=== PATIENT | female | born 1985 | race Caucasian/White ===

== ENCOUNTER 2022-01-12 14:02 | Outpatient (CLI) | payer BC, SELFPAY ==
--- OUTSIDE RECORDS SUMMARY | 2022-01-12 14:06 | XMS_ITS | Encounter Summary ---
:1985 Author Organization [facility] Address [address] [place] [address] Care Team Providers Name Role Phone Kyle Keller MD Primary Care Provider Reason for Visit Reason Comments Arm Pain Left elbow pain Encounter Details Date Type Department Care Team Description 11/17/2020 Office Visit Kyle Tai Left elbow pain [address] MD Bigg (Primary Dx) [place], [place] [address] 3450 [facility] [address] [place] [address] Social History Tobacco Use Types Packs/Day Years Used Date Smoking Tobacco: Never Smokeless Tobacco: Never Alcohol Use Standard Drinks/Week Comments Yes 0 (1 standard drink = 0.6 oz pure alcoho l) Sex Assigned at Date Recorded Female 08/18/2018 8:27 AM CDT documented as of this encounter Last Filed Vital Signs Vital Sign Reading Time Taken Comments Blood Pressure 122/80 11/17/2020 3:27 PM CDT Pulse 88 11/17/2020 3:27 PM CDT Temperature 36.8 ??C (98.2 ??F) 11/17/2020 3:27 PM CDT Respiratory Rate 16 11/17/2020 3:27 PM CDT Oxygen Saturation 98% 11/17/2020 3:27 PM CDT Inhaled Oxygen Concentration - - Weight 121 kg (266 lb 14.4 oz) 11/17/2020 3:27 PM CDT Height - - Body Mass Index 42.39 08/22/2020 4:27 PM CDT documented in this encounter Progress Notes Kyle Keller MD - 11/17/2020 3:20 PM CDT Estab Patient Visit Subjective Patient ID: Flores Serrano is a 34 y.o. female. HPI the patient is here today because of left elbow pain. The patient was doing well without pain in her left elbow until she had her first COVID-19 vaccine from [employer]. Within 2 days she started to have mild aching sensation in her left elbow. She otherwise had no symptoms no complications no fevers no chills no significant fatigue no swelling in the arm noredness. She has not had any particular recent injury no falls no repetitive use nothing that would have happened to her. It was quite coincidental that it occurred within 2 days of having had her COVID-19 vaccine. She has had no surgery on this elbow before no particular injuries and again no pain or problems before this happened. It is a little bit of an aching feeling that increases if she fully bends her elbow and leaves it inthat position for short period of time. She sleeps okay does not wake her up it does not really affect activities when she is driving and even at work it does not bother her all that much is just time of there as a little aching is nonspecific. She has not even really tried to take much for it may be an occasional Tylenol. She says is usually about 2 or 3 out of 10 occasionally may go up to 4 but then it is pretty mild tominimal after that. She was also wondering whether she should get her second Covid vaccine. Review of Systems Objective Physical Exam she is alert she appears comfortable her vital signs show blood pressure 122/80 pulse 88 regular rate and rhythm temp is 98.2 her current weight is 267 pounds her BMI is 42.4 O2 sats 98% room air at rest She can turn her head left right up and down Problems she can roll her shoulders through full range of motion without a particular problems or discomfort She has full active and passive range of motion of her elbow wrist and hand and nothing we do causesany increase in pain except for when she fully flexes her forearm up to her upper arm. There is a negative Tinel's sign there is just a slightly positive Phalen sign but she says she has had a very mild carpal tunnel in that wrist before. She has had right carpal tunnel surgery She has no tenderness to palpation around the elbow there is no redness no swelling and again no tenderness to palpation of either medial or lateral epicondylar areas or the olecranon point. We discussed the utility of an x-ray for just reassurance but the potential is fairly minimal that there is any cyst or anything else that would be a problem. She also be noted she has never had a diagnosis of any type of cancer. Assessment/Plan Diagnoses and all orders for this visit: Left elbow pain The overall assessment is left elbow pain that probably is secondary to her COVID-19 vaccination at least coincident within a 2-day period of time of receiving her COVID-19 vaccine. The plan at this time is just symptomatic treatment no changes of activity she can receive her next COVID-19 vaccine but suggest maybe get that in her right arm and she can call us at any time if she would like to have an x-ray for reassurance we could do that. documented in this encounter Plan of Treatment Not on filedocumented as of this encounter Visit Diagnoses Diagnosis Left elbow pain - Primary Pain in joint, upper arm documented in this encounter Care Teams Aircraft Inspection Record Clerk Relationship Specialty Start Date End Date Kyle Keller MD PCP - General 10/20/20 06/21/[address] [place] [address] documented as of this encounter
--- OUTSIDE RECORDS SUMMARY | 2022-01-12 14:06 | XMS_ITS | Encounter Summary ---
:1985 Author Organization [facility] Address [address] [place] [address] Care Team Providers Name Role Phone None, Pcp Primary Care Provider Unavailable Encounter Details Date Type Department Care Team Description 08/22/2020 Travel Social History Tobacco Use Types Packs/Day Years Used Date Smoking Tobacco: Never Smokeless Tobacco: Never Alcohol Use Standard Drinks/Week Comments Yes 0 (1 standard drink = 0.6 oz pure alcoho l) Sex Assigned at Date Recorded Female 08/18/2018 8:27 AM CDT COVID-19 Exposure Response Date Recorded In the last month, have you been in contact with No / Unsure 08/22/2020 4:23 PM CDT someone who was confirmed or suspected to have Coronavirus / COVID-19? documented as of this encounter Plan of Treatment Not on filedocumented as of this encounter Visit Diagnoses Not on filedocumented in this encounter Care Teams Automat Car Attendant Relationship Specialty Start Date End Date None, Pcp PCP - General Tar Leveler 08/06/19 10/19/20 [address] [place] [address] documented as of this encounter
--- OUTSIDE RECORDS SUMMARY | 2022-01-12 14:06 | XMS_ITS | Encounter Summary ---
:1985 Author Organization [facility] Address [address] [place] [address] Care Team Providers Name Role Phone None, Pcp Primary Care Provider Unavailable Encounter Details Date Type Department Care Team Description 08/22/2020 Hospital Encounter [facility] Hospital Ultraso und [address] [place] [address] Social History Tobacco Use Types Packs/Day Years [...] / COVID-19? documented as of this encounter Medications at Time of Discharge Medication Sig Dispensed Refills Start Date End Date atorvastatin (LIPITOR) Take one at night 90 tablet 3 2019 20 MG tabletIndications: for cholesterol Mixed hyperlipidemia CINNAMON PO Take 1,000 mg by 0 mouth 1 (one) time each day citalopram (CeleXA) 20 TAKE ONE AND 135 tablet 1 05/29/2020 MG tabletIndications: ONE-HALF TABLETS BY Depression, unspecified MOUTH EVERY DAY FOR depression type, Anxiety ANXIETY/DEPRESSION CONTOUR NEXT TEST test 0 04/03/2019 strip Lancets miscIndications: Use as directed to 100 each 3 03/2019 Type 2 diabetes mellitus check blood sugars without complication, daily. without long-term current use of insulin (HCC) Progesterone Take 200 mg by mouth 90 capsule 1 08/15/2020 (Prometrium) 200 MG every night capsuleIndications: Low serum progesterone metFORMIN (GLUCOPHAGE) Take ONE pill TWICE 180 tablet 1 04/2311/06/2020 1000 MG a day for diabetes tabletIndications: Type 2 diabetes mellitus without complication, without long-term current use of insulin (HCC) documented as of this encounter Plan of Treatment Not on filedocumented as of this encounter Procedures Procedure Name Priority Date/Time Associated Comments Diagnosis US OB LESS THAN 14 STAT 08/22/2020 4:07 PM First trimester Results for this WEEKS INCLUDING CDT bleeding procedure ar e in TRANSVAGINAL the results section. documented in this encounter Results Ultrasound OB less than 14 weeks including transvaginal (08/22/2020 4:07 PM CDT) Anatomical Region Laterality Modality Body Ultrasound Specimen (Source) Anatomical Collection Method Collection Time Re ceived Time Location / / Volume Laterality 08/22/2020 4:07 PM CDT Impressions 08/22/2020 4:10 PM CDT IMPRESSION: There is no intrauterine fluid collectio n. No adnexal mass or free pelvic fluid. ??However, the left ovary is not identified. With a positive hCG, findings are compat ible with of unknown location. The differential diagnosis inc ludes very early non-visualized intrauterine gestation, non-visualized o ccult ectopic , or recent spontaneous . Consider follow-up ultrasound and hCG. Narrative 08/22/2020 4:10 PM CDT INDICATION: first trimester bleeding positive pregna ncy test. ??Vaginal bleeding. COMPARISON: None FINDINGS: There is no intrauterine fluid collectio n. Endometrial stripe thickness is 18 mm. The right ovary shows no abnormality and measures 3.0 x 2.4 x 3.0 cm. The left ovary shows is not identified. Uterus size: 7.7 cm x 4.4 cm x 5.1 cm Procedure Note Alicia Blake MD - 08/22/2020Formkeely g of this note might be different from the original. INDICATION: first trimester bleeding positive pregna ncy test. Vaginal bleeding. COMPARISON: None FINDINGS: There is no intrauterine fluid collectio n. Endometrial stripe thickness is 18 mm. The right ovary shows no abnormality and measures 3.0 x 2.4 x 3.0 cm. The left ovary shows is not identified. Uterus size: 7.7 cm x 4.4 cm x 5.1 cm IMPRESSION: There is no intrauterine fluid collectio n. No adnexal mass or free pelvic fluid. However, the left ovary is not id entified. With a positive hCG, findings are compat ible with of unknown location. The differential diagnosis inc ludes very early non-visualized intrauterine gestation, non-visualized o ccult ectopic , or recent spontaneous . Consider follow-up ultrasound and hCG. Negra Rowland MD IMG OB US PROCEDURES documented in this encounter Visit Diagnoses Not on filedocumented in this encounter Care Teams Tow Truck Driver Relationship Specialty Start Date End Date None, Pcp PCP - General Dog Or Animal Sitter 08/06/19 10/19/[address] [place] [phone] documented as of this encounter
--- OUTSIDE RECORDS SUMMARY | 2022-01-12 14:06 | XMS_ITS | Encounter Summary ---
:1985 Author Organization [facility] Address [address] [place] [address] Care Team Providers Name Role Phone None, Pcp Primary Care Provider Unavailable Reason for Visit Reason Comments US follow up Encounter Details Date Type Department Care Team Description 08/22/2020 Office Visit [facility] Women's Health Lizeth Hanson Preg nancy of unknown anatomic location (Primary Dx); [facility] Recurrent loss in pat ient in first trimester, antepartum Collection Card Clerk [address] [address] [place], [place] [phone] Social History Tobacco Use Types Packs/Day Years [...] / COVID-19? documented as of this encounter Last Filed Vital Signs Vital Sign Reading Time Taken Comments Blood Pressure 124/76 08/22/2020 4:27 PM CDT Pulse 76 08/22/2020 4:27 PM CDT Temperature 37.2 ??C (98.9 ??F) 08/22/2020 4:27 PM CDT Respiratory Rate 18 08/22/2020 4:27 PM CDT Oxygen Saturation - - Inhaled Oxygen Concentration - - Weight 117 kg (258 lb 6.1 oz) 08/22/2020 4:27 PM CDT Height 169 cm (5' 6.54) 08/22/2020 4:27 PM CDT Body Mass Index 41.04 08/22/2020 4:27 PM CDT documented in this encounter Patient Instructions Patient InstructionsLizeth Hanson MD - 08/22/2020 4:45 PM CDT If you have questions or concerns please contact the OBGYN office at [phone]. Present to ER if you develop severe abdominal pain or heavy bleeding soaking a full pad in less than1 hour. documented in this encounter Progress Notes Lizeth Hanson MD - 08/22/2020 4:45 PM CDT Estab Patient Visit Subjective Flores Serrano is a 34 y.o. who presents for first trimester bleeding. Reports vaginal bleeding, bright red 4 days ago. Bleeding stopped about 45 minutes later. Has had spotting after ultrasound today, no other bleeding. Denies lower abdominal pain, dizziness, N/V, F/C. No other complaints. First positive test 08/11/20. LMP 07/14/20. Planned . Patient and her have been trying to achieve a in the past 9 years. No fertility treatments. No work up for miscarriages yet. Menstrual History: OB History 4 Para Term AB 3 Living SAB 3 TAB Ectopic Multiple Live Births Menarche age: 12yo Cycles regular every 28 days lasting 5 days. Denies pain or heavy flow with her cycles. Denies h/o abnl pap or STI's. Patient's last menstrual period was 07/14/2020 (exact date). Patient Active Problem List Diagnosis Date Noted ??? 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, antepartum 08/22/2020 ??? Type 2 diabetes mellitus without complication, without long-term current use of insulin ([facility]) 09/08/2019 ??? Class 3 severe obesity due to excess calories without serious comorbidity in adult (HCC) 09/08/2019 ??? Mixed hyperlipidemia 09/08/2019 ??? Female infertility 10/02/2014 ??? Mild episode of recurrent major depressive disorder (HCC) 05/08/2014 Mild recurrent major depression ??? Exercise-induced asthma 04/23/2014 The following portions of the patient's chart were reviewed in this encounter and updated as appropriate: Tobacco Allergies Meds Problems Med Hx Surg Hx OB Status Fam Hx Review of Systems Constitutional: negative for chills, fevers Respiratory: negative for cough Cardiovascular: negative for chest pain Gastrointestinal: negative for abdominal pain, change in bowel habits, constipation, diarrhea, melena, nausea and vomiting Genitourinary: negative for dysuria, hematuria, see HPI Hematologic/lymphatic: see HPI Neurological: negative for dizziness Behavioral/Psych: mood appropriate Objective Visit Vitals BP 124/76 (BP Location: Right arm, Patient Position: Sitting, BP Cuff Size: Adult long) Pulse 76 Temp 37.2 ??C (98.9 ??F) (Temporal) Resp 18 Ht 1.69 m (5' 6.54) Wt 117 kg (258 lb 6.1 oz) LMP 07/14/2020 (Exact Date) BMI 41.04 kg/m?? Smoking Status Never Smoker BSA 2.34 m?? General Appearance: Alert, cooperative, no distress. Head: Normocephalic, without obvious abnormality, atraumatic Lungs: Respirations unlabored Heart: Regular rate Abdomen: Soft, non-tender, no masses, no organomegaly Pelvic: External genitalia normal in appearance. Normal vaginal mucosa without lesions. Small amountof blood in vault. No active bleeding. Normal appearing cervix with closed cervical os. Bimanual exam with small anteverted uterus, nontender and mobile. No cervical motion tenderness. No adnexal masses or tenderness appreciated. Exam limited by body habitus. Extremities: Extremities normal, atraumatic, no cyanosis or edema Skin: Skin color, texture, turgor normal, no rashes or lesions Neurologic: Normal. Alert and oriented x3. 08/22/20 IMPRESSION: There is no intrauterine fluid collection. No adnexal mass or free pelvic fluid. However, the left ovary is not identified. Recent Results (from the past 168 hour(s)) HCG, quantitative, Collection Time: 08/21/20 3:13 PM Result Value Ref Range Total Beta hCG 3,244 mIU/mL Progesterone Collection Time: 08/21/20 3:13 PM Result Value Ref Range Progesterone 8.6 ng/mL hCG, quantitative Collection Time: 08/22/20 4:05 PM Result Value Ref Range Total Beta hCG 2,985 mIU/mL Type and Screen (Gel) Collection Time: 08/22/20 4:05 PM Result Value Ref Range ABO/Rh B POS Antibody Screen NEG Assessment/Plan 1. of unknown anatomic location Beta hcg falling. US as above with EMS 18mm. No adnexal masses or pelvic fluid. Discussed likely abnormal given falling beta hcg. Discussed most likely this represents a spontaneous miscarriage, however, ectopic cannot be ruled out. Recommend trending beta hcg's until negative. RH positive. Abdominal and pelvic exams are benign. Patient is leaving for [place] and will return Tuesday. Will check another beta hcg Tuesday. Ectopic precautions and bleeding precautions reviewed. - hCG, quantitative; Future 2. 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, antepartum Discussed MFM referral for further work up as has not had a work up yet to date and this will be thepatient's fourth miscarriage. Patient in agreement of plan. All questions answered. documented in this encounter Plan of Treatment Not on filedocumented as of this encounter Visit Diagnoses Diagnosis of unknown anatomic location - Primary Recurrent loss in pat ient in first trimester, antepartum documented in this encounter Care Teams Inspector Line Relationship Specialty Start Date End Date None, Pcp PCP - General Furniture Shampooer 08/06/19 10/19/[address] [place] [phone] documented as of this encounter
--- OUTSIDE RECORDS SUMMARY | 2022-01-12 14:06 | XMS_ITS | Encounter Summary ---
:1985 Author Organization [facility] Address [address] [place] [address] Care Team Providers Name Role Phone Kyle Keller MD Primary Care Provider Reason for Visit Reason Comments Med Refill Encounter Details Date Type Department Care Team Description 11/06/2020 Refill [place] Kyle Keller, Type 2 diabetes mellitus [address] [facility] [address] [place] without complication, [place], [place] [address] 2899 [facility] [address] [place] without long-term current [phone] [place], [place] use of insu dm ([facility]) [phone] Social History Tobacco Use Types Packs/Day Years Used Date Smoking Tobacco: Never Smokeless Tobacco: Never Alcohol Use Standard Drinks/Week Comments Yes 0 (1 standard drink = 0.6 oz pure alcoho l) Sex Assigned at Date Recorded Female 08/18/2018 8:27 AM CDT documented as of this encounter Miscellaneous Notes Telephone Encounter - Valentine Castro LPN - 11/06/2020 5:52 AM CDT Last visit in provider department: 08/13/2020 Upcoming appointment with provider: Visit date not found Last Rx: metFORMIN (GLUCOPHAGE) 1000 MG tablet #180 with 1 refill 05/20/2020 Requested Prescriptions Pending Prescriptions Disp Refills ??? metFORMIN (GLUCOPHAGE) 1000 MG tablet [Pharmacy Med Name: METFORMIN HCL 1000MG TABS] 180 tablet 1 Sig: TAKE ONE TABLET BY MOUTH TWICE A DAY FOR DIABETES Labs: Component Latest Ref Rng & Units 07/07/2020 Hemoglobin A1C 4.0 - 5.6 % A1C 6.4 (H) Vitals: BP Readings from Last 2 Encounters: 08/22/20 124/76 08/13/20 128/80 Please review and advise. documented in this encounter Plan of Treatment Not on filedocumented as of this encounter Visit Diagnoses Diagnosis Type 2 diabetes mellitus without complic ation, without long-term current use of insulin (HCC) documented in this encounter Care Teams [facility] Owner Relationship Specialty Start Date End Date Kyle Keller MD PCP - General 10/20/20 06/21/[address] [place] [address] documented as of this encounter
--- OUTSIDE RECORDS SUMMARY | 2022-01-12 14:06 | XMS_ITS | Encounter Summary ---
:1985 Author Organization [facility] Address [address] [place] [address] Care Team Providers Name Role Phone Kyle Keller MD Primary Care Provider Reason for Visit Reason Onset Date Comments Appointment set for today 10/31/2020 Encounter Details Date Type Department Care Team Description 10/31/2020 Telephone Kyle Tai Appointment set for [address] [address] MD Bigg today [place], [place] [address] [phone] [place] [address] Social History Tobacco Use Types Packs/Day Years Used Date Smoking Tobacco: Never Smokeless Tobacco: Never Alcohol Use Standard Drinks/Week Comments Yes 0 (1 standard drink = 0.6 oz pure alcoho l) Sex Assigned at Date Recorded Female 08/18/2018 8:27 AM CDT documented as of this encounter Miscellaneous Notes Telephone Encounter - Wendy Heller LPN - 10/31/2020 1:16 PM CDT Patient informed Telephone Encounter - Kyle Keller MD - 10/31/2020 1:08 PM CDT Muscle relaxer was sent to [facility] for the patient. Telephone Encounter - Wendy Heller LPN - 10/31/2020 12:28 PM CDT The nurse noticed Dolores appointment on the schedule today with Dr. Pride. She was hoping to get her Covid vaccine here in clinic today and an xray. The nurse thought that was her expectations from the information on the appointment line. The nurse informed her that we currently had neather in our clinic at this time. She appreciated the call and at this time is going to schedule her covid vaccine at [facility] for today. While she is down there she would like if you could send a muscle relaxer for her back. The reason for the appointment was a back injury Dolores experienced on 10/19 in which she was jumping on a trampoline with her friends kids. She believes it could be a pulled muscle but sadly is getting worse and not better. She has been trying heat, ice and a topical (icy hot). Nothing seems to take the pain away so she can get a good nights rest. Please send to [facility] a muscle relaxer for her to try. documented in this encounter Plan of Treatment Not on filedocumented as of this encounter Visit Diagnoses Diagnosis Back muscle spasm - Primary Other symptoms referable to back documented in this encounter Care Teams Tile Molder Hand Relationship Specialty Start Date End Date Kyle Keller MD PCP - General 10/20/20 06/21/[address] [place] [address] documented as of this encounter
--- OUTSIDE RECORDS SUMMARY | 2022-01-12 14:06 | XMS_ITS | Encounter Summary ---
:1985 Author Organization [facility] Address [address] [place] [address] Care Team Providers Name Role Phone None, Pcp Primary Care Provider Unavailable Encounter Details Date Type Department Care Team Description 08/22/2020 Lab [facility] OP Lab First trimester bleeding [address] [place] [address] [id number] Social History Tobacco Use Types Packs/Day Years [...] encounter Procedures Procedure Name Priority Date/Time Associated Diagnosis Comme nts TYPE AND SCREEN Routine 08/22/2020 4:05 PM First trimester Res ults for this (GEL) CDT bleeding procedure are i n the results section. HCG, QUANTITATIVE, Routine 08/22/2020 4:05 PM First trimester Results for this CDT bleeding procedure are i n the results section. documented in this encounter Results Type and Screen (Gel) (08/22/2020 4:05 PM CDT) athologist Signature ABO/Rh B POS 08/22/2020 [facility] 5:09 PM CDT CENTER LAB[facility]ORY Antibody NEG 08/22/2020 [facility] Screen 5:09 PM CDT CENTER LAB[facility]ORY Specimen Anatomical Collection Method Collection Time Receive d Time (Source) Location / / Volume Laterality Blood (Blood, 08/22/2020 4:05 PM 08/23/19 4:10 Venous) CDT PM CDT Negra Rowland MD LAB BLOOD BANK TEST ORDERABL ES Performing Organization Address [facility]/ZIP Code Phon e Number LABORATORY [address] [place] [address] hCG, quantitative (08/22/2020 4:05 PM CDT) athologist Signature Total Beta hCG 2,985 mIU/mL 08/22/2020 [facility] 4:52 PM CDT CENTER LABOR[facility]ORY Comment: Female Reference Range: ??Negative: ?<5 ??Indeterminate: ?5-24 ?Suggest retest i f clinically indicated ??Positive ? >=25 The results from this or any other diagn ostic test should be used and interpreted only in the context of the overall clinical picture. Biotin levels in serum remain elevated f or up to 24 hours after oral or intravenous biotin adminis tration and may interfere with this assay to produce unr eliable results. Heterophilic antibodies in serum or plas ma samples may cause interference in immunoassays. ??Exposure to animal antigens, either in the environment or as part of treatment or imaging procedures, may have circulating anti-an imal antibodies present. These antibodies may interfere with the assay reagents to produce unreliable results. ??Results which are inconsistent with clinical observations indicate the need for additional testing. Specimen Anatomical Collection Method Collection Time Receive d Time (Source) Location / / Volume Laterality Blood (Blood, 08/22/2020 4:05 PM 08/23/19 21 4:10 Venous) CDT PM CDT Negra Rowland MD LAB BLOOD ORDERABLES Performing Organization Address City/[facility] Code Phon e Number LABORATORY [address] [place] [address] documented in this encounter Visit Diagnoses Diagnosis First trimester bleeding Unspecified hemorrhage in early pregnanc y, antepartum documented in this encounter Care Teams Lamp Assembler Relationship Specialty Start Date End Date None, Pcp PCP - General Anode Worker 08/06/19 10/19/20 [address] [place] [address] documented as of this encounter
--- OUTSIDE RECORDS SUMMARY | 2022-01-12 14:06 | XMS_ITS | Encounter Summary ---
:[address] [facility] Address [address] [place] [address] Care Team Providers Name Role Phone None, Pcp Primary Care Provider Unavailable Reason for Visit Reason Onset Date Comments decrease HCG result -bleeding 08/22/2020 Encounter Details Date Type Department Care Team Description 08/22/2020 Telephone [facility] Negra Rowland decr ease HCG result [facility] MD -bleeding [employer] [address] [place] [address] [place], [place] [phone] Social History Tobacco Use Types Packs/Day Years [...] / COVID-19? documented as of this encounter Miscellaneous Notes Telephone Encounter - Eliza Ramirez RN - 08/29/2020 8:05 AM CDT MyChart message not read. Called patient who states she had an ectopic and was seen in [facility] ED. Patient states she had surgery. Unable to access [place] records at this time. Patient denies any further concerns at this time. She was encouraged to contact us if she needs any further assistance from us. No further concerns. Telephone Encounter - Eliza Ramirez RN - 08/28/2020 7:47 AM CDT LMTRC Telephone Encounter - Wendy De La Fuente RN - 08/27/2020 8:39 AM CDT BHCG not resulted or in process. LMTR, the grafter message sent. Telephone Encounter - Eliza Ramirez RN - 08/26/2020 10:43 AM CDT BHCG 08/22/2020 was 2,985. Patient seen in clinic after US. 1. of unknown anatomic location Beta hcg falling. US as above with EMS 18mm. No adnexal masses or pelvic fluid. Discussed likely abnormal given falling beta hcg. Discussed most likely this represents a spontaneous miscarriage, however, ectopic cannot be ruled out. Recommend trending beta hcg's until negative. RH positive. Abdominal and pelvic exams are benign. Patient is leaving for [place] and will return Tuesday night. Will check another beta hcg Tuesday. Ectopic precautions and bleeding precautions reviewed. ?? - hCG, quantitative; Future No BHCG available or in process at this time. Telephone Encounter - Eliza Ramirez RN - 08/22/2020 3:04 PM CDT Received message via patient's results notes asking to review decline in BHCG. 08/13/2020 - 4,031 08/15/2020 - 4,623 08/21/2020 - 3,244 Called patient, states on Tuesday she had some bleeding enough to see it on the toilet paper blood type not on file, states she is B positive has never needed Rhogam. Patient denies pain or cramping. Patient states this would be the 4th baby I've lost if I do end up miscarrying. LMP 07/14/2020 - patient is 5w4d per LMP with [facility] of 04/20/2021. Reviewed with body shop floorperson provider Dr. Rowland, patient to have US, type and screen, BHCG. Will see provider following US. Reviewed bleeding precautions, reviewedectopic precautions. Patient is on her way for US now. No further concerns. documented in this encounter Plan of Treatment [...] cm Procedure Note Alicia Blake MD - 08/22/2020Formattin g of this note might be different [...] Negra Rowland MD IMG OB US PROCEDURES hCG, quantitative (08/22/2020 4:05 PM CDT) athologist Signature Total Beta hCG 2,985 mIU/mL 08/22/2020 [facility] 4:52 PM CDT CENTER LABORATORY Comment: Female [...] MD LAB BLOOD ORDERABLES Performing Organization Address City/State/ZIP Code Phon e Number [facility] LABORATORY [address] [place] [address] Type and Screen (Gel) (08/22/2020 4:05 PM CDT) athologist Signature ABO/Rh B POS 08/22/2020 [facility] 5:09 PM CDT CENTER LABORATORY Antibody NEG 08/22/2020 [facility] Screen 5:09 PM CDT CENTER LABORATORY Specimen Anatomical Collection Method Collection Time Receive d Time (Source) Location / / Volume Laterality Blood (Blood, 08/22/2020 4:05 PM 08/23/19 4:10 Venous) CDT PM CDT Negra Rowland MD LAB BLOOD BANK TEST ORDERABL ES Performing Organization Address City/[facility]/ZIP Code Phon e Number [facility] [address] [place] [address] documented in this encounter Visit Diagnoses Diagnosis First trimester bleeding - Primary Unspecified hemorrhage in early pregnanc y, antepartum documented in this encounter Care Teams Economic Specialist Relationship Specialty Start Date End Date None, Pcp PCP - General Party Plan Sales Unit Sales Leader 08/06/19 10/19/20 [address] [place] [address] documented as of this encounter
--- OUTSIDE RECORDS SUMMARY | 2022-01-12 14:06 | XMS_ITS | Clinical Summary ---
:1985 Author Organization [facility] Address [address] [place] [address] Care Team Providers Name Role Phone Radha Silva APRN, TIP PRINTER Primary Care Provider [phone] Allergies Active Allergy Reactions Severity Noted Date Comments Amoxicillin 06/13/2018 Amoxicillin-Pot Hives, Rash High 06/13/2018 Clavulanate Benzoin Hives, Rash High 06/13/2018 Oxycodone-Acetaminophen Other (see comments) High 9 Makes her violent Medications Medication Sig Dispensed Refills Start Date End Date Status Lancets Use as directed to 100 each 3 02/22/2019 Active miscIndications: Type check blood sugars 2 diabetes mellitus daily. without complication, without long-term current use of insulin (HCC) Additional Information Patient not taking. Reported on 08/13/2020 CONTOUR NEXT TEST test strip 0 04/03/2019 Active albuterol HFA (ProAir HFA) Inhale 2 puffs every 4 8.5 g 5 06/04/2019 Active 108 (90 Base) MCG/ACT (four) hours if needed for inhalerIndications: wheezing or shortness of Exercise-induced asthma breath Additional Information Patient taking differently: 2 puff Inhalation Every 4 hours PRN, wheezing, shortness of breath, ASTHMA, Indications: Asthma, Reported on 08/06/2019 CINNAMON PO Take 1,000 mg by mouth 1 0 Active (one) time each day atorvastatin (LIPITOR) 20 MG Take one at night for 90 tablet 3 09/08/2019 Active tabletIndications: Mixed cholesterol hyperlipidemia Additional Information Patient not taking. Reported on 08/13/2020 citalopram (CeleXA) 20 MG TAKE ONE AND ONE-HALF 135 tablet 1 0 05/29/2020 Active tabletIndications: TABLETS BY MOUTH EVERY DAY Depression, unspecified FOR ANXIETY/DEPRESSION depression type, Anxiety cyclobenzaprine (FLEXERIL) Take 1 tablet (10 mg 30 tablet 2 Active 10 MG tabletIndications: total) by mouth 3 (three) Back muscle spasm times a day if needed for muscle spasms metFORMIN (GLUCOPHAGE) TAKE ONE TABLET BY MOUTH 180 tablet 1 0 11/06/2020 Active 1000 MG tabletIndications: TWICE A DAY FOR DIABETES Type 2 diabetes mellitus without complication, without long-term current use of insulin (HCC) Additional Information Patient not taking. Reported on 11/17/2020 Active Problems Problem Noted Date 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, 08/22/2020 antepartum Type 2 diabetes mellitus without complication, without long-term current 09/08/2019 use of insulin Class 3 severe obesity due to excess calories without serious comorbidity 09/08/2019 in adult Mixed hyperlipidemia 09/08/2019 Female infertility 10/02/2014 Mild episode of recurrent major depressive disorder Overview: Mild recurrent major depression Exercise-induced asthma 04/23/2014 Immunizations Name Administration Dates Next Due DTaP 07/12/1990, 10/04/1986, 07/02/1985, 04/27/1985, 02/16/1985 HPV, Quadrivalent 11/17/2007, 12/30/2006, 10/26/2006 Hep B, Unspecified 01/29/2002 Hib (PRP-OMP) 11/29/1986 Influenza 6mo-49yrs Quad Preservative 12/04/2019 Free IM Influenza, Unspecified 12/12/2018 MMR 07/05/1986 OPV 07/12/1990, 10/04/1986, 07/02/1985, 04/27/1985, 01/22/1985 Td 08/04/2006 Tdap 09/28/2016 Family History Medical History Relation Comments Asthma Brother 1 Heart attack Brother 2 Heart disease Brother 2 Arthritis Father Heart attack Father Alcohol abuse Maternal Grandfather Arthritis Maternal Grandfather Arthritis Maternal Grandmother Breast cancer Maternal Grandmother Alcohol abuse Mother Arthritis Mother Asthma Mother Clotting disorder Mother DVT Depression Mother Hyperlipidemia Mother Hypertension Mother Arthritis Paternal Grandfather Arthritis Paternal Grandmother Stroke Sister Relation Status Comments Brother 1 Alive Brother 2 Father Maternal Grandfather Maternal Grandmother Mother Alive Paternal Grandfather Paternal Grandmother Sister Social History Tobacco Use Types Packs/Day Years Used Date Smoking Tobacco: Never Smokeless Tobacco: Never Alcohol Use Standard Drinks/Week Comments Yes 0 (1 standard drink = 0.6 oz pure alcoho l) Sex Assigned at Date Recorded Female 08/18/2018 8:27 AM CDT Last Filed Vital Signs Vital Sign Reading Time Taken Comments Blood Pressure 122/80 11/17/2020 3:27 PM CDT Pulse 88 11/17/2020 3:27 PM CDT Temperature 36.8 ??C (98.2 ??F) 11/17/2020 3:27 PM CDT Respiratory Rate 16 11/17/2020 3:27 PM CDT Oxygen Saturation 98% 11/17/2020 3:27 PM CDT Inhaled Oxygen Concentration - - Weight 121 kg (266 lb 14.4 oz) 11/17/2020 3:27 PM CDT Height 169 cm (5' 6.54) 08/22/2020 4:27 PM CDT Body Mass Index 42.39 08/22/2020 4:27 PM CDT Plan of Treatment Health Maintenance Due Date Last Done Comments Asthma Action Plan 1989 Pneumococcal Vaccine: Pediatrics 1990 (0 to 5 Years) and At-Risk Patients (6 to 64 Years) (1 - PCV) Diabetic Foot Exam 02/23/2020 02/22/2019 Urine Protein Screening 02/23/2020 02/22/2019 COVID-19 Vaccine (3 - Booster for 01/16/2021 11/21/2020, Pfizer series) Hemoglobin A1C 02/12/2021 08/13/2020, 07/07/2020, 09/07/2019, Additional history exists Ophthalmology Exam 03/03/2021 03/03/2019 Asthma Control Test 04/02/2021 04/02/2020 Pap Smear 06/13/2021 06/13/2018 Lipid Panel 07/07/2021 07/07/2020, 09/07/2019, 02/19/2019, Additional history exists DTaP,Tdap,and Td Vaccines (7 - Td 09/28/2026 09/28/2016, , or Tdap) 08/04/2006, Additional history exists HPV Vaccines Completed 11/17/2007, 11/17/2007, 12/30/2006, Additional history exists Insurance Payer Benefit Plan / Subscriber ID Effective Dates Phone Addre ss Type Group BCBS OF BCBS OF [id number] 2018[place] [address] [place] [address] (Home) [place] [address] Care Teams Almond Blancher Relationship Specialty Start Date End Date Radha Silva, KNOT BUMPER, TIP PRINTER PCP - General Family Medicine 06/22/[address] [place] [address] [place] [address]
--- OUTSIDE RECORDS SUMMARY | 2022-01-12 14:07 | XMS_ITS | Encounter Summary ---
:1985 Author Organization [facility] Address [address] [place] [address] Care Team Providers Name Role Phone None, Pcp Primary Care Provider Unavailable Encounter Details Date Type Department Care Team Description 08/21/2020 [facility] Less than 8 weeks gestation of [address] [place], [place] [address] Social History Tobacco Use Types Packs/Day Years [...] Procedure Name Priority Date/Time Associated Comments Diagnosis PROGESTERONE Routine 08/21/2020 3:13 PM Less than 8 weeks Resu lts for this CDT gestation of procedure are i n the results section. HCG, QUANTITATIVE, Routine 08/21/2020 3:13 PM Less than 8 week s Results for this CDT gestation of procedure are i n the results section. documented in this encounter Results Progesterone (08/21/2020 3:13 PM CDT) P athologist Signature Progesterone 8.6 ng/mL 08/22/2020 [facility] 2:40 PM CDT CENTER LABORATORY Comment: Females: ? Follicular ?0.1-2.0 ? Luteal ?1.4-16 .6 ? Postmenopausal ?0.2-1.0 Males: ? 0.2 -1.5 The results from this or any other [...] Location / / Volume Laterality Blood (Blood, 08/21/2020 3:13 PM 08/23/19 21 Venous) CDT 12:36 PM CDT D. Bigg Keller MD LAB BLOOD ORDERABLES Performing Organization Address City/State/ZIP Code Phon e Number [facility] [address] [place] [address] HCG, quantitative, (08/21/2020 3:13 PM CDT) athologist Signature Total Beta hCG 3,244 mIU/mL 08/22/2020 [facility] 2:02 PM CDT CENTER LABORATORY Comment: Female Reference [...] Location / / Volume Laterality Blood (Blood, 08/21/2020 3:13 PM 08/23/19 Venous) CDT 12:36 PM CDT Kyle Keller MD LAB BLOOD ORDERABLES Performing Organization Address City/State/ZIP Code Phon e Number [facility] [address] [place] [phone] documented in this encounter Visit Diagnoses Diagnosis Less than 8 weeks gestation of documented in this encounter Care Teams Manager Intranet Relationship Specialty Start Date End Date None, Pcp PCP - General Watcher [place] [employer] 08/06/19 10/19/20 [address] [place] [address] documented as of this encounter
--- OUTSIDE RECORDS SUMMARY | 2022-01-12 14:07 | XMS_ITS | Encounter Summary ---
:1985 Author Organization [facility] Address [address] [place] [address] Care Team Providers Name Role Phone None, Pcp Primary Care Provider Unavailable Encounter Details Date Type Department Care Team Description 09/18/2019 Orders Only [place] Kyle Keller MD [address] [facility] 20 17[address] [facility] 20 [place], [place] [address] [place], [place] [phone] (Wo rk) Social History Tobacco Use Types Packs/Day Years Used Date Smoking Tobacco: Never Smokeless Tobacco: Never Alcohol Use Standard Drinks/Week Comments Yes 0 (1 standard drink = 0.6 oz pure alcoho l) Sex Assigned at Date Recorded Female 08/18/2018 8:27 AM CDT COVID-19 Exposure Response Date Recorded In the last month, have you been in contact with No / Unsure 09/06/2019 7:59 AM CDT someone who was confirmed or suspected to have Coronavirus / COVID-19? documented as of this encounter Plan of Treatment Not on filedocumented as of this encounter Visit Diagnoses Not on filedocumented in this encounter Care Teams Sales Account Associate Relationship Specialty Start Date End Date None, Pcp PCP - General Waiter/Waitress Third Class 08/06/19 10/19/[address] [place] [phone] documented as of this encounter
--- OUTSIDE RECORDS SUMMARY | 2022-01-12 14:07 | XMS_ITS | Encounter Summary ---
:1985 Author Organization [facility] Address [address] [place] [address] Care Team Providers Name Role Phone Radha Silva APRN, MOSAIC TECHNICIAN Primary Care Provider [phone] Reason for Visit Reason Onset Date Comments Med Refill 05/20/2020 Encounter Details Date Type Department Care Team Description 05/20/2020 Refill [place] Kyle Keller, Type 2 diabetes mellitus [address] [place] without complication, [place], [place] [address]8 [facility] 20 [place] without long-term current [phone] [place], [place] use of insu dm ([facility]) [phone] Social History Tobacco Use Types Packs/Day Years Used Date Smoking Tobacco: Never Smokeless Tobacco: Never Alcohol Use Standard Drinks/Week Comments Yes 0 (1 standard drink = 0.6 oz pure alcoho l) Sex Assigned at Date Recorded Female 08/18/2018 8:27 AM CDT documented as of this encounter Miscellaneous Notes Telephone Encounter - Laura Medeiros RN - 05/20/2020 11:01 AM CDT Patient called and message left on secured phone line. Encouraged patient to call to schedule A1c labs soon and advised regular office visit with provider not due until August. Telephone Encounter - Taya Patricia MA - 05/20/2020 9:59 AM CDT Last visit in provider department: 04/02/2020 Last visit requested medication was discussed: 12/31/2019 Upcoming appointment with provider: none Last Rx: 05/11/2019 #180, 3 refills Requested Prescriptions Pending Prescriptions Disp Refills ??? metFORMIN (GLUCOPHAGE) 1000 MG tablet 180 tablet 3 Sig: Take 1 tablet (1,000 mg total) by mouth 2 (two) times a day with meals Labs: Component Latest Ref Rng & Units 09/07/2019 Hemoglobin A1C 4.0 - 5.6 % A1C 6.8 (H) Component Latest Ref Rng & Units 09/07/2019 Glucose 70 - 100 mg/dL 127 (H) Component Latest Ref Rng & Units 09/07/2019 Cholesterol 0 - 199 mg/dL 228 (A) Triglycerides 0 - 149 mg/dL 229 (A) HDL 40 - 60 mg/dL 33 (A) LDL Calculated 0 - 99 mg/dL 149 (A) Fasting? Yes 02/22/2019 [facility] Pending labs in chart Vitals: BP Readings from Last 2 Encounters: 04/02/20 120/82 12/31/19 116/80 documented in this encounter Plan of Treatment Not on filedocumented as of this encounter Visit Diagnoses Diagnosis Type 2 diabetes mellitus without complic ation, without long-term current use of insulin (HCC) documented in this encounter Care Teams Internal Salesperson Relationship Specialty Start Date End Date Radha Silva, GOLF BALL MOLDER, MOSAIC TECHNICIAN PCP - General Family Medicine 06/22/[address] [place] [address] [facility] [place] [address] documented as of this encounter
--- OUTSIDE RECORDS SUMMARY | 2022-01-12 14:07 | XMS_ITS | Encounter Summary ---
:1985 Author Organization [facility] Address [address] [place] [address] Care Team Providers Name Role Phone None, Pcp Primary Care Provider Unavailable Reason for Visit Reason Comments Lab HgbA1c Xrays Encounter Details Date Type Department Care Team Description 07/07/2020 Office Visit Tyler Santamaria Kyle Keller Gout screen (Primary Dx); [address] MD [place] Finger pain, right; Tyler Santamaria [place] [address] Screening for deficiency ane yasmine; [phone] [place] [address] Social History Tobacco Use Types Packs/Day Years Used Date Smoking Tobacco: Never Smokeless Tobacco: Never Alcohol Use Standard Drinks/Week Comments Yes 0 (1 standard drink = 0.6 oz pure alcoho l) Sex Assigned at Date Recorded Female 08/18/2018 8:27 AM CDT documented as of this encounter Last Filed Vital Signs Vital Sign Reading Time Taken Comments Blood Pressure 128/86 07/07/2020 3:44 PM CDT Pulse 96 07/07/2020 3:44 PM CDT Temperature 36.3 ??C (97.4 ??F) 07/07/2020 3:44 PM CDT Respiratory Rate 16 07/07/2020 3:44 PM CDT Oxygen Saturation 96% 07/07/2020 3:44 PM CDT Inhaled Oxygen Concentration - - Weight 119 kg (262 lb) 07/07/2020 3:44 PM CDT Height 170 cm (5' 6.93) 07/07/2020 3:44 PM CDT Body Mass Index 41.12 07/07/2020 3:44 PM CDT documented in this encounter Progress Notes Kyle Keller MD - 07/07/2020 3:40 PM CDT Estab Patient Visit Subjective Patient ID: Flores Serrano is a 34 y.o. female. HPI the patient is here today because of an injury to her right hand that occurred a couple days agoplus we got appropriate laboratory tests for her diabetes. RIGHT HAND INJURY the patient was out at a park this last weekend with some of her friends she was sliding down a slide unfortunately there is part of the slide that her right hand got caught on as shewas sliding past the causing her fourth and fifth digits to kind to be pulled forcefully outward. She did not have to pop him them back in the joint there were no open cuts or lacerations there is no contusion but it can continues to hurt and she wanted to checked out. In regard to her diabetes she was last in the office about a year ago for A1c that was 6.8. We did start her on Metformin worked up to 1000 mg twice per day but she has not been taking that for a couple of months or so I believe she had a little side effect with her loose stool diarrhea but she decided not to take it. She is however willing to get an A1c and we will then consider reinitiating may be a smaller amount of Metformin that about 500 twice per day and if need be a small amount of Glucotrol. We discussed both medications with the patient today. She was also having some nonspecific foot aches and pains but that is actually gotten better so is not a concern at this time. Review of Systems Objective Physical Exam she is alert she appears comfortable her vital signs show blood pressure 128/86 pulse is 96 temp is 97.4 current weight 262 pounds BMI is 41 the O2 sats 96% room air Her right hand and wrist area are not particularly swollen at this time she does have the ability tomove and turn and twist the wrist well and problem however when she tries to make a fist her fourth and fifth digits are just a little stiff and sore at this time not allowing her to make a complete fist. However to palpation is a little bit sore on the PIP joint area little finger less so on the MCP joint area. X-rays were acquired no fractures were noted no chip fractures noted. Assessment/Plan Diagnoses and all orders for this visit: Gout screen - Uric acid; Future Finger pain, right - X-ray Hand 3+ Views Right; Future Screening for deficiency anemia Screening cholesterol level - Lipid panel; Future The overall assessment is right fifth digit PIP joint pain along with MCP joint pain secondary to aninjury. Normal x-rays. We did discuss with the patient that there is still a potential she could have a ligamentous injury but as it is the fifth digit we recommend at this time just basically symptomatic treatment greg taping together and to call let us know if there is any lingering ongoing issues. We did acquire appropriate laboratory test and will review them with the patient when they are back. documented in this encounter Plan of Treatment Not on filedocumented as of this encounter Procedures Procedure Name Priority Date/Time Associated Diagnosis Comme nts XR HAND 3+ VIEWS Routine 07/07/2020 3:55 PM Finger pain, right Results for this RIGHT CDT procedure are i n the results section. documented in this encounter Results (ABNORMAL) Uric acid (07/07/2020 4:30 PM CDT) athologist Signature Uric Acid 6.4 (H) 2.1 - 6.1 07/08/2020 [facility] mg/dL 1:42 PM CDT [facility] Specimen Anatomical Collection Method Collection Time Receive d Time (Source) Location / / Volume Laterality Blood (Blood, 07/07/2020 4:30 PM 07/09/19 21 1:01 Venous) CDT PM CDT Kyle Keller MD LAB BLOOD ORDERABLES Performing Organization Address City/State/ZIP Code Phon e Number [facility] [address] [place] [address] (ABNORMAL) Lipid panel (07/07/2020 4:30 PM CDT) athologist Signature Cholesterol 236 (H) 0 - 199 07/08/2020 [facility] mg/dL 1:42 PM CDT [facility] Comment: Recommended by National Cholesterol Education Program (ATP III) -------- Cholesterol Ranges -------- <200 ?Desirable 200-239 ? Borderline high >=240 ? High Triglycerides 186 (H) 0 - 149 mg/dL 07/08/2020 1:42 PM CDT [facility] Comment: -------- TRIG Ranges -------- <150 ?Normal 150-199 ? Borderline high 200-499 ? High >=500 ? Very high HDL 45 40 - 250 mg/dL 07/08/2020 1:42 PM CDT [facility] Comment: -------- HDL Ranges -------- <40 ?Low 40-59 ?Normal >=60 ? Optimal LDL Calculated 154 (H) 0 - 99 mg/dL 07/08/2020 1:42 PM CDT [facility] Comment: -------- LDL Ranges -------- <100 ? Optimal 100-129 ?Near optimal/above op timal 130-159 ?Borderline high 160-189 ?High >=190 ?Very high Fasting? No 07/07/2020 4:35 PM CDT [facility] Comment: Patient last at at noon. Specimen Anatomical Collection Method Collection Time Receive d Time (Source) Location / / Volume Laterality Blood 07/07/2020 4:30 PM 1 1:01 CDT PM CDT D. Bigg Keller MD LAB BLOOD ORDERABLES Performing Organization Address City/State/ZIP Code Phon e Number [facility] [address] [place] [address] X-ray Hand 3+ Views Right (07/07/2020 3:55 PM CDT) Anatomical Region Laterality Modality Upper Extremities, Hand Right Radiographic Mary ging Specimen (Source) Anatomical Collection Method Collection Time Re ceived Time Location / / Volume Laterality 07/07/2020 3:55 PM CDT Impressions 07/07/2020 4:13 PM CDT IMPRESSION: No fracture Narrative 07/07/2020 4:13 PM CDT INDICATION: Fracture, hand right hand pain in 3rd an d 4th digits. COMPARISON: None available FINDINGS: Right hand, three views: AP, lateral, ob lique: Normal bone mineralization.No acute frac ture or dislocation.Joint spaces are preserved. ??No erosions.There is a cystic structure in the scaphoid, likely simple bone cyst. Procedure Note Alicia Blake MD - 07/07/2020Formattin g of this note might be different from the original. INDICATION: Fracture, hand right hand pain in 3rd an d 4th digits. COMPARISON: None available FINDINGS: Right hand, three views: AP, lateral, ob lique: Normal bone mineralization.No acute frac ture or dislocation.Joint spaces are preserved. No erosions.There is a cy stic structure in the scaphoid, likely simple bone cyst. IMPRESSION: No fracture D. Bigg Keller MD IMG XR PROCEDURES documented in this encounter Visit Diagnoses Diagnosis Gout screen - Primary Screening for gout Finger pain, right Pain in soft tissues of limb Screening for deficiency anemia Screening for other and unspecified defi ciency anemia Screening cholesterol level Screening for lipoid disorders documented in this encounter Care Teams Information Assurance Relationship Specialty Start Date End Date None, Pcp PCP - General Size Roller Operator 08/06/19 10/19/[address] [place] [phone] documented as of this encounter
--- OUTSIDE RECORDS SUMMARY | 2022-01-12 14:07 | XMS_ITS | Encounter Summary ---
:1985 Author Organization [facility] Address [address] [place] [address] Care Team Providers Name Role Phone None, Pcp Primary Care Provider Unavailable Reason for Visit Reason Onset Date Comments Work note needed 11/02/2019 Encounter Details Date Type Department Care Team Description 11/02/2019 Telephone [place] None, Pcp Work note needed [address] [place], [place] [address] [place], [place] [phone] Social History Tobacco Use Types Packs/Day Years Used Date Smoking Tobacco: Never Smokeless Tobacco: Never Alcohol Use Standard Drinks/Week Comments Yes 0 (1 standard drink = 0.6 oz pure alcoho l) Sex Assigned at Date Recorded Female 08/18/2018 8:27 AM CDT documented as of this encounter Miscellaneous Notes Telephone Encounter - Tiara Solano RN - 11/02/2019 4:48 PM CDT Patient informed she saw the note in [facility] and her work said that was enough. Telephone Encounter - Tiara Solano RN - 11/02/2019 2:03 PM CDT Patient reports Tuesday she got a fever of 101 and had vomiting, diarrhea, muscle aches, and nasal congestion. Tuesday her fever broke. She reports Migraines worse for the last 3 months. Patient had a negative covid and HR said that they need a note from the provider to return to work because the [facility] still recommended to quarantine for 10 days. Telephone Encounter - Kyle Keller MD - 11/02/2019 1:03 PM CDT I left a message for Dolores to call us to let me know what kind of symptoms she had, how high a feverfor how long. . . So that I can better write a note for her. Telephone Encounter - Tiara Solano RN - 11/02/2019 12:09 PM CDT Please advise on letter, Telephone Encounter - Kamila oRbin - 11/02/2019 11:50 AM CDT Pt called stating she was tested for Covid yesterday 11/01/19 and she received the negative result today. Her employer won't let her return to work because she says on her [facility] MyChart it states even with the negative result, to quarantine for 10 days. Pt has not had a fever for over 24 hours, and she is feeling better. Pt is asking for a message in her MyChart stating she tested negative for Covid and can return to work on Tuesday11/05/19. Please call Pt at [phone] with any questions. documented in this encounter Plan of Treatment Not on filedocumented as of this encounter Visit Diagnoses Not on filedocumented in this encounter Care Teams Economic Developer Relationship Specialty Start Date End Date None, Pcp PCP - General Senior Storage Administrator 08/06/19 10/19/[address] [place] [phone] documented as of this encounter
--- OUTSIDE RECORDS SUMMARY | 2022-01-12 14:07 | XMS_ITS | Encounter Summary ---
:1985 Author Organization [facility] Address [address] [place] [address] Care Team Providers Name Role Phone None, Pcp Primary Care Provider Unavailable Encounter Details Date Type Department Care Team Description 09/07/2019 Lab [place] Screening cholesterol level; [address] Type 2 diabetes mellitus wit hout complication, without long-term current use of insulin (HCC) [place], [place] [address] Social History Tobacco Use Types Packs/Day Years [...] Name Priority Date/Time Associated Diagnosis Comme nts HEMOGLOBIN A1C Routine 09/07/2019 8:52 AM Type 2 diabetes Resu lts for this CDT mellitus without procedure a re in complication, without the re sults long-term current use sectio n. of insulin (HCC) GLUCOSE Routine 09/07/2019 8:52 AM Type 2 diabetes Result s for this CDT mellitus without procedure a re in complication, without the re sults long-term current use sectio n. of insulin (HCC) LIPID PANEL Routine 09/07/2019 8:52 AM Screening cholesterol Results for this CDT level procedure are i n the results section. documented in this encounter Results (ABNORMAL) Hemoglobin A1c (09/07/2019 8:52 AM CDT) Analysis Performed At Patho logist Time Signature Hemoglobin A1C 6.8 (H) 4.0 - 5.6 09/07/2019 [place] % A1C 1:44 PM CDT [facility] Comment: Reference Range 4.0-5.6% is for non-preg nant adults >=18 yrs <5.6% ? Non-Diabetic 5.7-6.4% ??Increased risk of Diabetes >=6.5% ?Indicative of Diabetes <7.0% ? ADA goal for glycemic contro l Methodology may not detect all hemoglobi n variants which can affect A1c results. Method certified by National Glycohemoglobin Standardization Program. Specimen Anatomical Collection Method Collection Time Receive d Time (Source) Location / / Volume Laterality Blood 09/07/2019 8:52 AM 0 CDT 12:51 PM CDT Kyle Keller MD LAB BLOOD ORDERABLES Performing Organization Address City/State/ZIP Code Phon e Number [facility] [address] [place] [address] (ABNORMAL) Glucose, fasting (09/07/2019 8:52 AM CDT) athologist Signature Glucose 127 (H) 70 - 100 09/07/2019 [facility] mg/dL 1:52 PM CDT [facility] Specimen Anatomical Collection Method Collection Time Receive d Time (Source) Location / / Volume Laterality Blood (Blood, 09/07/2019 8:52 AM 09/07/19 20 Venous) CDT 12:51 PM CDT Kyle Keller MD LAB BLOOD ORDERABLES Performing Organization Address City/State/ZIP Code Phon e Number [facility] [address] [place] [address] (ABNORMAL) Lipid panel (09/07/2019 8:52 AM CDT) P athologist Signature Cholesterol 228 (A) 0 - 199 09/07/2019 [facility] mg/dL 1:52 PM CDT [facility] Comment: Recommended by National Cholesterol Education Program (ATP III) -------- Cholesterol Ranges -------- <200 ? Desirable 200-239 ? Borderline high >=240 ? High Triglycerides 229 (A) 0 - 149 mg/dL 09/07/2019 1:52 PM CDT [facility] Comment: -------- TRIG Ranges -------- <150 ?Normal 150-199 ? Borderline high 200-499 ? High >=500 ? Very high HDL 33 (A) 40 - 60 mg/dL 09/07/2019 1:52 PM CDT [facility] Comment: -------- HDL Ranges -------- <40 ?Low 40-59 ?Normal >=60 ? Optimal LDL Calculated 149 (A) 0 - 99 mg/dL 09/07/2019 1:52 PM CDT [facility] Comment: -------- LDL Ranges -------- <100 ? Optimal 100-129 ?Near optimal/above op timal 130-159 ?Borderline high 160-189 ?High >=190 ?Very high Fasting? Yes 09/07/2019 8:54 AM CDT [facility] Specimen Anatomical Collection Method Collection Time Receive d Time (Source) Location / / Volume Laterality Blood 09/07/2019 8:52 AM 0 CDT 12:51 PM CDT D. Bigg Keller MD LAB BLOOD ORDERABLES Performing Organization Address City/State/ZIP Code Phon e Number [facility] [address] [place] [address] documented in this encounter Visit Diagnoses Diagnosis Screening cholesterol level Screening for lipoid disorders Type 2 diabetes mellitus without complic ation, without long-term current use of insulin (HCC) documented in this encounter Care Teams Ice Plant Operator Relationship Specialty Start Date End Date None, Pcp PCP - General Graining Operator 08/06/19 10/19/20 [address] [place] [phone] documented as of this encounter
--- OUTSIDE RECORDS SUMMARY | 2022-01-12 14:07 | XMS_ITS | Encounter Summary ---
:1985 Author Organization [facility] Address [address] [place] [address] Care Team Providers Name Role Phone None, Pcp Primary Care Provider Unavailable Reason for Visit Reason Onset Date Comments medication prior auth. 11/30/2019 Citalopram Hydrob romide 20MG tablets Encounter Details Date Type Department Care Team Description 11/30/2019 Telephone [place] Kyle Keller medication prior auth. [address] [place] (Citalopram Hydrobromide [place], [place] [address] [address] 20MG tablets) [phone] [place] [address] Social History Tobacco Use Types Packs/Day Years Used Date Smoking Tobacco: Never Smokeless Tobacco: Never Alcohol Use Standard Drinks/Week Comments Yes 0 (1 standard drink = 0.6 oz pure alcoho l) Sex Assigned at Date Recorded Female 08/18/2018 8:27 AM CDT documented as of this encounter Miscellaneous Notes Telephone Encounter - Codie Grissom MA - 12/03/2019 7:25 AM CDT PA is approved from 11/30/2019 - 11/29/2020. Pharmacy was notified. Telephone Encounter - Delphine Vilchis MA - 11/30/2019 12:24 PM CDT Citalopram Hydrobromide 20MG tablets BIN: [id number] PCN: [facility] GROUP: [id number] PLAN: [employer] [place] PHONE: [phone] ID: [id number] PA completed per CMM, sent to plan. Jimenez: [id number] documented in this encounter Plan of Treatment Not on filedocumented as of this encounter Visit Diagnoses Not on filedocumented in this encounter Care Teams Windshield Technician Relationship Specialty Start Date End Date None, Pcp PCP - General Motion Picture Printer 08/06/19 10/19/[address] [place] [phone] documented as of this encounter
--- OUTSIDE RECORDS SUMMARY | 2022-01-12 14:07 | XMS_ITS | Encounter Summary ---
:1985 Author Organization [facility] Address [address] [place] [address] Care Team Providers Name Role Phone None, Pcp Primary Care Provider Unavailable Encounter Details Date Type Department Care Team Description 07/07/2020 Lab [place] Gout screen; [address] Screening cholesterol level; [place], [place] [address] Screening for deficiency ane yasmine; [phone] Type 2 diabetes mellitus without complication, without long-term current use of insulin (HCC); Mixed hyperlipi demia Social History Tobacco Use Types Packs/Day Years Used Date Smoking Tobacco: Never Smokeless Tobacco: Never Alcohol Use Standard Drinks/Week Comments Yes 0 (1 standard drink = 0.6 oz pure alcoho l) Sex Assigned at Date Recorded Female 08/18/2018 8:27 AM CDT documented as of this encounter Plan of Treatment Not on filedocumented as of this encounter Procedures Procedure Name Priority Date/Time Associated Diagnosis Comme nts CBC BRANCH OFFICE Routine 07/07/2020 4:30 PM Resu lts for this W/DIFF CDT procedure are i n the results section. URIC ACID Routine 07/07/2020 4:30 PM Gout screen Results f or this CDT procedure are i n the results section. HEMOGLOBIN A1C Routine 07/07/2020 4:30 PM Type 2 diabetes Resu lts for this CDT mellitus without procedure a re in complication, the results without long-term section. current use of insulin (HCC) LIPID PANEL Routine 07/07/2020 4:30 PM Screening Results f or this CDT cholesterol level procedure are in the results section. documented in this encounter Results (ABNORMAL) CBC Branch Off w/Diff (07/07/2020 4:30 PM CDT) [facility] Method Time Signature WBC 11.1 (H) 3.5 - 10.5 07/07/2020 [facility] K/uL 4:45 PM CDT [place] RBC 4.98 3.90 - 07/07/2020 [facility] 5.00 M/uL 4:45 PM CDT [place] Hemoglobin 13.9 12.0 - 07/07/2020 [facility] 15.5 g/dL 4:45 PM CDT [place] Hematocrit 42.7 35.0 - 07/07/2020 [facility] 44.0 % 4:45 PM CDT [place] Platelets 193 150 - 450 07/07/2020 [facility] K/uL 4:45 PM CDT [place] MCV 85.7 81.6 - 07/07/2020 [facility] 98.3 fL 4:45 PM CDT [place] MCH 27.9 26.0 - 07/07/2020 [facility] 32.0 pg 4:45 PM CDT [place] MCHC 32.6 32.0 - 07/07/2020 [facility] 36.0 g/dL 4:45 PM CDT [place] RDW 13.4 11.9 - 07/07/2020 [facility] 15.5 % 4:45 PM CDT [place] Lymphocytes % 34.8 % 07/07/2020 [facility] 4:45 PM CDT [place] Mid-size Cells 7.9 % 07/07/2020 [facility] 4:45 PM CDT [place] Granulocytes/Jose L 57.3 % 07/07/2020 [facility] trophils 4:45 PM CDT [place] Lymphocytes 3.9 (H) 0.9 - 2.9 07/07/2020 [facility] Absolute K/uL 4:45 PM CDT [place] MIDS Absolute 0.9 0.4 - 1.5 07/07/2020 [facility] K/uL 4:45 PM CDT [place] Granulocytes/Jose L 6.3 1.7 - 7.0 07/07/2020 [facility] trophils K/uL 4:45 PM CDT [place] Absolute Specimen Anatomical Collection Method Collection Time Receive d Time (Source) Location / / Volume Laterality 07/07/2020 4:30 PM 05/17/202 1 4:35 CDT PM CDT Kyle Keller MD LAB BLOOD ORDERABLES Performing Organization Address City/State/ZIP Code Phon e Number [facility] [address] [place] [address] (ABNORMAL) Hemoglobin A1c (07/07/2020 4:30 PM CDT) Analysis Performed At Patho logist Time Signature Hemoglobin A1C 6.4 (H) 4.0 - 5.6 07/08/2020 [employer] % A1C 2:08 PM CDT [facility] Comment: Reference Range 4.0-5.6% is for [...] / Volume Laterality Blood 07/07/2020 4:30 PM 1:07 CDT PM CDT Kyle Keller MD LAB BLOOD ORDERABLES Performing Organization Address City/[facility]/ZIP Code Phon e Number [facility] [address] [place] [address] (ABNORMAL) Lipid panel (07/07/2020 4:30 PM CDT) P athologist Signature Cholesterol 236 (H) 0 - 199 07/08/2020 [facility] mg/dL 1:42 PM CDT [facility] Comment: Recommended by National Cholesterol Education Program (ATP III) -------- Cholesterol Ranges -------- <200 ?Desirable 200-239 ? Borderline high >=240 ? High Triglycerides 186 (H) 0 - 149 mg/dL 07/08/2020 1:42 PM CDT [facility] Comment: -------- TRIG Ranges -------- <150 ?Normal 150-199 ? Borderline high 200-499 ? High >=500 ? Very high HDL 45 40 - 250 mg/dL 07/08/2020 1:42 PM CDT [facility] Comment: -------- HDL Ranges -------- <40 ?Low 40-59 ?Normal >=60 ? Optimal LDL Calculated 154 (H) 0 - 99 mg/dL 07/08/2020 1:42 PM CDT [facility] Comment: -------- LDL Ranges -------- <100 ? Optimal 100-129 ?Near optimal/above op timal 130-159 ?Borderline high 160-189 ?High >=190 ?Very high Fasting? No 07/07/2020 4:35 PM CDT [facility] Comment: Patient last at at noon. Specimen Anatomical Collection Method Collection Time Receive d Time (Source) Location / / Volume Laterality Blood 07/07/2020 4:30 PM 1:01 CDT PM CDT Kyle Keller MD LAB BLOOD ORDERABLES Performing Organization Address City/State/ZIP Code Phon e Number [facility] [address] [place] [address] (ABNORMAL) Uric acid (07/07/2020 4:30 PM CDT) P athologist Signature Uric Acid 6.4 (H) 2.1 - 6.1 07/08/2020 [facility] mg/dL 1:42 PM CDT [facility] Specimen Anatomical Collection Method Collection Time Receive d Time (Source) Location / / Volume Laterality Blood (Blood, 07/07/2020 4:30 PM 07/09/19 1:01 Venous) CDT PM CDT Kyle Keller MD LAB BLOOD ORDERABLES Performing Organization Address City/State/ZIP Code Phon e Number [facility] [address] [place] [address] documented in this encounter Visit Diagnoses Diagnosis Gout screen Screening for gout Screening cholesterol level Screening for lipoid disorders Screening for deficiency anemia Screening for other and unspecified defi ciency anemia Type 2 diabetes mellitus without complic ation, without long-term current use of insulin (HCC) Mixed hyperlipidemia documented in this encounter Care Teams Bonding Machine Operator Relationship Specialty Start Date End Date None, Pcp PCP - General Host/Hostess Head 08/06/19 10/19/20 [address] [place] [phone] documented as of this encounter
--- OUTSIDE RECORDS SUMMARY | 2022-01-12 14:07 | XMS_ITS | Encounter Summary ---
:[address] [facility] Address [address] [place] [address] Care Team Providers Name Role Phone None, Pcp Primary Care Provider Unavailable Reason for Visit Reason Onset Date Comments Covid Triage 01/28/2020 Encounter Details Date Type Department Care Team Description 01/28/2020 Telephone [facility] Kamila Eisenberg APRN, Covid Triage [address] [facility] [address] [place] [address] [place] [address] [phone] (Wo rk) Social History Tobacco Use Types Packs/Day Years Used Date Smoking Tobacco: Never Smokeless Tobacco: Never Alcohol Use Standard Drinks/Week Comments Yes 0 (1 standard drink = 0.6 oz pure alcoho l) Sex Assigned at Date Recorded Female 08/18/2018 8:27 AM CDT documented as of this encounter Progress Notes Diana Chapman RN - 01/28/2020 2:09 PM CST 01/28/20 1400 COVID Algorithm Question A - Patient has the following symptoms: Cough;Shortness of breath;Chills;Headache;Nasal congestion;Fatigue;Muscle pain;Loss of taste or smell;Nausea (SOB = hard to catch breath sometimes) Date of onset of symptoms 01/27/20 Acuity evaluation - patient has the following symptoms: None Question B - Patient belongs to a high risk group: None Question C - Patient has the following special indications [place]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 Yes - proceed with COVID screening and education Patient instructed to report to the screening station for testing and then home. Patient instructed to remain home until: ??? Notified of results AND If symptomatic: ??? No fever for at least 24 hours (one full day without fever without the use of fever reducers AND ??? Other symptoms have improved Patient instructed that if they want to be seen by a provider for their symptoms, they can request atelehealth visit when calling to schedule. DING MACHINE OPERATOR documented in this encounter Plan of Treatment Not on filedocumented as of this encounter Results SARS Coronavirus 2 RNA detection, v (01/28/2020 2:12 PM DIVIDING MACHINE OPERATOR) [facility] Method Time Signature SARS Covid Nasopharyngeal 01/29/2020 [facility] specimen 6:56 AM DIVIDING MACHINE OPERATOR LABORATORIES source Patient Race White 01/29/2020 [facility] 6:56 AM DIVIDING MACHINE OPERATOR LABORATORIES Patient DECLINE 01/29/2020 [facility] Ethnicity 6:56 AM DIVIDING MACHINE OPERATOR LABORATORIES SARS CoV2 Undetected Undetected 01/29/2020 [facility] RNA 6:56 AM DIVIDING MACHINE OPERATOR LABORATORIES Comment: SARS-CoV-2 RNA absent. This result does not rule out COVID-19 in the patient, as the sensitiv ity of the test depends on the timing of the specimen co llection and the quality of the specimen. Result should b e correlated with patient's history and clinical presentat ion. Method - 01/29/2020 6:56 AM DIVIDING MACHINE OPERATOR [facility] Comment: JUANITO- This test uses the juanito SARS-CoV -2 assay ([employer] and is perform ed on the juanito 6800 System. It has received Emergency U se Authorization (EUA) by the U.S. Food and Drug Administ ration. Performance characteristics were verified by [facility] inic in a manner consistent with CLIA requirements. Fact sheets for this Emergency Use Autho rization (EUA) can be found at the following links: https://www.fda.gov/media/322508/downloa d for Healthcare Providers https://www.fda.gov/media/753085/downloa d for Patients Test Performed by: [facility] [address] [place], [place] [address] Punch Press Operator: Yoni Campbell M.D. Ph. D.; CLIA# [id number] Specimen Anatomical Collection Method Collection Time Receive d Time (Source) Location / / Volume Laterality Swab 01/28/2020 2:12 PM 0 4:12 (Nasopharyngeal) DIVIDING MACHINE OPERATOR PM DIVIDING MACHINE OPERATOR Kamila Eisenberg MANAGER HAIR, ALCOHOLIC COUNSELOR LAB MOLECULAR DIAGNOSTICS OR DERABLES Performing Organization Address City/State/ZIP Code Phon e Number [facility] see result attachment for specific address documented in this encounter Visit Diagnoses Diagnosis Screening examination for infectious dis ease - Primary Screening examination for unspecified in fectious disease documented in this encounter Care Teams Merchandise Flow Team Leader Relationship Specialty Start Date End Date None, Pcp PCP - General Buckle Strap Puncher 08/06/19 10/19/20 [address] [place] [address] documented as of this encounter
--- OUTSIDE RECORDS SUMMARY | 2022-01-12 14:07 | XMS_ITS | Encounter Summary ---
:1985 Author Organization [facility] Address [address] [place] [address] Care Team Providers Name Role Phone None, Pcp Primary Care Provider Unavailable Reason for Visit Reason Comments Consult Encounter Details Date Type Department Care Team Description 08/13/2020 Office Visit [place] Kyle Keller test positive [address] MD Bigg (Primary Dx) [place], [place] [address] [address] [facility] [phone] [place] [address] Social History Tobacco Use Types Packs/Day Years Used Date Smoking Tobacco: Never Smokeless Tobacco: Never Alcohol Use Standard Drinks/Week Comments Yes 0 (1 standard drink = 0.6 oz pure alcoho l) Sex Assigned at Date Recorded Female 08/18/2018 8:27 AM CDT documented as of this encounter Last Filed Vital Signs Vital Sign Reading Time Taken Comments Blood Pressure 128/80 08/13/2020 3:51 PM CDT Pulse 91 08/13/2020 3:43 PM CDT Temperature 36.3 ??C (97.4 ??F) 08/13/2020 3:43 PM CDT Respiratory Rate 18 08/13/2020 3:43 PM CDT Oxygen Saturation 97% 08/13/2020 3:43 PM CDT Inhaled Oxygen Concentration - - Weight 118 kg (261 lb) 08/13/2020 3:43 PM CDT Height 170 cm (5' 6.93) 08/13/2020 3:43 PM CDT Body Mass Index 40.97 08/13/2020 3:43 PM CDT documented in this encounter Progress Notes Kyle Keller MD - 08/13/2020 3:40 PM CDT Estab Patient Visit Subjective Patient ID: Flores Serrano is a 34 y.o. female. HPI the patient is here today because of a positive test she is taking at home 3 differentoccasions were all within the last week. The patient is our 34-year-old who does not have any children but she has had 3 prior pregnancies with the first 1 having a miscarriage at about 12 weeks and then she has had 2 other pregnancies that she was not even really aware of until she miscarried at some point between 4 and 6 weeks. She and adeline have not necessarily been trying to have children they have never met with an TEXTILE EXAMINER method consultant to discuss having children or possible use of fertility drugs but they have not been trying not to have children either. Every time that she has been she states she oftentimes starts to develop a headache oftentimes more of a tension headache frontal left side right side and so forth. She started to have some headaches within the last week or 2 therefore she checked a test at home and it was positive and 2 subsequent test have also been positive. She comes in today to discuss her medications which ones might be safe to take during oncewhen she should stop taking. She also has an appointment to see an TEXTILE EXAMINER over in [place] and she has an ultrasound scheduled September 09. She is already started to take the vitamins. Current medications she is taking Lipitor she has gone off of already Metformin she has gone off she is checking her sugars and they all have actually been less than 100 so far, her diabetes her A1c was as high as 7.1 with Metformin she was running 6.4 so is actually okay for her to go off Metformin at this time and just monitor and if the continues her OB/GYNwill consider most likely a small amount of insulin at some time although Metformin can be used during . CELEXA she is actually looked this up in according to [facility] website Celexa is 1 of 4 differentantidepressants that can be used during . It is a category C so has not really been tested during and as such we will contact [facility] TEXTILE EXAMINER department to see how they interpret the useof Celexa during . The patient does feel she could go off of it but would prefer to stay onif it something that would be safe. She is also been taking some Benadryl at nighttime to help with allergy symptoms she is not taking that much maybe 1 occasional 2 at night and not every night. Benadryl is listed as a class B and as such it is safe to take during . She will take as little as possible. She will not be taking aspirin Advil or NSAIDs at this time but it is relatively safe to occasionally take a little Tylenol if needed for headaches but she should certainly try to get by with his little as possible use ice packs as needed for headaches. Review of Systems Objective Physical Exam Assessment/Plan Diagnoses and all orders for this visit: test positive - HCG, quantitative, ; Future The overall assessment is a positive test plan at this time is we will be checking her beta hCG by blood as well as a progesterone test and TSH test to see if there is any other reasons for possible early miscarriages. She will also have her second beta hCG test done done at the [facility] in 2 days time. Consult time was 20 minutes and all 20 minutes was in review of her history her symptoms her past history review of medications that can be taken safely during . documented in this encounter Plan of Treatment Not on filedocumented as of this encounter Results HCG, quantitative, (08/15/2020 2:40 PM CDT) athologist Signature Total Beta hCG 4,623 mIU/mL 08/15/2020 [facility] 5:45 PM CDT CENTER LAB[facility] Comment: Female Reference [...] Location / / Volume Laterality Blood (Blood, 08/15/2020 2:40 PM 08/16/19 4:29 Venous) CDT PM CDT D. Bigg Keller MD LAB BLOOD ORDERABLES Performing Organization Address City/State/ZIP Code Phon e Number [facility] [address] [place] [address] documented in this encounter Visit Diagnoses Diagnosis test positive - Primary examination or test, positive result documented in this encounter Care Teams Trolley Operator Relationship Specialty Start Date End Date None, Pcp PCP - General Medical Research Associate 08/06/19 10/19/20 [address] [facility] [address] [place] [address] documented as of this encounter
--- OUTSIDE RECORDS SUMMARY | 2022-01-12 14:07 | XMS_ITS | Encounter Summary ---
:1985 Author Organization [facility] Address [address] [place] [address] Care Team Providers Name Role Phone None, Pcp Primary Care Provider Unavailable Reason for Visit Reason Onset Date Comments Possible 08/15/2020 Encounter Details Date Type Department Care Team Description 08/15/2020 Telephone [place] None, Pcp Possible [address] [place], [place] [address] [place], [place] [phone] Social History Tobacco Use Types Packs/Day Years Used Date Smoking Tobacco: Never Smokeless Tobacco: Never Alcohol Use Standard Drinks/Week Comments Yes 0 (1 standard drink = 0.6 oz pure alcoho l) Sex Assigned at Date Recorded Female 08/18/2018 8:27 AM CDT documented as of this encounter Miscellaneous Notes Telephone Encounter - Kyle Keller MD - 08/15/2020 10:11 AM CDT Shannan ness Telephone Encounter - Wendy Heller LPN - 08/15/2020 8:32 AM CDT The patient was seen in clinic on 08/13/2020. She had a positive at home test and was in for confirmation of . Her OB in [place] stated that they would not see her until 8-10 weeks. The patient was worried because she has a history of being on Progesterone suppositories for previous lost pregnancies. Dr. Keller ordered her Progesterone and the results are as followed. Component Ref Range & Units 08/13/20 1553 Progesterone ng/mL 2.8 Comment: ?? Females: ?Follicular ?0.1-2.0 ?Luteal ?1.4-16.6 ?Postmenopausal ?0.2-1.0 ?? Males: ?0.2-1.5 The patient called today wondering if she should be started again on Progesterone Vaginal suppositories twice/three a day due to her Progesterone being very low? LMP: 07/14/2020 Dates of [place]: , . , Period was Due July 13 Dr. Mcguire Curtain Framer Provider: [phone] Dr. Hans[place] [facility] [place]- advised 200mg vaginal suppositories nightly until she see's her OBGYNfor her initial visit. Please order: Progesterone capsules 200mg oral nightly Pharmacy: [id number] documented in this encounter Plan of Treatment Not on filedocumented as of this encounter Visit Diagnoses Diagnosis Low serum progesterone - Primary documented in this encounter Care Teams Forge Heater Relationship Specialty Start Date End Date None, Pcp PCP - General Soft Mud Molder 08/06/19 10/19/20 [address] [place] [address] documented as of this encounter
--- OUTSIDE RECORDS SUMMARY | 2022-01-12 14:07 | XMS_ITS | Encounter Summary ---
:1985 Author Organization [facility] Address [address] [place] [address] Care Team Providers Name Role Phone None, Pcp Primary Care Provider Unavailable Encounter Details Date Type Department Care Team Description 01/08/2020 Orders Only Kevin Santamaria Kyle Keller Non-recurrent acute [address] MD Bigg suppurative otitis JONEL Bedoya [address] media of right ear [phone] [place] without spontaneous JONEL Bedoya rupture of tympanic [phone] membrane (Primary Dx) Social History Tobacco Use Types Packs/Day Years Used Date Smoking Tobacco: Never Smokeless Tobacco: Never Alcohol Use Standard Drinks/Week Comments Yes 0 (1 standard drink = 0.6 oz pure alcoho l) Sex Assigned at Date Recorded Female 08/18/2018 8:27 AM CDT documented as of this encounter Plan of Treatment Not on filedocumented as of this encounter Visit Diagnoses Diagnosis Non-recurrent acute suppurative otitis m edia of right ear without spontaneous rupture of tympanic membrane - Primary documented in this encounter Care Teams Import Dispatcher Relationship Specialty Start Date End Date None, Pcp PCP - General Carry In Worker 08/06/19 10/19/[address] [place] [phone] documented as of this encounter
--- OUTSIDE RECORDS SUMMARY | 2022-01-12 14:07 | XMS_ITS | Encounter Summary ---
:1985 Author Organization [facility] Address [address] [place] [address] Care Team Providers Name Role Phone None, Pcp Primary Care Provider Unavailable Encounter Details Date Type Department Care Team Description 01/28/[address] [facility] Screening examination for 102 [facility] inf ectious disease [address] [place] [address] Social History Tobacco Use Types Packs/Day Years [...] Name Priority Date/Time Associated Diagnosis Comme nts SARS CORONAVIRUS 2 Routine 01/28/2020 2:12 PM Screening Res ults for this RNA DETECTION, V LOGISTICS VICE PRESIDENT examination for procedur e are in infectious disease the resul ts section. documented in this encounter Results SARS Coronavirus 2 RNA detection, v (01/28/2020 2:12 PM LOGISTICS VICE PRESIDENT) [facility] Method Time Signature SARS Covid Nasopharyngeal 01/29/2020 [facility] specimen 6:56 AM LOGISTICS VICE PRESIDENT LABORATORIES source Patient Race White 01/29/2020 [facility] 6:56 AM LOGISTICS VICE PRESIDENT LABORATORIES Patient DECLINE 01/29/2020 [facility] Ethnicity 6:56 AM LOGISTICS VICE PRESIDENT LABORATORIES SARS CoV2 Undetected Undetected 01/29/2020 [facility] RNA 6:56 AM LOGISTICS VICE PRESIDENT LABORATORIES Comment: SARS-CoV-2 RNA absent. This result does not rule out COVID-19 in the patient, as the sensitiv ity of the test depends on the timing of the specimen co llection and the quality of the specimen. Result should b e correlated with patient's history and clinical presentat ion. Method - 01/29/2020 6:56 AM LOGISTICS VICE PRESIDENT [facility] Comment: JUANITO- This test uses the juanito SARS-CoV -2 assay ([employer] and is perform ed on the juanito 6800 System. It has received Emergency U se Authorization (EUA) by the U.S. Food and Drug Administ amarilys. Performance characteristics were verified by [facility] inic in a manner consistent with CLIA requirements. Fact sheets for this Emergency Use Autho rization (EUA) can be found at the following links: https://www.fda.gov/media/836899/downloa d for Healthcare Providers https://www.fda.gov/media/410699/downloa d for Patients Test Performed by: [facility] [address] [place] [address] Ornamental Brick Installer: Yoni Campbell M.D. Ph. D.; CLIA# [id number] Specimen Anatomical Collection Method Collection Time Receive d Time (Source) Location / / Volume Laterality Swab 01/28/2020 2:12 PM 0 4:12 (Nasopharyngeal) LOGISTICS VICE PRESIDENT PM LOGISTICS VICE PRESIDENT Kamila Eisenberg APRN, [facility] LAB MOLECULAR DIAGNOSTICS OR DERABLES Performing Organization Address City/State/ZIP Code Phon e Number [facility] see result attachment for specific address documented in this encounter Visit Diagnoses Diagnosis Screening examination for infectious dis ease Screening examination for unspecified in fectious disease documented in this encounter Additional Health Concerns Infection Onset Date Last Indicated Resolved Time COVID-19 Rule Out 01/28/2020 01/28/2020 01/29/2020 6:5 6 AM LOGISTICS VICE PRESIDENT documented as of this encounter Care Teams Ad Operations Intern Relationship Specialty Start Date End Date None, Pcp PCP - General Cash Sales Audit Clerk 08/06/19 10/19/20 [address] [place] [address] documented as of this encounter
--- OUTSIDE RECORDS SUMMARY | 2022-01-12 14:07 | XMS_ITS | Encounter Summary ---
:1985 Author Organization [facility] Address [address] [place] [address] Care Team Providers Name Role Phone None, Pcp Primary Care Provider Unavailable Reason for Visit Reason Comments Ear Fullness Right Ear Knee Pain Encounter Details Date Type Department Care Team Description 12/31/2019 Office Visit [place] Kyle Keller Acute diffuse otitis externa of right ear (Primary Dx); [address] [place] Impacted cerumen of right ear; JONEL Trammell [address] Type 2 diab etes mellitus without complication, without long-term current use of insulin (HCC); [address] [facility] hyperlipidemia [phone] [place] [address] Social History Tobacco Use Types Packs/Day Years Used Date Smoking Tobacco: Never Smokeless Tobacco: Never Alcohol Use Standard Drinks/Week Comments Yes 0 (1 standard drink = 0.6 oz pure alcoho l) Sex Assigned at Date Recorded Female 08/18/2018 8:27 AM CDT documented as of this encounter Last Filed Vital Signs Vital Sign Reading Time Taken Comments Blood Pressure 116/80 12/31/2019 3:52 PM RECEIVER DISPATCHER Pulse 90 12/31/2019 3:52 PM RECEIVER DISPATCHER Temperature 35.5 ??C (95.9 ??F) 12/31/2019 3:52 PM RECEIVER DISPATCHER Respiratory Rate 16 12/31/2019 3:52 PM RECEIVER DISPATCHER Oxygen Saturation 96% 12/31/2019 3:52 PM RECEIVER DISPATCHER Inhaled Oxygen Concentration - - Weight 129 kg (284 lb) 12/31/2019 3:52 PM RECEIVER DISPATCHER Height 169 cm (5' 6.54) 12/31/2019 3:52 PM RECEIVER DISPATCHER Body Mass Index 45.1 12/31/2019 3:52 PM RECEIVER DISPATCHER documented in this encounter Progress Notes Yessenia Sunshine MA - 12/31/2019 4:00 PM CSTAssociated Order(s): Ear cerumen removal Post-Procedure Diagnose(s): Impacted cerumen of right ear Nurse Procedure Note Ear cerumen removal Date/Time: 12/31/2019 4:58 PM Performed by: Yessenia Sunshine MA Authorized by: Kyle Keller MD Consent: Consent obtained: Verbal Consent given by: Patient Risks discussed: Pain, incomplete removal and dizziness Procedure details: Location: R ear Procedure type: irrigation Post-procedure details: Hearing quality: Diminished Patient tolerance of procedure: Tolerated well, no immediate complications Comments: Right ear cerumen removal. Moderate amount of cerumen removed, patient tolerated well. Dr. Kee looked at patient's ear prior to patient leaving. Provider stated patient has a right outer ear infection. IVER DISPATCHER Derrell Kee MD - 12/31/2019 4:[address] Mccarthy attending to urgent procedure laceration repair, I was asked to view right ear after irrigation as patient was waiting to be discharged. There is white debris in the outer canal with edema,the TM appears mottled and erythematous. The outer ear has tragal tenderness and erythema around the posterior auricle and mastoid tenderness. Rx: Ciprodex otic drops BID x7 days. Follow up in 1 week for recheck. Derrell Kee MD IVER DISPATCHER Kyle Keller MD - 12/31/2019 4:00 PM CST Estab Patient Visit Subjective Patient ID: Flores Serrano is a 34 y.o. female. HPI the patient is here today for couple different reasons primarily because her ears feel plugged primarily the right ear and a little bit of discomfort. She also has had some questions regarding hip pain and knee pain. Interestingly her knee problems started at a young age of 14 and she actually had a surgical procedure with a Dr. Hamilton who I knew quite well at that time unfortunately he in a airplane accident that he was flying himself. Subsequent to that she has seen Dr. Jones orthopedist in [facility] and has done a couple of different knee procedures on her as well and she has had cortisone shots as well. She had some questions regarding her hip and her knee and since [facility] the nurse practitioner orthopedist Mirna I have referred her back to discuss her problemswith them at this time. Her primary problem was a feeling of her right ear being plugged and hurting somewhat she also felt her left ear was somewhat plugged as well She has had no fevers no chills no recent coughs or colds she does use Q-tips occasionally not that often Review of Systems Objective Physical Exam she is alert she appears comfortable her her vital signs show blood pressure 116/86 pulse of 90 temp 95.9 current weight 284 pounds O2 sats 96% on room air and her BMI is 45 Her left ear actually is normal no pain no discomfort no ear canal swelling tympanic membrane is normal no cerumen. The right ear is occluded with cerumen and was a little tender to otoscope evaluation as well as movement of the ear itself. She had her wax rinsed out by one of my staff and since I was then busy and tied up with a proceduremy colleague Dr. Kee examined her here and it was consistent with an external otitis and appropriately prescribed eardrops for her. Hopefully she does well but she will call us if she does not or if she has problems. Assessment/Plan Diagnoses and all orders for this visit: Acute diffuse otitis externa of right ear - ciprofloxacin-dexamethasone (Ciprodex) otic suspension; Administer 4 drops into affected ear(s) 2 (two) times a day for 7 days Impacted cerumen of right ear - Ear cerumen removal Type 2 diabetes mellitus without complication, without long-term current use of insulin (HCC) - Hemoglobin A1c; Future - Lipid panel; Future Mixed hyperlipidemia - Lipid panel; Future The assessment is External otitis of the right ear acute with secondary cerumen impaction of the right ear The plan was its irrigation and initiation of antibiotic therapy We also wilfrido her A1c today as she was due for the for diabetic test. IVER DISPATCHER documented in this encounter Plan of Treatment Not on filedocumented as of this encounter Procedures Procedure Name Priority Date/Time Associated Diagnosis Comme nts EAR CERUMEN REMOVAL Routine 12/31/2019 4:00 PM Impacted cerume n of Results for this RECEIVER DISPATCHER right ear procedure are i n the results section. documented in this encounter Results (ABNORMAL) Hemoglobin A1c (07/07/2020 4:30 PM CDT) [facility] Signature Hemoglobin A1C 6.4 (H) 4.0 - 5.6 07/08/2020 [place] % A1C 2:08 PM CDT [facility] Comment: Reference Range 4.0-5.6% [...] Organization Address City/State/ZIP Code Phon e Number [facility] [address] [place] [id number] Ear cerumen removal (12/31/2019 4:00 PM RECEIVER DISPATCHER) Kyle Hartmann MD - 12/31/2019 4:00 PM RECEIVER DISPATCHER Yessenia Sunshine MA ? 01/01/2020 ??5:35 PM Ear cerumen removal Date/Time: 12/31/2019 4:58 PM Performed by: Yessenia Sunshine MA Authorized by: Kyle Keller MD Consent: ??Consent obtained: ??Verbal ??Consent given by: ??Patient ??Risks discussed: ??Pain, incomplete r emoval and dizziness Procedure details: ??Location: ??R ear ??Procedure type: irrigation ?? Post-procedure details: ??Hearing quality: ??Diminished ??Patient tolerance of procedure: ??Amada erated well, no immediate complications Comments: ?? Right ear cerumen removal. Moderate amount of cerumen removed, patient tolerated well. Dr. Kee looked at mirtha ent's ear prior to patient leaving. Provider stated patient has a r ight outer ear infection. Kyle Keller MD IN CLINIC/BEDSIDE ORDERABLES documented in this encounter Visit Diagnoses Diagnosis Acute diffuse otitis externa of right ea r - Primary Impacted cerumen of right ear Impacted cerumen Type 2 diabetes mellitus without complic ation, without long-term current use of insulin (HCC) Mixed hyperlipidemia documented in this encounter Care Teams Dairy Technologist Relationship Specialty Start Date End Date None, Pcp PCP - General Pediatric Geneticist 08/06/19 10/19/20 [address] [place] [address] documented as of this encounter
--- OUTSIDE RECORDS SUMMARY | 2022-01-12 14:07 | XMS_ITS | Encounter Summary ---
:1985 Author Organization [facility] Address [address] [place] [address] Care Team Providers Name Role Phone None, Pcp Primary Care Provider Unavailable Encounter Details Date Type Department Care Team Description 08/20/2020 Orders Only [place] Kyle Keller Less than 8 weeks [address] [place] gestation of [place], [place] [address] (Primary Dx) [phone] [place] [address] Social History Tobacco Use Types Packs/Day Years Used Date Smoking Tobacco: Never Smokeless Tobacco: Never Alcohol Use Standard Drinks/Week Comments Yes 0 (1 standard drink = 0.6 oz pure alcoho l) Sex Assigned at Date Recorded Female 08/18/2018 8:27 AM CDT documented as of this encounter Plan of Treatment Not on filedocumented as of this encounter Results HCG, quantitative, (08/21/2020 3:13 PM CDT) P athologist Signature Total Beta hCG 3,244 mIU/mL 08/22/2020 [facility] 2:02 PM CDT [facility] Comment: [...] Organization Address City/State/ZIP Code Phon e Number [facility] [address] [place] [address] Progesterone (08/21/2020 3:13 PM CDT) athologist Signature Progesterone 8.6 ng/mL 08/22/2020 [facility] 2:40 PM CDT [facility] [...] Organization Address City/State/ZIP Code Phon e Number [facility] [address] [place] [address] documented in this encounter Visit Diagnoses Diagnosis Less than 8 weeks gestation of - Primary documented in this encounter Care Teams X Ray Equipment Mechanic Relationship Specialty Start Date End Date None, Pcp PCP - General District Gauger 08/06/19 10/19/20 [address] [facility] [place] [address] documented as of this encounter
--- OUTSIDE RECORDS SUMMARY | 2022-01-12 14:07 | XMS_ITS | Encounter Summary ---
:1985 Author Organization [facility] Address [address] [place] [address] Care Team Providers Name Role Phone None, Pcp Primary Care Provider Unavailable Encounter Details Date Type Department Care Team Description 08/15/2020 [facility] test positive [address] [place] [address] Social History Tobacco Use Types Packs/Day [...] Name Priority Date/Time Associated Diagnosis Comme nts HCG, QUANTITATIVE, Routine 08/15/2020 2:40 PM test R esults for this CDT positive procedure are i n the results section. documented in this encounter Results HCG, quantitative, (08/15/2020 2:40 PM CDT) P athologist Signature Total Beta hCG 4,623 mIU/mL 08/15/2020 [facility] 5:45 PM CDT [facility]ENTER [facility] Comment: Female [...] Organization Address City/State/ZIP Code Phon e Number [facility] [address] [place] [address] documented in this encounter Visit Diagnoses Diagnosis test positive examination or test, positive result documented in this encounter Care Teams Rough Rounder Relationship Specialty Start Date End Date None, Pcp PCP - General Refinery Operator Helper Cracking Unit 08/06/19 10/19/20 [address] [facility] [address] [address] documented as of this encounter
--- OUTSIDE RECORDS SUMMARY | 2022-01-12 14:07 | XMS_ITS | Encounter Summary ---
:1985 Author Organization [facility] Address [address] [place] [address] Care Team Providers Name Role Phone None, Pcp Primary Care Provider Unavailable Encounter Details Date Type Department Care Team Description 11/01/2019 Lab SE Immunization Encounter for special [address] [place] [address] infectious or parasitic [phone] disease Social History Tobacco Use Types Packs/Day Years [...] Diagnosis Comme nts SARS CORONAVIRUS 2 Routine 11/01/2019 8:23 AM Encounter for Re sults for this RNA DETECTION, V CDT special screening proced ure are in examination for the results infectious or section. parasitic disease documented in this encounter Results SARS Coronavirus 2 RNA detection, v (11/01/2019 8:23 AM CDT) [facility] Method Time Signature SARS Covid Nasopharyngeal 11/01/2019 [facility] specimen 10:19 PM LABORATORIES source CDT Patient Race White 11/01/2019 [facility] 10:19 PM LABORATORIES CDT Patient DECLINE 11/01/2019 [facility] Ethnicity 10:19 PM LABORATORIES CDT SARS CoV2 Undetected Undetected 11/01/2019 [facility] RNA 10:19 PM LABORATORIES CDT Comment: SARS-CoV-2 RNA absent. This result does not rule out COVID-19 in the patient, as the sensitiv ity of the test depends on the timing of the specimen co llection and the quality of the specimen. Result should b e correlated with patient's history and clinical presentat ion. Method - 11/01/2019 10:19 PM CDT [facility] Comment: PKELM- This test uses the [employer] Ne w Coronavirus Nucleic Acid Detection Kit ([employer] Inc.), and is performed on the Vatgia.com 360 instrument and Applied Biosystems 7500 Fast Real-Time PCR Amadae brenna. It has received Emergency Use Authorization (EUA) by the U.S. Food and Drug Administration, and is modified from the truck striker's instructions with a bridging study. Perf ormance characteristics were verified by [facility] inic in a manner consistent with CLIA requirements. Fact sheets for this Emergency Use Autho rization (EUA) can be found at the following links: https://www.fda.gov/media/445147/downloa d for Healthcare Providers https://www.fda.gov/media/100274/downloa d for Patients Test Performed by: [facility] [address] [place] [address] 53 Supervisor Model Making: Yoni Campbell M.D. Ph. D.; CLIA# [id number] Specimen Anatomical Collection Method Collection Time Receive d Time (Source) Location / / Volume Laterality Swab 11/01/2019 8:23 AM 0 9:58 (Nasopharyngeal) CDT AM CDT Cecelia Denise CIRCUS TRAINER, SPENT GRAIN DRYER LAB MOLECULAR DIAGNOSTICS OR DERABLES Performing Organization Address City/State/ZIP Code Phon e Number [facility] see result attachment for specific address documented in this encounter Visit Diagnoses Diagnosis Encounter for special screening examinat ion for infectious or parasitic disease documented in this encounter Additional Health Concerns Infection Onset Date Last Indicated Resolved Time COVID-19 Rule Out 11/01/2019 11/01/2019 11/01/2019 10: 19 PM CDT documented as of this encounter Care Teams Towboat Pilot Relationship Specialty Start Date End Date None, Pcp PCP - General Pierogi Maker 08/06/19 10/19/20 [address] [place] [address] documented as of this encounter
--- OUTSIDE RECORDS SUMMARY | 2022-01-12 14:07 | XMS_ITS | Encounter Summary ---
:1985 Author Organization [facility] Address [address] [place] [address] Care Team Providers Name Role Phone None, Pcp Primary Care Provider Unavailable Reason for Visit Reason Onset Date Comments COVID TRIAGE 11/01/2019 Encounter Details Date Type Department Care Team Description 11/01/2019 Telephone SE Immunization Cecelia Denise, COVID TRIAGE [address] [place] [address] Social History Tobacco Use Types Packs/Day Years Used Date Smoking Tobacco: Never Smokeless Tobacco: Never Alcohol Use Standard Drinks/Week Comments Yes 0 (1 standard drink = 0.6 oz pure alcoho l) Sex Assigned at Date Recorded Female 08/18/2018 8:27 AM CDT documented as of this encounter Progress Notes Niru Frederick APRN, CNP - 11/01/2019 8:18 AM CDT 11/01/19 0800 COVID Algorithm Question A - Patient has the following symptoms: Shortness of breath;Headache;Nasal congestion;Fatigue;Muscle pain;Loss of taste or smell;Nausea;Vomiting;Diarrhea Date of onset of symptoms 10/30/19 Acuity evaluation - patient has the following symptoms: None Instructions for low acuity symptoms Transfer to PSR for telehealth visit or contact department if indicated Question D - Patient has close contact with confirmed COVID case: No documented in this encounter Miscellaneous Notes Telephone Encounter - Niru Frederick APRN, CNP - 11/01/2019 8:16 AM CDT Patient instructed to report to the screening station for testing and then home. Patient instructed to remain home until: ??? No fever for at least 24 hours (one full day without fever without the use of fever reducers AND ??? Other symptoms have improved AND ??? At least 10 days have passed since symptoms first appeared documented in this encounter Plan of Treatment Not on filedocumented as of this encounter Results SARS Coronavirus 2 RNA detection, v (11/01/2019 8:23 AM CDT) [facility] Method Time Signature SARS Covid Nasopharyngeal 11/01/2019 [facility] specimen 10:19 PM LABORATORIES source CDT Patient Race White 11/01/2019 [facility] 10:19 PM LABORATORIES CDT Patient DECLINE 11/01/2019 [facility] Ethnicity 10:19 PM LABORATORIES CDT SARS CoV2 Undetected Undetected 11/01/2019 [facility] RNA 10:19 PM LABORATORIES CDT Comment: SARS-CoV-2 RNA absent. This result does not rule out COVID-19 in the patient, as the sensitiv ity of the test depends on the timing of the specimen co llection and the quality of the specimen. Result should b e correlated with patient's history and clinical presentat ion. Method - 11/01/2019 10:19 PM CDT [facility] Comment: PKELM- This test uses the [employer] Ne w Coronavirus Nucleic Acid Detection Kit ([employer], [employer].), and is performed on the Involvio 360 instrument and Applied Biosystems 7500 Fast Real-Time PCR Syste m. It has received Emergency Use Authorization (EUA) by the U.S. Food and Drug Administration, and is modified from the rejected items clerk's instructions with a bridging study. Perf ormance characteristics were verified by [facility] inic in a manner consistent with CLIA requirements. Fact sheets for this Emergency Use Autho rization (EUA) can be found at the following links: https://www.fda.gov/media/589249/downloa d for Healthcare Providers https://www.fda.gov/media/988068/downloa d for Patients Test Performed by: [facility] [address] [place] [address] 232 Direct Marketing Analyst: Yoni Campbell M.D. Ph. D.; [facility]# [id number] Specimen Anatomical Collection Method Collection Time Receive d Time (Source) Location / / Volume Laterality Swab 11/01/2019 8:23 AM 0 9:58 (Nasopharyngeal) CDT AM CDT Cecelia Chavez Camelia POWER TONG OPERATOR, SALES AGENT FOOD VENDING SERVICE LAB MOLECULAR DIAGNOSTICS OR DERABLES Performing Organization Address City/State/ZIP Code Phon e Number [facility] see result attachment for specific address documented in this encounter Visit Diagnoses Diagnosis Encounter for special screening examinat ion for infectious or parasitic disease - Primary documented in this encounter Care Teams Transit Mixer Operator Relationship Specialty Start Date End Date None, Pcp PCP - General Appliance Line Assembler 08/06/19 10/19/20 [address] [place] [address] documented as of this encounter
--- OUTSIDE RECORDS SUMMARY | 2022-01-12 14:07 | XMS_ITS | Encounter Summary ---
:1985 Author Organization [facility] Address [address] [place] [address] Care Team Providers Name Role Phone None, Pcp Primary Care Provider Unavailable Encounter Details Date Type Department Care Team Description 05/14/2020 Orders Only [place] [facility] Jose Leroy MD [address] [facility] [address] [place] [address] [place] [address] [phone] (Wo rk) Social History Tobacco Use Types [...] on filedocumented in this encounter Care Teams Architectural Administrative Assistant Relationship Specialty Start Date End Date None, Pcp PCP - General Um Specialist 08/06/19 10/19/20 [address] [place] [address] documented as of this encounter
--- OUTSIDE RECORDS SUMMARY | 2022-01-12 14:07 | XMS_ITS | Encounter Summary ---
:1985 Author Organization [facility] Address [address] [place] [address] Care Team Providers Name Role Phone None, Pcp Primary Care Provider Unavailable Encounter Details Date Type Department Care Team Description 11/30/2019 Orders Only [place] Kyle Keller Depression, unspecified depr ession type; [address] [place], [place] [address] [facility] [address] [place] [address] Social History Tobacco Use Types Packs/Day Years Used Date Smoking Tobacco: Never Smokeless Tobacco: Never Alcohol Use Standard Drinks/Week Comments Yes 0 (1 standard drink = 0.6 oz pure alcoho l) Sex Assigned at Date Recorded Female 08/18/2018 8:27 AM CDT documented as of this encounter Plan of Treatment Not on filedocumented as of this encounter Visit Diagnoses Diagnosis Depression, unspecified depression type Anxiety Anxiety state, unspecified documented in this encounter Care Teams Funeral Home Associate Relationship Specialty Start Date End Date None, Pcp PCP - General Linen Room Houseperson 08/06/19 10/19/20 [address] [place] [address] documented as of this encounter
--- OUTSIDE RECORDS SUMMARY | 2022-01-12 14:07 | XMS_ITS | Encounter Summary ---
:1985 Author Organization [facility] Address [address] [place] [address] Care Team Providers Name Role Phone None, Pcp Primary Care Provider Unavailable Reason for Visit Reason Comments Foot Pain right foot pain x a few jennifer hs, questions if its related to Metformin Sinusitis sinus pressure, congestion, ear pain x 2 weeks Encounter Details Date Type Department Care Team Description 04/02/2020 Office Visit Kevin Santamaria Kyle Keller Acute recurrent maxillary si nusitis (Primary Dx); [address] [place]g Right foot pain [place], [place] [address] [address] [facility] 20 [place] [address] Social History Tobacco Use Types Packs/Day Years Used Date Smoking Tobacco: Never Smokeless Tobacco: Never Alcohol Use Standard Drinks/Week Comments Yes 0 (1 standard drink = 0.6 oz pure alcoho l) Sex Assigned at Date Recorded Female 08/18/2018 8:27 AM CDT documented as of this encounter Last Filed Vital Signs Vital Sign Reading Time Taken Comments Blood Pressure 120/82 04/02/2020 3:02 PM PSYCH RN Pulse 76 04/02/2020 3:02 PM PSYCH RN Temperature 35.8 ??C (96.5 ??F) 04/02/2020 3:02 PM PSYCH RN Respiratory Rate 16 04/02/2020 3:02 PM PSYCH RN Oxygen Saturation - - Inhaled Oxygen Concentration - - Weight 128 kg (283 lb 3.2 oz) 04/02/2020 3:02 PM PSYCH RN Height 170 cm (5' 6.93) 04/02/2020 3:02 PM PSYCH RN Body Mass Index 44.45 04/02/2020 3:02 PM PSYCH RN documented in this encounter Progress Notes Kyle Keller MD - 04/02/2020 3:00 PM CST Estab Patient Visit Subjective Patient ID: Flores Serrano is a 34 y.o. female. HPI the patient is here today for a couple different reasons. First she is having some increased sinus pain and discomfort consistent with her recurrent sinus infections and second she is having some right foot pain without injury The patient states that she has been having some intermittent pain across the top forefoot of her right foot. It can come and go may disappear for couple days then is better and then comes back. She describes it as kind of a tingling burning sensation does not necessarily wake her up at night if she takes an occasional ibuprofen seems to help. Again no particular injury though she does stand on hard concrete floors for 8 to 10 hours a day at work. Should be noted she is a noninsulin-dependent diabetic for the last couple years last A1c was 6.8 around 6 months ago. She is also been having some sinus pain and discomfort little ear pressure little sinus drainage primarily on her left side. She will tend to get 1 or 2 episodes of sinus infections each year and in 2010 she did have sinus surgery done at [facility] which was of benefit at that time. Review of Systems Objective Physical Exam she is alert she appears comfortable her vital signs show blood pressure 120/82 pulse of 76 regular rate and rhythm temp 96.5 current weight is 283 pounds and her BMI is 44.5. Her ears are clear free of erythema cerumen or pain. Her conjunctiva is clear her tongue is moist throat is clear neck no adenopathy she has definitive maxillary sinus discomfort to palpation the left sinus area. We did check both of her feet there is no deformity is no calluses no open sores or wounds skin appears to be okay color is good warmth is good and we did check for 12 points of contact with a monofilament line and this is all good. She states the tingling is across her forefeet not necessarily into her toes at this time. Assessment/Plan Diagnoses and all orders for this visit: Acute recurrent maxillary sinusitis - cephalexin (Keflex) 500 MG capsule; Take 1 capsule (500 mg total) by mouth 3 (three) times a day for 10 days Right foot pain The overall assessment is acute recurrent maxillary sinusitis left side plan is Keflex as prescribedas she says that usually works well for her Secondary diagnoses of right foot pain more consistent with a neuropathy probably related to her diabetes but little hard to say for sure because is not classic. We discussed possibly getting x-rays wediscussed further evaluation we have and discuss referral to podiatry if this could work to continueat this point time she would like to just wait and see what happens. She is due for a lipid panel as well as her A1c she want to return fasting for this which is appropriate. If her A1c is gone higher than a course we will adjust her medications. H RN documented in this encounter Plan of Treatment Not on filedocumented as of this encounter Visit Diagnoses Diagnosis Acute recurrent maxillary sinusitis - Pr imary Right foot pain Pain in soft tissues of limb documented in this encounter Care Teams Power Crane Operator Relationship Specialty Start Date End Date None, Pcp PCP - General Charcoal Burner Beehive Kiln 08/06/19 10/19/[address] [place] [phone] documented as of this encounter
--- OUTSIDE RECORDS SUMMARY | 2022-01-12 14:07 | XMS_ITS | Encounter Summary ---
:1985 Author Organization [facility] Address [address] [place] [address] Care Team Providers Name Role Phone None, Pcp Primary Care Provider Unavailable Reason for Visit Reason Onset Date Comments Appointment 08/13/2020 Encounter Details Date Type Department Care Team Description 08/13/2020 Telephone [place] None, Pcp Appointment [address] [facility] [address] [place], [place] [address] [place], [place] [phone] Social History Tobacco Use Types Packs/Day Years Used Date Smoking Tobacco: Never Smokeless Tobacco: Never Alcohol Use Standard Drinks/Week Comments Yes 0 (1 standard drink = 0.6 oz pure alcoho l) Sex Assigned at Date Recorded Female 08/18/2018 8:27 AM CDT documented as of this encounter Miscellaneous Notes Telephone Encounter - Wendy Heller LPN - 08/13/2020 10:20 AM CDT Noted Telephone Encounter - Kyle Keller MD - 08/13/2020 8:16 AM CDT Lab orders have been placed. Telephone Encounter - Wendy Heller LPN - 08/13/2020 7:55 AM CDT Spoke to the patient who had an at home test yesterday that came back positive. She has a history of difficult conception and miscarriages. She called [facility] to see if they could get her in for lab testing and they stated they would not see her until 8-10 weeks gestation. 3:40pm appointment We will need to run them EMILY upon arrival. She is coming in this afternoon to see you. She would like a Progesterone, a HCG, and a TSH cascade to check for possible causes for loss to occur. The nurse who did IVF believes that these are very reasonable test's to be run on this patient knowing her patient history. Please review and approve labs on her appointment today that are pending, if needing more please addthem. documented in this encounter Plan of Treatment Not on filedocumented as of this encounter Results (ABNORMAL) TSH (08/13/2020 3:53 PM CDT) Analysis Performed At Patho logist Time Signature TSH, Sensitive 0.44 (L) 0.46 - 08/14/2020 [place] 4.68 mIU/L 2:32 PM CDT [facility] Comment: The results from this or any other [...] (Source) Location / / Volume Laterality Blood 08/13/2020 3:53 PM CDT 12:59 PM CDT Kyle Keller MD LAB BLOOD ORDERABLES Performing Organization Address City/State/ZIP Code Phon e Number [facility] [address] [place] [address] HCG, quantitative, (08/13/2020 3:53 PM CDT) athologist Signature Total Beta hCG 4,031 mIU/mL 08/14/2020 [facility] 2:31 PM CDT [facility] Comment: Female Reference [...] Location / / Volume Laterality Blood (Blood, 08/13/2020 3:53 PM 08/15/19 21 Venous) CDT 12:59 PM CDT D. Bigg Keller MD LAB BLOOD ORDERABLES Performing Organization Address City/State/ZIP Code Phon e Number [facility] [address] [place] [address] Progesterone (08/13/2020 3:53 PM CDT) athologist Signature Progesterone 2.8 ng/mL 08/14/2020 [facility] 2:31 PM CDT [facility] Comment: Females: ? [...] Location / / Volume Laterality Blood (Blood, 08/13/2020 3:53 PM 08/15/19 Ven[place]) CDT 12:59 PM CDT D. Bigg Keller MD LAB BLOOD ORDERABLES Performing Organization Address City/State/ZIP Code Phon e Number [facility] [address] [place] [phone] documented in this encounter Visit Diagnoses Diagnosis Less than 8 weeks gestation of - Primary documented in this encounter Care Teams Apple Sorter Relationship Specialty Start Date End Date None, Pcp PCP - General Cardiology Physician Assistant 08/06/19 10/19/20 [address] [place] [phone] documented as of this encounter
--- OUTSIDE RECORDS SUMMARY | 2022-01-12 14:07 | XMS_ITS | Encounter Summary ---
:1985 Author Organization [facility] Address [address] [place] [address] Care Team Providers Name Role Phone None, Pcp Primary Care Provider Unavailable Encounter Details Date Type Department Care Team Description 09/06/2019 Travel Social History Tobacco Use Types Packs/Day [...] on filedocumented in this encounter Care Teams Cytotechnologist/Cytology Supervisor Relationship Specialty Start Date End Date None, Pcp PCP - General Fire Coordinator 08/06/19 10/19/[address] [place] [phone] documented as of this encounter
--- OUTSIDE RECORDS SUMMARY | 2022-01-12 14:07 | XMS_ITS | Encounter Summary ---
:1985 Author Organization [facility] Address [address] [place] [address] Care Team Providers Name Role Phone None, Pcp Primary Care Provider Unavailable Reason for Visit Reason Comments Follow-up with fasting labs Encounter Details Date Type Department Care Team Description 09/07/2019 Office Visit Kevin Santamaria Kyle Keller Type 2 diabetes mellitus wit hout complication, without long-term current use of insulin (HCC) (Primary Dx); [address] [place] Mixed hyperlipidemia; [place], [place] [address] Depression, unspecified depr ession type; [phone] [place] [facility]; [place], [place] Screening c holesterol level [phone] Social History Tobacco Use Types Packs/Day Years [...] Reading Time Taken Comments Blood Pressure 122/80 09/07/2019 7:58 AM CDT Pulse 72 09/07/2019 7:58 AM CDT Temperature 36.2 ??C (97.1 ??F) 09/07/2019 7:58 AM CDT Respiratory Rate 16 09/07/2019 7:58 AM CDT Oxygen Saturation - - Inhaled Oxygen Concentration - - Weight 126 kg (278 lb 7.1 oz) 09/07/2019 7:58 AM CDT Height - - Body Mass Index 44.22 08/06/2019 2:45 PM CDT documented in this encounter Patient Instructions Patient InstructionsD. Bigg Keller MD - 09/07/2019 8:00 AM CDT Dolores, Your A1-c came back at 6.8 which is good. Continue taking your Metformin 1000 mg twice a day. When you run out of your current Rx in three months let me know and we will change you to Metformin ER 500 mg tab TWO tabs TWICE a day to see if this will decrease your loose stools. When you call and talk erika nurse make sure you tell my nurse that you want to try the ER (extended release) form. Your cholesterol levels are still elevated as as discussed we have sent to your pharmacy for Ggtroid04 mg take one a day. Any problems let me know. We have also started you on Celexa for depression/anxiety. As before any questions let me know. We should repeat your A1-c and cholesterol panel in January 2020. You will be in the computer to have this done. Call the day ahead to make a lab appointment and come in fasting to have this done. I do not need to see you for this. documented in this encounter Progress Notes Kyle Keller MD - 09/07/2019 8:00 AM CDT Estab Patient Visit Subjective Patient ID: Flores Serrano is a 33 y.o. female. HPI the patient is here today for diabetic review and a couple other questions and issues. The patient is a 33-year-old individual with a diagnosis of type 2 diabetes going back approximately1 year. Actually her underlying diagnoses include the following Obesity calorie induced Diabetes type 2 Depression/anxiety History of 3 miscarriages Elevated cholesterol and triglycerides The patient is high as A1c was over 7 but more recently she is run below 7. Her last A1c was about 6.6 and her current one which did come back him back at 6.8. Her current medication list includes the following Metformin 1000 1 twice a day she does have a few side effects such as loose stools we discussed the use of extended release Metformin to potentially decrease that issue and she will think about that once she runs out of her current metformin prescription. She has been trying to get in the last few years but she has had 3 pregnancies and 3 miscarriages one that occurred at 13 weeks of . As such right now she and her are not necessarily trying to have kids but they are not necessarily trying not to either. She be okay with starting a statin medication at this time we will have her continue to stay off aspirin and at the moment since her blood pressure is doing very well we will not start her on an MERE medication at this time either She is also been having some problems with anxiety and depression in regard to just many things in her life she is not suicidal she does not have that frequent crying episodes she just feels like she is down and would like to start something for this. She has been on antidepressants in her past she had problems with anxiety and depression her parents but she just feels he needs a little boost at thistime. We then had a discussion regarding diabetes and our treatment goals with discussion regarding cholesterol and her treatment goals looking at her chart she has successfully lost not quite 20 pounds in the last 6 months we congratulated her on this she says she is currently changing her diet not eating as many carbohydrates and this should be of benefit for long-term Review of Systems Objective Physical Exam she is alert she appears comfortable her blood pressure shows 122/80 pulse 72 regular rate and rhythm temp 97.1 her current weight is 126 kg and her BMI is 44 Pupils are equal conjunctiva clear Neck veins are not distended no thyromegaly Lungs are clear without wheeze rales or rhonchi Cardiac is regular rate and rhythm without heart murmur Extremities have no edema And her feet have no particular open sores or calluses and sensations intact at this time. Appropriate laboratory testing will be required current medication adjustments will be made. Assessment/Plan Diagnoses and all orders for this visit: Type 2 diabetes mellitus without complication, without long-term current use of insulin (HCC) - Hemoglobin A1c; Future - Glucose, fasting; Future Mixed hyperlipidemia - atorvastatin (LIPITOR) 20 MG tablet; Take one at night for cholesterol Depression, unspecified depression type - citalopram (CeleXA) 20 MG tablet; Take 1/2 pill a day for the first ten days then increase to one full pill daily for anxiety/depression Anxiety - citalopram (CeleXA) 20 MG tablet; Take 1/2 pill a day for the first ten days then increase to one full pill daily for anxiety/depression Screening cholesterol level - Lipid panel; Future The assessment is as stated above and the plan is after laboratory test came back is to continue on her metformin 1000 twice a day and Lipitor 20 once a day recommended fish oil capsules 1000 twice a day and recheck labs in 6 months time. Will also start on Celexa as stated and she will let us know how she is doing at some point in the future. documented in this encounter Plan of Treatment Not on filedocumented as of this encounter Results (ABNORMAL) Lipid panel (09/07/2019 8:52 AM CDT) athologist Signature Cholesterol 228 (A) 0 - 199 09/07/2019 [facility] mg/dL 1:52 PM T [facility] Comment: Recommended by National Cholesterol Education Program (ATP III) -------- Cholesterol Ranges -------- <200 ? Desirable 200-239 ? Borderline high >=240 ? High Triglycerides 229 (A) 0 - 149 mg/dL 09/07/2019 1:52 PM T [facility] Comment: -------- TRIG Ranges -------- <150 ?Normal 150-199 ? Borderline high 200-499 ? High >=500 ? Very high HDL 33 (A) 40 - 60 mg/dL 09/07/2019 1:52 PM CDT [facility] Comment: -------- HDL Ranges -------- <40 ?Low 40-59 ?Normal >=60 ? Optimal LDL Calculated 149 (A) 0 - 99 mg/dL 09/07/2019 1:52 PM CDT [facility] Comment: -------- LDL Ranges -------- <100 ? Optimal 100-129 ?Near optimal/above op timal 130-159 ?Borderline high 160-189 ?High >=190 ?Very high Fasting? Yes 09/07/2019 8:54 AM CDT [facility] Specimen Anatomical Collection Method Collection Time Receive d Time (Source) Location / / Volume Laterality Blood 09/07/2019 8:52 AM 0 CDT 12:51 PM CDT Kyle Keller MD LAB BLOOD ORDERABLES Performing Organization Address [facility]/ZIP Code Phon e Number [facility] [address] [place] [phone] (ABNORMAL) Glucose, fasting (09/07/2019 8:52 AM CDT) P athologist Signature Glucose 127 (H) 70 - 100 09/07/2019 [facility] mg/dL 1:52 PM CDT [facility] Specimen Anatomical Collection Method Collection Time Receive d Time (Source) Location / / Volume Laterality Blood (Blood, 09/07/2019 8:52 AM 09/07/19 20 Venous) CDT 12:51 PM CDT Kyle Keller MD LAB BLOOD ORDERABLES Performing Organization Address City/[facility]/ZIP Code Phon e Number [facility] [address] [place] [address] (ABNORMAL) Hemoglobin A1c (09/07/2019 8:52 AM CDT) Analysis Performed At Patho logist Time Signature Hemoglobin A1C 6.8 (H) 4.0 - 5.6 09/07/2019 [place] % A1C 1:44 PM CDT [facility] Comment: Reference Range 4.0-5.6% [...] Organization Address City/State/ZIP Code Phon e Number [facility] [address] [facility] [address] [place] [address] documented in this encounter Visit Diagnoses Diagnosis Type 2 diabetes mellitus without complic ation, without long-term current use of insulin (HCC) - Primary Mixed hyperlipidemia Depression, unspecified depression type Anxiety Anxiety state, unspecified Screening cholesterol level Screening for lipoid disorders documented in this encounter Care Teams Legal Editor Relationship Specialty Start Date End Date None, Pcp PCP - General Household Appliances Salesperson 08/06/19 10/19/[address] [address] documented as of this encounter
--- OUTSIDE RECORDS SUMMARY | 2022-01-12 14:07 | XMS_ITS | Encounter Summary ---
:1985 Author Organization [facility] Address [address] [place] [address] Care Team Providers Name Role Phone None, Pcp Primary Care Provider Unavailable Encounter Details Date Type Department Care Team Description 07/07/2020 Ancillary Procedure Kevin Santamaria Radiolo gy [address] [place], [place] [address] Social History Tobacco Use [...] results section. documented in this encounter Results X-ray Hand 3+ Views Right (07/07/2020 3:55 [...] on filedocumented in this encounter Care Teams Oversize Load Pilot Escort Relationship Specialty Start Date End Date None, Pcp PCP - General Recovery Specialist 08/06/19 10/19/[address] [place] [phone] documented as of this encounter
--- OUTSIDE RECORDS SUMMARY | 2022-01-12 14:07 | XMS_ITS | Encounter Summary ---
:1985 Author Organization [facility] Address [address] [place] [address] Care Team Providers Name Role Phone None, Pcp Primary Care Provider Unavailable Encounter Details Date Type Department Care Team Description 11/30/2019 Orders Only [place] Kyle Keller MD [address] [facility] 20 17[address] [facility] 20 [place], [place] [address] [place], [place] [phone] (Wo rk) Social History Tobacco Use Types [...] on filedocumented in this encounter Care Teams Director Design Relationship Specialty Start Date End Date None, Pcp PCP - General Line Lead 08/06/19 10/19/20 [address] [place] [phone] documented as of this encounter
--- OUTSIDE RECORDS SUMMARY | 2022-01-12 14:07 | XMS_ITS | Encounter Summary ---
:1985 Author Organization [facility] Address [address] [place] [address] Care Team Providers Name Role Phone None, Pcp Primary Care Provider Unavailable Reason for Visit Reason Comments Med Refill Encounter Details Date Type Department Care Team Description 05/29/2020 Refill [place] Kyle Keller, Depression, unspecified depr ession type; [address] [facility] 20 MD [address] [place], [place] [address] [phone] [place] [address] Social History Tobacco Use Types Packs/Day Years Used Date Smoking Tobacco: Never Smokeless Tobacco: Never Alcohol Use Standard Drinks/Week Comments Yes 0 (1 standard drink = 0.6 oz pure alcoho l) Sex Assigned at Date Recorded Female 08/18/2018 8:27 AM CDT documented as of this encounter Miscellaneous Notes Telephone Encounter - Wendy Heller LPN - 06/04/2020 8:56 AM CDT Letter sent via portal. Telephone Encounter - Tiara Solano RN - 06/03/2020 1:39 PM CDT [facility] Telephone Encounter - Wendy Heller LPN - 06/02/2020 9:25 AM CDT [facility] Telephone Encounter - Wendy Heller LPN - 05/30/2020 1:04 PM CDT [facility] Telephone Encounter - Tiara Solano RN - 05/29/2020 3:31 PM CDT [facility] Telephone Encounter - Codie Meadows MA - 05/29/2020 2:36 PM CDT Last visit in provider department: 04/02/2020 Last visit requested medication was discussed: 09/07/2019 Upcoming appointment with provider: None Last Rx: 11/30/2019- 135 with 1 refills Requested Prescriptions Pending Prescriptions Disp Refills ??? citalopram (CeleXA) 20 MG tablet [Pharmacy Med Name: CITALOPRAM HYDROBROMIDE 20MG TABS] 135 tablet 1 Sig: TAKE ONE AND ONE-HALF TABLETS BY MOUTH EVERY DAY FOR ANXIETY/DEPRESSION 04/02/2020- PHQ-9- 12/1 AMCRINA-7- 14/1 documented in this encounter Plan of Treatment Not on filedocumented as of this encounter Visit Diagnoses Diagnosis Depression, unspecified depression type Anxiety Anxiety state, unspecified documented in this encounter Care Teams Paint Factory Worker Relationship Specialty Start Date End Date None, Pcp PCP - General Refinish Technician 08/06/19 10/19/20 [address] [place] [phone] documented as of this encounter
--- OUTSIDE RECORDS SUMMARY | 2022-01-12 14:07 | XMS_ITS | Encounter Summary ---
:1985 Author Organization [facility] Address [address] [place] [address] Care Team Providers Name Role Phone None, Pcp Primary Care Provider Unavailable Encounter Details Date Type Department Care Team Description 08/13/2020 Lab Kevin Santamaria Less than 8 weeks gestation of ; [address] Prediabetes [place], [place] [address] Social History Tobacco Use [...] Name Priority Date/Time Associated Diagnosis Comme nts PROGESTERONE Routine 08/13/2020 3:53 PM Less than 8 weeks Resu lts for this CDT gestation of procedure are i n the results section. HCG, QUANTITATIVE, Routine 08/13/2020 3:53 PM Less than 8 week s Results for this CDT gestation of procedure are i n the results section. TSH Routine 08/13/2020 3:53 PM Less than 8 weeks Resu lts for this CDT gestation of procedure are i n the results section. HEMOGLOBIN A1C Routine 08/13/2020 3:53 PM Prediabetes Results for this CDT procedure are i n the results section. documented in this encounter Results (ABNORMAL) Hemoglobin A1c (08/13/2020 3:53 PM CDT) Analysis Performed At Patho logist Time Signature Hemoglobin A1C 6.1 (H) 4.0 - 5.6 08/14/2020 [place] % A1C 2:08 PM CDT [facility] Comment: Reference [...] 08/13/2020 3:53 PM CDT 12:59 PM CDT D. Bigg Keller MD LAB BLOOD ORDERABLES Performing Organization Address City/State/ZIP Code Phon e Number [facility] [address] [place] [address] Progesterone (08/13/2020 3:53 PM CDT) athologist Signature Progesterone 2.8 ng/mL 08/14/2020 [facility] 2:31 PM CDT [facility] Comment: Females: [...] PM 08/15/19 [place]) CDT 12:59 PM CDT Kyle Keller MD LAB BLOOD ORDERABLES Performing Organization Address City/[facility] Code Phon e Number [facility] [address] [place] [address] HCG, quantitative, (08/13/2020 3:53 PM CDT) P athologist Signature Total Beta hCG 4,031 mIU/mL 08/14/2020 [facility] 2:31 PM CDT [facility] Comment: Female [...] 08/15/19 21 Venous) CDT 12:59 PM CDT Kyle Keller MD LAB BLOOD ORDERABLES Performing Organization Address City/[facility]/ZIP Code Phon e Number [facility] [address] [place] [address] (ABNORMAL) TSH (08/13/2020 3:53 PM CDT) Analysis Performed At Patho logist Time Signature TSH, Sensitive 0.44 (L) 0.46 - 08/14/2020 [place] 4.68 mIU/L 2:32 PM CDT [facility] Comment: The results from this or [...] 08/13/2020 3:53 PM CDT 12:59 PM CDT D. Bigg Keller MD LAB BLOOD ORDERABLES Performing Organization Address City/State/ZIP Code Phon e Number [facility] [address] [place] [address] documented in this encounter Visit Diagnoses Diagnosis Less than 8 weeks gestation of Prediabetes Other abnormal glucose documented in this encounter Care Teams Control Valve Mechanic Relationship Specialty Start Date End Date None, Pcp PCP - General Reservoir Engineering Consultant 08/06/19 10/19/20 [address] [place] [address] documented as of this encounter
--- OUTSIDE RECORDS SUMMARY | 2022-01-12 14:08 | XMS_ITS | Encounter Summary ---
:1985 Author Organization [facility] Address [address] [place] [address] Care Team Providers Name Role Phone SilvaRadha APRN, SOLE INKER Primary Care Provider [phone] Reason for Visit Reason Comments Rash Encounter Details Date Type Department Care Team Description 08/30/2018 Office Visit [place] Kyle Keller Rash (Primary Dx) [address] [place], [place] [address] [phone] [place] [address] Social History Tobacco Use Types Packs/Day Years Used Date Smoking Tobacco: Never Smokeless Tobacco: Never Alcohol Use Standard Drinks/Week Comments Yes 0 (1 standard drink = 0.6 oz pure alcoho l) Sex Assigned at Date Recorded Female 08/18/2018 8:27 AM CDT documented as of this encounter Last Filed Vital Signs Vital Sign Reading Time Taken Comments Blood Pressure 118/78 08/30/2018 2:23 PM CDT Pulse 96 08/30/2018 2:23 PM CDT Temperature 35 ??C (95 ??F) 08/30/2018 2:23 PM CDT Respiratory Rate 16 08/30/2018 2:23 PM CDT Oxygen Saturation 96% 08/30/2018 2:23 PM CDT Inhaled Oxygen Concentration - - Weight 127 kg (281 lb 1.4 oz) 08/30/2018 2:23 PM CDT Height 170 cm (5' 6.93) 08/30/2018 2:23 PM CDT Body Mass Index 44.12 08/30/2018 2:23 PM CDT documented in this encounter Progress Notes Kyle Keller MD - 08/30/2018 2:20 PM CDT Subjective Patient ID: Floers Serrano is a 32 y.o. female. HPI patient is here today because of development of fairly significant amount of rash all over her body this really quite itchy. She was actually in the clinic on just the previous day at that point time he was more for a feelingof some fever feeling nauseous and not feeling real well and it was noticed that she been swimming in [place] in [facility] that apparently was not really clean and there was reports of pulling off a fair amount of small snails from her swimming suit. She is recovered from some of the events from yesterday she is not as nauseous she feels a little better she does not have the fever that she had previously but now she is got all all of these bite green scattered throughout her body from her chest abdomen back legs and so forth. It should be noted her also was swimming in the same [place] water and he also has a number of rash scattered throughout but just not as bad as what she has and he did not get real ill from this. Review of Systems Objective Physical Exam She is alert she appears comfortable not necessarily under the weather at this time. Her vital signs show blood pressure 118/78 pulse of 96 temp is 95 O2 sats 96% The patient does have a multitude of small bumps rash slightly reddened slightly raised but there isno pinpoint areas there is no umbilicated areas there is nothing to suggest an infection at this time other than the bumps themselves. There is probably more than 100 of these green scattered throughout the abdominal area and her back her upper arms lower legs and so forth. These are all discrete little papules there is no coalescence of them there is no well teen just these discrete green scattered throughout her body. Considering that she been swimming considering that her also had similar green these certainly have the general overall appearance of a swimmer's itch. We discussed the fact that these little parasites burrowing under the skin but they do not cause anysignificant harm because they and that causes an inflammatory response which could then proceeded to cause a fever and nausea and so forth. No lab testing was felt to be needed Assessment/Plan Diagnoses and all orders for this visit: Rash - methylPREDNISolone (MEDROL DOSPAK) 4 MG tablet; Take as directed on package. The overall assessment is a rash that is consistent with a swimmers itch type of rash and the plan at this time he has a Medrol dose pack as well as a prescription that was called in for an Aristocort lotion use for edge and we anticipate she should be improved in the next 3 to 5 days or so. documented in this encounter Plan of Treatment Not on filedocumented as of this encounter Visit Diagnoses Diagnosis Rash - Primary Rash and other nonspecific skin eruption documented in this encounter Care Teams Laborer Demolition Relationship Specialty Start Date End Date Radha Silva APRN, SOLE INKER PCP - General 09/27/17 08/05/[address] [place] [id number] documented as of this encounter
--- OUTSIDE RECORDS SUMMARY | 2022-01-12 14:08 | XMS_ITS | Encounter Summary ---
:1985 Author Organization [facility] Address [address] [place] [address] Care Team Providers Name Role Phone Radha Silva APRN, CNP Primary Care Provider [phone] Reason for Visit Reason Comments Sinus Problem Encounter Details Date Type Department Care Team Description 05/15/2019 Office Visit [place] Radha Silva Acute sinusitis, [address], AM[place] recurrence not [place], [place] [address] specified, [address] [place] [address] unspecified location [phone] (Primary Dx) Social History Tobacco Use Types Packs/Day Years Used Date Smoking Tobacco: Never Smokeless Tobacco: Never Alcohol Use Standard Drinks/Week Comments Yes 0 (1 standard drink = 0.6 oz pure alcoho l) Sex Assigned at Date Recorded Female 08/18/2018 8:27 AM CDT COVID-19 Exposure Response Date Recorded In the last month, have you been in contact with No / Unsure 05/15/2019 12:08 PM CDT someone who was confirmed or suspected to have Coronavirus / COVID-19? documented as of this encounter Progress Notes Radha Silva APRN, CNP - 05/15/2019 1:20 PM CDT Telephone Visit Subjective Patient ID: Flores Serrano is a 33 y.o. female patient of Radha Silva APRN, CNP, who is called on the phone from [place] to discuss Chief Complaint Patient presents with ??? Sinus Problem HPI The patient consented to this consult being held via telephone. The patient is concerned she has a sinus infection, her typical sinus infection symptoms, which started with nasal congestion, nasal drainage which is now yocha dehe green in color last week, which is worsening. The patient reports she developed sinus pressure in her cheeks, maxillary sinus area, a plugged feeling in her ears, which are starting to become somewhat painful, and a fever on Tuesday, 2 days ago, which has persisted. The patient reports here temperatures have ranged from 99-102, this morning 97. The patient reports she does have aproductive cough of yocha dehe- greenish postnasal drainage, and without wheezing or dyspnea. No nausea, vom iting, or diarrhea. The patient reports she has been taking [place] severe sinus, which has reduced her headache discomfort, fever, and provides comfort; however, with her history of sinusitis, she knows she needs to acquire early treatment, otherwise her infections are difficult to overcome. No recent travels. Immunizations are up-to-date. Non-smoker. ?? ROS: GENERAL: See HPI. The patient reports she has had a fever as high as 102 since Tuesday, 2 days ago, and at times it normalizes. EARS: See HPI. The patient has been experiencing pressure in her ears bilaterally, which started to become painful, for the past 2 days. NOSE: See HPI. The patient symptoms initially started with nasal congestion, nasal drainage now limegreen in color, last week. MOUTH/THROAT: See HPI. The patient does have postnasal drainage but did not complain of throat discomfort. RESPIRATORY: See HPI. The patient has a productive cough of yocha dehe green postnasal drainage. GASTROINTESTINAL: See HPI. No nausea, vomiting, and/or diarrhea. NEUROLOGICAL: See HPI. The patient does have headache discomfort around her maxillary sinus areas since Tuesday, 2 days ago. The following portions of the patient's chart were reviewed in this encounter and updated as appropriate: Tobacco Allergies Meds Problems Med Hx Surg Hx Fam Hx Objective RESULTS REVIEWED TODAY: None. EXAM: Psych: Patient is conversant and pleasant over the phone. She endorses no acute distress. Rest of exam unable to be completed due to phone interview. Assessment/Plan Problem List Items Addressed This Visit None Visit Diagnoses Acute sinusitis, recurrence not specified, unspecified location - Primary Relevant Medications amoxicillin (AMOXIL) 400 MG/5ML suspension Discussed the plan of care with the patient. The patient reports historically Amoxicillin has worked; therefore prescribed Amoxicillin 400 mg/5ml, 10 mL b.i.d. x 10 days, and she should feel free to communicate with me how she is feeling. She can continue over the counter pain relievers. The patient agrees to stay in contact, and understands and agrees with this plan of care. No follow-ups on file. The patient has consented to be consulted over the telephone without the capability of a physical exam and understands that this does not replace the importance of a face to face visit if problems persist. This is being done during the phase of the CDC COVID crisis and feel that it is in the patient's best interest to be treated over the phone at this time, as the benefits outweigh the risks. Additionally, the patient was made aware that this visit will be billed by time spent. The patient indicatesunderstanding of these issues and agrees with the plan. Time spent during this phone call was 5 minutes. documented in this encounter Plan of Treatment Not on filedocumented as of this encounter Visit Diagnoses Diagnosis Acute sinusitis, recurrence not specifie d, unspecified location - Primary documented in this encounter Care Teams Operating Room Orderly Relationship Specialty Start Date End Date Radha Silva APRN, CNP PCP - General 09/27/17 08/05/19 [address] [place] [address] documented as of this encounter
--- OUTSIDE RECORDS SUMMARY | 2022-01-12 14:08 | XMS_ITS | Encounter Summary ---
:1985 Author Organization [facility] Address [address] [place] [address] Care Team Providers Name Role Phone Radha Silva APRN, POST ANESTHESIA CARE UNIT NURSE Primary Care Provider [phone] Encounter Details Date Type Department Care Team Description 02/22/2019 Lab Tyler Santamaria Type 2 diabetes mellitus [address] without complication, withou t Tyler Santamaria [place] [address] long-term current use of [phone] insulin (HCC) Social History Tobacco Use Types Packs/Day Years [...] Name Priority Date/Time Associated Diagnosis Comme nts MICROALBUMIN/CREATI Routine 02/22/2019 11:35 AM Type 2 diabete s Results for this NINE RATIO GLASS OR MIRROR INSPECTOR mellitus without procedure a re in complication, the results without long-term section. current use of insulin (HCC) documented in this encounter Results Microalbumin/Creatinine Ratio (02/22/2019 11:35 AM GLASS OR MIRROR INSPECTOR) P athologist Signature Microalbumin,m <7.0 0.0 - 16.6 02/23/2019 [facility] g/day mg/L 1:50 PM [facility] Comment: . Creatinine, Urine 35 mg/dL 02/23/2019 2:58 PM GLASS OR MIRROR INSPECTOR [facility] Comment: No established reference range. Microalb/Creat Ratio see below 0 - 24 mg/g 02/23/2019 2:58 P M [facility] Comment: Microalbumin value outside of detectable range. Unable to report Microalbumin/Creatinine ratio. Co nsider 24-hour collection if clinically indicated. Specimen Anatomical Collection Method Collection Time Receive d Time (Source) Location / / Volume Laterality Urine 02/22/2019 11:35 02/23/2019 AM GLASS OR MIRROR INSPECTOR 12:32 PM GLASS OR MIRROR INSPECTOR Radha Silva APRN, CNP LAB URINE ORDERABLES Performing Organization Address City/State/ZIP Code Phon e Number [facility] [address] [place] [address] documented in this encounter Visit Diagnoses Diagnosis Type 2 diabetes mellitus without complic ation, without long-term current use of insulin (HCC) documented in this encounter Care Teams Process Machine Operator Relationship Specialty Start Date End Date Radha Silva APRN, POST ANESTHESIA CARE UNIT NURSE PCP - General 09/27/17 08/05/19 [address] [place] [address] documented as of this encounter
--- OUTSIDE RECORDS SUMMARY | 2022-01-12 14:08 | XMS_ITS | Encounter Summary ---
:1985 Author Organization [facility] Address [address] [place] [address] Care Team Providers Name Role Phone Radha Silva APRN, AMELIE Primary Care Provider [phone] Reason for Visit Reason Comments Sinus Problem Encounter Details Date Type Department Care Team Description 12/05/2018 Office Visit Kevin Santamaria Radha Silva Right otitis media, unspecif ied otitis media type (Primary Dx); [address] [place], [place] Acute gastroenteritis [place], [place] [address] [address] [place], [place] [phone] [address] Social History Tobacco Use Types Packs/Day Years Used Date Smoking Tobacco: Never Smokeless Tobacco: Never Alcohol Use Standard Drinks/Week Comments Yes 0 (1 standard drink = 0.6 oz pure alcoho l) Sex Assigned at Date Recorded Female 08/18/2018 8:27 AM CDT documented as of this encounter Last Filed Vital Signs Vital Sign Reading Time Taken Comments Blood Pressure 112/76 12/05/2018 3:52 PM CDT Pulse 109 12/05/2018 3:52 PM CDT Temperature 36.1 ??C (96.9 ??F) 12/05/2018 3:52 PM CDT Respiratory Rate 16 12/05/2018 3:52 PM CDT Oxygen Saturation 98% 12/05/2018 3:52 PM CDT Inhaled Oxygen Concentration - - Weight 129 kg (285 lb 0.9 oz) 12/05/2018 3:52 PM CDT Height 170 cm (5' 6.93) 12/05/2018 3:52 PM CDT Body Mass Index 44.74 12/05/2018 3:52 PM CDT documented in this encounter Patient Instructions Patient InstructionsChtammy Silva APRN, CNP - 12/05/2018 4:00 PM CDT Push fluids Amoxicillin as directed documented in this encounter Progress Notes Radha Silva APRN, CNP - 12/05/2018 4:00 PM CDT Estab Patient Visit Subjective Patient ID: Flores Serrano is a 32 y.o. female presenting for the following concerns. Chief Complaint Patient presents with ??? Sinus Problem HPI: The patient is a pleasant 32 y.o. year old female presenting ambulatory to the clinical setting concerned she has a sinus infection and possible gastroenteritis. The patient reports she started developing nasal congestion and nasal drainage 3 weeks ago. The patient developed throat discomfort on Tuesday, 3 days ago, feeling it was swollen, but not like strep throat. The patient reports she has had afrontal and temporal headache, which is her typical sinus infection symptoms. The patient reports her ears started hurting the past few days with ringing in her right ear. The patient has developed a cough, wheezing, and increased work of breathing in the past couple of days. The patient had a fever as high as 102 yesterday, and 101.9 this morning. The patient feels her fever broke around noon, as she became quite diaphoretic. The patient feels fatigued. The patient developed stomach discomfort on Tuesday, 3 days ago, with associated nausea. The patient developed vomiting with diarrhea yesterday, h aving a watery stool every hour. The patient reports the nausea, vomiting and diarrhea, is improvingthis afternoon, and likely gastroenteritis. The patient is starting to eat and drink today and is tolerating. The patient called in ill to work yesterday and today, and needs a work note. The patient reports gastroenteritis is present among her co-workers, and she has similar symptoms. ROS: GENERAL: See HPI. The patient developed a fever as high as 102 yesterday, 101.9 this morning, and 99at noon, which she feels has now broken. The patient does feel fatigued. EARS: See HPI. The patient reports she has had bilateral ear discomfort for the past couple of days with ringing in her right ear. NOSE: See HPI. The patient has had nasal congestion and nasal drainage for the past 3 weeks, and is quite certain she has a sinus infection. MOUTH/THROAT: See HPI. The patient reports she developed throat discomfort on Tuesday, 3 days ago, a feeling of being swollen but not necessarily strep throat. RESPIRATORY: See HPI. The patient reports she has developed a cough, wheezing, and increased work ofbreathing the past few days. GASTROINTESTINAL: See HPI. The patient feels she has gastroenteritis, as she developed stomach discomfort and nausea on Tuesday, 3 days ago, with vomiting and diarrhea, yesterday, which is actually starting to improve. ENDOCRINOLOGY: The patient had a high blood sugar of 218 on 10/10/18, following a steroid injection in her left hip and knee, and will come back in for a fasting blood sugar and HGB A1c. The following portions of the patient's chart were reviewed in this encounter and updated as appropriate: Tobacco Allergies Meds Problems Med Hx Surg Hx Fam Hx Current Outpatient Medications: ??? amoxicillin (AMOXIL) 400 MG/5ML suspension, Take 10 mL (800 mg total) by mouth 2 (two) times a day for 10 days, Disp: 200 mL, Rfl: 0 Objective Visit Vitals BP 112/76 (BP Location: Left arm, Patient Position: Sitting) Pulse 109 Temp (!) 36.1 ??C (96.9 ??F) (Temporal) Resp 16 Ht 1.7 m (5' 6.93) Wt 129 kg (285 lb 0.9 oz) SpO2 98% BMI 44.74 kg/m?? Smoking Status Never Smoker BSA 2.47 m?? GENERAL: The patient is alert, orientated, and in no apparent distress. HEENT: Head normocephalic. The patient sounds nasally congested. Eyes - pupils round and reactive tolight. EOMs intact without nystagmus. Ears, right ear normal canal with an erythematous tympanic membrane, left ear normal canal normal pearly gramajo TM, with fluid behind the TM. Throat -erythematous carmen pharynx. Neck - Supple. No cervical or posterior lymphadenopathy. No thyromegaly. INTEGUMENTARY: The patient was diaphoretic. CARDIOVASCULAR: Normal heart rate and rhythm. No murmur. RESPIRATORY: Lungs are clear, bilaterally. No wheezing. GASTROENTEROLOGY: Abdomen is soft, no organomegaly, and positive bowel sounds. DIAGNOSTICS: None. Assessment/Plan Flores was seen today for sinus problem. Diagnoses and all orders for this visit: Right otitis media, unspecified otitis media type (Primary) - amoxicillin (AMOXIL) 400 MG/5ML suspension; Take 10 mL (800 mg total) by mouth 2 (two) times a dayfor 10 days Acute gastroenteritis Discussed the plan of care with the patient. Prescribed amoxicillin 400 mg per 5 mL's, 10 mL's twicedaily x10 days, as the patient can tolerate amoxicillin in a liquid form. The patient likely has acute gastroenteritis which is starting to resolve, and she should push fluids. The patient did see receive a work note excusing him for work the past 2 days. The patient agrees to contact me if symptoms persist and/or worsen. The patient agrees and understands this plan of care. Radha Silva APRN, AMELIE documented in this encounter Plan of Treatment Not on filedocumented as of this encounter Visit Diagnoses Diagnosis Right otitis media, unspecified otitis m edia type - Primary Acute gastroenteritis Other and unspecified noninfectious palak roenteritis and colitis documented in this encounter Care Teams Tub Mender Relationship Specialty Start Date End Date Radha Silva APRN, CAN CAPPER PCP - General 09/27/17 08/05/19 [address] [place] [address] documented as of this encounter
--- OUTSIDE RECORDS SUMMARY | 2022-01-12 14:08 | XMS_ITS | Encounter Summary ---
:1985 Author Organization [facility] Address [address] [place] [address] Care Team Providers Name Role Phone Radha Silva APRN, AMELIE Primary Care Provider [phone] Encounter Details Date Type Department Care Team Description 06/04/2019 Telephone Radha Conley, [address] APPLICATION DEVELOPMENT DIRECTOR, [place] [address] [place] [address] AVE [phone] [place], [place] [address] Social History Tobacco Use Types Packs/Day Years [...] this encounter Miscellaneous Notes Telephone Encounter - Jolly Carrillo MD - 06/04/2019 3:40 PM CDT I filled this script Jolly Carrillo MD Telephone Encounter - Sugey Canales RN - 06/04/2019 3:02 PM CDT Pt called and state she has had history of asthma. She last received her albut[place]ol inhaler from [place] years ago, she states she has been off work not due to illness for 2 weeks but because she is high risk due to her diabetes and asthma. She states her inhaler was discussed with PCP at last physical but because she had some at home, a renewal was not needed at the time. Pt states she has used her inhaler more this past week, coughing at night, she also suffers from bad allergies mostly in the spring time, I asked if she was taking a medication for her allergies, she states she has tried them all but they seemed to have increased her blood pressure. She states Claritin was ok but no longer effective. Please advise on albuterol inhaler renewal. Pharmacy [facility]. ACT score 19 documented in this encounter Plan of Treatment Not on filedocumented as of this encounter Visit Diagnoses Diagnosis Exercise-induced asthma - Primary Exercise induced bronchospasm documented in this encounter Care Teams Car Wrecker Relationship Specialty Start Date End Date Radha Silva APRN, NOTE TELLER PCP - General 09/27/17 08/05/19 100 [facility] [place] [address] documented as of this encounter
--- OUTSIDE RECORDS SUMMARY | 2022-01-12 14:08 | XMS_ITS | Encounter Summary ---
:1985 Author Organization [facility] Address [address] [place] [address] Care Team Providers Name Role Phone Radha Silva APRN, CNP Primary Care Provider [phone] Encounter Details Date Type Department Care Team Description 05/11/2019 Orders Only Kevin Santamaria Radha Silva, Type 2 [address] [place] mellitus without Kevin Santamaria [place] [address] complication, without [address] [facility] [address] long-term current use [phone] of insul in (HCC) (Primary Dx) Social History Tobacco Use Types [...] current use of insulin (HCC) - Primary documented in this encounter Care Teams Wax Pourer Relationship Specialty Start Date End Date Radha Silva, ANA LAURA, AMELIE PCP - General 09/27/17 08/05/[address] [place] [address] documented as of this encounter
--- OUTSIDE RECORDS SUMMARY | 2022-01-12 14:08 | XMS_ITS | Encounter Summary ---
:1985 Author Organization [facility] Address [address] [place] [address] Care Team Providers Name Role Phone Radha Silva DIRECTOR GROUP SALES, CARDIOLOGY TECHNICIAN Primary Care Provider Encounter Details Date Type Department Care Team Description 03/29/2019 Refill Kevin Santamaria Radha Silva, Type 2 diabetes [address] [place] mellitus without [place], [place] [address] [address] complication, without [phone] [place], [place] [address] long-term current use of insul in (HCC) (Primary Dx) Social History Tobacco Use Types Packs/Day Years Used Date Smoking Tobacco: Never Smokeless Tobacco: Never Alcohol Use Standard Drinks/Week Comments Yes 0 (1 standard drink = 0.6 oz pure alcoho l) Sex Assigned at Date Recorded Female 08/18/2018 8:27 AM CDT documented as of this encounter Miscellaneous Notes Telephone Encounter - Tiara Solano RN - 03/29/2019 3:53 PM CST Pharmacy sent a fax requesting the test strips be increased to testing TID or QID? Please advise Rx pended for review. APHONE OPERATOR documented in this encounter Plan of Treatment Not on filedocumented as of this encounter Visit Diagnoses Diagnosis Type 2 diabetes mellitus without complic ation, without long-term current use of insulin (HCC) - Primary documented in this encounter Additional Health Concerns Infection Onset Date Last Indicated Resolved Time COVID-19 Rule Out 11/01/2019 11/01/2019 11/01/2019 10: 19 PM CDT COVID-19 Rule Out 01/28/2020 01/28/2020 01/29/2020 6:5 6 AM DICTAPHONE OPERATOR documented as of this encounter Care Teams Jewelry Polisher Relationship Specialty Start Date End Date Radha Silva APRN, CARDIOLOGY TECHNICIAN PCP - General Family Medicine 06/22/[address] [place] [address] [place] [address] documented as of this encounter
--- OUTSIDE RECORDS SUMMARY | 2022-01-12 14:08 | XMS_ITS | Encounter Summary ---
:1985 Author Organization [facility] Address [address] [place] [address] Care Team Providers Name Role Phone Radha Silva SECURITY DOOR INSTALLER, RIGGING LOFT REPAIRER Primary Care Provider [phone] Reason for Visit Reason Comments Back Pain Shoulder Pain Neck Pain Encounter Details Date Type Department Care Team Description 01/12/2019 Office Visit Tyler Santamaria Radha Silva Left otitis media, unspecifi ed otitis media type (Primary Dx); [address] M, SECURITY DOOR INSTALLER, RIGGING LOFT REPAIRER Pain of right scapula; [place] Tr[place] [address] Pain of right clavicle; [address] [place] [address] Chronic midline low back pain without sc iatica; [phone] Left hip pain Social History Tobacco Use Types Packs/Day Years Used Date Smoking Tobacco: Never Smokeless Tobacco: Never Alcohol Use Standard Drinks/Week Comments Yes 0 (1 standard drink = 0.6 oz pure alcoho l) Sex Assigned at Date Recorded Female 08/18/2018 8:27 AM CDT documented as of this encounter Last Filed Vital Signs Vital Sign Reading Time Taken Comments Blood Pressure 124/86 01/12/2019 2:44 PM ELECTRIC TAPE SLITTER Pulse 88 01/12/2019 2:44 PM ELECTRIC TAPE SLITTER Temperature 36 ??C (96.8 ??F) 01/12/2019 2:44 PM ELECTRIC TAPE SLITTER Respiratory Rate 17 01/12/2019 2:44 PM ELECTRIC TAPE SLITTER Oxygen Saturation 98% 01/12/2019 2:44 PM ELECTRIC TAPE SLITTER Inhaled Oxygen Concentration - - Weight 130 kg (287 lb 0.6 oz) 01/12/2019 2:44 PM ELECTRIC TAPE SLITTER Height 170 cm (5' 6.93) 01/12/2019 2:44 PM ELECTRIC TAPE SLITTER Body Mass Index 45.05 01/12/2019 2:44 PM ELECTRIC TAPE SLITTER documented in this encounter Patient Instructions Patient InstructionsChtammy Silva APRN, CNP - 01/12/2019 2:40 PM ELECTRIC TAPE SLITTER Keflex 500 mg four times per day x 10 days Medrol Dosepak Heat/ice to left hip TRIC TAPE SLITTER documented in this encounter Progress Notes Radha Silva APRN, CNP - 01/12/2019 2:40 PM CST Estab Patient Visit Subjective Patient ID: Flores Serrano is a 33 y.o. female presenting for the following concerns. Chief Complaint Patient presents with ??? Back Pain ??? Shoulder Pain ??? Neck Pain HPI: The patient is a pleasant 33 y.o. year old rqtno-fkgl-grdvjkod female presenting ambulatory to the clinical setting with concerns for a persistent sinus infection, right clavicle, scapular and neck discomfort and chronic low back discomfort. ?? The patient was evaluated on 12/05/2018 and diagnosed with a right otitis media. The patient had been prescribed amoxicillin 800 mg twice daily which she took consistently, and completed the course of the antibiotic finding some relief in her symptoms when on the antibiotic, but not complete relief, and the symptoms have returned. The patient reports she has had persistent nasal congestion, nasal drainage since the end of October, and a plugged sensation in her ears, and her left ear is becoming painful. No teeth pain ???yet.?? The patient reports she had a fever of 102.4 this morning before awakening, and a low-grade, 100-101, over the past few days. The patient did have a headache which may be related to her neck discomfort. No teeth pain. The patient reports she has been taking DayQuil and NyQuil without relief. The patient reports she has had right mid-clavicular discomfort which radiates into her right shoulder blade and into her right lateral neck for the past couple of weeks, worse during the day while at work, and improves after she is done with work. No injury. The patient feels if she could pop or stretch this area it would help but has not. The patient denies any skin changes or swelling. The patientdenies any different work ergonomics, she is using the same chair. The patient did have tingling in her right index finger x1, because she slept wrong, but otherwise has not had any numbness or tingling in her fingers. The patient has been applying icy hot, taking Tylenol, ibuprofen and hot showers, wi thout alleviation of her symptoms. ?? The patient reports she continues to have chronic lower back pain, left hip pain, which seems worse after an injection she reacted to in September. The patient did have an injection in her left knee that same day. The patient reports she has had lower back pain since the age of 16 or 17, after an epidural for surgery. No skin color changes over her left hip, back. She has been applying a heating pad which does help. No numbness, tingling or weakness in her left lower extremity. ?? ROS: GENERAL: See HPI. The patient reports she had a fever of 102.4 this morning upon awakening, and a low grade fever, 100-101, the past few days. INTEGUMENTARY: No rashes or skin tissue changes. EARS: See HPI. The patient reports she has a plugged sensation in her ears and her left ear is becoming painful. NOSE: See HPI. The patient has had nasal congestion and nasal drainage since the end of October. MOUTH/THROAT: No teeth pain. RESPIRATORY: The patient offers no complaints of a cough. MUSCULOSKELETAL: See HPI. The patient has mid right clavicular discomfort which radiates into her right shoulder blade, and up into her right lateral neck area for the past 2 weeks. The patient has hadchronic back pain since she was 16 or 17, without radiculopathy symptoms. NEUROLOGICAL: See HPI. The patient denies any numbness, tingling, or weakness in her right upper extremity or left lower extremity. The following portions of the patient's chart were reviewed in this encounter and updated as appropriate: Tobacco Allergies Meds Problems Med Hx Surg Hx Fam Hx Current Outpatient Medications: ??? cephalexin (KEFLEX) 500 MG capsule, Take 1 capsule (500 mg total) by mouth 4 (four) times a day for 10 days, Disp: 40 capsule, Rfl: 0 Objective Visit Vitals BP 124/86 (BP Location: Left arm, Patient Position: Sitting) Pulse 88 Temp (!) 36 ??C (96.8 ??F) (Temporal) Resp 17 Ht 1.7 m (5' 6.93) Wt 130 kg (287 lb 0.6 oz) SpO2 98% BMI 45.05 kg/m?? Smoking Status Never Smoker BSA 2.48 m?? GENERAL: The patient is alert, orientated, and in no apparent distress. HEENT: Head normocephalic. Eyes - pupils round and reactive to light. Ears - right ear normal canal normal pearly gramajo TM. Left ear erythematous tympanic membrane. Throat - normal oropharynx. Uvula rises midline. No erythema. Neck - Supple. No cervical or posterior lymphadenopathy. INTEGUMENTARY: Skin is warm and dry. No evidence of lesions. MUSCULOSKELETAL: Examining the patient's lower lumbar back area there is no erythema, deformity, andswelling; however, she has exquisite tenderness with palpation. Examining over the left hip there does not appear to be any skin color changes but again palpating the area she identifies as the injection site induces discomfort. The patient walks upright there is no limping. Examining the right mid clavicular area, no erythema, deformity, swelling, but tenderness with palpation, which extends down into the right mid scapular area and into her right lateral neck area. The patient has normal range of motion of her neck. DIAGNOSTICS: None. Assessment/Plan Flores was seen today for back pain, shoulder pain and neck pain. Diagnoses and all orders for this visit: Left otitis media, unspecified otitis media type (Primary) - cephalexin (KEFLEX) 500 MG capsule; Take 1 capsule (500 mg total) by mouth 4 (four) times a day for 10 days Pain of right scapula - methylPREDNISolone (MEDROL DOSPAK) 4 MG tablet; Take as directed on package. Pain of right clavicle - methylPREDNISolone (MEDROL DOSPAK) 4 MG tablet; Take as directed on package. Chronic midline low back pain without sciatica Left hip pain Discussed the plan of care with the patient. Prescribed Keflex 500 mg 4 times a day for 10 days for her left otitis media. Prescribed a Medrol Dosepak for the patient's right clavicular, right scapular, and low back pain. The patient should follow-up in regards to her left hip pain with orthopedics. The patient could consider physical therapy if the right clavicular, right scapular pain persists and she may find benefit from her lower back pain as well. The patient agrees and understands this plan of care. Radha Silva APRN, AMELIE TRIC TAPE SLITTER documented in this encounter Plan of Treatment Not on filedocumented as of this encounter Visit Diagnoses Diagnosis Left otitis media, unspecified otitis me lianna type - Primary Pain of right scapula Pain of right clavicle Chronic midline low back pain without sc iatica Left hip pain Pain in joint, pelvic region and thigh documented in this encounter Care Teams Photograph Mounter Relationship Specialty Start Date End Date Radha Silva APRN, AMELIE PCP - General 09/27/17 08/05/[address] [place] [address] documented as of this encounter
--- OUTSIDE RECORDS SUMMARY | 2022-01-12 14:08 | XMS_ITS | Encounter Summary ---
:[address] [facility] Address [address] [place] [address] Care Team Providers Name Role Phone Radha Silva APRN, AMELIE Primary Care Provider [phone] Reason for Visit Reason Onset Date Comments GLucose test stripes 04/02/2019 Encounter Details Date Type Department Care Team Description 04/02/2019 Telephone Kevin Santamaria Radha Silva, GLucose test stripes [address] [place], [place] [address] [address] [facility] [address] [phone] [place], [place] [address] Social History Tobacco Use Types Packs/Day Years Used Date Smoking Tobacco: Never Smokeless Tobacco: Never Alcohol Use Standard Drinks/Week Comments Yes 0 (1 standard drink = 0.6 oz pure alcoho l) Sex Assigned at Date Recorded Female 08/18/2018 8:27 AM CDT documented as of this encounter Miscellaneous Notes Telephone Encounter - Joana Huitron - 04/02/2019 10:35 AM CST Faxed. RY FURNACE TENDER Telephone Encounter - Wendy Heller LPN - 04/02/2019 10:11 AM CST Please fax the blood glucose test strips to Family Sloan Santamaria RY FURNACE TENDER documented in this encounter Plan of Treatment Not on filedocumented as of this encounter Visit Diagnoses Not on filedocumented in this encounter Care Teams Php Software Engineer Relationship Specialty Start Date End Date Radha Silva, TRIMMING ASSEMBLER, LEAD PYTHON DEVELOPER PCP - General 09/27/17 08/05/19 100 [facility] [place] [id number] documented as of this encounter
--- OUTSIDE RECORDS SUMMARY | 2022-01-12 14:08 | XMS_ITS | Encounter Summary ---
:[address] [facility] Address [address] [place] [address] Care Team Providers Name Role Phone Radha Silva APRN, CNP Primary Care Provider [phone] Encounter Details Date Type Department Care Team Description 10/10/2018 Orders Only [place] Radha Silva, Elevated blood sugar [address] [place] (Primary Dx) [place], [place] 100 [facility] [address] [place] [address] Social History Tobacco Use Types Packs/Day Years Used Date Smoking Tobacco: Never Smokeless Tobacco: Never Alcohol Use Standard Drinks/Week Comments Yes 0 (1 standard drink = 0.6 oz pure alcoho l) Sex Assigned at Date Recorded Female 08/18/2018 8:27 AM CDT documented as of this encounter Plan of Treatment Not on filedocumented as of this encounter Visit Diagnoses Diagnosis Elevated blood sugar - Primary Other abnormal glucose documented in this encounter Care Teams Computer Equipment Installer Relationship Specialty Start Date End Date Radha Silva APRN, AMELIE PCP - General 09/27/17 08/05/19 [address] [place] [address] documented as of this encounter
--- OUTSIDE RECORDS SUMMARY | 2022-01-12 14:08 | XMS_ITS | Encounter Summary ---
:1985 Author Organization [facility] Address [address] [place] [address] Care Team Providers Name Role Phone Radha Silva APRN, VOCAL MUSIC INSTRUCTOR Primary Care Provider [phone] Encounter Details Date Type Department Care Team Description 02/19/2019 Lab Tyler Santamaria Weight gain; [address] Prediabetes; [place], [place] [address] Screening, lipid; [phone] Elevated blood sugar Social History Tobacco Use Types Packs/Day Years [...] Name Priority Date/Time Associated Diagnosis Comme nts GLOMERULAR Routine 02/19/2019 8:48 AM Prediabetes Results f or this FILTRATION RATE [place] procedure ar e in the results section. THYROID FUNCTION Routine 02/19/2019 8:48 AM Weight gain Resul ts for this CASCADE [place] procedure are i n the results section. HEMOGLOBIN A1C Routine 02/19/2019 8:48 AM Prediabetes Results for this [place] procedure are i n the results section. LIPID PANEL Routine 02/19/2019 8:48 AM Screening, lipid Resul ts for this [place] procedure are i n the results section. BASIC METABOLIC Routine 02/19/2019 8:48 AM Prediabetes Result s for this PANEL [place] procedure are i n the results section. documented in this encounter Results Glomerular filtration rate (GFR) (02/19/2019 8:48 AM [place]) athologist Signature GFR >60 02/19/2019 [facility] 1:45 PM [facility] >60 02/19/2019 [facility] Liberian GFR 1:45 PM [facility] Comment: GFR calculated from serum creatinine v alue Chronic Kidney Disease less than 60 mL/m in/1.73 m2 Kidney Failure less than 15 mL/min/1.73 m2 Note: effective 07/06/06 IDMS-Traceable MDRD Study Equation used. Specimen Anatomical Collection Method Collection Time Receive d Time (Source) Location / / Volume Laterality 02/19/2019 8:48 AM 9 8:48 [place] AM [place] Radha Silva APRN, VOCAL MUSIC INSTRUCTOR LAB BLOOD ORDERABLES Performing Organization Address City/State/ZIP Code Phon e Number [facility] [address] [place] [address] (ABNORMAL) Lipid panel (02/19/2019 8:48 AM [place]) athologist Signature Cholesterol 228 (A) 0 - 199 02/19/2019 [facility] mg/dL 1:45 PM [facility] Comment: Recommended by National Cholesterol Education Program (ATP III) -------- Cholesterol Ranges -------- <200 ? Desirable 200-239 ? Borderline high >=240 ? High Triglycerides 204 (A) 0 - 149 mg/dL 02/19/2019 1:45 PM [facility] Comment: -------- TRIG Ranges -------- <150 ?Normal 150-199 ? Borderline high 200-499 ? High >=500 ? Very high HDL 45 40 - 60 mg/dL 02/19/2019 1:45 PM [facility] Comment: -------- HDL Ranges -------- <40 ?Low 40-59 ?Normal >=60 ? Optimal LDL Calculated 142 (A) 0 - 99 mg/dL 02/19/2019 1:45 PM [place] [facility] Comment: -------- LDL Ranges -------- <100 ? Optimal 100-129 ?Near optimal/above op timal 130-159 ?Borderline high 160-189 ?High >=190 ?Very high Specimen Anatomical Collection Method Collection Time Receive d Time (Source) Location / / Volume Laterality Blood 02/19/2019 8:48 AM 9 8:48 [place] AM [place] Radha Silva APRN VOCAL MUSIC INSTRUCTOR LAB BLOOD ORDERABLES Performing Organization Address [facility] Phon e Number [facility] [address] [place] [phone] (ABNORMAL) Hemoglobin A1c (02/19/2019 8:48 AM [place]) Analysis Performed At [facility] Signature Hemoglobin A1C 7.1 (H) 4.0 - 5.6 02/19/2019 [place] % A1C 4:04 PM [facility] Comment: Reference Range 4.0-5.6% is for [...] (Source) Location / / Volume Laterality Blood 02/19/2019 8:48 AM 9 8:48 [place] AM [place] Radha Silva APRN VOCAL MUSIC INSTRUCTOR LAB BLOOD ORDERABLES Performing Organization Address [facility] Phon e Number [facility] [address] [place] [address] (ABNORMAL) Basic metabolic panel (02/19/2019 8:48 AM [place]) Analysis Performed At [facility] Signature Sodium 138 135 - 145 02/19/2019 [facility] mEq/L 1:45 PM [facility] Potassium 3.9 3.5 - 5.1 02/19/2019 [facility] mEq/L 1:45 PM [facility] Chloride 102 98 - 107 02/19/2019 [facility] mEq/L 1:45 PM [facility] CO2 26 22 - 29 02/19/2019 [facility] mmol/L 1:45 PM [facility] Creatinine 0.5 0.4 - 1.2 02/19/2019 [facility] mg/dL 1:45 PM [facility] BUN 9 5 - 25 02/19/2019 [facility] mg/dL 1:45 PM [facility] Glucose 125 (H) 70 - 100 02/19/2019 [facility] mg/dL 1:45 PM [facility] Calcium, 9.4 8.4 - 10.2 02/19/2019 [facility] Total,S mg/dL 1:45 PM [facility] Fasting? Yes 02/19/2019 [facility] 8:49 AM [facility] Specimen Anatomical Collection Method Collection Time Receive d Time (Source) Location / / Volume Laterality Blood 02/19/2019 8:48 AM 9 8:48 [place] AM [place] Radha Silva APRN, VOCAL MUSIC INSTRUCTOR LAB BLOOD ORDERABLES Performing Organization Address City/State/ZIP Code Phon e Number [facility] [address] [place] [address] [facility] [address] [place] [address] LABORATORY Thyroid Function [place] (02/19/2019 8:48 AM [place]) athologist Signature TSH, Sensitive 1.17 0.46 - 02/19/2019 [facility] MEDICA L 4.68 mIU/L 2:31 PM [facility] Comment: The results from this [...] Location / / Volume Laterality Blood (Blood, 02/19/2019 8:48 AM 02/20/20 8:48 Venous) [place] AM [place] Radha Silva APRN, VOCAL MUSIC INSTRUCTOR LAB BLOOD ORDERABLES Performing Organization Address City/State/[facility] Code Phon e Number [facility] [address] [place] [address] documented in this encounter Visit Diagnoses Diagnosis Weight gain Other symptoms concerning nutrition, met abolism, and development Prediabetes Other abnormal glucose Screening, lipid Elevated blood sugar Other abnormal glucose documented in this encounter Care Teams Structural Steel Worker Helper Relationship Specialty Start Date End Date Radha Silva APRN, VOCAL MUSIC INSTRUCTOR PCP - General 09/27/17 08/05/19 [address] [place] [address] documented as of this encounter
--- OUTSIDE RECORDS SUMMARY | 2022-01-12 14:08 | XMS_ITS | Encounter Summary ---
:1985 Author Organization [facility] Address [address] [place] [address] Care Team Providers Name Role Phone Radha Silva APRN, CNP Primary Care Provider Encounter Details Date Type Department Care Team Description 05/15/2019 Travel Social History Tobacco Use Types Packs/Day [...] on filedocumented in this encounter Care Teams Operater Relationship Specialty Start Date End Date Radha Silva APRN, AMELIE PCP - General 09/27/17 08/05/[address] [place] [address] documented as of this encounter
--- OUTSIDE RECORDS SUMMARY | 2022-01-12 14:08 | XMS_ITS | Encounter Summary ---
:[address] [facility] Address [address] [place] [address] Care Team Providers Name Role Phone Radha Silva APRN, HOUSE FURNISHINGS SUPERVISOR Primary Care Provider [phone] Reason for Visit Reason Onset Date Comments registry 04/05/2019 Encounter Details Date Type Department Care Team Description 04/05/2019 [place] registry [address] TAPING FOREMAN, [place], [place] [address] [address] [facility] [address] [phone] [place], [place] [address] Social History Tobacco Use Types Packs/Day Years Used Date Smoking Tobacco: Never Smokeless Tobacco: Never Alcohol Use Standard Drinks/Week Comments Yes 0 (1 standard drink = 0.6 oz pure alcoho l) Sex Assigned at Date Recorded Female 08/18/2018 8:27 AM CDT documented as of this encounter Miscellaneous Notes Telephone Encounter - Tiara Solano RN - 04/19/2019 9:37 AM CST Patient has not returned call, will try again soon. NTORY CONTROL ANALYST Telephone Encounter - Tiara Solano RN - 04/05/2019 1:45 PM CST LMTC, patient due for an Asthma control test. NTORY CONTROL ANALYST documented in this encounter Plan of Treatment Not on filedocumented as of this encounter Visit Diagnoses Not on filedocumented in this encounter Care Teams Computer Aided Drafter Relationship Specialty Start Date End Date Radha Silva, TAPING FOREMAN, HOUSE FURNISHINGS SUPERVISOR PCP - General 09/27/17 08/05/19 [address] [facility] [place] [id number] documented as of this encounter
--- OUTSIDE RECORDS SUMMARY | 2022-01-12 14:08 | XMS_ITS | Encounter Summary ---
:1985 Author Organization [facility] Address [address] [place] [address] Care Team Providers Name Role Phone Radha Silva APRN, SMELTING ENGINEER Primary Care Provider [phone] Encounter Details Date Type Department Care Team Description 08/30/2018 Lab [place] Diarrhea, unspecified type [address] [place], [place] [address] Social History Tobacco Use [...] Procedure Name Priority Date/Time Associated Comments Diagnosis OVA AND PARASITE, Routine 08/30/2018 10:36 Diarrhea, Result s for this CONCENTRATE & SMEAR, AM CDT unspecified type pro cedure are in MICROSCOPY, FECES the result s section. STOOL CULTURE Routine 08/30/2018 10:36 Diarrhea, Results fo r this AM CDT unspecified type procedure a re in the results section. GIARDIA / Routine 08/29/2018 8:21 Diarrhea, Results for this CRYPTOSPORIDIUM PM CDT unspecified type procedur e are in ANTIGENS, FECES the results section. CLOSTRIDIUM DIFFICILE Routine 08/29/2018 8:21 Diarrhea, Res ults for this TOXIN PM CDT unspecified type procedure a re in the results section. documented in this encounter Results Stool culture (08/30/2018 10:36 AM CDT) [facility] Method Time Signature Stool Culture Normal martha suppressed. 09/02/2018 [place] Negative for Salmonella, Shigella, Campylobacter, E co li O157:H7, 11:03 AM CDT [facility] Yersinia. Negative for other Shiga toxin producing E. coli. LABORATORY . (Expected result is negative in the absence of Shiga toxin p roducing E. coli). Specimen Anatomical Collection Method Collection Time Receive d Time (Source) Location / / Volume Laterality Stool 08/30/2018 10:36 08/31/2018 AM CDT 12:17 PM CDT Narrative [facility] - 08/21 11:03 AM CDT Patient does not have an Amoxicillin or PCN allergy Radha Silva APRN, CNP LAB MICROBIOLOGY - GENERA L ORDERABLES Performing Organization Address City/[facility]/ZIP Code Phon e Number [facility] [address] [place] [phone] Parasitic Evaluation (08/30/2018 10:36 AM CDT) athologist Signature Ova + Parasite =- 09/02/2018 [facility] Exam 9:16 AM CDT LABORATORIES Comment: SOURCE: STOOL PARASITIC EXAMINATION ?FINAL No parasites seen. Cryptosporidium, Cyclospora, and microsp oridia are not readily detected by this method. Single negative specimen does not rule o ut parasitic infection. Test Performed by: [facility] [address] [place] [address] Source STOOL 08/30/2018 10:37 AM CDT [facility] Specimen Anatomical Collection Method Collection Time Receive d Time (Source) Location / / Volume Laterality Stool 08/30/2018 10:36 08/31/2018 1:31 AM CDT PM CDT Radha Silva APRN, CNP LAB BODY FLUIDS AND STOOL S ORDERABLES Performing Organization Address City/State/ZIP Code Phon e Number [facility] see result attachment for specific address Cryptosporidium/Giardia antigen, feces (08/29/2018 8:21 PM CDT) [facility] gist Method Time Signature Cryptosporidium NEGATIVE Negative 08/31/2018 [place] 3:02 PM CDT [facility] Comment: . Giardia lamblia NEGATIVE Negative 08/31/2018 3:02 PM C DT [facility] Comment: . Specimen Anatomical Collection Method Collection Time Receive d Time (Source) Location / / Volume Laterality Stool (Per 08/29/2018 8:21 PM 9 Rectum) CDT 12:16 PM CDT Radha Silva APRN, AMELIE LAB BODY FLUIDS AND STOOL S ORDERABLES Performing Organization Address City/[facility]/ZIP Code Phon e Number [facility] [address] [place] [address] Clostridium difficile toxin (08/29/2018 8:21 PM CDT) Analysis Performed At [facility] Time Signature Toxigenic C. NEGATIVE Negative 08/31/2018 [place] Diff 3:13 PM CDT [facility] Comment: Test performed using [employer] GeneXpert (real-time PCR targeting the Toxin B gen e) Specimen Anatomical Collection Method Collection Time Receive d Time (Source) Location / / Volume Laterality Stool (Per 08/29/2018 8:21 PM 9 3:12 Rectum) CDT PM CDT Radha Silva APRN, AMELIE LAB BODY FLUIDS AND STOOL S ORDERABLES Performing Organization Address City/[facility] Code [facility] e Number [facility] [address] [place] [phone] documented in this encounter Visit Diagnoses Diagnosis Diarrhea, unspecified type documented in this encounter Care Teams Weight And Test Bar Clerk Relationship Specialty Start Date End Date Radha Silva APRN, SMELTING ENGINEER PCP - General 09/27/17 08/05/[address] [place] [address] documented as of this encounter
--- OUTSIDE RECORDS SUMMARY | 2022-01-12 14:08 | XMS_ITS | Encounter Summary ---
:1985 Author Organization [facility] Address [address] [place] [address] Care Team Providers Name Role Phone Radha Silva APRN, CNP Primary Care Provider [phone] Encounter Details Date Type Department Care Team Description 02/22/2019 Refill [place], Type 2 diabetes [address] [place] mellitus without [place], [place] [address] complication, without [phone] [place], [place] [address] long-term current use of insul in ([facility]) (Primary Dx) Social History Tobacco Use Types Packs/Day Years Used Date Smoking Tobacco: Never Smokeless Tobacco: Never Alcohol Use Standard Drinks/Week Comments Yes 0 (1 standard drink = 0.6 oz pure alcoho l) Sex Assigned at Date Recorded Female 08/18/2018 8:27 AM CDT documented as of this encounter Miscellaneous Notes Telephone Encounter - Tiara Solano RN - 02/22/2019 2:51 PM CST Pended for review. TH COACH Telephone Encounter - Radha Silva APRN, CNP - 02/22/2019 12:56 PM HEALTH COACH Would you be so kind is to cue up an Accu-Chek, strips, and lancets for this patient to go to [facility]. Thanks Rashad TH COACH documented in this encounter Plan of Treatment Not on filedocumented as of this encounter Visit Diagnoses Diagnosis Type 2 diabetes mellitus without complic ation, without long-term current use of insulin (HCC) - Primary documented in this encounter Care Teams Residential Sales Relationship Specialty Start Date End Date Radha Silva APRN, HYDRAULIC LIFT OPERATOR PCP - General 09/27/17 08/05/[address] [place] [address] documented as of this encounter
--- OUTSIDE RECORDS SUMMARY | 2022-01-12 14:08 | XMS_ITS | Encounter Summary ---
:1985 Author Organization [facility] Address [address] [place] [address] Care Team Providers Name Role Phone Radha Silva APRN, HORSE WRANGLER Primary Care Provider [phone] Reason for Visit Reason Comments Diabetes Type 2 diabetes, using oral medication. Diabetes education. Consultation (Routine) - Closed Specialty Diagnoses / Procedures Referred By Contact Refer red To Contact Endocrinology Diagnoses Type 2 diabetes mellitus without complication, without long-term current use of insulin (HCC) Radha Silva APRN, HORSE WRANGLER [address] [place] [address] Referral ID Status Reason Start Date Expiration Date Visits V isits Requested Authorized [id number] Closed Specialty 02/22/2019 02/23/2020 1 1 Services Required Encounter Details Date Type Department Care Team Description 03/07/2019 Office Visit SE Diabetic Education Chalo Roman T ype 2 diabetes 2nd Floor RN mellitus without [address] [facility] [address] complication, [place] [address] long-term current use [phone] [place], [place] of insulin (HC C) [phone] Social History Tobacco Use Types Packs/Day Years Used Date Smoking Tobacco: Never Smokeless Tobacco: Never Alcohol Use Standard Drinks/Week Comments Yes 0 (1 standard drink = 0.6 oz pure alcoho l) Sex Assigned at Date Recorded Female 08/18/2018 8:27 AM CDT documented as of this encounter Progress Notes Chalo Roman RN - 03/07/2019 4:00 PM CST [facility] Patient Name: Flores Serrano Patient Identifier: [id number] Service Location: [facility] SE DIABETIC EDUCATION 2ND FLOOR [address] [facility] [address] Service Date: 03/07/2019 PATIENT EDUCATION- DIABETES VISIT LOCATION: [facility] REFERRING CLINICIAN: Radha Silva APRN, CNP REFERRAL DATE: 02/22/2019 REASON FOR REFERRAL: Comprehensive/initial education REASON FOR REFERRAL: Type 2 Diabetes Mellitus PREFERRED LEARNING STYLE: Listening Observing Doing CLINICAL ASSESSMENT: Patient Age: 33 y.o. Height: BP Readings from Last 1 Encounters: 02/22/19 124/90 Weight: Wt Readings from Last 1 Encounters: 02/22/19 134 kg (295 lb 1.6 oz) BMI: Estimated body mass index is 46.32 kg/m?? as calculated from the following: Height as of 02/19/19: 1.7 m (5' 6.93). Weight as of 02/22/19: 134 kg (295 lb 1.6 oz). Basal Calorie Needs: Race/Ethnicity: White/ Preferred Language: Slovak PERTINENT LABS: Hemoglobin A1C Lab Results Component Value Date HGBA1C 7.1 (H) 02/19/2019 LIPIDS Lab Results Component Value Date CHOL 228 (A) 02/19/2019 CHOL 258 (A) 04/23/2014 Lab Results Component Value Date HDL 45 02/19/2019 HDL 27 (A) 04/23/2014 Lab Results Component Value Date LDLCALC 142 (A) 02/19/2019 LDLCALC see below 04/23/2014 Lab Results Component Value Date TRIG 204 (A) 02/19/2019 TRIG 471 (A) 04/23/2014 No results found for: CHOLHDL Microalbumin/Creatinine Ratio Lab Results Component Value Date MICROALBCREA see below 02/22/2019 Fasting Glucose 125 mg/dL 02/22/2019 TSH Lab Results Component Value Date TSH 1.17 02/19/2019 PERTINENT MEDICAL HISTORY: 1. Type 2 diabetes mellitus without complication, without long-term current use of insulin MEDICATIONS: Last updated by: Radha Silva APRN, CNP On: 02/19/2019 PATIENT CONCERNS: DIABETES CARE ASSESSMENT: Blood Glucose Testing: Brand/Meter: MailInBlack Contour Next Test Strips: Joshua Contour Next Lancets: Joshua Microlet Blood Glucose target range: 80-130 mg/dL (pre-meal/ fasting) Blood Glucose Testin-2 times a day, varying the times Insulin Pump: No Glucose Sensor: No Year of diabetes diagnosis: 02/22/2019 Previous diabetes education: With provider NURSING DIAGNOSIS: Knowledge deficit- Related to type 2 diabetes and its management INTERVENTION AND EVALUATION: Patient was seen for 30 minutes of which 75% was spent on education given on the following areas with post instruction knowledge assessed: DIABETES DISEASE PROCESS The food to glucose response- Needs review/assistance. The role of insulin in the body- Needs review/assistance. Mechanisms causing elevated blood glucose- Needs review/assistance. Self management behaviors that can impact diabetes management- Competent. BEING ACTIVE Types of activity and their effect on blood sugar, cholesterol, blood pressure and weight- Needs review/assistance. Personalizing an activity plan- Competent. MONITORING How and when to test blood sugars- Competent Why and how to keep blood glucose records- Competent MEDICATION Medication(s) mechanism of action and side effects- Needs review/assistance. (Metformin) LOWERING RISKS Sick day management- Needs review/assistance. HEALTHY COPING How does stress affect diabetes- Needs review/assistance. Stress management options/techniques- Needs review/assistance. Patient here for diabetes education. Diabetes Medications: Metformin: States that she is currently taking, 250 mg, twice a day with meals. Food/Meals: Breakfast: States that she is just begun to have something to eat in the morning (enough food to take her metformin with), at approximately 8:00 AM. Midday meal: about 12:00 noon Evening meal: About 5:30 PM. Physical Activity: Walkin miles a day, plus walking on breaks at her worksite. Home Blood Glucose Monitoring: Brings her Joshua Contour Next blood glucose meter with her. From the electronic memory of that device: Recent blood sugars: Fastin, 155, 133, 149, 136, 163, 107, 133. Noon: 170, 208. Evening meal: 165, 136, 180. Bedtime: 130, 159, 154. Other: 33-year-old woman. States that she has a high school degree, plus two associate of arts degrees. 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 . I had the patient fill out the My Diabetes Education Plan form and discussed the topics (listed above), about diabetes and its management, which the patient indicated she is interested in, on that form. Patient also given handouts related to these topics. Also given the [facility] Diabetes Guidebook - Living Well booklet with accompanying handouts, for her further reading. Follow-up: Patient has the following scheduled in clinic visits: None currently scheduled. I stated patient if she has further questions, or is having difficulty with the meter, to call me and I will do what I can do to help. Patient to follow-up at some point in the future, with Radha Johnson APRN, AM[place]IE ADDITIONAL EDUCATION IS: not needed TOTAL DSMT MINUTES: 30 TOTAL MNT MINUTES: 45 DIABETES SELF-MANAGEMENT SUPPORT PLAN: For ongoing support, I choose to read the printed materials relating to diabetes and its management,that I was given today. GOAL SETTING AND ACHIEVEMENT: 1. To help provide data as to how well my blood sugars are being controlled,, I will continue to check my blood sugars 1-2 times a day, varying the times: Fasting, before various other meals, or at bedtime.. Patient reported achievement: New goal. DIABETES MEDICATION GOAL: To bring blood sugars into normal range, I will take my medications as directed by my primary care provider. Patient achievement: All of the time Chalo Roman RN RECRUITER documented in this encounter Plan of Treatment Scheduled Referrals Name Type Priority Associated Order Schedule Diagnoses Ambulatory referral Outpatient Referral Routine Type 2 diabete s Ordered: to Diabetic mellitus without 02/22/2019 Education complication, without long-term current use of insulin (HCC) documented as of this encounter Visit Diagnoses Diagnosis Type 2 diabetes mellitus without complic ation, without long-term current use of insulin (HCC) documented in this encounter Care Teams Senior Research Engineer Relationship Specialty Start Date End Date Radha Silva APRN, HORSE WRANGLER PCP - General 09/27/17 08/05/19 [address] [place] [address] documented as of this encounter
--- OUTSIDE RECORDS SUMMARY | 2022-01-12 14:08 | XMS_ITS | Encounter Summary ---
:1985 Author Organization [facility] Address [address] [place] [address] Care Team Providers Name Role Phone Radha Silva APRN, CNP Primary Care Provider [phone] Reason for Referral Consultation (Routine) - Closed Specialty Diagnoses / Procedures Referred By Contact Refer red To Contact Nutrition Education / Diagnoses Type 2 diabetes mellitus without complication, without long-term current use of insulin (HCC) Radha Silva Nutrition ANA LAURA, ELECTRICIAN'S ASSISTANT [address] [place] [address] Referral ID Status Reason Start Date Expiration Date Visits V isits Requested Authorized [id number] Closed Specialty 02/22/2019 02/23/2020 1 1 Services Required Scheduling Instructions Staff from this department will contact the patient to schedule an appointment. APPLICATIONS ARCHITECT Consultation (Routine) - Closed Specialty Diagnoses / Procedures Referred By Contact Refer red To Contact Endocrinology Diagnoses Type 2 diabetes mellitus without complication, without long-term current use of insulin (HCC) Radha Silva APRN, ELECTRICIAN'S ASSISTANT [address] [place] [address] Referral ID Status Reason Start Date Expiration Date Visits V isits Requested Authorized [id number] Closed Specialty 02/22/2019 02/23/2020 1 1 Services Required Scheduling Instructions Staff from this department will contact the patient to schedule an appointment. APPLICATIONS ARCHITECT Reason for Visit Reason Comments Diabetes Encounter Details Date Type Department Care Team Description 02/22/2019 Office Visit BarnumRadha Willoughby Type 2 diabetes [address], [place] mellitus without Kevin Santamaria, JONEL [address] complication, without [address] [place] [address] long-term current use [phone] of insul in ([facility]) (Primary Dx) Social History Tobacco Use Types Packs/Day Years Used Date Smoking Tobacco: Never Smokeless Tobacco: Never Alcohol Use Standard Drinks/Week Comments Yes 0 (1 standard drink = 0.6 oz pure alcoho l) Sex Assigned at Date Recorded Female 08/18/2018 8:27 AM CDT documented as of this encounter Last Filed Vital Signs Vital Sign Reading Time Taken Comments Blood Pressure 124/90 02/22/2019 11:04 AM WEB APPLICATIONS ARCHITECT Pulse 72 02/22/2019 11:04 AM WEB APPLICATIONS ARCHITECT Temperature 36.1 ??C (97 ??F) 02/22/2019 11:04 AM WEB APPLICATIONS ARCHITECT Respiratory Rate 16 02/22/2019 11:04 AM WEB APPLICATIONS ARCHITECT Oxygen Saturation - - Inhaled Oxygen Concentration - - Weight 134 kg (295 lb 1.6 oz) 02/22/2019 11:04 AM WEB APPLICATIONS ARCHITECT Height - - Body Mass Index 46.32 02/19/2019 8:08 AM WEB APPLICATIONS ARCHITECT documented in this encounter Patient Instructions Patient InstructionsChriszuleika Silva APRN, CNP - 02/22/2019 11:00 AM WEB APPLICATIONS ARCHITECT Will call with the lab results Metformin 250 mg daily x one week; then week 2 increase to 250 mg twice daily; then week 3-500 mg inthe morning and 250 mg in the evening x one week; then week 4 500 mg twice daily; then call back with blood sugar values Diabetic eye examination Diabetic and nutritional consultation, [facility] will contact you to schedule, and if you need a work notenotify me APPLICATIONS ARCHITECT documented in this encounter Progress Notes Radha Silva APRN, CNP - 02/22/2019 11:00 AM CST Estab Patient Visit Subjective Patient ID: Flores Serrano is a 33 y.o. female presenting for the following concerns. Chief Complaint Patient presents with ??? Diabetes HPI: The patient is a pleasant 33 y.o. year old female presenting ambulatory to the clinical setting to discuss her hemoglobin A1c results of 7.1 on 02/19/19. The patient has had prediabetes for the past several years. The patient had a steroid injection in her left hip and left knee in September, was evaluated for a reaction on October 10, at which time her blood sugar was 218. The patient denies excessivethirst, urination or hunger. The patient does experience blurred vision, which is not necessarily new, as she has an astigmatism bilaterally, and sees an eye doctor on a routine basis. The patient denies any neuropathy symptoms. The patient formally exercises, is walking 2 miles per day, and walks on her breaks at work. The patient reports she eats a healthy diet. The patient feels her blood pressureis slightly elevated today, as she was helping a coworker this morning at work, who had a first-timeseizure after the age of 49, which was upsetting to her. She otherwise has a normal blood pressure. The patient has had chest pain associated with stress and not activity. The patient will experience peripheral swelling when she is out in the hot sun and active; otherwise no peripheral edema. No lightheadedness, dizziness, syncope, presyncope, and/or cardiac murmurs. 3, Para 0. The patient has a menstrual cycle every 28 days and desires a . The patient has never been diagnosed with PCOS. The patient has a significant family history of type 2 diabetes including her mother, and multiple relatives both her maternal and paternal side. The patient does have knowledge of type 2 diabetesbecause of this family history, and has used her mother's Accu-Chek machine, checking her blood sugars, which have been elevated recently in the morning in the 130s. Alcohol rare. No recreational drug.Non-smoker. ROS: GENERAL: See HPI. The patient reports she has gained weight despite eating healthy. CARDIOVASCULAR: See HPI. The patient feels her blood pressure is elevated today, secondary to a stressful situation at work; otherwise, typically normal. The patient will experience peripheral swellingwhen she is out in the hot sun, exercising or active, otherwise, she has no peripheral edema. The patient reports she will experience chest pain with stress, but not with activity. No palpitations, lightheadedness, dizziness, presyncope, syncope, and/or cardiac murmurs. GASTROINTESTINAL: See HPI. No excessive hunger. GENITOURINARY: See HPI. No excessive urination. MACHINE SET UP OPERATOR: See HPI. 3, para 0. The patient has a menses every 28 days and desires a . ENDOCRINOLOGY: See HPI. The patient does have a history of prediabetes with a hemoglobin A1c of 7.1 on 02/19/2019. NEUROLOGICAL: See HPI. No peripheral neuropathy. The following portions of the patient's chart were reviewed in this encounter and updated as appropriate: Tobacco Allergies Meds Problems Med Hx Surg Hx Fam Hx Soc Hx Current Outpatient Medications: ??? Blood Glucose Monitoring Suppl (BLOOD GLUCOSE MONITOR SYSTEM) w/Device kit, Use daily or as directed to check blood sugars daily., Disp: 1 each, Rfl: 0 ??? glucose blood test strip, Use as instructed to check blood sugars daily., Disp: 100 each, Rfl: 3 ??? Lancets misc, Use as directed to check blood sugars daily., Disp: 100 each, Rfl: 3 ??? metFORMIN (GLUCOPHAGE) 500 MG tablet, Take 1 tablet (500 mg total) by mouth 2 (two) times a day with meals, Disp: 60 tablet, Rfl: 0 Objective Visit Vitals BP 124/90 (BP Location: Left arm, Patient Position: Sitting) Pulse 72 Temp 36.1 ??C (97 ??F) (Temporal) Resp 16 Wt 134 kg (295 lb 1.6 oz) BMI 46.32 kg/m?? Smoking Status Never Smoker BSA 2.52 m?? GENERAL: The patient is alert, orientated, and in no apparent distress. CARDIOVASCULAR: Normal heart rate and rhythm. No murmur. No peripheral edema. MUSCULOSKELETAL: The patient moves freely about the room. NEUROLOGICAL: Normal monofilament along the soles of the feet x 6 points. DIAGNOSTICS: Urine microalbumin. Lab on 02/22/2019 Component Date Value Ref Range Status ? ? Microalbumin,mg/day 02/22/2019 <7.0 0.0 - 16.6 mg/L Final ??? Creatinine, Urine 02/22/2019 35 mg/dL Final ??? Microalb/Creat Ratio 02/22/2019 see below 0 - 24 mg/g Final Assessment/Plan Flores was seen today for diabetes. Diagnoses and all orders for this visit: Type 2 diabetes mellitus without complication, without long-term current use of insulin (HCC) (Primary) - Microalbumin/Creatinine Ratio; Future - Ambulatory referral to Diabetic Education - Ambulatory referral to Nutrition Services - metFORMIN (GLUCOPHAGE) 500 MG tablet; Take 1 tablet (500 mg total) by mouth 2 (two) times a day with meals - Hemoglobin A1c; Future Discussed the plan of care with the patient. The patient will start metformin as follows: 250 mg daily x1 week; second week 250 mg twice daily; third week 500 mg in the morning 250 mg in the evening; and the fourth week 500 mg twice daily, continue to monitor her blood sugars and notify me with those results, with consideration of increasing the dose of metformin to 1000 mg twice daily. The patient will have a HGB A1c in the three months. The patient was referred to diabetic and nutritional consultation, through [facility], and if she needs time away from work to attend her education, anote will be written. The patient should continue to eat a healthy diet, exercise, and lose weight. P rescribed an Accu-Chek machine, lancets, and strips today. The patient should have a diabetic eye exam. The patient will not start an aspirin, MERE nor statin as she desires a . The patient will be notified of her lab results. The patient agrees and understands this plan of care. Radha Silva APRN, CNP APPLICATIONS ARCHITECT documented in this encounter Plan of Treatment Scheduled Referrals Name Type Priority Associated Order Schedule Diagnoses Ambulatory referral Outpatient Referral Routine Type 2 diabete s Ordered: to Diabetic mellitus without 02/22/2019 Education complication, without long-term current use of insulin (HCC) Ambulatory referral Outpatient Referral Routine Type 2 diabete s Ordered: to Nutrition mellitus without 02/22/2019 Services complication, without long-term current use of insulin (HCC) documented as of this encounter Results (ABNORMAL) Hemoglobin A1c (05/11/2019 9:00 AM T) Analysis Performed At [facility] Time Signature Hemoglobin A1C 7.1 (H) 4.0 - 5.6 05/11/2019 [facility] % A1C 1:12 PM [facility] Comment: Reference Range 4.0-5.6% [...] (Source) Location / / Volume Laterality Blood 05/11/2019 9:00 AM 0 CDT 12:33 PM CDT Radha Silva APRN, ELECTRICIAN'S ASSISTANT LAB BLOOD ORDERABLES Performing Organization Address City/[facility] Phon e Number [facility] [address] [place] [address] Microalbumin/Creatinine Ratio (02/22/2019 11:35 AM WEB APPLICATIONS ARCHITECT) athologist Signature Microalbumin,m <7.0 0.0 - 16.6 02/23/2019 [facility] g/day mg/L 1:50 PM [facility] Comment: . Creatinine, Urine 35 mg/dL 02/23/2019 2:58 PM [facility] Comment: No established reference range. Microalb/Creat Ratio see below 0 - 24 mg/g 02/23/2019 2:58 P [facility] Comment: Microalbumin value outside of detectable range. Unable to report Microalbumin/Creatinine ratio. Co nsider 24-hour collection if clinically indicated. Specimen Anatomical Collection Method Collection Time Receive d Time (Source) Location / / Volume Laterality Urine 02/22/2019 11:35 02/23/2019 AM WEB APPLICATIONS ARCHITECT 12:32 PM WEB APPLICATIONS ARCHITECT Radha Silva APRN, ELECTRICIAN'S ASSISTANT LAB URINE ORDERABLES Performing Organization Address City/[facility] Phon e Number [facility] [address] [place] [address] documented in this encounter Visit Diagnoses Diagnosis Type 2 diabetes mellitus without complic ation, without long-term current use of insulin (HCC) - Primary documented in this encounter Care Teams Salesperson Neckties Relationship Specialty Start Date End Date Radha Silva APRN, ELECTRICIAN'S ASSISTANT PCP - General 09/27/17 08/05/[address] [place] [id number] documented as of this encounter
--- OUTSIDE RECORDS SUMMARY | 2022-01-12 14:08 | XMS_ITS | Encounter Summary ---
:1985 Author Organization [facility] Address [address] [place] [address] Care Team Providers Name Role Phone Radha Silva APRN, NURSING HOME PHYSICIAN Primary Care Provider [phone] Encounter Details Date Type Department Care Team Description 10/09/2018 Telephone [place] Radha Silva, [address] PROJECT LANDSCAPE ARCHITECT, [place], [place] [address] [facility] [phone] [place], [place] [address] Social History Tobacco Use Types Packs/Day Years Used Date Smoking Tobacco: Never Smokeless Tobacco: Never Alcohol Use Standard Drinks/Week Comments Yes 0 (1 standard drink = 0.6 oz pure alcoho l) Sex Assigned at Date Recorded Female 08/18/2018 8:27 AM CDT documented as of this encounter Miscellaneous Notes Telephone Encounter - Tiara Solano RN - 10/10/2018 10:05 AM CDT Patient scheduled at 2:45 to see Rashad Telephone Encounter - Tiara Solano RN - 10/10/2018 8:07 AM CDT Called patient to check on status per Rashad and see if she is available to be evaluated in clinic today. Telephone Encounter - Tiara Solano RN - 10/09/2018 4:38 PM CDT Patient called with headaches and dizziness since having a cortinsone injection in her knee and hip last week. She said she got a rash from this and was got and itchy. Reviewed with Rashad who thought it could be due to her blood sugars and would like her to come in for a recheck. Patient scheduled this week for at 11:20 documented in this encounter Plan of Treatment Not on filedocumented as of this encounter Visit Diagnoses Not on filedocumented in this encounter Care Teams Surveyor Instrument Assistant Relationship Specialty Start Date End Date Radha Silva, PROJECT LANDSCAPE ARCHITECT, NURSING HOME PHYSICIAN PCP - General 09/27/17 08/05/[address] [place] [address] [place] SNY[place] [id number] documented as of this encounter
--- OUTSIDE RECORDS SUMMARY | 2022-01-12 14:08 | XMS_ITS | Encounter Summary ---
:1985 Author Organization [facility] Address [address] [place] [address] Care Team Providers Name Role Phone Radha Silva APRN, CNP Primary Care Provider [phone] Encounter Details Date Type Department Care Team Description 10/10/2018 Telephone [place] Radha Silva, [address] [place], [place] [address] [facility] [phone] [place], [place] [address] Social History Tobacco Use Types Packs/Day Years Used Date Smoking Tobacco: Never Smokeless Tobacco: Never Alcohol Use Standard Drinks/Week Comments Yes 0 (1 standard drink = 0.6 oz pure alcoho l) Sex Assigned at Date Recorded Female 08/18/2018 8:27 AM CDT documented as of this encounter Miscellaneous Notes Telephone Encounter - Tiara Solano RN - 10/10/2018 10:05 AM CDT Scheduled Telephone Encounter - Radha Silva APRN, CNP - 10/10/2018 8:21 AM CDT Called the patient and requested she call for a time we can see her today, as we will fit her in. Thanks, Rashad documented in this encounter Plan of Treatment Not on filedocumented as of this encounter Visit Diagnoses Not on filedocumented in this encounter Care Teams Passenger Vessel Chef Relationship Specialty Start Date End Date Radha Silva, WORKDAY SENIOR ASSOCIATE, JEWEL BEARING POLISHER PCP - General 09/27/17 08/05/19 [address] [facility] [place] [id number] documented as of this encounter
--- OUTSIDE RECORDS SUMMARY | 2022-01-12 14:08 | XMS_ITS | Encounter Summary ---
:1985 Author Organization [facility] Address [address] [place] [address] Care Team Providers Name Role Phone Radha Silva APRN, LEATHER SCRUBBER Primary Care Provider [phone] Encounter Details Date Type Department Care Team Description 08/29/2018 Lab Kevin Santamaria Fever, unspecified fever [facility] [address] [place], [place] [address] Social History Tobacco Use [...] Diagnosis Comme nts CBC BRANCH OFFICE Routine 08/29/2018 2:27 PM Fever, unspecifie d Results for this W/DIFF CDT fever cause procedure are i n the results section. documented in this encounter Results (ABNORMAL) CBC Branch Off w/Diff (08/29/2018 2:27 PM CDT) [facility] Method Time Signature WBC 10.9 (H) 3.5 - 10.5 08/29/2018 [facility] K/uL 2:34 PM CDT [place] RBC 4.94 3.90 - 08/29/2018 [facility] 5.00 M/uL 2:34 PM CDT [place] Hemoglobin 14.7 12.0 - 08/29/2018 [facility] 15.5 g/dL 2:34 PM CDT [place] Hematocrit 43.6 35.0 - 08/29/2018 [facility] 44.0 % 2:34 PM CDT [place] Platelets 268 150 - 450 08/29/2018 [facility] K/uL 2:34 PM CDT [place] MCV 88.3 81.6 - 08/29/2018 [facility] 98.3 fL 2:34 PM CDT [place] MCH 29.8 26.0 - 08/29/2018 [facility] 32.0 pg 2:34 PM CDT [place] MCHC 33.7 32.0 - 08/29/2018 [facility] 36.0 g/dL 2:34 PM CDT [place] RDW 13.1 11.9 - 08/29/2018 [facility] 15.5 % 2:34 PM CDT [place] Lymphocytes % 32.5 18.0 - 08/29/2018 [facility] 45.0 % 2:34 PM CDT [place] Mid-size Cells 8.6 3.3 - 10.1 08/29/2018 [facility] % 2:34 PM CDT [place] Granulocytes/Jose L 58.9 45.8 - 08/29/2018 [facility] trophils 73.7 % 2:34 PM CDT [place] Lymphocytes 3.5 (H) 0.9 - 2.9 08/29/2018 [facility] Absolute K/uL 2:34 PM CDT [place] MIDS Absolute 0.9 (H) 0.2 - 0.8 08/29/2018 [facility] K/uL 2:34 PM CDT [place] Granulocytes/Jose L 6.5 2.1 - 8.7 08/29/2018 [facility] trophils K/uL 2:34 PM CDT [place] Absolute Specimen Anatomical Collection Method Collection Time Receive d Time (Source) Location / / Volume Laterality Blood (Blood, 08/29/2018 2:27 PM 08/30/19 19 2:32 Venous) CDT PM CDT Radha Silva APRN, CNP LAB BLOOD ORDERABLES Performing Organization Address City/State/ZIP Code Phon e Number [facility] [place] [address] [place] [address] documented in this encounter Visit Diagnoses Diagnosis Fever, unspecified fever cause documented in this encounter Care Teams E Business Consultant Relationship Specialty Start Date End Date Radha Silva APRN, LEATHER SCRUBBER PCP - General 09/27/17 08/05/19 [address] [place], [place] [address] documented as of this encounter
--- OUTSIDE RECORDS SUMMARY | 2022-01-12 14:08 | XMS_ITS | Encounter Summary ---
:1985 Author Organization [facility] Address [address] [place] [address] Care Team Providers Name Role Phone Radha Silva SHEET METAL APPRENTICE, BALANCING MACHINE SET UP WORKER Primary Care Provider [phone] Reason for Visit Reason Onset Date Comments Diabetic salome and strips 02/22/2019 Encounter Details Date Type Department Care Team Description 02/22/2019 Telephone [place] Radha Silva, Diabetic salome and [address] SHEET METAL APPRENTICE, BALANCING MACHINE SET UP WORKER strips [place], [place] [address] [address] [facility] [address] [phone] [place], [place] [address] Social History Tobacco Use Types Packs/Day Years Used Date Smoking Tobacco: Never Smokeless Tobacco: Never Alcohol Use Standard Drinks/Week Comments Yes 0 (1 standard drink = 0.6 oz pure alcoho l) Sex Assigned at Date Recorded Female 08/18/2018 8:27 AM CDT documented as of this encounter Miscellaneous Notes Telephone Encounter - Kamila Robin - 02/22/2019 4:16 PM CST Three prescriptions faxed to [facility] as requested. ER Telephone Encounter - Tiara Solano RN - 02/22/2019 4:11 PM CST [facility] Telephone Encounter - Tiara Solano RN - 02/22/2019 3:44 PM CST Patient informed Rxs have been filled but need to be signed and faxed to [facility] but that they will get processed today. ER Telephone Encounter - Kamila Lobito - 02/22/2019 3:20 PM CST Pt called stating [facility] did receive the Rx request for metformin, but they have not received a prescription for the salome and test strips. Please call pt at [phone] to advise. ER documented in this encounter Plan of Treatment Not on filedocumented as of this encounter Visit Diagnoses Not on filedocumented in this encounter Care Teams Corporate Travel Consultant Relationship Specialty Start Date End Date Radha Silva APRN, BALANCING MACHINE SET UP WORKER PCP - General 09/27/17 08/05/[address] [place] [address] [place] SNYDER [id number] documented as of this encounter
--- OUTSIDE RECORDS SUMMARY | 2022-01-12 14:08 | XMS_ITS | Encounter Summary ---
:1985 Author Organization [facility] Address [address] [place] [address] Care Team Providers Name Role Phone Radha Silva APRN, SEARCH ENGINE OPTIMIZATION ANALYST Primary Care Provider [phone] Encounter Details Date Type Department Care Team Description 05/11/2019 Lab Tyler Santamaria Type 2 diabetes mellitus [address] without complication, withou t Tyler Santamaria [place] [address] long-term current use of [phone] insulin (HCC) Social History Tobacco Use Types [...] Associated Diagnosis Comme nts HEMOGLOBIN A1C Routine 05/11/2019 9:00 AM Type 2 diabetes Resu lts for this CDT mellitus without procedure a re in the complication, without result s section. long-term current use of insulin (HCC) documented in this encounter Results (ABNORMAL) Hemoglobin A1c (05/11/2019 9:00 AM CDT) Analysis Performed At Patho logist Time Signature Hemoglobin A1C 7.1 (H) 4.0 - 5.6 05/11/2019 [place] % A1C 1:12 PM [facility] Comment: Reference [...] CDT 12:33 PM CDT Radha Silva APRN, CNP LAB BLOOD ORDERABLES Performing Organization Address City/State/ZIP Code Phon e Number [facility] [address] [place] [address] documented in this encounter Visit Diagnoses Diagnosis Type 2 diabetes mellitus without complic ation, without long-term current use of insulin (HCC) documented in this encounter Care Teams Pump House Technician Relationship Specialty Start Date End Date Radha Silva APRN, SEARCH ENGINE OPTIMIZATION ANALYST PCP - General 09/27/17 08/05/[address] [place] [id number] documented as of this encounter
--- OUTSIDE RECORDS SUMMARY | 2022-01-12 14:08 | XMS_ITS | Encounter Summary ---
:1985 Author Organization [facility] Address [address] [place] [address] Care Team Providers Name Role Phone Radha Silva APRN, CNP Primary Care Provider [phone] Encounter Details Date Type Department Care Team Description 10/10/2018 Lab Tyler Santamaria Medication adverse effect, [address] initial encounter [place] [address] Social History Tobacco Use Types [...] Name Priority Date/Time Associated Diagnosis Comme nts HEMOCUE GLUCOSE Routine 10/10/2018 3:33 PM Result s for this CDT procedure are i n the results section. FASTING ? Routine 10/10/2018 3:30 PM Results f or this CDT procedure are i n the results section. documented in this encounter Results (ABNORMAL) HemoCue glucose (10/10/2018 3:33 PM CDT) P athologist Signature Glucose, Bld 218 (H) 70 - 100 10/10/2018 [facility] mg/dL 3:38 PM CDT DANK Comment: . Specimen Anatomical Collection Method Collection Time Receive d Time (Source) Location / / Volume Laterality 10/10/2018 3:33 PM 9 3:37 CDT PM CDT Radha Silva APRN, CNP LAB BLOOD ORDERABLES Performing Organization Address City/[facility]/ZIP Code Phon e Number [facility] TYLER SANTAMARIA [address] [place] [id number] Fasting ? (10/10/2018 3:30 PM CDT) P athologist Signature Fasting? No 10/10/2018 3:37 [facility] PM CDT [place] Comment: ate at 1430 Specimen Anatomical Collection Method Collection Time Receive d Time (Source) Location / / Volume Laterality 10/10/2018 3:30 PM 9 3:30 CDT PM CDT Radha Silva APRN, CNP LAB BLOOD ORDERABLES Performing Organization Address City/[facility]/ZIP Code Phon e Number [facility] TYLER SANTAMARIA [address] [place] [id number] documented in this encounter Visit Diagnoses Diagnosis Medication adverse effect, initial encou nter documented in this encounter Care Teams Psychological Tests Sales Agent Relationship Specialty Start Date End Date Radha Silva APRN, DIGITAL PUBLISHING SPECIALIST PCP - General 09/27/17 08/05/19 100 [facility] [place] [id number] documented as of this encounter
--- OUTSIDE RECORDS SUMMARY | 2022-01-12 14:08 | XMS_ITS | Encounter Summary ---
:1985 Author Organization [facility] Address [address] [place] [address] Care Team Providers Name Role Phone Radha Silva APRN, AMELIE Primary Care Provider [phone] Reason for Visit Consultation (Routine) - Closed Specialty Diagnoses / Procedures Referred By Contact Refer red To Contact Nutrition Education / Diagnoses Type 2 diabetes mellitus without complication, without long-term current use of insulin (HCC) Radha Silva Nutrition ANA LAURA, SENIOR VICE PRESIDENT [address] [place] [id number] Referral ID Status Reason Start Date Expiration Date Visits V isits Requested Authorized [id number] Closed Specialty 02/22/2019 02/23/2020 1 1 Services Required Encounter Details Date Type Department Care Team Description 03/07/2019 Office Visit SE Sagrario Gonsalves Type 2 d joyce Rodríguez, RD mellitus without [address] [place] [address] 210 [facility] complication, without [place], [place] [id number] [place] [address] long-term current use [phone] of insulin (HCC) Social History Tobacco Use Types Packs/Day Years Used Date Smoking Tobacco: Never Smokeless Tobacco: Never Alcohol Use Standard Drinks/Week Comments Yes 0 (1 standard drink = 0.6 oz pure alcoho l) Sex Assigned at Date Recorded Female 08/18/2018 8:27 AM CDT documented as of this encounter Progress Notes Sagrario Duff, MAURO - 03/07/2019 2:00 PM CST [facility] Patient Name: Flores Serrano Patient Identifier: [id number] Service Location: [facility] SE NUTRITION EDUCATION [address] [facility] [id number] Service Date: 03/07/2019 PATIENT EDUCATION- DIABETES VISIT LOCATION: [facility] REFERRING CLINICIAN: Radha Silva APRN, CNP REFERRAL DATE: 02/22/2019 REASON FOR REFERRAL: Comprehensive/initial education REASON FOR REFERRAL: Type 2 Diabetes Mellitus PREFERRED LEARNING STYLE: No preference CLINICAL ASSESSMENT: Patient Age: 33 y.o. Height: [...] Basal Calorie Needs: Race/Ethnicity: White/ Preferred Language: PERTINENT LABS: Hemoglobin A1C Lab Results Component [...] Date MICROALBCREA see below 02/22/2019 Fasting Glucose No results found for: GLUF C-Peptide No results found for: CPEPTIDE Insulin Antibody No components found for: INSULINANTIBODY MACRINA No components found for: MACRINA TSH Lab Results Component Value Date TSH 1.17 02/19/2019 PERTINENT MEDICAL HISTORY: Hyperlipidemia Obesity Type 2 diabetes (new diagnosis) MEDICATIONS: Last updated by: Radha Silva APRN, CNP On: 02/26/2019 PATIENT CONCERNS: What can I eat? DIABETES CARE ASSESSMENT: Blood Glucose Testing: Brand/Meter: Accu-chek Test Strips: Lancets: Blood Glucose target range: 80-130 mg/dL Blood Glucose Testing: Fastin-140 2 hrs after meals: 109-186 - reports the 186 was within 30-60 minutes of eating. Year of diabetes diagnosis: February 2019 INITIAL RISK ASSESSMENT: Inconsistent carb intake NUTRITIONAL MANAGEMENT RISKS: Frequently skips meals Inconsistent carb intake MEDICATION AND MONITORING RISKS: Starting a new medication - started Metformin. Slowly increasing each week until at a goal of 500 mgBID. NUTRITIONAL DIAGNOSIS: Nutritional Diagnosis: Inconsistent carbohydrate intake- Related to carbohydrate containing foods- Evidenced by 24 hour recall. INTERVENTION AND EVALUATION: Patient was seen for 45 minutes of which 90% was spent on education given on the following areas with post instruction knowledge assessed: DIABETES DISEASE PROCESS The food to glucose response- Needs review/assistance. Patient reports eating 2 meals per day. Sincestarting medication, patient has been consistently eating 3 meals daily. Breakfast usually contains a piece of string cheese. Lunch is a cold sandwich with 2 slices of bread, ham deli meat and a slice of cheese. Supper tends to be her larger meal containing either a sandwich with vegetables and fruit or another source of protein with vegetables and fruit. She denies snacking throughout the day. Occasionally she may have a piece of fruit between breakfast and lunch. She is currently lactose intolerant and does not drink milk other than with a small bowl of cereal. Patient denies any other changes toher lifestyle over the past year. She is unsure what is causing her elevated hemoglobin A1c as she does not feel she eats or drinks anything to support elevated levels. Her mother does have diabetes and was diagnosed approximately 20 years ago or more. HEALTHY EATING Food choices to control blood sugar- Needs review/assistance. Today reviewed the diabetes plate method, carbohydrate containing foods, reading food labels, and the importance of consistent meals/snacks. Discussed a budget of 30-45 g of carbohydrate at all meals based on patient's diet recall. Encouraged her to track a typical workday as well as 1 day on the weekend to get a better estimate of how many carbohydrates she is actually eating. On the weekend, her mealtimes vary slightly. It is not uncommon for her to skip lunch and only eat supper. Provided her with a grams of carbohydrate brochure, thediabetes plate method, calorie Edward book and low carb snack magnet as tool/resources to use when stay ing within the specific budget. If patient does snack between meals, encouraged about 15 g or less. BEING ACTIVE Personalizing an activity plan- Competent. 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 When she gets home from work, she will walk up and down the driveway 4-5 times. This ends up being approximately 1-1.25 miles. She has a sit to stand desk andwill stand for 1 hour and then sit for 1 hour throughout the day. MONITORING How and when to test blood sugars- Needs review/assistance Patient appears to be checking her blood sugars daily. Encouraged her to continue to vary the time and but she checks her sugars. If checking after meal, encouraged her to wait at least 2 hours before checking her sugars. There are times when she is checking with and 30 minutes - 1 hour of eating. Follow-up appointments: 03/07/2019: Omero Roman RN, CDE ADDITIONAL EDUCATION IS: needed TOTAL DSMT MINUTES: TOTAL MNT MINUTES: 45 DIABETES SELF-MANAGEMENT SUPPORT PLAN: For ongoing support, I choose to use the resources provided to help me eat consistent carbohydrates GOAL SETTING AND ACHIEVEMENT: 1. To help lower blood sugars and improve my health, I will eat consistent carbohydrates aiming for approximately 45 g of carbs at meals and if snacks are needed, 15 g or less.. Patient reported achievement: New goal. 2. To help improve my overall health, I will continue to be active most days per week for at least 30-60 minutes. Patient reported achievement: New goal. MONITORING GOAL: To bring blood sugars into normal range, I will take my medications as directed by my primary care provider. Patient achievement: All of the time Sagrario Duff, RD, LD, [facility] This document was generated using voice recognition software and may contain unintended errors. IR WEAVER documented in this encounter Plan of Treatment [...] (HCC) documented in this encounter Care Teams Control And Recovery Special Tactics Relationship Specialty Start Date End Date Radha Silva APRN, SENIOR VICE PRESIDENT PCP - General 09/27/17 08/05/19 100 [facility] [place] [id number] documented as of this encounter
--- OUTSIDE RECORDS SUMMARY | 2022-01-12 14:08 | XMS_ITS | Encounter Summary ---
:1985 Author Organization [facility] Address [address] [place] [address] Care Team Providers Name Role Phone Radha Silva APRN, ANALYTICS ANALYST Primary Care Provider [phone] Reason for Visit Reason Onset Date Comments Med Refill 03/30/2019 Encounter Details Date Type Department Care Team Description 03/30/2019 [place]ill [place], Type 2 diabetes [address] AMELIE [address] mellitus without [place], [place] [address] complication, without [phone] [place], [place] [address] long-term current use of insul in ([facility]) Social History Tobacco Use Types Packs/Day Years Used Date Smoking Tobacco: Never Smokeless Tobacco: Never Alcohol Use Standard Drinks/Week Comments Yes 0 (1 standard drink = 0.6 oz pure alcoho l) Sex Assigned at Date Recorded Female 08/18/2018 8:27 AM CDT documented as of this encounter Miscellaneous Notes Telephone Encounter - Loren Escalona LPN - 03/30/2019 8:55 AM SAFETY CONSULTANT Last visit in Provider Department: 02/22/2019 Upcoming appointment with Provider: None Last Rx: 02/22/19 #60 with no refills Requested Prescriptions Pending Prescriptions Disp Refills ??? metFORMIN (GLUCOPHAGE) 500 MG tablet 60 tablet 0 Sig: Take 1 tablet (500 mg total) by mouth 2 (two) times a day with meals Labs: Component Latest Ref Rng & Units 02/19/2019 Hemoglobin A1C 4.0 - 5.6 % A1C 7.1 (H) Component Latest Ref Rng & Units 02/19/2019 Fasting? Yes Sodium 135 - 145 mEq/L 138 Potassium 3.5 - 5.1 mEq/L 3.9 Chloride 98 - 107 mEq/L 102 CO2 22 - 29 mmol/L 26 BUN 5 - 25 mg/dL 9 Creatinine 0.4 - 1.2 mg/dL 0.5 Glucose 70 - 100 mg/dL 125 (H) Calcium, Total,S 8.4 - 10.2 mg/dL 9.4 Component Latest Ref Rng & Units 02/22/2019 Microalbumin,mg/day 0.0 - 16.6 mg/L <7.0 Creatinine, Urine mg/dL 35 Microalb/Creat Ratio 0 - 24 mg/g see below Vitals: BP Readings from Last 2 Encounters: 02/22/19 124/90 02/19/19 124/82 TY CONSULTANT documented in this encounter Plan of Treatment Not on filedocumented as of this encounter Visit Diagnoses Diagnosis Type 2 diabetes mellitus without complic ation, without long-term current use of insulin (HCC) documented in this encounter Care Teams Paralegal Internship Relationship Specialty Start Date End Date Radha Silva APRN, ANALYTICS ANALYST PCP - General 09/27/17 08/05/19 100 [facility] [place] [id number] documented as of this encounter
--- OUTSIDE RECORDS SUMMARY | 2022-01-12 14:08 | XMS_ITS | Encounter Summary ---
:1985 Author Organization [facility] Address [address] [place] [address] Care Team Providers Name Role Phone Radha Silva APRN, CNP Primary Care Provider [phone] Reason for Visit Reason Comments Blood Sugar Problem Encounter Details Date Type Department Care Team Description 02/19/2019 Office Visit Kevin Santamaria Radha Silva Prediabetes (Primary Dx); [address] MANA LAURA CNP Weight gain; [place], [place] [address] Screening, lipid [address] [place] [address] Social History Tobacco Use Types Packs/Day Years Used Date Smoking Tobacco: Never Smokeless Tobacco: Never Alcohol Use Standard Drinks/Week Comments Yes 0 (1 standard drink = 0.6 oz pure alcoho l) Sex Assigned at Date Recorded Female 08/18/2018 8:27 AM CDT documented as of this encounter Last Filed Vital Signs Vital Sign Reading Time Taken Comments Blood Pressure 124/82 02/19/2019 8:08 AM MASTER COSMETOLOGIST Pulse 86 02/19/2019 8:08 AM MASTER COSMETOLOGIST Temperature 37.1 ??C (98.7 ??F) 02/19/2019 8:08 AM MASTER COSMETOLOGIST Respiratory Rate 16 02/19/2019 8:08 AM MASTER COSMETOLOGIST Oxygen Saturation 97% 02/19/2019 8:08 AM MASTER COSMETOLOGIST Inhaled Oxygen Concentration - - Weight 134 kg (296 lb 4.8 oz) 02/19/2019 8:08 AM MASTER COSMETOLOGIST Height 170 cm (5' 6.93) 02/19/2019 8:08 AM MASTER COSMETOLOGIST Body Mass Index 46.51 02/19/2019 8:08 AM MASTER COSMETOLOGIST documented in this encounter Patient Instructions Patient InstructionsChtammy Silva APRN, CNP - 02/19/2019 8:00 AM MASTER COSMETOLOGIST Will call with the lab results ER COSMETOLOGIST documented in this encounter Progress Notes Radha Silva APRN, CNP - 02/19/2019 8:00 AM CST Estab Patient Visit Subjective Patient ID: Flores Serrano is a 33 y.o. female presenting for the following concerns. Chief Complaint Patient presents with ??? Blood Sugar Problem HPI: The patient is a pleasant 33 y.o. year old female presenting ambulatory to the clinical setting requesting to have labs drawn including a TSH, glucose, hemoglobin A1c and lipid panel. The patient had an elevated hemoglobin A1c on 06/13/2018 at 6.4. The patient had a reaction to a steroid injection in left hip and knee in September, came in to the clinical setting for an evaluation on 10/10/2018, and her blood glucose was 218. The patient is here in follow-up. The patient denies any excessive thirst, hunger, or urination. The patient reports she has been using her mother's Accu-Chek machine and has had elevated fasting morning blood sugars over the past few days, in the 130s. The patient reports there is a strong family history of diabetes, both on her maternal and paternal side. The patient has concerns for thyroid dysfunction as she has gained weight despite eating a healthy diet and exercising. The patient does not drink pop, does not eat sweets, and eats an abundance of fruits and vegetables. The patient reports she walks 2 miles every day and during her breaks at work. Nohair loss. No dry brittle nails or hair. No palpitations. No constipation. The patient is requesting to have her lipid panel checked. The patient had a normal Pap smear with HPV co-testing on 06/13/2018, with a recommendation repeatingone 5 years. The patient's Tdap is up-to-date on 09/28/2016. ROS: GENERAL: See HPI. The patient reports she has gained weight despite exercising and eating a healthy diet. INTEGUMENTARY: The patient denies having dry brittle hair or nails. ENDOCRINOLOGY: See HPI. The patient denies excessive thirst or hunger. MUSCULOSKELETAL: The patient continues to have significant left hip pain and is under orthopedic care. The following portions of the patient's chart were reviewed in this encounter and updated as appropriate: Tobacco Allergies Meds Problems Med Hx Surg Hx Fam Hx Objective Visit Vitals BP 124/82 (BP Location: Left arm, Patient Position: Sitting) Pulse 86 Temp 37.1 ??C (98.7 ??F) (Temporal) Resp 16 Ht 1.7 m (5' 6.93) Wt 134 kg (296 lb 4.8 oz) SpO2 97% BMI 46.51 kg/m?? Smoking Status Never Smoker BSA 2.52 m?? GENERAL: The patient is alert, orientated, and in no apparent distress. DIAGNOSTICS: Chem-8, hemoglobin A1c, lipid panel, and thyroid cascade. Assessment/Plan Flores was seen today for blood sugar problem. Diagnoses and all orders for this visit: Prediabetes (Primary) - Hemoglobin A1c; Future - Basic metabolic panel; Future Weight gain - Thyroid Function [place]; Future Screening, lipid - Lipid panel; Future Discussed the plan of care with the patient. The patient will be notified of her lab results. The patient agrees and understands her plan of care. Radha Silva APRN, AMELIE ER COSMETOLOGIST documented in this encounter Plan of Treatment Not on filedocumented as of this encounter Results Thyroid Function [place] (02/19/2019 8:48 AM MASTER COSMETOLOGIST) P athologist Signature TSH, Sensitive 1.17 0.46 - 02/19/2019 [facility] MEDICA L 4.68 mIU/L 2:31 PM MASTER COSMETOLOGIST [facility] Comment: The results from this [...] Laterality Blood (Blood, 02/19/2019 8:48 AM 02/20/20 19 8:48 Venous) MASTER COSMETOLOGIST AM MASTER COSMETOLOGIST Radha Silva APRN, CNP LAB BLOOD ORDERABLES Performing Organization Address City/[facility] Phon e Number [facility] [address] [place] [address] (ABNORMAL) Basic metabolic panel (02/19/2019 8:48 AM MASTER COSMETOLOGIST) Analysis Performed At Patho logist Time Signature Sodium 138 135 - 145 02/19/2019 [facility] mEq/L 1:45 PM [facility] Potassium 3.9 3.5 - 5.1 02/19/2019 [facility] mEq/L 1:45 PM [facility] Chloride 102 98 - 107 02/19/2019 [facility] mEq/L 1:45 PM [facility] CO2 26 22 - 29 02/19/2019 [facility] mmol/L 1:45 PM [facility] Creatinine 0.5 0.4 - 1.2 02/19/2019 [facility] mg/dL 1:45 PM [facility] BUN 9 5 - 25 02/19/2019 [facility] mg/dL 1:45 PM [facility] Glucose 125 (H) 70 - 100 02/19/2019 [facility] mg/dL 1:45 PM [facility] Calcium, 9.4 8.4 - 10.2 02/19/2019 [facility] Total,S mg/dL 1:45 PM [facility] Fasting? Yes 02/19/2019 [facility] 8:49 AM [facility] [place] Specimen Anatomical Collection Method Collection Time Receive d Time (Source) Location / / Volume Laterality Blood 02/19/2019 8:48 AM 9 8:48 MASTER COSMETOLOGIST AM MASTER COSMETOLOGIST Radha Silva APRN, CNP LAB BLOOD ORDERABLES Performing Organization Address [facility] Phon e Number [facility] [address] [place] [address] [facility] [address] [place] [id number] LABORATORY (ABNORMAL) Hemoglobin A1c (02/19/2019 8:48 AM [facility]) Analysis Performed At Patho logist Time Signature Hemoglobin A1C 7.1 (H) 4.0 - 5.6 02/19/2019 [place] % A1C 4:04 PM [facility] Comment: Reference Range 4.0-5.6% is for [...] Laterality Blood 02/19/2019 8:48 AM 9 8:48 MASTER COSMETOLOGIST AM MASTER COSMETOLOGIST Radha Silva APRN, INCUBATOR TENDER LAB BLOOD ORDERABLES Performing Organization Address City/State/ZIP Code Phon e Number [facility] [address] [place] [phone] (ABNORMAL) Lipid panel (02/19/2019 8:48 AM [facility]) P athologist Signature Cholesterol 228 (A) 0 - 199 02/19/2019 [facility] mg/dL 1:45 PM [facility] Comment: Recommended by National Cholesterol Education Program (ATP III) -------- Cholesterol Ranges -------- <200 ? Desirable 200-239 ? Borderline high >=240 ? High Triglycerides 204 (A) 0 - 149 mg/dL 02/19/2019 1:45 PM [facility] Comment: -------- TRIG Ranges -------- <150 ?Normal 150-199 ? Borderline high 200-499 ? High >=500 ? Very high HDL 45 40 - 60 mg/dL 02/19/2019 1:45 PM [facility] Comment: -------- HDL Ranges -------- <40 ?Low 40-59 ?Normal >=60 ? Optimal LDL Calculated 142 (A) 0 - 99 mg/dL 02/19/2019 1:45 PM MASTER COSMETOLOGIST [facility] Comment: -------- LDL Ranges -------- <100 ? Optimal 100-129 ?Near optimal/above op timal 130-159 ?Borderline high 160-189 ?High >=190 ?Very high Specimen Anatomical Collection Method Collection Time Receive d Time (Source) Location / / Volume Laterality Blood 02/19/2019 8:48 AM 9 8:48 MASTER COSMETOLOGIST AM MASTER COSMETOLOGIST Radha Silva APRN INCUBATOR TENDER LAB BLOOD ORDERABLES Performing Organization Address City/State/ZIP Code Phon e Number [facility] [address] [place] [address] documented in this encounter Visit Diagnoses Diagnosis Prediabetes - Primary Other abnormal glucose Weight gain Other symptoms concerning nutrition, met abolism, and development Screening, lipid documented in this encounter Care Teams Clerk General Office Relationship Specialty Start Date End Date Radha Silva APRN, INCUBATOR TENDER PCP - General 09/27/17 08/05/[address] [place] [address] documented as of this encounter
--- OUTSIDE RECORDS SUMMARY | 2022-01-12 14:08 | XMS_ITS | Encounter Summary ---
:1985 Author Organization [facility] Address [address] [place] [address] Care Team Providers Name Role Phone Radha Silva APRN, CNP Primary Care Provider [phone] Encounter Details Date Type Department Care Team Description 05/11/2019 Travel Social History Tobacco Use Types Packs/Day Years Used Date Smoking Tobacco: Never Smokeless Tobacco: Never Alcohol Use Standard Drinks/Week Comments Yes 0 (1 standard drink = 0.6 oz pure alcoho l) Sex Assigned at Date Recorded Female 08/18/2018 8:27 AM CDT COVID-19 Exposure Response Date Recorded In the last month, have you been in contact with No / Unsure 05/11/2019 8:52 AM CDT someone who was confirmed or suspected to have Coronavirus / COVID-19? documented as of this encounter Plan of Treatment Not on filedocumented as of this encounter Visit Diagnoses Not on filedocumented in this encounter Care Teams Chemical Plant Technical Director Relationship Specialty Start Date End Date Radha Silva APRN, AMELIE PCP - General 09/27/17 08/05/[address] [place] [address] documented as of this encounter
--- OUTSIDE RECORDS SUMMARY | 2022-01-12 14:08 | XMS_ITS | Encounter Summary ---
:1985 Author Organization [facility] Address [address] [place] [address] Care Team Providers Name Role Phone Radha Silva APRN, AMELIE Primary Care Provider [phone] Reason for Visit Reason Comments Dizziness x 1 week Headache x 1 week Encounter Details Date Type Department Care Team Description 10/10/2018 Office Visit Kevin Santamaria Radha Silva Medication adverse effect, i nitial encounter (Primary Dx); [address] M, AMELIE DU Elevated blood sugar [place], [place] [address] [address] [place] [address] Social History Tobacco Use Types Packs/Day Years Used Date Smoking Tobacco: Never Smokeless Tobacco: Never Alcohol Use Standard Drinks/Week Comments Yes 0 (1 standard drink = 0.6 oz pure alcoho l) Sex Assigned at Date Recorded Female 08/18/2018 8:27 AM CDT documented as of this encounter Last Filed Vital Signs Vital Sign Reading Time Taken Comments Blood Pressure 130/80 10/10/2018 2:58 PM CDT Pulse 68 10/10/2018 2:58 PM CDT Temperature 36.7 ??C (98 ??F) 10/10/2018 2:58 PM CDT Respiratory Rate 16 10/10/2018 2:58 PM CDT Oxygen Saturation 98% 10/10/2018 2:58 PM CDT Inhaled Oxygen Concentration - - Weight 128 kg (281 lb 12.8 oz) 10/10/2018 2:58 PM CDT Height 170 cm (5' 6.93) 10/10/2018 2:58 PM CDT Body Mass Index 44.23 10/10/2018 2:58 PM CDT documented in this encounter Patient Instructions Patient InstructionsChtammy Silva APRN, CNP - 10/10/2018 3:00 PM CDT Continue to monitor blood sugars Call if symptoms re-develop documented in this encounter Progress Notes Radha Silva APRN, CNP - 10/10/2018 3:00 PM CDT Estab Patient Visit Subjective Patient ID: Flores Serrano is a 32 y.o. female presenting for the following concerns. Chief Complaint Patient presents with ??? Dizziness x 1 week ??? Headache x 1 week HPI: The patient is a pleasant 32-year-old female presenting ambulatory to the clinical setting today concerned she had a reaction to her recent steroid injections in her left hip and left knee one week ago. The patient reports after the injection, she had swelling over left hip the size of a softball, and developed hives and swelling in her entire left lower extremity. The patient reports it felt like her whole body was on fire and she was experiencing lightheadedness. The patient contacted the provider, and they advised her to take Benadryl, which she did. The patient reports she wrapped her left lower extremity and applied ice over the hip and knee, and the swelling and hives have completed resolved. The patient reports 2 days after the steroid injection she developed a headache, which was quit intense yesterday, and possibly from being at work on the computer all day, under the florescent lighting. The patient started having visual changes on Tuesday, 3 days ago. The patient went home from workyesterday, was quite nauseous, and had an emesis, and likely from the headache discomfort. No abdominal pain. The patient reports the headache discomfort and visual changes have resolved. The patient has had elevated blood sugars in the clinical setting and her hemoglobin A1c on June 13 2018, was 6. 4. The patient reports she typically has hypoglycemia, has been checking her blood sugars at home with her mother???s accu check machine, and last evening her blood sugar was 110. The patient reports she had a normal eye exam in February,. ROS: INTEGUMENTARY: See HPI. The patient's had a reaction after having a steroid injection in her left hip and left knee, last Tuesday 1 week ago, with associated hives and swelling of her left lower extremity, which has since resolved. EYES: The patient reports she developed blurry vision 3 days ago, which has since resolved in the last 24 hours. The patient had a normal eye exam in February,. GASTROINTESTINAL: The patient did experience nausea and vomiting last evening, and likely from her headache discomfort. No abdominal pain. ENDOCRINOLOGY: The patient has had elevated blood sugars with previous evaluations. MUSCULOSKELETAL: See HPI. The patient has had chronic left hip and bilateral knee pain, and has had multiple surgeries. NEUROLOGICAL: The patient has had migraine equivalent headaches which started 2 days after the steroid injection which resolved today. The following portions of the patient's chart were reviewed in this encounter and updated as appropriate: Tobacco Allergies Meds Problems Med Hx Surg Hx Fam Hx No current outpatient medications on file. Objective Visit Vitals BP 130/80 (BP Location: Right arm, Patient Position: Sitting) Pulse 68 Temp 36.7 ??C (98 ??F) (Temporal) Resp 16 Ht 1.7 m (5' 6.93) Wt 128 kg (281 lb 12.8 oz) SpO2 98% BMI 44.23 kg/m?? Smoking Status Never Smoker BSA 2.46 m?? GENERAL: The patient is alert, orientated, and in no apparent distress. HEENT: Head normocephalic. Eyes - pupils round and reactive to light. EOMs intact without nystagmus. INTEGUMENTARY: Examining the left lower extremity there is no evidence of hives today nor swelling. NEUROLOGICAL: The patient is alert and oriented to person, place, time, and situation. Cranial nerves II through XII grossly intact. DIAGNOSTICS: Glucose 218. Assessment/Plan Flores was seen today for dizziness and headache. Diagnoses and all orders for this visit: Medication adverse effect, initial encounter (Primary) - Cancel: Glucose; Future Elevated blood sugar Discussed the plan of care with the patient. The patient did leave the clinical setting without discussing her glucose results. The patient was contacted after the clinical visit leaving a message on her cell phone, followed by a [facility] my chart message, recommending repeating a fasting glucose and hemoglobin A1c in 1 week, to determine if her blood sugars normalize, once the steroid is completely out of her system. The patient symptoms were possibly an allergic reaction followed by hyperglycemia; however, the patient was not ready to here she possibly has type 2 diabetes. Radha Silva APRN, CNP documented in this encounter Plan of Treatment Not on filedocumented as of this encounter Visit Diagnoses Diagnosis Medication adverse effect, initial encou nter - Primary Elevated blood sugar Other abnormal glucose documented in this encounter Care Teams Laser Specialist Relationship Specialty Start Date End Date Radha Silva APRN, AMELIE PCP - General 09/27/17 08/05/19 [address] [facility] [place] [address] documented as of this encounter
--- OUTSIDE RECORDS SUMMARY | 2022-01-12 14:08 | XMS_ITS | Encounter Summary ---
:1985 Author Organization [facility] Address [address] [place] [address] Care Team Providers Name Role Phone None, Pcp Primary Care Provider Unavailable Reason for Visit Reason Comments right ankle pain rolled right ankle x 2 thi s past weekend. Pain 8/10 check tick bite right ankle area Encounter Details Date Type Department Care Team Description 08/06/2019 Office Visit Kevin Santamaria Jolly Carrillo Injury of right ankle, [address] MD Brijesh initial encounter JONEL Bedoya (Primary Dx ) [id number] Social History Tobacco Use Types Packs/Day Years Used Date Smoking Tobacco: Never Smokeless Tobacco: Never Alcohol Use Standard Drinks/Week Comments Yes 0 (1 standard drink = 0.6 oz pure alcoho l) Sex Assigned at Date Recorded Female 08/18/2018 8:27 AM CDT documented as of this encounter Last Filed Vital Signs Vital Sign Reading Time Taken Comments Blood Pressure 104/70 08/06/2019 2:45 PM CDT Pulse 68 08/06/2019 2:45 PM CDT Temperature 37.6 ??C (99.6 ??F) 08/06/2019 2:45 PM CDT Respiratory Rate 18 08/06/2019 2:45 PM CDT Oxygen Saturation 97% 08/06/2019 2:45 PM CDT Inhaled Oxygen Concentration - - Weight 128 kg (281 lb 4.9 oz) 08/06/2019 2:45 PM CDT Height 169 cm (5' 6.54) 08/06/2019 2:45 PM CDT Body Mass Index 44.68 08/06/2019 2:45 PM CDT documented in this encounter Patient Instructions Patient InstructionsFrances Brijesh Carrillo MD - 08/06/2019 2:40 PM CDT Okay to take acetaminophen 650 mg every 6 hours or 1000 mg every 8 hours. Ibuprofen 600 mg every 6 hours or 800 mg every 8 hours. Do not take more than that or longer than 14days because can cause GI bleeding, impairment In kidney function. Take with food to reduce stomach upset. Alternate Ice and Heat. Anthony wrap for support. documented in this encounter Progress Notes Sugey Canales RN - 08/06/2019 2:40 PM CDT Pt declined pneumovax at this time Jolly Carrillo MD - 08/06/2019 2:40 PM CDT Estab Patient Visit Subjective Patient ID: Flores Serrano is a 33 y.o. female. Chief Complaint Patient presents with ??? right ankle pain rolled right ankle x 2 this past weekend. Pain 8/10 ??? check tick bite right ankle area HPI Patient is a 33-year-old female with type 2 diabetes who presents for right ankle injury that occurred over the weekend. She says she was walking when she rolled out her right ankle and this occurred on 2 occasions. She did not feel a pop but she did have swelling and pain and she has had difficulty sleeping due to the pain. She has no prior history of ankle injury. She is continued to walk spite theinjury. She also mentions that she had a tick bite a few weeks ago in the area of the ankle injury. She had some mild redness around the ankle and she says she had a brief fever but no joint pain or muscle aches. She says it was a wood tick. She is also checking her blood sugar multiple times per day and says her blood sugars been 98-120. She is on metformin thousand milligrams twice daily and she isfrustrated because her weight has increased while on metformin and her A1c has not improved. Her last A1c was 7.1 Current Outpatient Medications on File Prior to Visit Medication Sig Dispense Refill ??? albuterol HFA (ProAir HFA) 108 (90 Base) MCG/ACT inhaler Inhale 2 puffs every 4 (four) hours if needed for wheezing or shortness of breath (Patient taking differently: Inhale 2 puffs every 4 (four)hours if needed for wheezing or shortness of breath ASTHMA) 8.5 g 5 ??? Blood Glucose Monitoring Suppl (BLOOD GLUCOSE MONITOR SYSTEM) w/Device kit Use daily or as directed to check blood sugars daily. (Patient taking differently: Use daily or as directed to check bloodsugars daily. CONTOUR NEXT) 1 each 0 ??? CINNAMON PO Take 1,000 mg by mouth 1 (one) time each day ??? CONTOUR NEXT TEST test strip ??? glucose blood test strip Use as instructed to check blood sugar up to four times daily. (Patienttaking differently: Use as instructed to check blood sugar up to four times daily. CONTOUR NEXT) 100each 11 ??? Lancets misc Use as directed to check blood sugars daily. 100 each 3 ??? metFORMIN (GLUCOPHAGE) 1000 MG tablet Take 1 tablet (1,000 mg total) by mouth 2 (two) times a day with meals 180 tablet 3 No current facility-administered medications on file prior to visit. Amoxicillin-pot clavulanate; Benzoin; Oxycodone-acetaminophen; and Amoxicillin The following portions of the patient's chart were reviewed in this encounter and updated as appropriate: Tobacco Allergies Meds Review of Systems See HPI. Objective Physical Exam Blood pressure 104/70, pulse 68, temperature 37.6 ??C (99.6 ??F), temperature source Temporal, resp.rate 18, height 1.69 m (5' 6.54), weight 128 kg (281 lb 4.9 oz), SpO2 97 %. Patient is well-appearing not in acute distress. Patient has some swelling on the lateral aspect of her right ankle. He has tenderness over the rightlateral malleolus. Patient has normal range of motion of her ankle. She has no instability. Achill[place]endon is intact. Patient's gait is normal. Assessment/Plan Diagnoses and all orders for this visit: Injury of right ankle, initial encounter Discussed that she has an ankle strain and I do not think an x-ray is indicated at this time given that she is weightbearing. Discussed ongoing use of ice alternating with heat and also ongoing use of ankle brace which she is not wearing at this time. I advised her to wear good supportive footwear which she says will be difficult given that she has to wear dress shoes for work. Discussed [id number] analgesics and she will follow-up as needed. This dictation was created with voice recognition software and therefore may contain errors that went unnoticed. Patient Instructions Okay to take acetaminophen 650 mg every 6 hours or 1000 mg every 8 hours. Ibuprofen 600 mg every 6 hours or 800 mg every 8 hours. Do not take more than that or longer than 14days because can cause GI bleeding, impairment In kidney function. Take with food to reduce stomach upset. Alternate Ice and Heat. Anthony wrap for support. documented in this encounter Plan of Treatment Not on filedocumented as of this encounter Visit Diagnoses Diagnosis Injury of right ankle, initial encounter - Primary documented in this encounter Care Teams Personal Lines Appraiser Relationship Specialty Start Date End Date None, Pcp PCP - General Florist Supplies Salesperson 08/06/19 10/19/20 [address] [place] [id number] documented as of this encounter
--- OUTSIDE RECORDS SUMMARY | 2022-01-12 14:09 | XMS_ITS | Encounter Summary ---
:1985 Author Organization [facility] Address [address] [place] [address] Care Team Providers Name Role Phone Radha Sliva APRN, AMELIE Primary Care Provider Reason for Visit Reason Comments Pain Encounter Details Date Type Department Care Team Description 08/21/2018 [facility] [place] Acute sinusitis, recurrence not specified, unspecified location (Primary Dx); [address] M, [place]EL[place] Bursitis of left hip, unspecified bursa; [place] [address] Lumbar back pain; [address] [place] [address] Chronic pain of left knee; [phone] Chronic left SI joint pain; Reactive airway disease without complication, unspecified asthma severity, unspecified whether persistent Social History Tobacco Use Types Packs/Day Years Used Date Smoking Tobacco: Never Smokeless Tobacco: Never Alcohol Use Standard Drinks/Week Comments Yes 0 (1 standard drink = 0.6 oz pure alcoho l) Sex Assigned at Date Recorded Female 08/18/2018 8:27 AM CDT documented as of this encounter Last Filed Vital Signs Vital Sign Reading Time Taken Comments Blood Pressure 112/70 08/21/2018 8:50 AM CDT Pulse 91 08/21/2018 8:50 AM CDT Temperature 36.2 ??C (97.2 ??F) 08/21/2018 8:50 AM CDT Respiratory Rate 17 08/21/2018 8:50 AM CDT Oxygen Saturation 96% 08/21/2018 8:50 AM CDT Inhaled Oxygen Concentration - - Weight 129 kg (284 lb 6.3 oz) 08/21/2018 8:50 AM CDT Height 170 cm (5' 6.93) 08/21/2018 8:50 AM CDT Body Mass Index 44.64 08/21/2018 8:50 AM CDT documented in this encounter Patient Instructions Patient InstructionsChtammy Silva APRN, CNP - 08/21/2018 8:40 AM CDT Medrol Dosepak bursitis Keflex sinus infection Take Zyrtec 10 mg daily for seasonal allergies documented in this encounter Progress Notes Radha Silva APRN, CNP - 08/21/2018 8:40 AM CDT Estab Patient Visit Subjective Patient ID: Flores Serrano is a 32 y.o. female presenting for the following concerns. Chief Complaint Patient presents with ??? Pain HPI: The patient is a pleasant 32-year-old female presenting ambulatory to the clinical setting today concerned she has a sinus infection. The patient reports she has had nasal congestion, nasal drainage for the past 2 weeks, which improved with exgm-pdo-dpqermq Velvet-[place]. The patient reports she traveled down to [place] last , 4 days ago, returning home last evening, and when she was in [place] her seasonal allergies flared, along with the nasal congestion and nasal drainage, and now she has sinus pressure. The patient reports she developed a productive cough of green phlegm, with associated wheezing and increased work of breathing, when she was in the mountains in [place] on Tuesday, Tuesday, 2-3 days ago. The patient denies any teeth pain yet, she does have sore throat discomfort, no ear pain but rather itching. The patient has a small lump behind her left ear, which has been there for the past week and a half, initially itchy, painful, but this seems to be decreasing in size. The patient is unable to visualize the lump, and questions if it is a gnat bite verses a pimple. No fever, no chills. The patient previously had an elevation in her blood pressure when taking Cee; therefore, she discontinued the Cee, and has not started Zyrtec for her allergy symptoms. The patient has a history of sinus infections with similar symptoms. The patient has a long-standing history of low back pain, left hip, and left knee pain. The patient reports her left hip pain has flared in the past 2 weeks, she has had a difficult time finding a position of comfort. No injury. She has a sitting and standing desk at work, and literally is repositioning every 15 minutes at work. The patient continues to have lower back discomfort which started after a nerve block for surgery in 2005, with associated left SI joint pain for the past 5 years. The patient continues to have left knee pain, which is not necessarily new, as she has had 19 left knee surgeries. No locking or unstable feeling. The patient feels the left knee pain is contributing to her lefthip, left sacroiliac, and lumbar back pain, as she guards her left knee, altering her gait to protect it. The patient has applied heat to her left hip, tries to reposition often, and takes biwo-xjj-ortqapo pain relievers, which have not been effective in decreasing her pain. The patient has a long-standing history of reactive airway disease and likely induced from allergies. The patient notices when her allergies flare, she has to use her albuterol inhaler, otherwise she does not, nor uses her inhaler daily. The patient used her albuterol inhaler last Tuesday, 3 days ago, and did find relief. The patient completed an ACT form today. ROS: GENERAL: No fever, no chills. INTEGUMENTARY: See HPI. The patient possibly has a pimple behind her left ear, which she first noticed a week and a half ago, which does seem to be decreasing in size with improving discomfort. EARS: No ear pain but rather itching. NOSE: The patient has had nasal congestion and nasal drainage for the past 2 weeks, worsening causing sinus pressure. MOUTH/THROAT: See HPI. The patient has had sore throat discomfort. No teeth pain yet. CARDIOVASCULAR: The patient noticed bilateral lower extremity edema, after her recent car ride to [place] 16 hours there on , 4 days ago, and 22 hours yesterday, returning last evening. The patient feels her swelling is improving. The patient denies any other cardiac symptoms, no palpitations. RESPIRATORY: See HPI. The patient has had a productive cough of green phlegm with associated mild wheezing and dyspnea, for the past 3 days, finding relief with her albuterol inhaler. The patient has ahistory of asthma, which flares when her seasonal allergies flare, and is controlled with albuterol inhaler, which she uses infrequently, her last dose was 3 days ago, and she did find relief in the albuterol inhaler. MUSCULOSKELETAL: See HPI. The patient has chronic lower lumbar back pain, left sacroiliac joint pain, left hip pain, and left knee pain. The patient reports her back pain started in 2005, after a nerveblock for surgery, and her left sacroiliac pain for the past 5 years. The patient reports she has had 19 left knee surgeries, and has been under the care of Dr. Jones, orthopedic surgeon from [place]. The following portions of the patient's chart were reviewed in this encounter and updated as appropriate: Tobacco Allergies Meds Problems Med Hx Surg Hx Fam Hx Objective Visit Vitals BP 112/70 (BP Location: Left arm, Patient Position: Sitting) Pulse 91 Temp 36.2 ??C (97.2 ??F) (Temporal) Resp 17 Ht 1.7 m (5' 6.93) Wt 129 kg (284 lb 6.3 oz) SpO2 96% BMI 44.64 kg/m?? Smoking Status Never Smoker BSA 2.47 m?? GENERAL: The patient is alert, orientated, and in no apparent distress. HEENT: Head normocephalic. Eyes - pupils round and reactive to light. Ears - normal canals, normal, pearly gramajo TMs bilaterally with evidence of fluid behind both tympanic membranes. Throat - normal oropharynx. Uvula rises midline. No erythema. Neck - Supple. No cervical or posterior lymphadenopathy. INTEGUMENTARY: Small pustule along the left mastoid process. RESPIRATORY: Lungs are clear, bilaterally. No wheezing. No cough during the clinical visit today. Oxygen level 96% on room air. ACT score 22. MUSCULOSKELETAL: Examining the lower lumbar back area there is no erythema, bruising, deformity, and/or swelling. The patient did not have pain with palpation of the lower back; however, she did have pain over the sacroiliac joint area with palpation, and pain with direct pressure over the left greater trochanter. Normal internal and external rotation of the left hip. Examining the left knee, possible swelling, no bruising, deformity, nor erythema. Deep scar over the knee. The patient's left knee isstable to valgus and varus stress flexed at 90 degrees. Negative anterior and posterior drawer. The patient has fairly normal flexion and extension of the left knee. The patient's gait is steady. CARDIOVASCULAR: Slight swelling over the dorsal aspect of her feet bilaterally. DIAGNOSTICS: None. Assessment/Plan Flores was seen today for pain. Diagnoses and all orders for this visit: Acute sinusitis, recurrence not specified, unspecified location (Primary) - cephalexin (KEFLEX) 500 MG capsule; Take 1 capsule (500 mg total) by mouth 3 (three) times a day for 10 days Bursitis of left hip, unspecified bursa - methylPREDNISolone (MEDROL DOSPAK) 4 MG tablet; Take as directed on package. Lumbar back pain Chronic pain of left knee Chronic left SI joint pain Reactive airway disease without complication, unspecified asthma severity, unspecified whether persistent Discussed the plan of care with the patient. Prescribed Keflex 500 mg capsule, 1 capsule 3 times a day for 10 days, with no refills. The patient will start Zyrtec 10 mg daily to decrease her allergy symptoms and use her albuterol inhaler as needed. The patient was prescribed Medrol Dosepak, which willlikely help with the sinus infection, and left hip bursitis. The patient should ice her left hip andcontinue to monitor. The patient will schedule an appointment her orthopedic surgeon for her chronicleft knee, which is likely contributing to her lumbar back pain and left hip pain. The patient can take cblh-zso-staaawn relievers, ice, and rest as needed. The patient's asthma action plan was updated today. The patient agrees and understands this plan of care. Radha Silva APRN, AMELIE Radha Silva APRN, AMELIE - 08/21/2018 8:40 AM CDT Asthma Action Plan for Flores Serrano Printed: 08/21/2018 Doctor's Name: Radha Silva APRN, AMELIE, Hospital/ Emergency Room . My best peak flow is: the patient does not do a peak flow Please bring this plan and all your medications to each visit to our office or the emergency room. GREEN ZONE: Doing Well No cough, wheeze, chest tightness or shortness of breath during the day or night Can do your usual activities If a peak flow meter is used:peak flow: the patient does not do a peak flow Take these glwl-wjwb-oajwrem medicines each day Medicine How much to take When to take it Albuterol inhaler 1-2 puffs Dyspnea as needed Take these medicines before exercise if your asthma is exercise-induced Medicine How much to take When to take it albuterol (PROVENTIL,VENTOLIN) 2 puffs 30 minutes before exercise YELLOW ZONE: Asthma is Getting Worse Cough, wheeze, chest tightness or shortness of breath or Waking at night due to asthma, or Can do some, but not all, usual activities, or If a peak flow meter is used:peak flow: the patient does not do a peak flow. First: Take quick-relief medicine - and keep taking your GREEN ZONE medicines ?? Take the albuterol (PROVENTIL,VENTOLIN) inhaler 2 puffs every 20 minutes for up to 1 hour. Second: If your symptoms (and peak flows) return to Green Zone after 1 hour of above treatment, continue monitoring to be sure you stay in the green zone. -Or, If your symptoms (and peak flows) do not return to Green Zone after 1 hour of above treatment: ?? Take the albuterol (PROVENTIL,VENTOLIN) inhaler 2 puffs every 20 minutes for up to 1 hour. ?? Start oral steroids: take none make a clinical appointment ?? Call the doctor if she feels she needs a steriod taking the oral steroid. RED ZONE: Medical Alert! Very short of breath, or Quick relief medications have not helped, or Cannot do usual activities, or Symptoms are same or worse after 24 hours in the Yellow Zone, or If a peak flow meter is used: peak flow: the patient does not do a peak flow First, take these medicines: ?? Take the albuterol (PROVENTIL,VENTOLIN) inhaler 2 puffs every 20 minutes for up to 1 hour. ?? Start oral steroids: take none the patient does not take oral steriods for her symptoms, and should be evaluated if needed Then call your medical provider NOW! Go to the hospital or call an ambulance if: You are still in the Red Zone after 15 minutes, AND You have not reached your medical provider DANGER SIGNS Trouble walking and talking due to shortness of breath, or Lips or fingernails are blue Take 2 puffs of your quick relief medicine, AND Go to the hospital or call for an ambulance (call 911) NOW! documented in this encounter Plan of Treatment Not on filedocumented as of this encounter Visit Diagnoses Diagnosis Acute sinusitis, recurrence not specifie d, unspecified location - Primary Bursitis of left hip, unspecified bursa Lumbar back pain Lumbago Chronic pain of left knee Chronic left SI joint pain Disorders of sacrum Reactive airway disease without complica tion, unspecified asthma severity, unspecified whether persistent documented in this encounter Care Teams Senior Outside Sales Representative Relationship Specialty Start Date End Date Radha Silva APRN, SENIOR DATA MODELER PCP - General 09/27/17 08/05/[address] [place] [id number] documented as of this encounter
--- OUTSIDE RECORDS SUMMARY | 2022-01-12 14:09 | XMS_ITS | Encounter Summary ---
:1985 Author Organization [facility] Address [address] [place] [address] Care Team Providers Name Role Phone Radha Silva APRN, WASTEWATER PROJECT ENGINEER Primary Care Provider [phone] Encounter Details Date Type Department Care Team Description 06/13/2018 Lab [place] Palpitations; [address] Other fatigue; JONEL Bedoya [address] Atypical chest pain; [phone] Elevated blood pressure reading; Elevated blood sugar Social History Tobacco Use [...] Date/Time Associated Diagnosis Comme nts GLOMERULAR Routine 06/13/2018 9:20 AM Atypical ches t pain Results for this FILTRATION RATE CDT Elevated blood procedure are in pressure reading the results section. THYROID FUNCTION Routine 06/13/2018 9:20 AM Palpitations Results for this CASCADE CDT Other fatigue procedure are in the results section. CBC BRANCH OFFICE Routine 06/13/2018 9:20 AM Other fatigue Res ults for this W/DIFF CDT procedure are i n the results section. MAGNESIUM Routine 06/13/2018 9:20 AM Palpitations Results f or this CDT procedure are i n the results section. HEMOGLOBIN A1C Routine 06/13/2018 9:20 AM Elevated blood sugar Results for this CDT procedure are i n the results section. BASIC METABOLIC Routine 06/13/2018 9:20 AM Atypical ches t pain Results for this PANEL CDT Elevated blood procedure are in pressure reading the results section. documented in this encounter Results (ABNORMAL) Hemoglobin A1c (06/13/2018 9:20 AM CDT) Analysis Performed At Patho logist Time Signature Hemoglobin A1C 6.4 (H) 4.0 - 5.6 06/13/2018 [place] % A1C 6:52 PM CDT [facility] Comment: Reference [...] Location / / Volume Laterality Blood (Blood, 06/13/2018 9:20 AM 06/14/19 19 6:23 Venous) CDT PM CDT Radha Silva APRN, CNP LAB BLOOD ORDERABLES Performing Organization Address City/[facility]/ZIP Code Phon e Number [facility] [address] [place] [address] Glomerular filtration rate (GFR) (06/13/2018 9:20 AM CDT) P athologist Signature GFR >60 06/13/2018 [facility] 10:30 AM CDT [facility] >60 06/13/2018 [facility] Bulgarian GFR 10:30 AM CDT [facility] Comment: GFR calculated from serum creatinine v alue Chronic Kidney Disease less than 60 mL/m in/1.73 m2 Kidney Failure less than 15 mL/min/1.73 m2 Note: effective 07/06/06 IDMS-Traceable MDRD Study Equation used. Specimen Anatomical Collection Method Collection Time Receive d Time (Source) Location / / Volume Laterality 06/13/2018 9:20 AM 9 9:20 CDT AM CDT Radha Silva APRN, CNP LAB BLOOD ORDERABLES Performing Organization Address City/State/ZIP Code Phon e Number [facility] [address] [place] [address] CBC Branch Off w/Diff (06/13/2018 9:20 AM CDT) P athologist Signature WBC 9.2 3.5 - 10.5 06/13/2018 [facility] K/uL 10:30 AM CDT [place] RBC 4.75 3.90 - 06/13/2018 [facility] 5.00 M/uL 10:30 AM CDT [place] Hemoglobin 13.9 12.0 - 06/13/2018 [facility] 15.5 g/dL 10:30 AM CDT [place] Hematocrit 41.7 35.0 - 06/13/2018 [facility] 44.0 % 10:30 AM CDT [place] Platelets 245 150 - 450 06/13/2018 [facility] K/uL 10:30 AM CDT [place] MCV 87.8 81.6 - 06/13/2018 [facility] 98.3 fL 10:30 AM CDT [place] MCH 29.3 26.0 - 06/13/2018 [facility] 32.0 pg 10:30 AM CDT [place] MCHC 33.3 32.0 - 06/13/2018 [facility] 36.0 g/dL 10:30 AM CDT [place] RDW 13.1 11.9 - 06/13/2018 [facility] 15.5 % 10:30 AM CDT [place] Lymphocytes % 30.9 18.0 - 06/13/2018 [facility] 45.0 % 10:30 AM CDT [place] Mid-size Cells 6.6 3.3 - 10.1 06/13/2018 [facility] % 10:30 AM CDT [place] Granulocytes/Jose L 62.5 45.8 - 06/13/2018 [facility] trophils 73.7 % 10:30 AM CDT [place] Lymphocytes 2.8 0.9 - 2.9 06/13/2018 [facility] Absolute K/uL 10:30 AM CDT [place] MIDS Absolute 0.6 0.2 - 0.8 06/13/2018 [facility] K/uL 10:30 AM CDT [place] Granulocytes/Jose L 5.8 2.1 - 8.7 06/13/2018 [facility] trophils K/uL 10:30 AM CDT [place] Absolute Specimen Anatomical Collection Method Collection Time Receive d Time (Source) Location / / Volume Laterality Blood (Blood, 06/13/2018 9:20 AM 06/14/19 Venous) CDT 10:29 AM CDT Radha Silva APRN, CNP LAB BLOOD ORDERABLES Performing Organization Address City/State/ZIP Code Phon e Number [facility] [place] [place] [address] [place] [address] (ABNORMAL) Basic metabolic panel (06/13/2018 9:20 AM CDT) P athologist Signature Sodium 141 135 - 145 06/13/2018 [facility] mmol/L 10:30 AM CDT [place] Potassium 3.8 3.5 - 5.1 06/13/2018 [facility] mmol/L 10:30 AM CDT [place] Comment: . Chloride 107 98 - 107 mmol/L 06/13/2018 10:30 AM CDT [facility] Comment: . CO2 27 22 - 29 mmol/L 06/13/2018 10:30 AM CDT [facility] [place] [place] Comment: . Creatinine 0.5 0.4 - 1.2 mg/dL 06/13/2018 10:30 AM CDT [facility] Comment: . BUN 5 5 - 25 mg/dL 06/13/2018 10:30 AM CDT [facility] [place] Comment: . Glucose 119 (H) 70 - 100 mg/dL 06/13/2018 10:30 AM [facility] [place] CDT Calcium, Total,S 9.1 8.4 - 10.2 mg/dL 06/13/2018 10:30 AM [facility] CDT Comment: . Fasting? Yes 06/13/2018 10:29 AM CDT [facility] [place] Specimen Anatomical Collection Method Collection Time Receive d Time (Source) Location / / Volume Laterality Blood (Blood, 06/13/2018 9:20 AM 06/14/19 19 Venous) CDT 10:29 AM CDT Radha Silva APRN, CNP LAB BLOOD ORDERABLES Performing Organization Address City/State/ZIP Code Phon e Number [facility] [address] [place] [address] Thyroid Function Chestnut (06/13/2018 9:20 AM CDT) P athologist Signature TSH, Sensitive 0.73 0.46 - 06/13/2018 [facility] 4.68 mIU/L 7:33 PM CDT [facility] Comment: The results from this [...] Location / / Volume Laterality Blood (Blood, 06/13/2018 9:20 AM 06/14/19 19 6:23 Venous) CDT PM CDT Radha Silva APRN, WASTEWATER PROJECT ENGINEER LAB BLOOD ORDERABLES Performing Organization Address City/[facility]/ZIP Code Phon e Number [facility] [address] [place] [address] Magnesium (06/13/2018 9:20 AM CDT) athologist Signature Magnesium 1.9 1.6 - 2.3 06/13/2018 [facility] mg/dL 6:52 PM CDT [facility] Specimen Anatomical Collection Method Collection Time Receive d Time (Source) Location / / Volume Laterality Blood (Blood, 06/13/2018 9:20 AM 06/14/19 19 6:23 Venous) CDT PM CDT Radha Silva APRN, WASTEWATER PROJECT ENGINEER LAB BLOOD ORDERABLES Performing Organization Address City/[facility]/ZIP Code Phon e Number [facility] [address] [place] [address] documented in this encounter Visit Diagnoses Diagnosis Palpitations Other fatigue Atypical chest pain Other chest pain Elevated blood pressure reading Elevated blood pressure reading without diagnosis of hypertension Elevated blood sugar Other abnormal glucose documented in this encounter Care Teams Distribution Lead Relationship Specialty Start Date End Date Radha Silva APRN, WASTEWATER PROJECT ENGINEER PCP - General 09/27/17 08/05/19 [address] [place] [address] documented as of this encounter
--- OUTSIDE RECORDS SUMMARY | 2022-01-12 14:09 | XMS_ITS | Encounter Summary ---
:1985 Author Organization [facility] Address [address] [place] [address] Care Team Providers Name Role Phone Ricardo Radha Anne DU, SCORER SINGLE Primary Care Provider [phone] Encounter Details Date Type Department Care Team Description 11/08/2017 Hospital Encounter [facility] Caprice Gonzalez MD Calculus of gallbladder with chronic cho lecystitis without obstruction; Outpatient Services [address] Peritoneal adhesion; [address] [facility] [address] Uncomplicated asthma; [place] [address] [place], [place] Hyperlipidemia; [phone] Generalized anxiety disorder; [phone] Major depressiv e disorder, single episode; (Work) Migraine without status migrainosus, not intractable; [phone] Personal histor y of nicotine dependence (Fax) Social History Tobacco Use Types Packs/Day Years Used Date Smoking Tobacco: Never Assessed Sex Assigned at Date Recorded Female 08/18/2018 8:27 AM CDT documented as of this encounter Plan of Treatment Not on filedocumented as of this encounter Procedures Procedure Name Priority Date/Time Associated Diagnosis Comme nts PATHOLOGY Routine 11/08/2017 Results for thi s procedure are in the resu lts section. documented in this encounter Results Pathology (11/08/2017) athologist Signature Pathology SEE BELOW [facility] Comment: ? [facility] ? [address] ?[place] [address] ? Patient: ?TAMMIE FLORES Anne ?Procedure: ? 11/08/2017 /Age/Sex: ??1985, 31 Y, F ?Received: ?11/08/2017 14:38 ?Accession #: ?? [id number] Billing: ?[id number] ? Patient Location: OUT-PATIENT ? SERVICES Ordered by: ?? CAPRICE GONZALEZ MD ? Attending: ? CAPRICE GONZALEZ MD ?S URGICAL PATHOLOGY FINAL REPORT SPECIMEN: (A) GALLBLADDER CLINICAL INFORMATION: Cholecystitis. GROSS DESCRIPTION: The specimen is labeled gallbladder. The labels match on the requisition form and bottle. Received in formalin is a 10.7 x 3.6 x 2.8 cm intact gallbladder. The serosal surface is pink, manzo and glisten ing. The hepatic surface is pink, brown and rough. The cystic duct is inked black. T he gallbladder wall measures up to 0.5 cm in greatest thickness. The mucosal surfa ce is yellow, red. There are multiple smooth yellow, black gallstones measurin g 8.5 x 7.0 x 0.9 cm in aggregate. Collision Mechanic sections are submitted in block A1. Kathryn VIRAMONTES, ([facility]) DIAGNOSIS: Gallbladder, cholecystectomy: -Chronic cholecystitis with cholelithias is. <Sign Out Dr. Vargas> CINDY HARLEY MD (Electronically Signed) Reported: ??11/09/2017 ??12:47 ? Page 1 of 1 Specimen (Source) Anatomical Collection Method Collection Time Re ceived Time Location / / Volume Laterality Gallbladder 11/08/2017 11/08/2017 2:38 PM CDT Caprice Gonzalez MD LAB PATHOLOGY ORDERABLES Performing Organization Address City/State/ZIP Code Phon e Number [facility] [address] [place] [address] documented in this encounter Visit Diagnoses Diagnosis Calculus of gallbladder with chronic cho lecystitis without obstruction Peritoneal adhesion Peritoneal adhesions (postoperative) (po stinfection) Uncomplicated asthma Hyperlipidemia Other and unspecified hyperlipidemia Generalized anxiety disorder Major depressive disorder, single episod e Major depressive disorder, single episod e, unspecified Migraine without status migrainosus, not intractable Personal history of nicotine dependence documented in this encounter Care Teams Abatement Worker Relationship Specialty Start Date End Date Radha Silva, BIOLOGICAL CHEMIST, SCORER SINGLE PCP - General 09/27/17 08/05/[address] [place] [address] documented as of this encounter
--- OUTSIDE RECORDS SUMMARY | 2022-01-12 14:09 | XMS_ITS | Encounter Summary ---
:1985 Author Organization [facility] Address [address] [place] [address] Care Team Providers Name Role Phone Radha Silva APRN, CNP Primary Care Provider [phone] Encounter Details Date Type Department Care Team Description 10/26/2017 Hospital Encounter [facility] Radha Silva t upper quadrant pain; Radiology ANA LAURA Rodríguez CNP Calculus of gallbladder without cholecys titis without obstruction; [address] [facility] [address] Fatty (change of) liver, [place] [address] Social History Tobacco Use Types Packs/Day Years Used Date Smoking Tobacco: Never Assessed Sex Assigned at Date Recorded Female 08/18/2018 8:27 AM CDT documented as of this encounter Plan of Treatment Not on filedocumented as of this encounter Procedures Procedure Name Priority Date/Time Associated Diagnosis Comme nts US ABDOMEN RIGHT Routine 10/26/2017 8:56 AM Resul ts for this UPPER QUADRANT CDT procedure are in the results section. documented in this encounter Results Ultrasound abdomen right upper quadrant (10/26/2017 8:56 AM CDT) Anatomical Region Laterality Modality Body Ultrasound Specimen (Source) Anatomical Collection Method Collection Time Re ceived Time Location / / Volume Laterality 10/26/2017 8:56 AM CDT Impressions 10/26/2017 11:13 AM CDT IMPRESSION: Multiple gallstones within the gallbladd er lumen without biliary obstruction consistent with cholelithias is. Moderate hepatic steatosis. Narrative 10/26/2017 11:13 AM CDT INDICATION: right upper quadrant abdominal pain, con cern for gall bladder dysfunction COMPARISON: No comparison FINDINGS: ??Liver echotexture is coarsened withou t intrahepatic biliary duct dilation or focal mass. ??Multiple echog enic and shadowing gallstones are present within the gallbladder lumen . ??Common bile duct measures 6 mm. ??Gallbladder wall upper limits of normal measuring 3 mm. ??The pancreas is normal. ??Normal right kidne y without hydronephrosis or mass. ??The right kidney measures 12.9 c m. Procedure Note Yuan Jurado MD - 11/15/2017Formatt ing of this note might be different from the original. INDICATION: right upper quadrant abdominal pain, con cern for gall bladder dysfunction COMPARISON: No comparison FINDINGS: Liver echotexture is coarsened without intrahepatic biliary duct dilation or focal mass. Multiple echogen ic and shadowing gallstones are present within the gallbladder lumen . Common bile duct measures 6 mm. Gallbladder wall upper limits of n ormal measuring 3 mm. The pancreas is normal. Normal right kidney without hydronephrosis or mass. The right kidney measures 12.9 cm. IMPRESSION: Multiple gallstones within the gallbladd er lumen without biliary obstruction consistent with cholelithias is. Moderate hepatic steatosis. Radha Silva APRN, LAUNCH STEWARD IMG US PROCEDURES documented in this encounter Visit Diagnoses Diagnosis Right upper quadrant pain Abdominal pain, right upper quadrant Calculus of gallbladder without cholecys titis without obstruction Fatty (change of) liver, not elsewhere c lassified documented in this encounter Care Teams Bulb Grower Relationship Specialty Start Date End Date Radha Silva APRN, LAUNCH STEWARD PCP - General 09/27/17 08/05/19 [address] [place] [address] documented as of this encounter
--- OUTSIDE RECORDS SUMMARY | 2022-01-12 14:09 | XMS_ITS | Encounter Summary ---
:1985 Author Organization [facility] Address [address] [place] [address] Care Team Providers Name Role Phone Randi Silva APRN, AMELIE Primary Care Provider [phone] Reason for Visit Reason Onset Date Comments SINUS INF 12/05/2017 Encounter Details Date Type Department Care Team Description 12/05/2017 Telephone [place], SINUS INF [address] [place], [place] [address] [address] [facility] [address] [phone] [place], [place] [address] Social History Tobacco Use Types Packs/Day Years Used Date Smoking Tobacco: Never Assessed Sex Assigned at Date Recorded Female 08/18/2018 8:27 AM CDT documented as of this encounter Miscellaneous Notes Telephone Encounter - Tiara Solano RN - 12/06/2017 9:01 AM CDT Patient informed. Addendum Note - Randi Silva NP - 12/06/2017 8:51 AM CDT Addended by: RANDI SILVA on: 12/06/2017 08:51 AM Modules accepted: Orders Telephone Encounter - Randi Silva NP - 12/06/2017 8:50 AM CDT Prescription renewed as requested.. Telephone Encounter - Francy Rock MA - 12/06/2017 8:23 AM CDT Patient is still experiencing sinus pressure, teeth pain, and ear ache. Patient finished the amoxicillin about a week ago. Patient would like Keflex called into [facility]. Please advise. Telephone Encounter - Cecelia Fisher - 12/05/2017 4:05 PM CDT The patient is calling requesting a round of Keflex be called to [facility] in [facility] as she believesshe still has her sinus infection and had Amoxicillin last round. documented in this encounter Plan of Treatment Not on filedocumented as of this encounter Visit Diagnoses Diagnosis Chronic sinusitis, unspecified location - Primary documented in this encounter Care Teams Drafter Civil (Cad) Relationship Specialty Start Date End Date Randi Silva, SHINGLER, RAIMANN MACHINE OPERATOR PCP - General 09/27/17 08/05/19 [address] [facility] [place] [address] documented as of this encounter
--- OUTSIDE RECORDS SUMMARY | 2022-01-12 14:09 | XMS_ITS | Encounter Summary ---
:1985 Author Organization [facility] Address [address] [place] [address] Care Team Providers Name Role Phone Radha Silva APRN, CNP Primary Care Provider [phone] Reason for Visit Reason Comments Nausea Diarrhea Encounter Details Date Type Department Care Team Description 08/29/2018 Office Visit [facility] Santamaria Radha Silva Diarrhea, unspecified type ( Primary Dx); [address] MANA LAURA CNP Fever, unspecified fever cause; [place], [place] [address] Nausea; [address] [place] [address] Rash [phone] Social History Tobacco Use Types Packs/Day Years Used Date Smoking Tobacco: Never Smokeless Tobacco: Never Alcohol Use Standard Drinks/Week Comments Yes 0 (1 standard drink = 0.6 oz pure alcoho l) Sex Assigned at Date Recorded Female 08/18/2018 8:27 AM CDT documented as of this encounter Last Filed Vital Signs Vital Sign Reading Time Taken Comments Blood Pressure 120/78 08/29/2018 1:40 PM CDT Pulse 82 08/29/2018 1:40 PM CDT Temperature 36.3 ??C (97.4 ??F) 08/29/2018 1:40 PM CDT Respiratory Rate 18 08/29/2018 1:40 PM CDT Oxygen Saturation 99% 08/29/2018 1:40 PM CDT Inhaled Oxygen Concentration - - Weight 127 kg (280 lb 10.3 oz) 08/29/2018 1:40 PM CDT Height 169.5 cm (5' 6.73) 08/29/2018 1:40 PM CDT Body Mass Index 44.31 08/29/2018 1:40 PM CDT documented in this encounter Patient Instructions Patient InstructionsChtammy Silva APRN, CNP - 08/29/2018 1:40 PM CDT Return stool stools specimens Gatorade documented in this encounter Progress Notes Radha Silva APRN, CNP - 08/29/2018 1:40 PM CDT Estab Patient Visit Subjective Patient ID: Flores Serrano is a 32 y.o. female presenting for the following concerns. Chief Complaint Patient presents with ??? Nausea ??? Diarrhea HPI: The patient is a pleasant 32-year-old female presenting ambulatory to the clinical setting today reporting she has not felt well since Tuesday, 3 days ago, after swimming in [place], 1 [address] [facility], on Tuesday, 4 days ago. She reports the carter was not clean, and removed snails from her swimming suit, but did shower after swimming. The patient reports on Tuesday she felt ill had an emesis without nausea, diarrhea and/or abdominal pain. Her appetite was suppressed. The patient reports onSunday, 2 days ago, she developed a fever of 102, nausea and diarrhea, 4 to 5 loose stools yesterday, without evidence of blood and/or mucus in her stools, and 2 diarrheal stools this morning; no vomiti ng yesterday. The patient vomited x2 this morning, fluid without evidence of blood, mucus, or undigested food, because she has not been eating. The patient denies abdominal pain despite her other gastrointestinal symptoms. The patient reports her fever broke 2 hours ago, when she was quite diaphoretic. She has felt chilled. The patient does not feel dehydrated and denies lightheadedness, dizziness and/or presyncope. No palpitations. The patient feels she is urinating normal and is trying to increaseher oral fluids. She has had mild headache discomfort today. The patient has now developed itchy spots on her arms, chest, and abdomen, which her , and 2 other people they were swimming with, hav e. The patient is on antibiotic for her sinus infection, Keflex, but is not concerned the antibioticis causing her symptoms. No concerns for a UTI; no urinary frequency, urgency, hematuria, and/or dysuria. No concerns for a yeast infection and she has been eating yogurt to prevent a yeast infection. The patient did have a nosebleed from her left nostril, the same side she typically has sinus infection symptoms from this morning, and the bleeding was controlled rather quickly. The patient's last menstrual period is now. ROS: GENERAL: See HPI. The patient developed a fever as high as 102 yesterday, which broke 2 hours ago, along with diaphoresis. The patient has felt chilled. INTEGUMENTARY: See HPI. The patient has now developed itchy spots on her arms, chest, and abdomen. NOSE: The patient is being treated for a sinus infection with improvement in her symptoms. She does not feel her gastrointestinal symptoms are stemming from the antibiotic. CARDIOVASCULAR: No lightheadedness, dizziness, and/or palpitations. GASTROINTESTINAL: See HPI. The patient has been experiencing nausea, vomiting, and diarrhea without abdominal pain, for the past 3 days. GENITOURINARY: No dysuria, urinary frequency, urgency, nocturia and/or hematuria. CIVIL DESIGNER: The patient's last menstrual period is now. NEUROLOGICAL: See HPI. The patient is experiencing mild headache discomfort today. The following portions of the patient's chart were reviewed in this encounter and updated as appropriate: Tobacco Allergies Meds Med Hx Surg Hx Fam Hx Soc Hx Objective Visit Vitals BP 120/78 (BP Location: Left arm, Patient Position: Sitting) Pulse 82 Temp 36.3 ??C (97.4 ??F) (Temporal) Resp 18 Ht 1.695 m (5' 6.73) Wt 127 kg (280 lb 10.3 oz) SpO2 99% BMI 44.31 kg/m?? Smoking Status Never Smoker BSA 2.45 m?? GENERAL: The patient is alert, orientated, and in no apparent distress. GASTROENTEROLOGY: Abdomen is soft, no organomegaly, positive bowel sounds. GENITOURINARY: No CVA tenderness, no suprapubic tenderness. INTEGUMENTARY: Discrete small pink papules scattered on her arms, chest, and abdomen. DIAGNOSTICS: CBC with diff, stool culture, cryptosporidium, C.diff, and O&P. Lab Results Component Value Date WBC 10.9 (H) 08/29/2018 HGB 14.7 08/29/2018 HCT 43.6 08/29/2018 MCV 88.3 08/29/2018 PLT 268 08/29/2018 Assessment/Plan Flores was seen today for nausea and diarrhea. Diagnoses and all orders for this visit: Diarrhea, unspecified type (Primary) - Stool culture; Future - Cancel: C. Difficile Culture; Future - Cryptosporidium/Giardia antigen, feces; Future - Clostridium difficile toxin; Future - Parasitic Evaluation; Future Rash Nausea Fever, unspecified fever cause - CBC Branch Off w/Diff; Future Discussed the plan of care with the patient. Will obtain stool specimens, as her symptoms are concerning for a parasitic infection, given the history. The patient should hydrate well including Gatorade. Offered to prescribe Zofran, which she reports increases her nausea; therefore, this was not ordered. The patient received a note excusing her from work today and tomorrow. The patient be notified of her lab results. She should continue to monitor her symptoms and be re-evaluated as needed. The patient agrees and understands this plan of care. Radha Silva APRN, AMELIE documented in this encounter Plan of Treatment Not on filedocumented as of this encounter Results Parasitic Evaluation (08/30/2018 10:36 AM CDT) athologist Signature Ova + Parasite =- 09/02/2018 [facility] Exam 9:16 AM CDT LABORATORIES Comment: SOURCE: STOOL PARASITIC EXAMINATION ?FINAL No parasites seen. Cryptosporidium, Cyclospora, and microsp oridia are not readily detected by this method. Single negative specimen does not rule o ut parasitic infection. Test Performed by: [address] [address] Source STOOL 08/30/2018 10:37 AM CDT [facility] Specimen Anatomical Collection Method Collection Time Receive d Time (Source) Location / / Volume Laterality Stool 08/30/2018 10:36 08/31/2018 1:31 AM CDT PM CDT Radha Silva APRN, CNP LAB BODY FLUIDS AND STOOL S ORDERABLES Performing Organization Address City/State/ZIP Code Phon e Number [facility] see result attachment for specific address Stool culture (08/30/2018 10:36 AM CDT) [facility] Method Time Signature Stool Culture Normal martha suppressed. 09/02/2018 [place] Negative for Salmonella, Shigella, Campylobacter, E co li O157:H7, 11:03 AM CDT [facility] Yersinia. Negative for other Shiga toxin producing E. coli. LABORATORY . (Expected result is negative in the absence of Shiga toxin p roducing E. coli). Specimen Anatomical Collection Method Collection Time Receive d Time (Source) Location / / Volume Laterality Stool 08/30/2018 10:36 08/31/2018 AM CDT 12:17 PM CDT Narrative [facility] - 08/21 11:03 AM CDT Patient does not have an Amoxicillin or PCN allergy Radha Silva APRN, CNP LAB MICROBIOLOGY - GENERA L ORDERABLES Performing Organization Address City/[facility]/ZIP Code Phon e Number [facility] [address] [place] [address] Clostridium difficile toxin (08/29/2018 8:21 PM CDT) [facility] Signature Toxigenic C. NEGATIVE Negative 08/31/2018 [place] Diff 3:13 PM CDT [facility] Comment: Test performed using [employer] GeneXpert (real-time PCR targeting the Toxin B gen e) Specimen Anatomical Collection Method Collection Time Receive d Time (Source) Location / / Volume Laterality Stool (Per 08/29/2018 8:21 PM 9 3:12 Rectum) CDT PM CDT Radha Silva APRN, CNP LAB BODY FLUIDS AND STOOL S ORDERABLES Performing Organization Address City/[facility]/ZIP Code Phon e Number [facility] [address] [place] [address] Cryptosporidium/Giardia antigen, feces (08/29/2018 8:21 PM CDT) [facility] Method Time Signature Cryptosporidium NEGATIVE Negative 08/31/2018 [place] 3:02 PM [facility] Comment: . Giardia lamblia NEGATIVE Negative 08/31/2018 3:02 PM C DT [facility] Comment: . Specimen Anatomical Collection Method Collection Time Receive d Time (Source) Location / / Volume Laterality Stool (Per 08/29/2018 8:21 PM 9 Rectum) CDT 12:16 PM CDT Radha Silva APRN, BRICK MACHINE OPERATOR LAB BODY FLUIDS AND STOOL S ORDERABLES Performing Organization Address City/State/ZIP Code Phon e Number [facility] [address] [place] [phone] (ABNORMAL) CBC Branch Off w/Diff (08/29/2018 2:27 PM CDT) [facility] gist Method Time Signature WBC 10.9 (H) 3.5 - 10.5 08/29/2018 [facility] K/uL 2:34 PM CDT [place] RBC 4.94 3.90 - 08/29/2018 [facility] 5.00 M/uL 2:34 PM CDT [place] Hemoglobin 14.7 12.0 - 08/29/2018 [facility] 15.5 g/dL 2:34 PM CDT [place] Hematocrit 43.6 35.0 - 08/29/2018 [facility] 44.0 % 2:34 PM CDT [place] Platelets 268 150 - 450 08/29/2018 [facility] K/uL 2:34 PM CDT [place] MCV 88.3 81.6 - 08/29/2018 [facility] 98.3 fL 2:34 PM CDT [place] MCH 29.8 26.0 - 08/29/2018 [facility] 32.0 pg 2:34 PM CDT [place] MCHC 33.7 32.0 - 08/29/2018 [facility] 36.0 g/dL 2:34 PM CDT [place] RDW 13.1 11.9 - 08/29/2018 [facility] 15.5 % 2:34 PM CDT [place] Lymphocytes % 32.5 18.0 - 08/29/2018 [facility] 45.0 % 2:34 PM CDT [place] Mid-size Cells 8.6 3.3 - 10.1 08/29/2018 [facility] % 2:34 PM CDT [place] Granulocytes/Jose L 58.9 45.8 - 08/29/2018 [facility] trophils 73.7 % 2:34 PM CDT [place] Lymphocytes 3.5 (H) 0.9 - 2.9 08/29/2018 [facility] Absolute K/uL 2:34 PM CDT [place] MIDS Absolute 0.9 (H) 0.2 - 0.8 08/29/2018 [facility] K/uL 2:34 PM CDT [place] Granulocytes/Jose L 6.5 2.1 - 8.7 08/29/2018 [facility] trophils K/uL 2:34 PM CDT [place] Absolute Specimen Anatomical Collection Method Collection Time Receive d Time (Source) Location / / Volume Laterality Blood (Blood, 08/29/2018 2:27 PM 08/30/19 19 2:32 Venous) CDT PM CDT Radha Silva APRN, AMELIE LAB BLOOD ORDERABLES Performing Organization Address City/State/ZIP Code Phon e Number [facility] [place] [address] [place] [address] documented in this encounter Visit Diagnoses Diagnosis Diarrhea, unspecified type - Primary Fever, unspecified fever cause Nausea Nausea alone Rash Rash and other nonspecific skin eruption Diarrhea, unspecified type documented in this encounter Care Teams Supervisor Feed Mill Relationship Specialty Start Date End Date Radha Silva APRN, BRICK MACHINE OPERATOR PCP - General 09/27/17 08/05/19 100 [facility] [place] [address] documented as of this encounter
--- OUTSIDE RECORDS SUMMARY | 2022-01-12 14:09 | XMS_ITS | Encounter Summary ---
:[address] [facility] Address [address] [place] [address] Care Team Providers Name Role Phone Radha Silva APRN, WINDOW DRESSER Primary Care Provider [phone] Reason for Visit Reason Comments Annual Exam Encounter Details Date Type Department Care Team Description 06/13/2018 Office Visit [place] Annual physical exam (Primar y Dx); [address] [place], [place] Palpitations; [place], [place] [address] Dyspnea, unspecified type; [address] [place] [address] Atypical chest pain; [phone] Elevated blood pressure reading; Screening for c ervical cancer; Other fatigue; Elevated blood sugar Social History Tobacco Use Types Packs/Day Years Used Date Smoking Tobacco: Never Smokeless Tobacco: Never Alcohol Use Standard Drinks/Week Comments Yes 0 (1 standard drink = 0.6 oz pure alcoho l) Sex Assigned at Date Recorded Female 08/18/2018 8:27 AM CDT documented as of this encounter Last Filed Vital Signs Vital Sign Reading Time Taken Comments Blood Pressure 112/90 06/13/2018 8:08 AM CDT Pulse 74 06/13/2018 8:08 AM CDT Temperature 36.8 ??C (98.3 ??F) 06/13/2018 8:08 AM CDT Respiratory Rate 18 06/13/2018 8:08 AM CDT Oxygen Saturation 99% 06/13/2018 8:08 AM CDT Inhaled Oxygen Concentration - - Weight 126 kg (278 lb) 06/13/2018 8:08 AM CDT Height 170 cm (5' 6.93) 06/13/2018 8:08 AM CDT Body Mass Index 43.63 06/13/2018 8:08 AM CDT documented in this encounter Patient Instructions Patient InstructionsChtammy Silva APRN, CNP - 06/13/2018 8:00 AM CDT Zyrtec for seasonal allergies, stop the Cee Continue to monitor your blood pressure, consider having this in the clinical setting Will call with the lab results, chest xray, and EKG, and discuss plan of care further Formal exercise 30 minutes daily Calcium requirements 1000 mg daily Tdap is uptodate documented in this encounter Progress Notes Radha Silva APRN, CNP - 06/13/2018 8:00 AM CDT Well Adult - Estab Subjective Patient ID: Flores Cho is a 32 y.o. female presenting for the following concerns. Chief Complaint Patient presents with ??? Annual Exam HPI: The patient is a 32-year-old female presenting ambulatory to the clinical setting today for an annual physical. 3. para 0. The patient's last menstrual period was on May 22, 2018. She has a normal menstrual cycle every 28 days with a normal flow. The patient is uncertain when she had her lastPap smear, and has never had an abnormal Pap smear. The patient is sexually active with her ,not using contraception as she desires a . The patient has no pain with sexual activity. The patient is not physically active. The patient is lactose intolerant, is uncertain if she attains anadequate amount of dietary calcium, but feels as if she does. The patient's last Tdap was on 09/28/2016 and she has completed the HPV series. The patient reports she has had elevated blood pressures in the past 2 weeks, which she has been checking at [facility]. The patient reports her blood pressures have been 140/100, 175/100, 170/100, and typically she has had normal blood pressures. The patient reports she is not feeling well, feels out of breath, her heart seems to be working harder, pulsating, and she fatigues more quickly in the past 3 weeks. The patient feels her fatigue started about a year ago. The patient intermittently feels short of breath the past couple of weeks, possibly seasonal allergy or stress related. The patient does have environmental allergies and is typically symptomatic this time of the year, and is currently f laring with nasal congestion, itchy eyes, her ears feel plugged, at times causing headache discomfort. She is taking Cee for her symptoms and is uncertain how effective this is. She is not happy inher current job with may be causing stress. The patient reports she has had intermittent non-radiating anterior chest pressure since 2009 or 2011, and typically when her potassium levels are high. She does not experience her discomfort with activity nor eating. The patient recalls having nausea, vomiting and had to be hospitalized because her potassium levels were elevated 4 times the normal amount. The patient has tried heartburn relievers which does not alleviate her chest discomfort. The patient reports her anterior chest discomfort, lasts under 10 minutes, every 3 months, but it does seem to be worsening, particularly before having her gallbladder removed. The patient denies any nausea, vomiting, syncope, presyncope lightheadedness, dizziness, and/or peripheral edema associated with her chest pain. The patient recalls having one syncopal episode, when she was lying in bed, feeling nauseated, got up and passed out hitting her head on the headboard, before her gallbladder was removed. The patient had a syncopal episodes when she had a panic attack in 2012. The following portions of the patient's chart were reviewed in this encounter and updated as appropriate: Tobacco Allergies Meds Med Hx Surg Hx Fam Hx Soc Hx Current Outpatient Medications: ??? fexofenadine (CEE ALLERGY) 180 MG tablet, Take 180 mg by mouth 1 (one) time each day, Disp: , Rfl: Allergies Allergen Reactions ??? Amoxicillin ??? Amoxicillin-Pot Clavulanate ??? Benzoin ??? Oxycodone-Acetaminophen Immunization History Administered Date(s) Administered ??? DTaP 02/16/1985, 04/27/1985, 07/02/1985, 10/04/1986, 07/12/1990 ??? HPV, Quadrivalent 10/26/2006, 12/30/2006, 11/17/2007 ??? Hep B, Unspecified 01/29/2002 ??? Hib (PRP-OMP) 11/29/1986 ??? MMR 07/05/1986 ??? OPV 01/22/1985, 04/27/1985, 07/02/1985, 10/04/1986, 07/12/1990 ??? Td 08/04/2006 ??? Tdap 09/28/2016 Past Medical History: Diagnosis Date ??? Allergic rhinitis ??? Arthritis ??? Asthma ??? Concussion ??? Hyperlipidemia ??? Osteoarthritis ??? with history of miscarriage Past Surgical History: Procedure Laterality Date ??? ADENOIDECTOMY ??? CARPAL TUNNEL RELEASE Right ??? CHOLECYSTECTOMY ??? KNEE SURGERY Bilateral ??? SINUS SURGERY ??? TONSILLECTOMY Family History Problem Relation Age of Onset ??? Arthritis Mother ??? Asthma Mother ??? Clotting disorder Mother ??? Hyperlipidemia Mother ??? Hypertension Mother ??? Depression Mother ??? Alcohol abuse Mother ??? Arthritis Father ??? Asthma Brother ??? Arthritis Maternal Grandmother ??? Breast cancer Maternal Grandmother ??? Arthritis Maternal Grandfather ??? Alcohol abuse Maternal Grandfather ??? Arthritis Paternal Grandmother ??? Arthritis Paternal Grandfather Social History Socioeconomic History ??? Marital status: Single Spouse name: Not on file ??? Number of children: Not on file ??? Years of education: Not on file ??? Highest education level: Not on file Occupational History ??? Not on file Social Needs ??? Financial resource strain: Not on file ??? Food insecurity: Worry: Not on file Inability: Not on file ??? Transportation needs: Medical: Not on file Non-medical: Not on file Tobacco Use ??? Smoking status: Never Smoker ??? Smokeless tobacco: Never Used Substance and Sexual Activity ??? Alcohol use: Yes ??? Drug use: Never ??? Sexual activity: Not on file Lifestyle ??? Physical activity: Days per week: Not on file Minutes per session: Not on file ??? Stress: Not on file Relationships ??? Social connections: Talks on phone: Not on file Gets together: Not on file Attends pentecostalism service: Not on file Active member of club or organization: Not on file Attends meetings of clubs or organizations: Not on file Relationship status: Not on file ??? Intimate partner violence: Fear of current or ex partner: Not on file Emotionally abused: Not on file Physically abused: Not on file Forced sexual activity: Not on file Other Topics Concern ??? Not on file Social History Narrative ??? Not on file REVIEW OF SYSTEMS: GENERAL: No fever, chills, sweats, change in weight, and/or change in appetite. The patient has beenexperiencing fatigue for the past year, worse the past 3 weeks. INTEGUMENTARY: No rashes and/or lesions. The patient reports she has had itchy skin over one spot inher back since she was a child which has not changed in nature. HEAD/NECK: The patient occasionally has headaches but typically not dizziness. EYES: No visual changes. The patient does wear eyeglasses has astigmatism in both eyes. The patient sees an eye doctor on a regular basis. The patient has been experiencing itchy eyes with her seasonalallergies. EARS: No hearing loss, pain and/or tinnitus. NOSE: The patient does have environmental allergies is typically symptomatic this time of the year, and is currently flaring with nasal congestion, itchy eyes, her ears feel plugged, at times causing headache discomfort. She is taking Cee for her symptoms uncertain how effective this is. MOUTH/THROAT: No problems with teeth, gums, and/or trouble swallowing. The patient sees a dentist fernando regular basis. CARDIOVASCULAR: See HPI. The patient has had anterior intermittent chest pressure, pain, typically lasting about 10 minutes every 3 months, for the past 10 years, which seems to be associated with highpotassium levels. The patient feels as if her heart is beating harder the past couple of weeks. No peripheral edema, lightheadedness, dizziness, presyncope, syncope, and/or cardiac murmurs. RESPIRATORY: See HPI. The patient has felt short of breath for the past 2-3 weeks which is possibly related to her seasonal allergies. She has a nonproblematic non-productive cough without associated wheezing. The patient snores when she is sick. The patient is a non-smoker. BREASTS: No pain, masses, discharge and or change in appearance. GASTROINTESTINAL: No nausea, vomiting, diarrhea, heartburn, loss of appetite, abdominal pain, hematemesis, constipation, melena, and/or hematochezia. GENITOURINARY: See HPI. The patient has urinary frequency, but does drink a lot of water, and juice which may be contributing to the frequency. No dysuria, urgency, nocturia and/or hematuria. TIMBER KILLER: 3, para 0. The patient's last menstrual period was May 22, having a regular menstrual cycle every 28 days with normal flow. The patient is uncertain when her Pap smear was. The patient isnot had an abnormal Pap smear. She has been sexually active with the same partner for the past 16 years, to her for 5 years, and is not on contraception as she desires a . ENDOCRINOLOGY: No thyroid dysfunction, diabetes, nor osteoporosis. MUSCULOSKELETAL: The patient has had multiple skeletal issues including osteoarthritis having 18 surgeries on her left knee, 3 surgeries on her right knee, and left hip discomfort. The patient feels her left hip pain has been worse the past 3 months. The patient has had lower back pain and has been told she has a back spur after having an x-ray. She also has had left sciatic nerve pain. The patientfeels her lower back pain started when she had a spinal for knee surgery in 2005, which has persisted. The patient has had lower back pain on a daily basis, rating her pain a 5-7 out of 10, and does not take any pain relievers. NEUROLOGICAL: Numbness, tingling, and weakness at times in her left lower extremity. No migraine headache and/or seizures. PSYCHIATRIC: See HPI. The patient has a history of anxiety was on Celexa and Wellbutrin in 2012 whenshe was experiencing high levels of stress and anxiety likely related to her job. The patient feels her depression and anxiety are under control at this time. The patient did have a syncopal episode when she had a panic attack in 2012. Objective Visit Vitals BP 112/90 (BP Location: Left arm, Patient Position: Sitting) Pulse 74 Temp 36.8 ??C (98.3 ??F) (Temporal) Resp 18 Ht 1.7 m (5' 6.93) Wt 126 kg (278 lb) SpO2 99% BMI 43.63 kg/m?? Smoking Status Never Smoker BSA 2.44 m?? GENERAL: The patient is alert, orientated and in no apparent distress. HEET: Head normocephalic. Eyes - pupils round and reactive to light. EOMs intact without nystagmus. Ears - normal canals, normal, pearly gramajo TMs bilaterally. Throat - normal oropharynx. Uvula rises midline. No erythema. NECK: Supple. No cervical or posterior lymphadenopathy. No thyromegaly. BREASTS: Symmetric, no retractions, discharge or lesions. Contour and consistency firm and homogenous. No masses or tenderness, no lymphadenopathy. INTEGUMENTARY: Skin is warm and dry. No evidence of lesions. CARDIOVASCULAR: Normal heart rate and rhythm. No murmur. No peripheral edema. Positive peripheral pulses, x4. RESPIRATORY: Lungs are clear, bilaterally. No wheezing. MUSCULOSKELETAL: The patient moves freely about the room. GYNECOLOGIC: External genitalia has no lesions, discharge. Internal genitalia, vaginal oliveira are pink, no lesions. The cervix is pink, normal appearing. No lesions. Small amount of nonodorous clear discharge. Specimen for Pap test obtained. Bimanual - no pain on moving cervix, and this exam is limitedsecondary to body habitus. GASTROENTEROLOGY: Abdomen is soft, no organomegaly, positive bowel sounds. NEUROLOGICAL: The patient is alert and oriented to person, place, time, and situation. PSYCHIATRIC: The patient's affect is appropriate. DIAGNOSTICS: Thyroid function cascade, BMP, Magnesium, CBC with diff, Pap smear with HPV Co-testing,chest xray, and EKG. Chest x-ray appear normal, official radiology report is pending. EKG normal sinus rhythm, ventricular rate 63. Assessment/Plan Flores was seen today for annual exam. Diagnoses and all orders for this visit: Annual physical exam (Primary) Palpitations - Thyroid Function [place]; Future - ECG 12 lead - Magnesium; Future Dyspnea, unspecified type - X-ray Chest 2 Views; Future - X-ray Chest 2 Views Atypical chest pain - Basic metabolic panel; Future - ECG 12 lead Elevated blood pressure reading - Basic metabolic panel; Future Screening for cervical cancer - Pap Smear - HPV High Risk DNA Detection with Genotyping Other fatigue - CBC Branch Off w/Diff; Future - Thyroid Function [place]; Future Discussed the plan of care with the patient. Recommended formal exercising for 30 minutes daily. Recommended calcium 1000 mg daily either through dietary or supplemental. The patient will be notified of the official radiology report of her chest x-ray and EKG. The patient should return for blood pressure rechecks. Will wait for the remainder of the lab results including the magnesium, thyroid cascade, basic metabolic panel, official cardiology read of the EKG and official radiology impression of thechest x-ray, and determine plan of care. The patient's Tdap is up-to-date. The patient could try Zyrtec for seasonal allergies and discontinue the Cee. The patient agrees and understands this plan of care. Radha Silva APRN, WINDOW DRESSER documented in this encounter Plan of Treatment Not on filedocumented as of this encounter Procedures Procedure Name Priority Date/Time Associated Diagnosis Comme nts XR CHEST 2 VIEWS Routine 06/13/2018 9:32 AM Dyspnea, unspecifi ed Results for this CDT type procedure are i n the results section. HPV HIGH RISK DNA Routine 06/13/2018 8:51 AM Screening for Res ults for this DETECTION WITH CDT cervical cancer procedure are in GENOTYPING the results section. PAP TEST Routine 06/13/2018 8:51 AM Screening for Results for this CDT cervical cancer procedure ar e in the results section. ECG 12-LEAD Routine 06/13/2018 12:00 Palpitations AM CDT Atypical chest pain documented in this encounter Results X-ray Chest 2 Views (06/13/2018 9:32 AM CDT) Anatomical Region Laterality Modality Body Radiographic Imaging Specimen (Source) Anatomical Collection Method Collection Time Re ceived Time Location / / Volume Laterality 06/13/2018 9:32 AM CDT Impressions 06/13/2018 9:34 AM CDT IMPRESSION: Unremarkable Narrative 06/13/2018 9:34 AM CDT INDICATION: dyspnea with exertion COMPARISON: None FINDINGS: CXR: Min Two views: Frontal and lateral: Heart size and vascularity are within no rmal limits. ??No infiltrates or effusions. Minor degenerative change of the spine Procedure Note Alicia Blake MD - 06/13/2018Formattin g of this note might be different from the original. INDICATION: dyspnea with exertion COMPARISON: None FINDINGS: CXR: Min Two views: Frontal and lateral: Heart size and vascularity are within no rmal limits. No infiltrates or effusions. Minor degenerative change of the spine IMPRESSION: Unremarkable Radha Silva APRN, WINDOW DRESSER IMG XR PROCEDURES (ABNORMAL) Hemoglobin A1c (06/13/2018 9:20 AM CDT) Analysis Performed At Patho logist Time Signature Hemoglobin A1C 6.4 (H) 4.0 - 5.6 06/13/2018 [facility] % A1C 6:52 PM T [facility] Comment: Reference Range 4.0-5.6% is [...] CNP LAB BLOOD ORDERABLES Performing Organization Address [facility] Code Phon e Number [facility] [address] [place] [phone] Magnesium (06/13/2018 9:20 AM CDT) athologist Signature Magnesium 1.9 1.6 - 2.3 06/13/2018 [facility] mg/dL 6:52 PM T [facility] Specimen Anatomical Collection Method Collection Time Receive d Time (Source) Location / / Volume Laterality Blood (Blood, 06/13/2018 9:20 AM 06/14/19 19 6:23 Venous) CDT PM CDT Radha Silva APRN, CNP LAB BLOOD ORDERABLES Performing Organization Address [facility] Phon e Number [facility] [address] [place] [phone] Thyroid Function [place] (06/13/2018 9:20 AM CDT) athologist Signature TSH, Sensitive 0.73 0.46 - 06/13/2018 [facility] L 4.68 mIU/L 7:33 PM T [facility] Comment: The results from this [...] Venous) CDT PM CDT Radha Silva APRN, WINDOW DRESSER LAB BLOOD ORDERABLES Performing Organization Address City/State/ZIP Code Phon e Number [facility] [address] [place] [phone] (ABNORMAL) Basic metabolic panel (06/13/2018 9:20 AM CDT) P athologist Signature Sodium 141 135 - 145 06/13/2018 [facility] mmol/L 10:30 AM CDT [place] Potassium 3.8 3.5 - 5.1 06/13/2018 [facility] mmol/L 10:30 AM T [place] Comment: . Chloride 107 98 - 107 mmol/L 06/13/2018 10:30 AM CDT [facility] [place] Comment: . CO2 27 22 - 29 mmol/L 06/13/2018 10:30 AM CDT [facility] Comment: . Creatinine 0.5 0.4 - 1.2 mg/dL 06/13/2018 10:30 AM CDT [facility] [place] Comment: . BUN 5 5 - 25 mg/dL 06/13/2018 10:30 AM CDT [facility] [place] Comment: . Glucose 119 (H) 70 - 100 mg/dL 06/13/2018 10:30 AM [facility] [place] CDT Calcium, Total,S 9.1 8.4 - 10.2 mg/dL 06/13/2018 10:30 AM [facility] [place] CDT Comment: . Fasting? Yes 06/13/2018 10:29 AM CDT [facility] [place] Specimen Anatomical Collection Method Collection Time Receive d Time (Source) Location / / Volume Laterality Blood (Blood, 06/13/2018 9:20 AM 06/14/19 19 Venous) CDT 10:29 AM CDT Radha Silva APRN, WINDOW DRESSER LAB BLOOD ORDERABLES Performing Organization Address City/State/ZIP Code Phon e Number [facility] [place] [address] [place] [address] CBC Branch Off w/Diff (06/13/2018 9:20 AM CDT) P athologist Signature WBC 9.2 3.5 - 10.5 06/13/2018 [facility] K/uL 10:30 AM [place]T [place] RBC 4.75 3.90 - 06/13/2018 [facility] 5.00 M/uL 10:30 AM CDT [place] Hemoglobin 13.9 12.0 - 06/13/2018 [facility] 15.5 g/dL 10:30 AM CDT [place] Hematocrit 41.7 35.0 - 06/13/2018 [facility] 44.0 % 10:30 AM CDT [place] Platelets 245 150 - 450 06/13/2018 [facility] K/uL 10:30 AM CDT [place] MCV 87.8 81.6 - 06/13/2018 [facility] 98.3 fL 10:30 AM CDT [place] MCH 29.3 26.0 - 06/13/2018 [facility] 32.0 pg 10:30 AM CDT [place] MCHC 33.3 32.0 - 06/13/2018 [facility] 36.0 g/dL 10:30 AM CDT [place] RDW 13.1 11.9 - 06/13/2018 [facility] 15.5 % 10:30 AM CDT [place] Lymphocytes % 30.9 18.0 - 06/13/2018 [facility] 45.0 % 10:30 AM CDT [place] Mid-size Cells 6.6 3.3 - 10.1 06/13/2018 [facility] % 10:30 AM CDT [place] Granulocytes/Jose L 62.5 45.8 - 06/13/2018 [facility] trophils 73.7 % 10:30 AM CDT [place] Lymphocytes 2.8 0.9 - 2.9 06/13/2018 [facility] Absolute K/uL 10:30 AM CDT [place] MIDS Absolute 0.6 0.2 - 0.8 06/13/2018 [facility] K/uL 10:30 AM CDT [place] Granulocytes/Jose L 5.8 2.1 - 8.7 06/13/2018 [facility] [place] trophils K/uL 10:30 AM CDT [place] Absolute Specimen Anatomical Collection Method Collection Time Receive d Time (Source) Location / / Volume Laterality Blood (Blood, 06/13/2018 9:20 AM 06/14/19 19 Venous) CDT 10:29 AM CDT Radha Silva APRN, CNP LAB BLOOD ORDERABLES Performing Organization Address [facility] Phon e Number [facility] [place] [address] [place] [address] HPV High Risk DNA Detection with Genotyping (06/13/2018 8:51 AM CDT) [facility] Method Time Signature Source Cx/Endocervi 06/16/2018 [facility] x 8:36 PM CDT LABORATORIES HPV Type 16 Negative Negative 06/16/2018 [facility] 8:36 PM CDT LABORATORIES HPV Type 18 Negative Negative 06/16/2018 [facility] 8:36 PM CDT LABORATORIES HPV non-Type Negative Negative 06/16/2018 [facility] 16 or 18 8:36 PM CDT LABORATORIES Comment: The following Other High Risk HPV types were not detected: 31, 33, 35, 39, 45, 51, 52, 56, 58, 59, 66, and 68 ADDITIONAL INFORMATIO N This test has been modified from the man shiloacturer's instructions. Its performance characteri stics were determined by [facility] in a manner co nsistent with CLIA requirements. This test has not been juli ared or approved by the U.S. Food and Drug Administration. Test Performed by: [facility] - [address] [address] Specimen (Source) Anatomical Collection Method Collection Time Re ceived Time Location / / Volume Laterality Pap collection 06/13/2018 8:51 06/14/2018 1:23 bottle AM CDT PM CDT Radha Silva APRN, CNP LAB CYTOLOGY ORDERABLES Performing Organization Address City/[facility] Code Phon e Number [facility] see result attachment for specific address Pap Smear (06/13/2018 8:51 AM CDT) Specimen Anatomical Collection Method Collection Time Receive d Time (Source) Location / / Volume Laterality Sure Path PAP, 06/13/2018 8:51 AM 019 1:49 screen CDT PM CDT Narrative [facility] - 05/23 8:54 AM CDT ? [facility] ? [address] ?[place] [address] ? Patient: ?FLORES CHO ? Procedure: ? 06/13/2018 08:51 /Age/Sex: ??1985, 32 Y, F ? Received: ?06/14/2018 13:49 ?Accession #: ?? [id number] Billing: ?[id number] ?Patient Location: [facility] [place] ?OFFICE Ordered by: ?? RADHA SILVA APRN, Pina PLANT FACILITIES TECHNICIAN ? Attending: ? RADHA SILVA, ? RETIREMENT VILLAGE MANAGER, AMELIE ? TIMBER KILLER CYTOLOGY FINAL REPORT SPECIMEN: (A) SURE PATH PAP, SCREEN SPECIMEN DESCRIPTION: Cervical Received cloudy specimen in SurePath via l. CLINICAL INFORMATION: LMP: 03??/2018 ?? Prev.normal: Unsure ??SPECIMEN ADEQUACY: Satisfactory for Evaluation. ??No endoce rvical cells/transformation zone component present. GENERAL CATEGORIZATION: Negative for Intraepithelial Lesion or M alignancy INTERPRETATION/RESULTS: Comment: ??An inadequate endocervical/tr ansformational zone component is not necessarily an indication for immediatel y repeating the pap. ??Correlation with the history and clinical exam are required. PAP Test Disclaimer Cervical cytology is a screening test pr imarily for squamous cancer and its precursors and has associated false-nega tive and false-positive results. Regular sampling and follow-up of unexplained cl inical signs and symptoms are recommended to minimize the impact of false negative and false positive results. Screened By: Signed By: KATELYN CALLAHAN(ASCP) <Sign Out Dr. Vargas> Reported: ??06/19/2018 ? Page 1 of 1 Radha Silva APRN, CNP LAB CYTOLOGY ORDERABLES Performing Organization Address City/State/ZIP Code Phon e Number [facility] [address] [place] [address] ECG 12 lead (06/13/2018 12:00 AM CDT) Narrative This result has an attachment that is no t available. Radha Silva APRN, CNP ECG ORDERABLES documented in this encounter Visit Diagnoses Diagnosis Annual physical exam - Primary Routine general medical examination at a health care facility Palpitations Dyspnea, unspecified type Atypical chest pain Other chest pain Elevated blood pressure reading Elevated blood pressure reading without diagnosis of hypertension Screening for cervical cancer Screening for malignant neoplasm of the cervix Other fatigue Elevated blood sugar Other abnormal glucose documented in this encounter Care Teams Payroll Auditor Relationship Specialty Start Date End Date Radha Silva APRN, WINDOW DRESSER PCP - General 09/27/17 08/05/[address] [place] [id number] documented as of this encounter
--- OUTSIDE RECORDS SUMMARY | 2022-01-12 14:09 | XMS_ITS | Encounter Summary ---
:1985 Author Organization [facility] Address [address] [place] [address] Care Team Providers Name Role Phone Radha Silva APRN, CNP Primary Care Provider [phone] Encounter Details Date Type Department Care Team Description 05/16/2018 Lab [place] Encounters for blood and uri ne [address] testing [place], [place] [address] Social History Tobacco Use Types Packs/Day Years Used Date Smoking Tobacco: Never Assessed Sex Assigned at Date Recorded Female 08/18/2018 8:27 AM CDT documented as of this encounter Progress Notes Yessenia Sunshine MA - 05/16/2018 9:00 AM CDT Ancillary services were performed. documented in this encounter Plan of Treatment Not on filedocumented as of this encounter Visit Diagnoses Diagnosis Encounters for blood and urine testing Laboratory examination, unspecified documented in this encounter Care Teams Chemist Proteins Relationship Specialty Start Date End Date Radha Silva APRN, STILL OPERATOR WHISKEY PCP - General 09/27/17 08/05/[address] [place] [address] [place] [id number] documented as of this encounter
[2022-01-12 14:58] LABS: Hemoglobin A1C* 7.6 % (0-5.6)
[2022-01-12 21:46] LABS: Albumin* 4.4 g/dL (3.3-5.0)
[2022-01-12 21:49] LABS: Alkaline Phosphatase* 139 U/L (40-150); Aspartate Amino Transferase* 63 U/L (12-35); Bilirubin Direct* 0.2 mg/dL (0.0-0.5); Bilirubin Total* 0.7 mg/dL (0.1-1.5); Total Protein* 7.5 g/dL (6.0-8.3)
[2022-01-12 21:50] LABS: Alanine Aminotransferase* 59 U/L (4-35)
== END 2022-01-12 14:03 | disposition home or self-care (01) ==
LOC: KYNREF 14:04
PROVIDERS: PCP Nurse Practitioner Family; Visit Provider Nurse Practitioner Family
DX: E11.9 Type 2 diabetes mellitus without complications (principal); R74.8 Abnormal levels of other serum enzymes
CPT/HCPCS: 80076; 83036

== ENCOUNTER 2022-03-16 17:54 | Outpatient (CLI) | payer BC, SELFPAY ==
[2022-03-16 21:35] LABS: Chloride* 100 mmol/L (96-114); Potassium* 4.2 mmol/L (3.6-5.1); Sodium* 133 mmol/L (135-149)
[2022-03-16 21:36] LABS: Cholesterol* 225 mg/dL (90-199); HDL Cholesterol* 44 mg/dL (>=50); LDL Cholesterol Calculated 104 mg/dL (<100); Triglycerides* 383 mg/dL (40-149)
[2022-03-16 21:38] LABS: Carbon Dioxide* 23 mmol/L (20-32); Creatinine* 0.5 mg/dL (0.5-1.5); Estimated Glomerular Filt Rate 124 ml/min
[2022-03-16 21:39] LABS: Blood Urea Nitrogen* 6 mg/dL (5-24)
[2022-03-16 21:59] LABS: Troponin I* < 0.01 ng/mL (0.01-0.04)
[2022-03-16 22:04] LABS: Glucose* 434 mg/dL (60-115)
== END 2022-03-16 17:55 | disposition home or self-care (01) ==
PROVIDERS: PCP Nurse Practitioner Family; Visit Provider Nurse Practitioner Family
DX: R07.9 Chest pain, unspecified (principal); R07.89 Other chest pain; E11.9 Type 2 diabetes mellitus without complications; Z13.6 Encounter for screening for cardiovascular disorders
CPT/HCPCS: 80048; 80061; 84484

== ENCOUNTER 2022-07-30 10:05 | Outpatient (CLI) | payer BC, SELFPAY ==
--- NOTE | 2022-07-30 10:15 | CRLHL7_ITS ---
For Patients: As a result of the Century Cures Act, medical imaging exams and procedure reports are released immediately into your electronic medical record. You may view this report before your referring provider. If you have questions, please contact your health care provider. INDICATION : Left thyroid nodule. TECHNIQUE : Ultrasound-guided fine needle aspiration of thyroid nodule. Comparison : 07/12/2022 FINDINGS : PROCEDURE: After the informed consent and time-out, multiple fine needle aspirations were obtained from the thyroid nodule. Fine needle performed. 25, 18 and 20 gauge needles were used. Lidocaine was used for local anesthesia. The preliminary cytology was adequate for interpretation. Real-time imaging was used for guidance and needle placement. Post imaging ultrasound demonstrates no immediate complication. IMPRESSION : Successful fine needle aspiration of left thyroid nodule. Dictated by Yuan Jurado MD @ 07/30/2022 11:14:00 AM (Electronically Signed)
== END 2022-07-30 10:06 | disposition home or self-care (01) ==
LOC: US 10:06
PROVIDERS: PCP Nurse Practitioner Family; Visit Provider Nurse Practitioner Family
DX: E04.1 Nontoxic single thyroid nodule (principal)
CPT/HCPCS: 10005; 88173

== ENCOUNTER 2023-07-24 16:26 | Emergency (ER) | payer BC, SELFPAY ==
[2023-07-24 16:55] VITALS: BP 165/90; PULSE 84; RESP 18; TEMP 37.1; O2SAT 96; BMI 45.8
--- NOTE | 2023-07-24 17:14 | CRLHL7_ITS ---
For Patients: As a result of the Century Cures Act, medical imaging exams and procedure reports are released immediately into your electronic medical record. You may view this report before your referring provider. If you have questions, please contact your health care provider. INDICATION: Fell. TECHNIQUE: Three views of the right wrist. FINDINGS: No fracture or dislocation. No bone or soft tissue abnormalities. Impression : Negative radiographic examination of the right wrist. Dictated by Hetal Blanco MD @ 07/24/2023 5:42:06 PM (Electronically Signed)
--- NOTE | 2023-07-24 17:14 | CRLHL7_ITS ---
For Patients: As a result of the Century Cures Act, medical imaging exams and procedure reports are released immediately into your electronic medical record. You may view this report before your referring provider. If you have questions, please contact your health care provider. INDICATION: Fell. TECHNIQUE: Three views. Right elbow. FINDINGS: No fracture dislocation. No bone or soft tissue abnormalities. IMPRESSION: Negative radiographic examination of the right elbow. Dictated by Hetal Blanco MD @ 07/24/2023 5:36:09 PM (Electronically Signed)
[2023-07-24] MEDS: IBUPROFEN 200 MG TABLET 600 MG PO (17:28)
--- NOTE | 2023-07-24 17:49 | ED_ITS ---
HPI - Fall General Chief Complaint: Fall/Minor Trauma Stated Complaint: injured R elbow and wrist Time Seen by Provider: 07/24/23 16:29 Source: patient and family Mode of arrival: ambulatory Limitations: no limitations History of Present Illness HPI Narrative: Patient reports that her knee gave out causing her to fall to ground. She took fall in her right wrist and forearm. Patient is very nice lady who presents here for evaluation of injury to her right elbow and right wrist. This occurred a few hours ago, when her left knee gave out and she fell on her right wrist and elbow. She complains more of wrist and elbow pain. She has full range of motion of her right wrist. Denies any injury to her shoulder neck back, there is no loss of consciousness. She did not take any medications for this. Denies any numbness tingling or weakness. Nausea vomiting or headache. MD complaint: fall Fall from: standing Fall witnessed: no Place fall occurred: home Loss of consciousness: No Prolonged down time: no Symptoms prior to fall: none Context: tripped/slipped Location of injury - extremities: Right: elbow and hand Severity: moderate Associated symptoms (after fall): denies Related Data Home Medications ?Medication ?Instructions ?Recorded ?Confirmed turmeric 100 mg-anastasia 150 1 cap PO 12/07/21 03/22/23 mg-olive 50 mg-oreg 150 mg-capryl capsule Previous Rx's ?Medication ?Instructions ?Recorded sumatriptan succinate 50 mg tablet See Rx Instructions PO .COMPLEX 30 01/12/22 (Imitrex) days #9 tabs pravastatin 40 mg tablet 40 mg PO QHS 90 days #90 tabs 07/08/22 citalopram 40 mg tablet (Celexa) 40 mg PO QDAY 90 days #90 tabs 09/01/22 glipizide 10 mg tablet 10 mg PO BID #180 tabs 01/06/23 flash glucose sensor (FreeStyle #6 ea 01/14/23 Ac 14 Day Sensor kit) buspirone 10 mg tablet 10 mg PO BID #180 tabs 01/24/23 indomethacin 25 mg capsule 25 - 50 mg (1 - 2 x 25 mg) PO TID 01/25/23 PRN pain #30 caps tramadol 50 mg tablet 50 - 100 mg (1 - 2 x 50 mg) PO QID 12/05/23 PRN pain #30 tabs flash glucose scanning reader #1 ea 01/26/23 (FreeStyle Ac 14 Day Ida) amitriptyline 50 mg tablet 50 mg PO QPM 90 days #90 tabs 01/28/23 flash glucose scanning reader #1 ea 02/17/23 (FreeStyle Ac 2 Ida) blood-glucose sensor (Dexcom G7 #12 ea 03/22/23 Sensor device) insulin glargine 100 unit/mL (3 15 unit (0.15 mL) subcut QAM 90 03/22/23 mL) subcutaneous pen (Lantus days #13.5 mL Solostar U-100 Insulin) pen needle, diabetic 32 gauge x #100 ea 03/22/23 5/16 (Comfort EZ Pen [place]) blood-glucose meter,continuous #1 ea 04/21/23 (Dexcom G7 Channel Rougher) Allergies Allergy/AdvReac Type Severity Reaction Status Date / Time acetaminophen Allergy Unknown violent Verified 03/22/23 16:59 behaviros amoxicillin Allergy Unknown Nausea Verified 03/22/23 16:59 benzoin Allergy Unknown Hives Verified 03/22/23 16:59 oxycodone Allergy Unknown violent Verified 03/22/23 16:59 behaviors clavulanic acid Allergy Verified 03/22/23 16:59 prednisone Allergy Verified 03/22/23 16:59 Review of Systems Status of ROS: Reports: 10 or more systems reviewed and unremarkable except as noted in History and below [facility] Medical History Greater trochanteric bursitis of both hips ?M70.61 - Trochanteric bursitis, right hip (ICD-10) ?M70.62 - Trochanteric bursitis, left hip (ICD-10) Frequent sinus infections ?J32.9 - Chronic sinusitis, unspecified (ICD-10) Astigmatism of both eyes ?H52.203 - Unspecified astigmatism, bilateral (ICD-10) Chronic left sacroiliac joint pain ?M53.3 - Sacrococcygeal disorders, not elsewhere classified (ICD-10) ?G89.29 - Other chronic pain (ICD-10) 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, antepartum ?O26.21 - care for patient with recurrent loss, first trimester (ICD-10) History of syncope ?Z87.898 - Personal history of other specified conditions (ICD-10) History of seasonal allergies ?Z88.9 - Allergy status to unspecified drugs, medicaments and biological substances (ICD-10) History of ectopic ?Z87.59 - Personal history of other complications of , childbirth and the puerperium (ICD-10) History of concussion ?Z87.820 - Personal history of traumatic brain injury (ICD-10) Surgical History History of tonsillectomy ?Z90.89 - Acquired absence of other organs (ICD-10) History of sinus surgery ?Z98.890 - Other specified postprocedural states (ICD-10) History of knee surgery ?Z98.890 - Other specified postprocedural states (ICD-10) History of cholecystectomy ?Z90.49 - Acquired absence of other specified parts of digestive tract (ICD- 10) History of carpal tunnel surgery of right wrist ?Z98.890 - Other specified postprocedural states (ICD-10) History of adenoidectomy ?Z90.89 - Acquired absence of other organs (ICD-10) Family History Mother Alcohol dependence Asthma Diabetes High cholesterol Arthritis Clotting disorder Father Asthma Heart disease Arthritis Maternal Grandfather Asthma Arthritis Paternal Grandfather Asthma Arthritis Maternal Grandmother Breast cancer Arthritis Brother Heart disease Family/Other Anxiety High blood pressure Social History Smoking Status: Never smoker How often do you have a drink containing alcohol: monthly or less AUDIT-C Alcohol total score: 1 Non-prescribed substance use: denies use Little interest or pleasure in doing things: several days Feeling down, depressed, or hopeless: several days Exam Narrative: Exam Narrative: On examination stabilization room 2 she is in no apparent distress, she is moving her neck full full range of motion, no tenderness on cervical spine. There is no tenderness on her right gaming shoulder. Her clavicle, she has a with sore over her right elbow which is full range of motion of flexion extension, and supination pronation. There is no evidence of any abrasion or bleeding or other injury. Right wrist has a little bit less range of motion on dorsiflexion she can only come up to approximately 20? her palmar flexion is full almost to 90? side flexion both ulnar and radial deviation is normal. 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 Finger abduction 1st finger thumb opposition are normal. Discussed with her that we will do x-rays, we will give her some ibuprofen. Const: Vital Signs, click to edit/add: Vital Signs - 24 hr 07/24/23 16:55 Temperature 98.7 F Pulse Rate [Pulse Oximeter] 84 Respiratory Rate 18 Blood Pressure [Le ft Forearm] 165/90 H Pulse Oximetry 96 Documenting provider has reviewed patient's vital signs: yes Course Course ED Course: I discussed with the patient her x-rays are negative, but she is sore over her wrist, over the snuffbox area will put her in a thumb spica splint. And get her to follow up in 1 weeks time for a recheck and x-ray if still painful. I explained to them that the navicular bones/scaphoid bone is the 1 that we worry about here. She will take ibuprofen for the discomfort, and I have written her a note for work. Vital Signs Vital signs: Initial Vital Signs Temperature 98.7 F 07/24/23 16:55 Temperature Source Temporal Artery Scan 07/24/23 16:55 Pulse Rate 84 07/24/23 16:55 Respiratory Rate 18 07/24/23 16:55 Blood Pressure 165/90 H 07/24/23 16:55 Blood Pressure Mean 115 H 07/24/23 16:55 Pulse Oximetry 96 07/24/23 16:55 Vital Signs Temperature 98.7 F 07/24/23 16:55 Pulse Rate 84 07/24/23 16:55 Respiratory Rate 18 07/24/23 16:55 Blood Pressure 165/90 H 07/24/23 16:55 Pulse Oximetry 96 07/24/23 16:55 Temperature 98.7 F 07/24/23 16:55 Pulse Rate 84 07/24/23 16:55 Respiratory Rate 18 07/24/23 16:55 Blood Pressure 165/90 H 07/24/23 16:55 Pulse Oximetry 96 07/24/23 16:55 Medications Administered Medications: Discontinued Medications Generic Name Dose Route Start Last Admin Trade Name Freq PRN Reason Stop Dose Admin Ibuprofen 600 mg 07/24/23 17:14 07/24/23 17:28 Ibuprofen 200 Mg Tablet PO 07/24/23 17:15 600 mg ONCE ONE Administration MDM - Fall Differential Diagnosis Differential diagnosis: Likely syncope, dislocation of shoulder region, fracture of wrist, compression fracture, concussion with loss of consciousness and concussion without loss of consciousness Medical Records Attestation: I reviewed the patient's medical records. Imaging Data Elbow x-ray: Attestation: I have reviewed the pertinent imaging results. My impression: Both x-ray of the elbow and the wrist appears negative. Radiologist's impression: Patient: CECY CHO Facility:?[facility] Patient ID:?[id number] Site Patient ID:?[id number]. Site :?1985 Study:?XRay-Extremity Right Wrist-07/24/2023 5:34:16 PM Ordering Physician:?Sary Cantrell Final Report: INDICATION: Fell. TECHNIQUE: Three views of the right wrist. FINDINGS: No fracture or dislocation. No bone or soft tissue abnormalities. Impression : Negative radiographic examination of the right wrist. Dictated by Hetal Blanco MD @ 07/24/2023 5:42:06 PM (Electronic Signature) Patient: CECY CHO Facility:?[facility] Patient ID:?[id number] Site Patient ID:?[id number]. Site :?1985 Study:?XRay-Extremity Right Elbow-07/24/2023 5:33:49 PM Ordering Physician:Abrahan Cantrell Final Report: INDICATION: Fell. TECHNIQUE: Three views. Right elbow. FINDINGS: No fracture dislocation. No bone or soft tissue abnormalities. IMPRESSION: Negative radiographic examination of the right elbow. Dictated by Hetal Blanco MD @ 07/24/2023 5:36:09 PM (Electronic Signature) Discharge Plan Discharge Clinical Impression: Injury of wrist, right, Contusion of elbow, right Patient Disposition: Home, Self-Care Condition: Stable Instructions: Contusion in Adults (ED) Additional Instructions: Home rest use of ibuprofen ice, wear your splint for the next week, if your still sore over your wrist and I want her to follow-up for repeat x-ray, because sometimes we can miss an initial hairline fracture. If your not having any pain at all then I think it be reasonable after 7-10 days to go about her normal business. Both x-rays were negative. Activity Level: Light activity Prescriptions: No Action glipizide 10 mg tablet 10 mg PO BID Qty: 180 3RF indomethacin 25 mg capsule 25 - 50 mg PO TID PRN (Reason: pain) Qty: 30 2RF Rx Instructions: administer with food tramadol 50 mg tablet 50 - 100 mg PO QID PRN (Reason: pain) Qty: 30 0RF insulin glargine [Lantus Solostar U-100 Insulin] 100 unit/mL (3 mL) insulin pen 15 unit subcut QAM 90 Days Qty: 13.5 3RF (DME) Dexcom G7 Sensor Device See Rx Instructions .Route Qty: 12 3RF Rx Instructions: As directed (DME) pen needle, diabetic [Comfort EZ Pen [place]] 32 gauge x 5/16 needle See Rx Instructions .Route Qty: 100 3RF Rx Instructions: daily [id number]-oreg-capry 100 mg-150 mg- 50 mg-150 mg capsule 1 cap PO sumatriptan succinate [Imitrex] 50 mg tablet See Rx Instructions PO .COMPLEX 30 Days Qty: 9 3RF Rx Instructions: take 1 tab at onset of headache; if no relief may repeat 1 tab after at least 2 hrs; max = 4 tabs/24 hr orally; pravastatin 40 mg tablet 40 mg PO QHS 90 Days Qty: 90 3RF citalopram [Celexa] 40 mg tablet 40 mg PO QDAY 90 Days Qty: 90 3RF (DME) FreeStyle Ac 14 Day Sensor Kit See Rx Instructions .Route Qty: 6 4RF Rx Instructions: As directed buspirone 10 mg tablet 10 mg PO BID Qty: 180 3RF (DME) FreeStyle Ac 14 Day Ida Misc See Rx Instructions .Route Qty: 1 0RF Rx Instructions: As directed amitriptyline 50 mg tablet 50 mg PO QPM 90 Days Qty: 90 3RF (DME) FreeStyle Ac 2 Ida Misc See Rx Instructions .Route Qty: 1 0RF Rx Instructions: As directed (DME) Dexcom G7 Channel Rougher Misc See Rx Instructions .Route Qty: 1 2RF Rx Instructions: As directed Follow Up/Referrals: Radha Silva APRN, SENIOR BIOSTATISTICIAN/GROUP LEADER [Primary Care Provider] - Stand Alone Forms: [facility] Info Instructions
--- OUTSIDE RECORDS SUMMARY | 2023-07-24 17:54 | XMS_ITS | Referral Summary ---
Author Organization [facility] Address [address] [place] [address] Care Team Providers Care Wood Heel Back Liner Name Role Phone Elsewhere, Pcp Primary Care Provider Unavailabl e Source Comments Patient records contain information from all sites at [facility]. For routine questions regarding patient records, call [phone] during business hours, M-F 8:00 AM - 5:00 PM Central Time. Record requests for emergency care only can be directed to [phone] at any time.[facility] Allergies Active Allergy Reactions Criticality Noted Date Comments Amoxicillin GI intolerance 09/21/2018 Only sensitivity to pill form, tolerates liquid form Amoxicillin-Pot Clavulanate GI intolerance,Hives (Reselect Reaction),Itching,Luigi sea Only,Rash High 12/29/2011 Benzoin Rash 09/21/2018 Itching and swelling, topical type of Benzoin Cephalexin Nausea And Vomiting 08/27/2010 Oxycodone-Acetaminoph en Other (see comments) 09/21/2018 Gets angry Medications Medication Sig Dispensed Refills Start Date End Date Status cinnamon bark 500 mg capsule Take 1,000 mg by mouth daily. Active citalopram (CeleXA) 20 mg tablet TAKE ONE AND ONE-HALF TABLETS BY MOUTH EVERY DAY FOR ANXIETY/DEPRESSIO N 05/29/2020 Active acetaminophen (TYLENOL) 500 mg tablet Take 2 tablets (1,000 mg total) by mouth every 6 (six) hours as needed for pain for up to 14 days. 08/28/2020 Active ibuprofen (ADVIL,MOTRIN) 200 mg tablet Take 4 tablets (800 mg total) by mouth every 6 (six) hours as needed for pain for up to 14 days. 08/28/2020 Active sennosides-docusate sodium (SENOKOT-S) 8.6-50 mg per tablet Take 1 tablet by mouth 2 (two) times a day as needed for constipation. 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 08/27/2020 Dysthymia 05/08/2014 Overview: Depression with anxiety Depression Major Recurrent Mild 05/08/2014 Overview: Mild recurrent major depression Resolved Problems Problem Noted Date Diagnosed Date Resolved Date Unspecified Ectopic Pregnanc y Without Intrauterine 08/27/2020 12/08/2020 Overview: Added automatically from request for surgery [id number] Immunizations Name Administration Dates Next Due 4vHPV (discontinued) 11/17/2007,12/30/2006,10/26 DTaP (Infanrix, Tripedia) 07/12/1990,,07/02/1985,04/27/1985,1984 HepB, Unspecified 01/29/2002 Hib (PRP-OMP) (PedvaxHIB) 11/29/1986 Influenza, Unspecified 12/12/2018 MMR 07/05/1986 OPV 07/12/1990, 7,07/02/1985,04/27/1985,1984 Td (Adult), adsorbed 08/04/2006 Tdap 03/01/2023 Social History Tobacco Use Types Packs/Day Years Used Date Smoking Tobacco: Former Smokeless Tobacco: Never Tobacco Cessation:Counseling Given: Not Answered Alcohol Use Standard Drinks/Week Comments Not Currently 0 (1 standard drink = 0.6 oz pur e alcohol) rarely Humiliation, Afraid, Rape, and Kick questionnair e Answer Date Recorded Within the last year, have y ou been afraid of your partner or ex-partner? No 09/24/2020 Within the last year, have y ou been humiliated or emotionally abused in other ways by your partner or ex-partner? No Within the last year, have y ou been kicked, hit, slapped, or otherwise physically hurt by your partner or ex-partner? No 09/24/2020 Within the last year, have y ou been raped or forced to have any kind of sexual activity by your partner or ex-partner? No 09/24/2020 Social Connection and Isolat ion Panel [NHANES] Answer Date Recorded In a typical week, how many times do you talk on the phone with family, friends, or neighbors? Three times a week 09/24/2020 How often do you get togethe r with friends or relatives? Once a week 09/24/2020 How often do you attend [facility] or restorationism services? More than 4 times per year 09/24/2020 Do you belong to any clubs o r organizations such as adventism groups, unions, fraternal or athletic groups, or school groups? No 09/24/2020 How often do you attend meet ings of the clubs or organizations you belong to? Patient declined 09/24/2020 Are you , , di vorced, , never , or living with a partner? 09/24/2020 AUDIT-C Answer Date Recorded Q1: How often do you have a drink containing alc ohol? Monthly or less 09/24/2020 Q2: How many drinks containi ng alcohol do you have on a typical day when you are drinking? 3 or 4 09/24/2020 Q3: How often do you have si x or more drinks on one occasion? Less than monthly 09/24/2020 Overall Financial Resource Strain (CARDIA) Answe r Date Recorded How hard is it for you to pa y for the very basics like food, housing, medical care, and heating? Somewhat hard 09/24/2020 [facility] of Occupat ional Health - Occupational Stress Questionnaire Answer Date Recorded Do you feel stress - tense, restless, nervous, or anxious, or unable to sleep at night because your mind is troubled all the time - these days? Very much 09/24/2020 Exercise Vital Sign Answer Date Recorde d On average, how many days pe r week do you engage in moderate to strenuous exercise (like a brisk walk)? 3 days 09/24/2020 On average, how many minutes do you engage in exercise at this level? 30 min 09/24/2020 Hunger Vital Sign Answer Date Recorded Within the past 12 months, y ou worried that your food would run out before you got the money to buy more. Never true 09/25/19 21 Within the past 12 months, t he food you bought just didn't last and you didn't have money to get more. Never true 09/24/2020 PRAPARE - Transportation Answer Date Re corded In the past 12 months, has l ack of transportation kept you from medical appointments or from getting medications? No 05/2020 In the past 12 months, has l ack of transportation kept you from meetings, work, or from getting things needed for daily living? No 09/24/2020 Housing Stability Vital Sign Answer Sravan e Recorded In the last 12 months, was t here a time when you were not able to pay the mortgage or rent on time? No 09/24/2020 In the last 12 months, how many places have you lived? 1 09/24/2020 In the last 12 months, was t here a time when you did not have a steady place to sleep or slept in a long term (including now)? No 09/24/2020 Nutrition Answer Date Recorded Nutrition: EVOO Fat Source No 09/24 On average, how many serving s of fruits and vegetables do you eat per day (serving size is equal to 1 cup or approximately the size of a tennis ball)? 2-3 09/24/2020 Dental Answer Date Recorded Dental: Regular Dentist Yes 02/19/20 Employment Answer Date Recorded Employment status Working with temporary [email or web address] tions 09/24/2020 Education Answer Date Recorded What is the highest level of school you have completed or the highest degree you have received? Associate degree: occupational, technical, or vocational program 09/20/2018 Sex and Gender Information Value Date Recorded Sex Assigned at Female 09/20/2018 9:25 PM CDT Gender Identity Female 09/20/2018 9:25 PM CDT Sexual Orientation Straight 09/20/2018 9: 25 PM CDT Last Filed Vital Signs Vital Sign Reading Time Taken Comments Blood Pressure 149/97 03/01/2023 3:30 PM LANDFILL ATTENDANT Pulse 78 03/01/2023 4:01 PM LANDFILL ATTENDANT Temperature 36.8 ??C (98.2 ??F) 03/01/2023 4:01 PM CS T Respiratory Rate 16 03/01/2023 4:01 PM LANDFILL ATTENDANT Oxygen Saturation 97% 10/12/2022 3:37 PM CDT Inhaled Oxygen Concentration - - Weight 127 kg (279 lb 15.8 oz) 03/01/2023 3:35 P M LANDFILL ATTENDANT Height 165 cm (5' 4.96) 05/29/2015 12:52 PM CDT Body Mass Index 46.65 05/29/2015 12:52 PM CDT Plan of Treatment Not on file Procedures Procedure Name Priority Date/Time Associated Diagnosis Comments EXTI LIPID PANEL, S Routine 07/07/2020 4 :30 PM CDT THINPREP SCREEN HPV REFLEX Routine 07/25/2013 3:33 PM CDT from Last 3 Months or Most Recently Relevant to Health Maintenance Results * Pathology ThinPrep Screen HPV Reflex (07/25/2013 3:33 PM CDT) Interpretation [id number] POWERCHART HXPrep [facility] See Comment POWERCHART Comment: A. ??ThinPrep Pap Test Screen (Cervical/Endocervical HPV Reflex): Satisfactory for evaluation. Inadequate endocervical/transformation zone component Negative for intraepithelial lesion or malignancy. [facility] See Comment POWERCHART Comment: Report electronically signed by KAVIN Lorenzana(ASCP) 08/03/2013 07:56 Interpreted by: KAVIN Lorenzana(ASCP) [facility] See Comment POWERCHART Comment: A. ??ThinPrep Pap Test Screen (Cervical/Endocervical HPV Reflex): Received cloudy specimen in ThinPrep vial. Test Performed by: [address] [address] Blackjack Dealer: Ted Vidal III, M.D. Cervix/Endocervix 07/25/2013 3:33 PM CDT Pina Jiang APRN.N.[place], [facility] PAP PATHDX ORDERABLES POWERCHART from Last 3 Months or Most Recently Relevant to Health Maintenance Advance Directives For more information, please contact: [phone] * Full Code (Latest Code Status on File) Date Activated Date Inactivated Comments 08/27/2020 9:33 PM 08/28/2020 3:40 PM Question Answer Comments Full Code: Discussed Care Teams Wood Heel Back Liner Relationship Specialty Start Date End Date Elsewhere, Pcp PCP - General Internal Medicine 08/28/18
--- OUTSIDE RECORDS SUMMARY | 2023-07-24 17:54 | XMS_ITS ---
Author Organization [facility] Address [address] [place] [address] Care Team Providers Care Business Performance Specialist Name Role Phone Unavailable Unavailable Unavailable Surgery Details Not on file Complications Check Surgery Details section. Procedure Estimated Blood Loss Check Surgery Details section. Procedure Findings Check Surgery Details section. Procedure Specimens Taken Check Surgery Details section.
--- OUTSIDE RECORDS SUMMARY | 2023-07-24 17:54 | XMS_ITS | Clinical Summary ---
Author Organization [facility] Address [address] [place] [address] Care Team Providers Care Internal Control Analyst Name Role Phone Elsewhere, Pcp Primary Care Provider Unavailabl e Source Comments Patient records contain information from all sites at [facility]. For routine questions regarding patient records, call [phone] during business hours, M-F 8:00 AM - 5:00 PM Central Time. Record requests for emergency care only can be directed to [phone] at any time.[facility] Allergies Active Allergy Reactions Criticality Noted [...] Overview: Added automatically from request for surgery [id number] Immunizations Name Administration Dates Next Due 4vHPV (discontinued) 11/17/2007,12/30/2006,10/26 DTaP (Infanrix, Tripedia) 07/12/1990,,07/02/1985,04/27/1985,1984 HepB, Unspecified 01/29/2002 Hib (PRP-OMP) (PedvaxHIB) 11/29/1986 Influenza, Unspecified 12/12/2018 MMR 07/05/1986 OPV 07/12/1990, 7,07/02/1985,04/27/1985,1984 Td (Adult), adsorbed 08/04/2006 Tdap 03/01/2023 Family History Medical History Relation Name Comments Coronary artery disease Brother half Heart attack Brother half Heart murmur Brother half Coronary artery disease Father Heart attack Father Diabetes Mother Hyperlipidemia Mother Hypertension Mother Hypothyroidism Mother Stroke Sister Relation Name Status Comments Brother half Father Mother Sister Social History Tobacco Use Types Packs/Day [...] week 09/24/2020 How often do you attend [facility] or shinto services? More than 4 times per year 09/24/2020 Do you belong to any clubs o r organizations such as congregational groups, unions, fraternal or athletic groups, or [...] medical care, and heating? Somewhat hard 09/24/2020 [facility] of Occupat ional Health - Occupational Stress [...] place to sleep or slept in a skilled nursing (including now)? No 09/24/2020 Nutrition Answer Date Recorded Nutrition: EVOO Fat Source No 09/24 On average, how many serving s of fruits and vegetables do you eat per day (serving size is equal to 1 cup or approximately the size of a tennis ball)? 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 09/24/2020 Education Answer Date Recorded What [...] Comments Blood Pressure 149/97 03/01/2023 3:30 PM DIVING SUPERVISOR Pulse 78 03/01/2023 4:01 PM DIVING SUPERVISOR Temperature 36.8 ??C (98.2 ??F) 03/01/2023 4:01 PM CS T Respiratory Rate 16 03/01/2023 4:01 PM DIVING SUPERVISOR Oxygen Saturation 97% 10/12/2022 3:37 PM CDT Inhaled Oxygen Concentration - - Weight 127 kg (279 lb 15.8 oz) 03/01/2023 3:35 P M DIVING SUPERVISOR Height 165 cm (5' 4.96) 05/29/2015 12:52 PM CDT Body Mass Index 46.65 05/29/2015 12:52 PM CDT Plan of Treatment Health Maintenance Due Date Last Done Comments Depression Monitoring (PHQ-9) 1984 HIV Screening 1984 Hepatitis C Screening 1984 Hepatitis B Vaccines (2 of 3 - 3-dose series) 02/26/2002 01/29/2002 Cervical Cancer Screening 07/25/2016 07/25/2013, COVID-19 Vaccine ( season) 2022 11/21/2020, 10/31/2020 Lipid (Cholesterol) Screening 07/07/2025 07/07/2020, 09/07/2019, 02/19/2019, Additional history exists DTaP,Tdap,and Td Vaccines (8 - Td or Tdap) 03/01/2033 03/01/2023, 09/28/2016, 08/04/2006, Additional history exists HPV Vaccines Completed 11/17/2007, 10/23, 12/30/2006, Additional history exists Influenza Vaccine Completed 11/18/2022, , 12/02/2020, Additional history exists Pneumococcal vaccine (0-64 years) Aged Out No longer eligible based on patient's age to complete this topic Procedures Procedure Name Priority Date/Time Associated Diagnosis Comments EXTI LIPID PANEL, S Routine 07/07/2020 4 :30 PM CDT THINPREP SCREEN HPV REFLEX Routine 07/25/2013 3:33 PM CDT from Last 3 Months or Most Recently Relevant to Health Maintenance Results * Pathology ThinPrep Screen HPV Reflex (07/25/2013 3:33 PM CDT) Interpretation [id number] POWERCHART HXThPrep Scrn [facility] See Comment POWERCHART Comment: A. ??ThinPrep Pap Test Screen (Cervical/Endocervical HPV Reflex): Satisfactory for evaluation. Inadequate endocervical/transformation zone component Negative for intraepithelial lesion or malignancy. HXThPrep Scrn [facility] See Comment POWERCHART Comment: Report electronically signed by KAVIN Lorenzana(ASCP) 08/03/2013 07:56 Interpreted by: KAVIN Lorenzana(ASCP) HX Spec DescDell [facility] See Comment POWERCHART Comment: A. ??ThinPrep Pap Test Screen (Cervical/Endocervical HPV Reflex): Received cloudy specimen in ThinPrep vial. Test Performed by: [place] [address] Fiberglass Grinder: Ted Vidal III, M.D. Cervix/Endocervix 07/25/2013 3:33 PM CDT Mirna Davey APRN, C.N.P., D.N.P. LAB PAP PATHDX ORDERABLES POWERCHART from Last 3 Months or Most Recently Relevant to Health Maintenance Advance Directives For more information, please contact: [phone] * Full Code (Latest Code Status on File) Date Activated Date Inactivated Comments 08/27/2020 9:33 PM 08/28/2020 3:40 PM Question Answer Comments Full Code: Discussed Care Teams Internal Control Analyst Relationship Specialty Start Date End Date Elsewhere, Pcp PCP - General Internal Medicine 08/28/18
--- OUTSIDE RECORDS SUMMARY | 2023-07-24 17:54 | XMS_ITS | Clinical Summary ---
Author Organization [facility] Address [place], [place] [address] Care Team Providers Care Child Day Care Center Worker Name Role Phone Clinic, [facility] Primary Care Pro vider Allergies Active Allergy Reactions Criticality Noted Date Comments Amoxicillin-Pot Clavulanate Hives,Rash High 06/13/2018 Benzoin Hives,Rash High 06/13/2018 Oxycodone-Acetaminophen Other - Describe In Comment Field High 06/13/2018 Makes her violent Medications Medication Sig Dispensed Refills Start Date End Date Status traMADoL (ULTRAM) 50 mg tabletIndications:Tra umatic myalgia Take 1-2 Tablets (50-100 mg) by mouth 3 times daily if needed for Pain. 15 Tablet 06/13/2022 Active ibuprofen (ADVIL; MOTRIN) 600 mg tabletIndications:Tra umatic myalgia Take 1 Tablet (600 mg) by mouth every 6 hours if needed for Pain. Maximum of 3200 mg in 24 hours. 20 Tablet 06/13/2022 Active orphenadrine (NORFLEX) 100 mg tabletIndications:Tra umatic myalgia Take 1 Tablet (100 mg) by mouth two times daily. Use as needed for muscle pain. 15 Tablet 06/13/2022 Active rx tramadol (ULTRAM) 50 mg tablet (ED DC MED)Indications:Traum atic myalgia Take 1-2 Tablets (50-100 mg) by mouth 3 times daily if needed for Pain. 4 Tablet 06/13/2022 Active Social History Tobacco Use Types Packs/Day Years Used Date Smoking Tobacco: Never Smokeless Tobacco: Never Tobacco Cessation:Counseling Given: Not Answered Alcohol Use Standard Drinks/Week Comments Never 0 (1 standard drink = 0.6 oz pur e alcohol) Sex and Gender Information Value Date Recorded Sex Assigned at Not on file Gender Identity Not on file Sexual Orientation Not on file Obstetrics History Last Filed Vital Signs Vital Sign Reading Time Taken Comments Blood Pressure 154/84 06/13/2022 9:10 PM CDT Pulse 70 06/13/2022 9:10 PM CDT Temperature 36.9 ??C (98.4 ??F) 06/13/2022 4:52 PM CD T Respiratory Rate 16 06/13/2022 9:10 PM CDT Oxygen Saturation 98% 06/13/2022 9:10 PM CDT Inhaled Oxygen Concentration - - Weight 126.1 kg (278 lb) 06/13/2022 4:52 PM CDT Height 167.6 cm (5' 6) 06/13/2022 4:52 PM CDT Body Mass Index 44.87 06/13/2022 4:52 PM CDT Plan of Treatment Not on file Care Teams Child Day Care Center Worker Relationship Specialty Start Date End Date Clinic, [address] [address] PCP - General 06/12/22
== END 2023-07-24 18:14 | disposition home or self-care (01) ==
PROVIDERS: Emergency Provider Family Medicine; PCP Nurse Practitioner Family
DX: S50.01XA Contusion of right elbow, initial encounter (principal); S60.211A Contusion of right wrist, initial encounter; W18.39XA Other fall on same level, initial encounter
CPT/HCPCS: 73080; 73110; 99283; 99284; A9270

== ENCOUNTER 2023-08-03 07:07 | Outpatient (CLI) | payer BC, SELFPAY ==
--- OUTSIDE RECORDS SUMMARY | 2023-08-03 07:09 | XMS_ITS | Clinical Summary ---
Author Organization [facility] Address [address] [place] [address] Care Team Providers Care Checker Bakery Products Name Role Phone Elsewhere, Pcp Primary Care Provider Unavailabl e Source Comments Patient records contain information from all sites at [facility]. For routine questions regarding patient records, call [phone] during business hours, M-F 8:00 AM - 5:00 PM Central Time. Record requests for emergency care only can be directed to [phone] at any time.[facility] Allergies Active Allergy Reactions Criticality Noted Date [...] Overview: Added automatically from request for surgery [id number] Immunizations Name Administration Dates Next Due 4vHPV [...] often do you attend [facility] or jainism services? More than 4 times per year 09/24/2020 Do you belong to any clubs o r organizations such as sikhism groups, unions, fraternal or athletic groups, or [...] medical care, and heating? Somewhat hard 09/24/2020 [facility] of Occupat ional Health - Occupational Stress [...] place to sleep or slept in a alf (including now)? No 09/24/2020 Nutrition Answer Date [...] Comments Blood Pressure 149/97 03/01/2023 3:30 PM DESIGNER AND PATTERNMAKER Pulse 78 03/01/2023 4:01 PM DESIGNER AND PATTERNMAKER Temperature 36.8 ??C (98.2 ??F) 03/01/2023 4:01 PM CS T Respiratory Rate 16 03/01/2023 4:01 PM DESIGNER AND PATTERNMAKER Oxygen Saturation 97% 10/12/2022 3:37 PM CDT Inhaled Oxygen Concentration - - Weight 127 kg (279 lb 15.8 oz) 03/01/2023 3:35 P M DESIGNER AND PATTERNMAKER Height 165 cm (5' 4.96) 05/29/2015 12:52 [...] HPV Reflex (07/25/2013 3:33 PM CDT) Interpretation [id number] POWERCHART HXThPrep Scrn [facility] See Comment POWERCHART Comment: A. ??ThinPrep Pap Test Screen (Cervical/Endocervical HPV Reflex): Satisfactory for evaluation. Inadequate endocervical/transformation zone component Negative for intraepithelial lesion or malignancy. HXThPrep Scrn [facility] See Comment POWERCHART Comment: Report electronically signed by KAVIN Lorenzana(ASCP) 08/03/2013 07:56 Interpreted by: KAVIN Lorenzana(ASCP) HX Spec [facility]cTexas [facility] See Comment POWERCHART Comment: A. ??ThinPrep Pap Test Screen (Cervical/Endocervical HPV Reflex): Received cloudy specimen in ThinPrep vial. Test Performed by: [place] [address] Commercial Reporter: Ted Vidal III, M.D. Cervix/Endocervix 07/25/2013 3:33 PM CDT Mirna Davey APRN, C.N.P., D.N.P. LAB PAP PATHDX ORDERABLES POWERCHART from Last 3 Months or Most Recently Relevant to Health Maintenance Advance Directives For more information, please contact: [phone] * Full Code (Latest Code Status on File) Date Activated Date Inactivated Comments 08/27/2020 9:33 PM 08/28/2020 3:40 PM Question Answer Comments Full Code: Discussed Care Teams Checker Bakery Products Relationship Specialty Start Date End Date Elsewhere, Pcp PCP - General Internal Medicine 08/28/18
--- OUTSIDE RECORDS SUMMARY | 2023-08-03 07:09 | XMS_ITS ---
Author Organization [facility] Address [address] [place] [address] Care Team Providers Care Methane Gas Collection System Operator Name Role Phone Unavailable Unavailable Unavailable Surgery Details Not on file Complications Check Surgery Details section. Procedure Estimated Blood Loss Check Surgery Details section. Procedure Findings Check Surgery Details section. Procedure Specimens Taken Check Surgery Details section.
--- OUTSIDE RECORDS SUMMARY | 2023-08-03 07:09 | XMS_ITS | Referral Summary ---
Author Organization [facility] Address [address] [place] [address] Care Team Providers Care Painter And Paperhanger Apprentice Name Role Phone Elsewhere, Pcp Primary Care Provider Unavailabl e Source Comments Patient records contain information from all sites at [facility]. For routine questions regarding patient records, call [phone] during business hours, M-F 8:00 AM - 5:00 PM Central Time. Record requests for emergency care only can be directed to [phone] at any time.[facility] Allergies Active Allergy [...] Overview: Added automatically from request for surgery [id number] Immunizations Name Administration Dates Next Due 4vHPV [...] week 09/24/2020 How often do you attend [facility] or adventism services? More than 4 times per year 09/24/2020 Do you belong to any clubs o r organizations such as sabianist groups, unions, fraternal or athletic groups, or [...] medical care, and heating? Somewhat hard 09/24/2020 [facility] [place] of Occupat ional Health - Occupational Stress [...] place to sleep or slept in a nursing home (including now)? No 09/24/2020 Nutrition Answer Date [...] Date Recorded Employment status Working with temporary [employer] tions 09/24/2020 Education Answer Date Recorded What [...] Comments Blood Pressure 149/97 03/01/2023 3:30 PM HOT BLASTER Pulse 78 03/01/2023 4:01 PM HOT BLASTER Temperature 36.8 ??C (98.2 ??F) 03/01/2023 4:01 PM CS T Respiratory Rate 16 03/01/2023 4:01 PM HOT BLASTER Oxygen Saturation 97% 10/12/2022 3:37 PM CDT Inhaled Oxygen Concentration - - Weight 127 kg (279 lb 15.8 oz) 03/01/2023 3:35 P M HOT BLASTER Height 165 cm (5' 4.96) 05/29/2015 12:52 [...] HPV Reflex (07/25/2013 3:33 PM CDT) Interpretation [id number] POWERCHART [facility] See Comment POWERCHART Comment: A. ??ThinPrep Pap Test Screen (Cervical/Endocervical HPV Reflex): Satisfactory for evaluation. Inadequate endocervical/transformation zone component Negative for intraepithelial lesion or malignancy. [facility] See Comment POWERCHART Comment: Report electronically signed by KAVIN Lorenzana(ASCP) 08/03/2013 07:56 Interpreted by: KAVIN Lorenzana(ASCP) Spec [facility]cNorth[facility] See Comment POWERCHART Comment: A. ??ThinPrep Pap Test Screen (Cervical/Endocervical HPV Reflex): Received cloudy specimen in ThinPrep vial. Test Performed by: [address] [address] Banquet Server On Call: Ted Vidal III, M.D. Cervix/Endocervix 07/25/2013 3:33 PM CDT Pina Jiang APRN.N.Rhoda, [place] LAB PAP PATHDX ORDERABLES POWERCHART from Last 3 Months or Most Recently Relevant to Health Maintenance Advance Directives For more information, please contact: [phone] * Full Code (Latest Code Status on File) Date Activated Date Inactivated Comments 08/27/2020 9:33 PM 08/28/2020 3:40 PM Question Answer Comments Full Code: Discussed Care Teams Painter And Paperhanger Apprentice Relationship Specialty Start Date End Date Elsewhere, Pcp PCP - General Internal Medicine 08/28/18
--- OUTSIDE RECORDS SUMMARY | 2023-08-03 07:10 | XMS_ITS | Clinical Summary ---
Author Organization [facility] Address [place], [place] [address] Care Team Providers Care Leisure Travel Agent Name Role Phone Clinic, [facility] Primary Care Pro vider Allergies Active Allergy [...] of Treatment Not on file Care Teams Leisure Travel Agent Relationship Specialty Start Date End Date Clinic, [address] [address] PCP - General 06/12/22
--- NOTE | 2023-08-03 07:15 | CRLHL7_ITS ---
For Patients: As a result of the Cures Act, medical imaging exams and procedure reports are released immediately into your electronic medical record. You may view this report before your referring provider. If you have questions, please contact your health care provider. INDICATION: nontoxic single thyroid nodule COMPARISON: 07/30/2022, 07/12/2022 TECHNIQUE: Iraheta scale and color Doppler images were acquired of the thyroid gland. FINDINGS: Isthmus measures 5 millimeters. Hypoechoic solid nodule posterior to the inferior pole right thyroid lobe measures 1.6 x 1.1 x 1.4 cm, previously measuring 1.6 x 1.1 x 1.5 cm. Hypoechoic nodule previously biopsied left thyroid lobe measures in total 4.3 x 1.7 x 2.2 cm, previously measured with 3 separate nodules, measuring up to in total 4.8 cm. The right lobe measures 5.7 x 1.9 x 2.5 cm and the left lobe measures 5.7 x 2.1 x 2.1 cm in size. The color Doppler images demonstrate normal vascularity. There is no evidence of cervical lymphadenopathy or parathyroid mass. IMPRESSION: Stable conglomerate area of decreased echotexture within the left thyroid lobe which was previously biopsied measuring up to 4.3 cm. Stable solid nodule posterior to the inferior pole of the right thyroid lobe. Dictated by Yuan Jurado MD @ 08/08/2023 1:23:35 PM (Electronically Signed)
== END 2023-08-03 07:08 | disposition home or self-care (01) ==
LOC: US 07:08
PROVIDERS: PCP Nurse Practitioner Family; Visit Provider Nurse Practitioner Family
DX: E04.1 Nontoxic single thyroid nodule (principal)
CPT/HCPCS: 76536

== ENCOUNTER 2023-08-05 07:47 | Outpatient (CLI) | payer BC, SELFPAY ==
--- OUTSIDE RECORDS SUMMARY | 2023-08-05 07:50 | XMS_ITS | Clinical Summary ---
Author Organization [facility] Address [address] [place] [address] Care Team Providers Care Senior Business Manager Name Role Phone Elsewhere, Pcp Primary Care Provider Unavailabl e Source Comments Patient records contain information from all sites at [facility]. For routine questions regarding patient records, call [phone] during business hours, M-F 8:00 AM - 5:00 PM Central Time. Record requests for emergency care only can be directed to [phone] at any time.[facility] Allergies Active Allergy Reactions Criticality Noted Date [...] Overview: Added automatically from request for surgery [id number] Immunizations Name Administration Dates Next Due 4vHPV [...] week 09/24/2020 How often do you attend [facility] or adventist services? More than 4 times per year 09/24/2020 Do you belong to any clubs o r organizations such as restoration groups, unions, fraternal or athletic groups, or [...] medical care, and heating? Somewhat hard 09/24/2020 [facility] [place] of Occupat ional Health - Occupational Stress [...] place to sleep or slept in a mcc (including now)? No 09/24/2020 Nutrition Answer Date [...] Comments Blood Pressure 149/97 03/01/2023 3:30 PM BIOTECHNICIAN Pulse 78 03/01/2023 4:01 PM BIOTECHNICIAN Temperature 36.8 ??C (98.2 ??F) 03/01/2023 4:01 PM CS T Respiratory Rate 16 03/01/2023 4:01 PM BIOTECHNICIAN Oxygen Saturation 97% 10/12/2022 3:37 PM CDT Inhaled Oxygen Concentration - - Weight 127 kg (279 lb 15.8 oz) 03/01/2023 3:35 P M BIOTECHNICIAN Height 165 cm (5' 4.96) 05/29/2015 12:52 [...] HPV Reflex (07/25/2013 3:33 PM CDT) Interpretation [id number] POWERCHART HXThPrep [facility] See Comment POWERCHART Comment: A. ??ThinPrep Pap Test Screen (Cervical/Endocervical HPV Reflex): Satisfactory for evaluation. Inadequate endocervical/transformation zone component Negative for intraepithelial lesion or malignancy. HXThPrep Scrn [facility] See Comment POWERCHART Comment: Report electronically signed by KAVIN Lorenzana(ASCP) 08/03/2013 07:56 Interpreted by: KAVIN Lorenzana(ASCP) HX Spec [facility]cEast[facility] See Comment POWERCHART Comment: A. ??ThinPrep Pap Test Screen (Cervical/Endocervical HPV Reflex): Received cloudy specimen in ThinPrep vial. Test Performed by: [place] [address] Geothermal Operating Engineer: Ted Vidal III, M.D. Cervix/Endocervix 07/25/2013 3:33 PM CDT Mirna Davey APRN, C.N.P., D.N.P. LAB PAP PATHDX ORDERABLES POWERCHART from Last 3 Months or Most Recently Relevant to Health Maintenance Advance Directives For more information, please contact: [phone] * Full Code (Latest Code Status on File) Date Activated Date Inactivated Comments 08/27/2020 9:33 PM 08/28/2020 3:40 PM Question Answer Comments Full Code: Discussed Care Teams Senior Business Manager Relationship Specialty Start Date End Date Elsewhere, Pcp PCP - General Internal Medicine 08/28/18
--- OUTSIDE RECORDS SUMMARY | 2023-08-05 07:50 | XMS_ITS ---
Author Organization [facility] Address [address] [place] [address] Care Team Providers Care Director Of Rehabilitative Services Name Role Phone Unavailable Unavailable Unavailable Surgery Details Not on file Complications Check Surgery Details section. Procedure Estimated Blood Loss Check Surgery Details section. Procedure Findings Check Surgery Details section. Procedure Specimens Taken Check Surgery Details section.
--- OUTSIDE RECORDS SUMMARY | 2023-08-05 07:50 | XMS_ITS | Clinical Summary ---
Author Organization [email or web address] [facility] Address [place], [place] [address] Care Team Providers Care Spool Winder Name Role Phone Clinic, [facility] Primary Care Pro vider Allergies Active [...] of Treatment Not on file Care Teams Spool Winder Relationship Specialty Start Date End Date Clinic, [address] [address] PCP - General 06/12/22
--- OUTSIDE RECORDS SUMMARY | 2023-08-05 07:50 | XMS_ITS | Referral Summary ---
Author Organization [facility] Address [address] [place] [address] Care Team Providers Care Director Alumni Relations Name Role Phone Elsewhere, Pcp Primary Care Provider Unavailabl e Source Comments Patient records contain information from all sites at [facility]. For routine questions regarding patient records, call [phone] during business hours, M-F 8:00 AM - 5:00 PM Central Time. Record requests for emergency care only can be directed to [phone] at any time.[facility] Allergies Active Allergy Reactions Criticality Noted Date [...] Overview: Added automatically from request for surgery [id number] Immunizations Name Administration Dates Next Due 4vHPV [...] week 09/24/2020 How often do you attend [facility] or samaritan services? More than 4 times per year 09/24/2020 Do you belong to any clubs o r organizations such as samaritan groups, unions, fraternal or athletic groups, or [...] medical care, and heating? Somewhat hard 09/24/2020 [facility] [place] of Occupat ional Health - Occupational Stress [...] place to sleep or slept in a fpc (including now)? No 09/24/2020 Nutrition Answer Date [...] Date Recorded Employment status Working with temporary [employer] t[employer] 09/24/2020 Education Answer Date Recorded What [...] Comments Blood Pressure 149/97 03/01/2023 3:30 PM JOINT CUTTER MACHINE Pulse 78 03/01/2023 4:01 PM JOINT CUTTER MACHINE Temperature 36.8 ??C (98.2 ??F) 03/01/2023 4:01 PM CS T Respiratory Rate 16 03/01/2023 4:01 PM JOINT CUTTER MACHINE Oxygen Saturation 97% 10/12/2022 3:37 PM CDT Inhaled Oxygen Concentration - - Weight 127 kg (279 lb 15.8 oz) 03/01/2023 3:35 P M JOINT CUTTER MACHINE Height 165 cm (5' 4.96) 05/29/2015 12:52 [...] HPV Reflex (07/25/2013 3:33 PM CDT) Interpretation [id number] POWERCHART [facility] See Comment POWERCHART Comment: A. ??ThinPrep Pap Test Screen (Cervical/Endocervical HPV Reflex): Satisfactory for evaluation. Inadequate endocervical/transformation zone component Negative for intraepithelial lesion or malignancy. [facility] See Comment POWERCHART Comment: Report electronically signed by KAVIN Lorenzana(ASCP) 08/03/2013 07:56 Interpreted by: KAVIN Lorenzana(ASCP) Spec [facility]cMission Trail [facility] See Comment POWERCHART Comment: A. ??ThinPrep Pap Test Screen (Cervical/Endocervical HPV Reflex): Received cloudy specimen in ThinPrep vial. Test Performed by: [address] [address] Atmospheric Technician: Ted Vidal III, M.D. Cervix/Endocervix 07/25/2013 3:33 PM CDT Pina Jiang APRN.N.[place], [place] LAB PAP PATHDX ORDERABLES POWERCHART from Last 3 Months or Most Recently Relevant to Health Maintenance Advance Directives For more information, please contact: [phone] * Full Code (Latest Code Status on File) Date Activated Date Inactivated Comments 08/27/2020 9:33 PM 08/28/2020 3:40 PM Question Answer Comments Full Code: Discussed Care Teams Director Alumni Relations Relationship Specialty Start Date End Date Elsewhere, Pcp PCP - General Internal Medicine 08/28/18
== END 2023-08-05 07:48 | disposition home or self-care (01) ==
PROVIDERS: PCP Nurse Practitioner Family; Visit Provider Nurse Practitioner Family
DX: E78.5 Hyperlipidemia, unspecified (principal); E11.65 Type 2 diabetes mellitus with hyperglycemia; E04.1 Nontoxic single thyroid nodule; Z79.4 Long term (current) use of insulin; Z13.21 Encounter for screening for nutritional disorder
CPT/HCPCS: 80053; 80061; 82043; 82570; 82607; 84443

== ENCOUNTER 2023-10-28 10:17 | Outpatient (CLI) | payer BC, SELFPAY | END 2023-10-28 10:18 | disposition home or self-care (01) | PROVIDERS: PCP Nurse Practitioner Family; Visit Provider Nurse Practitioner Family | DX: E11.69 Type 2 diabetes mellitus with other specified complication (principal) | CPT/HCPCS: 82043; 82570 ==

== ENCOUNTER 2023-11-21 04:48 | Outpatient (CLI) | payer BC, SELFPAY ==
--- OUTSIDE RECORDS SUMMARY | 2023-11-21 08:19 | XMS_ITS | Referral Summary ---
Author Organization [facility] Address [address] [place] [address] Care Team Providers Care Industrial Engineering Professor Name Role Phone Elsewhere, Pcp Primary Care Provider Unavailabl e Source Comments Patient records contain information from all sites at [facility]. For routine questions regarding patient records, call [phone] during business hours, M-F 8:00 AM - 5:00 PM Central Time. 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 More than 4 times per year 09/24/2020 Do you belong to any clubs o r organizations such as scientologist groups, unions, fraNanoVibronix or athletic groups, or school groups? No [...] medical care, and heating? Somewhat hard 09/24/2020 [facility] [place] of Occupat ional Health - Occupational Stress [...] place to sleep or slept in a chcf (including now)? No 09/24/2020 Nutrition Answer Date Recorded Nutrition: EVOO Fat Source No 09/24 On average, how many serving s of fruits and vegetables do you eat per day (serving size is equal to 1 cup or approximately the size of a tennis ball)? 2-3 09/24/2020 Dental Answer Date Recorded Dental: Regular Dentist Unknown 10/27/19 24 Employment Answer Date Recorded Employment status Working [...] Comments Blood Pressure 149/97 03/01/2023 3:30 PM WALL COVERING CONTRACTOR Pulse 78 03/01/2023 4:01 PM WALL COVERING CONTRACTOR Temperature 36.8 ??C (98.2 ??F) 03/01/2023 4:01 PM CS T Respiratory Rate 16 03/01/2023 4:01 PM WALL COVERING CONTRACTOR Oxygen Saturation 97% 10/12/2022 3:37 PM CDT Inhaled Oxygen Concentration - - Weight 127 kg (279 lb 15.8 oz) 03/01/2023 3:35 P M WALL COVERING CONTRACTOR Height 165 cm (5' 4.96) 05/29/2015 12:52 PM CDT Body Mass Index 46.65 05/29/2015 12:52 PM CDT Plan of Treatment Not on file Procedures Procedure Name Priority Date/Time Associated Diagnosis Comments THINPREP SCREEN HPV REFLEX Routine 07/25/2013 3:33 PM CDT LIPID PANEL, S Routine 04/19/2011 1:55 PM WALL COVERING CONTRACTOR from Last 3 Months or Most Recently Relevant to Health Maintenance Results * Pathology ThinPrep Screen HPV Reflex (07/25/2013 3:33 PM CDT) Interpretation [id number] POWERCHART [facility] See Comment POWERCHART Comment: A. ??ThinPrep Pap Test Screen (Cervical/Endocervical HPV Reflex): Satisfactory for evaluation. Inadequate endocervical/transformation zone component Negative for intraepithelial lesion or malignancy. [facility] See Comment POWERCHART Comment: Report electronically signed by KAVIN Lorenzana(ASCP) 08/03/2013 07:56 Interpreted by: KAVIN Lorenzana(ASCP) [facility] See Comment POWERCHART Comment: A. ??ThinPrep Pap Test Screen (Cervical/Endocervical HPV Reflex): Received cloudy specimen in ThinPrep vial. Test Performed by: [address] [address] Card Mounter: Ted Vidal III, M.D. Cervix/Endocervix 07/25/2013 3:33 PM CDT Lola Jiang APRNNAbilio, D.N.P. LAB PAP PATHDX ORDERABLES Performing Organization Address City/[facility] Co de Phone Number POWERCHART * (ABNORMAL) Lipid Panel (04/19/2011 1:55 PM WALL COVERING CONTRACTOR) Cholesterol, Total 224(H) 0 - 200 MGDL POWERCHART Comment: <200 mg/dL Desirable 200-239 mg/dL Borderline High >239 mg/dL High HX HDL 32(L) 35 - 60 MGDL POWERCHART Comment: > 60 mg/dL Desirable 40 ? 60 mg/dL Low Risk <40 mg/dL Undesirable Triglycerides 174(H) 9 - 150 MGDL POWERCHART Comment: <150 mg/dL Desirable 150-199 mg/dL Borderline High 200-499 mg/dL High > 499 Very High Calculated LDL 157(H) 100 - 129 MGDL POWERCHART Total Cholesterol/HDL Ratio 7 POWERCHART Blood 04/19/2011 1:55 PM WALL COVERING CONTRACTOR Arminda Watson M.D. LAB BLOOD ADD-ON Performing Organization Address City/State/[facility] Co de Phone Number POWERCHART from Last 3 Months or Most Recently Relevant to Health Maintenance Advance Directives For more information, please contact: [phone] * Full Code (Latest Code Status on File) Date Activated Date Inactivated Comments 08/27/2020 9:33 PM 08/28/2020 3:40 PM Question Answer Comments Full Code: Discussed Care Teams Industrial Engineering Professor Relationship Specialty Start Date End Date Elsewhere, Pcp PCP - General Internal Medicine 08/28/18
--- OUTSIDE RECORDS SUMMARY | 2023-11-21 08:19 | XMS_ITS | Clinical Summary ---
Author Organization [facility] Address [place], [place] [address] Care Team Providers Care Telephone Surveyor Name Role Phone [facility], mad[facility] Primary Care Pro vider Allergies [...] of Treatment Not on file Care Teams Telephone Surveyor Relationship Specialty Start Date End Date Clinic, [address] [address] PCP - General 06/12/22
--- OUTSIDE RECORDS SUMMARY | 2023-11-21 08:19 | XMS_ITS | Clinical Summary ---
Author Organization [facility] Address [address] [place] [address] Care Team Providers Care Bodybuilder Name Role Phone Elsewhere, Pcp Primary Care Provider Unavailabl e Source Comments Patient records contain information from all sites at [facility]. For routine questions regarding patient records, call [phone] during business hours, M-F 8:00 AM - 5:00 PM Central Time. Record requests for emergency care only can be directed to [phone] at any time.[facility] Allergies Active Allergy Reactions Criticality Noted Date [...] (08/27/2020): Added automatically from request for surgery [id number] Immunizations Name Administration Dates Next Due 4vHPV [...] How often do you attend chur or latter-day services? More than 4 times per year 09/24/2020 Do you belong to any clubs o r organizations such as sabianism groups, unions, fraternal or athletic groups, or [...] medical care, and heating? Somewhat hard 09/24/2020 [facility] [place] of Occupat ional Health - Occupational Stress [...] Comments Blood Pressure 149/97 03/01/2023 3:[address] LAB TECHNICIAN Pulse 78 03/01/2023 4:[address] LAB TECHNICIAN Temperature 36.8 ??C (98.2 ??F) 03/01/2023 4:01 PM CS T Respiratory Rate 16 03/01/2023 4:[address] LAB TECHNICIAN Oxygen Saturation 97% 10/12/2022 3:37 PM CDT Inhaled Oxygen Concentration - - Weight 127 kg (279 lb 15.8 oz) 03/01/2023 3:[address] LAB TECHNICIAN Height 165 cm (5' 4.96) 05/29/2015 12:52 PM CDT Body Mass Index 46.65 05/29/2015 12:52 PM CDT Plan of Treatment Health Maintenance Due Date Last Done Comments Depression Monitoring (PHQ-9) 1984 HIV Screening 1984 Hepatitis C Screening 1984 Hepatitis B Vaccines (2 of 3 - 3-dose series) 02/26/2002 01/29/2002 Cervical Cancer Screening 07/25/2016 07/25/2013, COVID-19 Vaccine ( season) 2023 11/21/2020, 10/31/2020 Influenza Vaccine (#1) 2023 , 11/17/2021, 12/02/2020, Additional history exists Lipid (Cholesterol) Screening 07/07/2025 07/07/2020, 09/07/2019, 02/19/2019, Additional history exists DTaP,Tdap,and Td Vaccines (8 - Td or Tdap) 03/01/2033 03/01/2023, 09/28/2016, 08/04/2006, Additional history exists HPV Vaccines Completed 11/17/2007, 10/23, 12/30/2006, Additional history exists Pneumococcal vaccine (0-64 years) Aged Out No longer eligible based on patient's age to complete this topic Procedures Procedure Name Priority Date/Time Associated Diagnosis Comments THINPREP SCREEN HPV REFLEX Routine 07/25/2013 3:33 PM CDT LIPID PANEL, S Routine 04/19/2011 1:[address] LAB TECHNICIAN from Last 3 Months or Most Recently Relevant to Health Maintenance Results * Pathology ThinPrep Screen HPV Reflex (07/25/2013 3:33 PM CDT) Interpretation [id number] POWERCHART HXThPrep Scrn [facility] See Comment POWERCHART Comment: A. ??ThinPrep Pap Test Screen (Cervical/Endocervical HPV Reflex): Satisfactory for evaluation. Inadequate endocervical/transformation zone component Negative for intraepithelial lesion or malignancy. HXThPrep Scrn [facility] See Comment POWERCHART Comment: Report electronically signed by KAVIN Lorenzana(ASCP) 08/03/2013 07:56 Interpreted by: KAVIN Lorenzana(ASCP) HX Spec [facility]cW[facility] See Comment POWERCHART Comment: A. ??ThinPrep Pap Test Screen (Cervical/Endocervical HPV Reflex): Received cloudy specimen in ThinPrep vial. Test Performed by: [place] [address] Mail Delivery Supervisor: Ted Vidal III, M.D. Cervix/Endocervix 07/25/2013 3:33 PM CDT Mirna Davey APRN, C.N.P., D.N.P. LAB PAP PATHDX ORDERABLES POWERCHART * (ABNORMAL) Lipid Panel (04/19/2011 1:[address] LAB TECHNICIAN) Cholesterol, Total 224(H) 0 - 200 MGDL [...] Ratio 7 POWERCHART Blood 04/19/2011 1:[address] LAB TECHNICIAN Arminda Watson M.D. LAB BLOOD ADD-ON POWERCHART from Last 3 Months or Most Recently Relevant to Health Maintenance Advance Directives For more information, please contact: [phone] * Full Code (Latest Code Status on File) Date Activated Date Inactivated Comments 08/27/2020 9:33 PM 08/28/2020 3:40 PM Question Answer Comments Full Code: Discussed Care Teams Bodybuilder Relationship Specialty Start Date End Date Elsewhere, Pcp PCP - General Internal Medicine 08/28/18
--- OUTSIDE RECORDS SUMMARY | 2023-11-21 08:19 | XMS_ITS ---
Author Organization [facility] Address [address] [place] [address] Care Team Providers Care Lodge Officer Name Role Phone Unavailable Unavailable Unavailable Surgery Details Not on file Complications Check Surgery Details section. Procedure Estimated Blood Loss Check Surgery Details section. Procedure Findings Check Surgery Details section. Procedure Specimens Taken Check Surgery Details section.
== END 2023-11-21 04:49 | disposition home or self-care (01) ==
PROVIDERS: PCP Nurse Practitioner Family; Visit Provider Nurse Practitioner Family
DX: E78.5 Hyperlipidemia, unspecified (principal); R74.8 Abnormal levels of other serum enzymes
CPT/HCPCS: 80061; 80076

== ENCOUNTER 2024-01-21 17:52 | Emergency (ER) | payer OTHER, BC, SELFPAY ==
[2024-01-21 18:32] VITALS: BP 161/94; PULSE 78; RESP 18; TEMP 36.6; O2SAT 98; BMI 44.4
--- NOTE | 2024-01-21 20:11 | ED_ITS ---
HPI - General Adult General Chief complaint: Extremity Pain/Injury, Upper Stated complaint: Left shoulder tendinitis Time Seen by Provider: 01/21/24 18:00 History of Present Illness HPI narrative: This 38-year-old female comes in with persistent left shoulder pain. She states that she injured her shoulder about 10 years ago but pain has worsened recently. She did go to a provider about a week ago and had x-ray images done which showed calcific tendinitis. There were no other acute findings. She does not report any recent injury event or strenuous activity. She states that she has been taking [id number] medicines and prescription medicines without much relief. She has difficulty sleeping at night due to this pain. She is wearing a sling. She states that she is unable to move her arm much at all because of pain. Related Data Home Medications ?Medication ?Instructions ?Recorded ?Confirmed turmeric 100 mg-anastasia 150 1 cap PO 12/07/21 01/12/24 mg-olive 50 mg-oreg 150 mg-capryl capsule Previous Rx's ?Medication ?Instructions ?Recorded tramadol 50 mg tablet 50 - 100 mg (1 - 2 x 50 mg) PO QID 01/25/23 PRN pain #30 tabs blood-glucose sensor (Dexcom G7 #12 ea 03/22/23 Sensor device) pen needle, diabetic 32 gauge x #100 ea 03/22/2307/06 (Comfort EZ Pen [place]) blood-glucose meter,continuous #1 ea 04/21/23 (Dexcom G7 In Flight Refueling System Repairer) amitriptyline 25 mg tablet 25 mg PO QHS #90 tabs 08/05/23 buspirone 10 mg tablet 10 mg PO BID #180 tabs 08/05/23 citalopram 40 mg tablet (Celexa) 40 mg PO QDAY 90 days #90 tabs 08/05/23 insulin glargine 100 unit/mL (3 25 unit (0.25 mL) subcut QAM 90 08/05/23 mL) subcutaneous pen (Lantus days #22.5 mL Solostar U-100 Insulin) pravastatin 40 mg tablet 40 mg PO QHS 90 days #90 tabs 08/05/23 sumatriptan succinate 50 mg tablet See Rx Instructions PO .COMPLEX 30 08/05/23 (Imitrex) days #9 tabs semaglutide 1 mg/dose (4 mg/3 mL) 1 mg (0.75 mL) subcut QWEEK #9.75 10/21/23 subcutaneous pen injector (Ozempic) mL Allergies Allergy/AdvReac Type Severity Reaction Status Date / Time amoxicillin Allergy Unknown Nausea Verified 01/12/24 12:45 benzoin Allergy Unknown Hives Verified 01/12/24 12:45 oxycodone Allergy Unknown violent Verified 01/12/24 12:45 behaviors clavulanic acid Allergy Verified 01/12/24 12:45 prednisone Allergy Verified 01/12/24 12:45 Review of Systems Status of ROS: Reports: 10 or more systems reviewed and unremarkable except as noted in History and below Narrative: Constitutional: No fevers, no weight gain or loss. Eyes: No discharge. No vision changes. HENT: No congestion, no sore throat, no ear pain. Cardiovascular: No chest pain, no palpitations. Respiratory: No shortness of breath, no wheezes, no cough. Gastrointestinal: No abdominal pain, no vomiting, no diarrhea. Genitourinary: No dysuria, no hematuria. Musculoskeletal: Left shoulder pain with decreased range of motion is stated above. Skin: No rashes, no pruritis. Neurological: No dizziness, weakness, sensory change, speech change. Endo/Heme/Allergies: No bruising or bleeding. No polydipsia. Pysch: no suicidality, no anxiety, no insomnia. All other systems reviewed and are negative. 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, antepartum ?O26.21 - care for patient with recurrent loss, first trimester (ICD-10) History of syncope ?Z87.898 - Personal history of other specified conditions (ICD-10) History of seasonal allergies ?Z88.9 - Allergy status to unspecified drugs, medicaments and biological substances (ICD-10) History of ectopic ?Z87.59 - Personal history of other complications of , childbirth and the puerperium (ICD-10) History of concussion ?Z87.820 - Personal history of traumatic brain injury (ICD-10) Surgical History History of tonsillectomy ?Z90.89 - Acquired absence of other organs (ICD-10) History of sinus surgery ?Z98.890 - Other specified postprocedural states (ICD-10) History of knee surgery ?Z98.890 - Other specified postprocedural states (ICD-10) History of cholecystectomy ?Z90.49 - Acquired absence of other specified parts of digestive tract (ICD- 10) History of carpal tunnel surgery of right wrist ?Z98.890 - Other specified postprocedural states (ICD-10) History of adenoidectomy ?Z90.89 - Acquired absence of other organs (ICD-10) Family History Mother Alcohol dependence Asthma Diabetes High cholesterol Arthritis Clotting disorder Father Asthma Heart disease Arthritis Maternal Grandfather Asthma Arthritis Paternal Grandfather Asthma Arthritis Maternal Grandmother Breast cancer Arthritis Brother Heart disease Family/Other Anxiety High blood pressure Social History Smoking Status: Former smoker Do you use any of these nicotine containing products: None Second hand tobacco smoke exposure: No How often do you have a drink containing alcohol: never AUDIT-C Alcohol total score: 0 Non-prescribed substance use: denies use Exam Narrative: Exam Narrative: Constitutional: Well-developed, well-nourished, no acute distress. HEENT: Normocephalic, atraumatic. Neck: Normal range of motion. Nontender. Supple. Heart: Regular. No murmurs. Normal rate. Intact distal pulses. Lungs: Clear to auscultation. No chest discomfort. No wheezes, rhonchi, or rales. Abdomen: Normal bowel sounds. Nontender. No rebound tenderness. Genitalia: Deferred. Back: No midline tenderness. Normal range of motion. Extremities: Left shoulder pain. No sign of swelling or deformity. Range of motion is not tested due to pain. Skin: Intact. No rash. Warm. No erythema or pallor. Neurologic: No altered sensation. No weakness. Alert and oriented. Psychiatric: No suicidality. No anxiety or depression. No insomnia. Nursing notes and vitals signs are reviewed. Const: Vital Signs, click to edit/add: Vital Signs - 24 hr 01/21/24 18:32 Temperature 98 F Pulse Rate [Pulse Oximeter] 78 Respiratory Rate 18 [facility] 161/94 H Pulse Oximetry 98 Course Vital Signs Vital signs: Initial Vital Signs Temperature 98 F 01/21/24 18:32 Temperature Source Temporal Artery Scan 01/21/24 18:32 Pulse Rate 78 01/21/24 18:32 Respiratory Rate 18 01/21/24 18:32 Blood Pressure 161/94 H 01/21/24 18:32 Blood Pressure Mean 116 H 01/21/24 18:32 Pulse Oximetry 98 01/21/24 18:32 Vital Signs Temperature 98 F 01/21/24 18:32 Pulse Rate 78 01/21/24 18:32 Respiratory Rate 18 01/21/24 18:32 Blood Pressure 161/94 H 01/21/24 18:32 Pulse Oximetry 98 01/21/24 18:32 Temperature 98 F 01/21/24 18:32 Pulse Rate 78 01/21/24 18:32 Respiratory Rate 18 01/21/24 18:32 Blood Pressure 161/94 H 01/21/24 18:32 Pulse Oximetry 98 01/21/24 18:32 Medications Administered Medications: Generic Name Dose Route Start Last Admin Trade Name Freq PRN Reason Stop Dose Admin Lidocaine HCl 30 ml 01/21/24 20:10 01/21/24 21:21 Lidocaine 1 % Pf 30 Ml INJECTION 30 ml ONCE PRN Administration Triamcinolone Acetonide 40 mg 01/21/24 20:10 01/21/24 21:21 Triamcinolone 40 Mg/Ml Inj INTRA-DICKSON 01/21/24 20:11 40 mg ONCE ONE Administration Medical Decision Making MDM Narrative Medical decision making narrative: This patient has chronic pain in her left shoulder but it has significantly worsened in the more recent several days. There was no recent injury event to trigger this. She understands the need to follow-up with orthopedic clinic and may need MRI imaging for further evaluation. She may have some intra-articular component to her tendinitis so I discussed the option of having the injection of lidocaine and a steroid. She expressed concern about steroid injection as it caused her glucose to go up in the past. Nevertheless she prefers this treatment as she is open to anything that may help her. I stated that it may help if her condition is intra-articular but stressed the importance of following up with orthopedic clinic. She did receive an intra-articular injection of 40 mg of triamcinolone mixed with 10 mL of 1% lidocaine. Discharge Plan Discharge Clinical Impression: Left shoulder pain Patient Disposition: Home w/ Parent or Adult Condition: Stable Additional Instructions: Take medication as needed and indicated. Increase activity as tolerated. Follow-up with orthopedic clinic for ongoing management. Call [phone] for appointment. Prescriptions: No Action tramadol 50 mg tablet 50 - 100 mg PO QID PRN (Reason: pain) Qty: 30 0RF (DME) Dexcom G7 Sensor Device See Rx Instructions .Route Qty: 12 3RF Rx Instructions: As directed (DME) pen needle, diabetic [Comfort EZ Pen [place]] 32 gauge x 5/16 needle See Rx Instructions .Route Qty: 100 3RF Rx Instructions: daily sjagkfno-fynx-onzap-oreg-capry 100 mg-150 mg- 50 mg-150 mg capsule 1 cap PO amitriptyline 25 mg tablet 25 mg PO QHS Qty: 90 3RF buspirone 10 mg tablet 10 mg PO BID Qty: 180 3RF citalopram [Celexa] 40 mg tablet 40 mg PO QDAY 90 Days Qty: 90 3RF insulin glargine [Lantus Solostar U-100 Insulin] 100 unit/mL (3 mL) insulin pen 25 unit subcut QAM 90 Days Qty: 22.5 3RF pravastatin 40 mg tablet 40 mg PO QHS 90 Days Qty: 90 3RF sumatriptan succinate [Imitrex] 50 mg tablet See Rx Instructions PO .COMPLEX 30 Days Qty: 9 3RF Rx Instructions: take 1 tab at onset of headache; if no relief may repeat 1 tab after at least 2 hrs; max = 4 tabs/24 hr orally; (DME) Dexcom G7 In Flight Refueling System Repairer Misc See Rx Instructions .Route Qty: 1 2RF Rx Instructions: As directed Ozempic 1 mg/dose (4 mg/3 mL) pen injector 1 mg subcut QWEEK Qty: 9.75 3RF Follow Up/Referrals: Radha Silva APRN, STEAM TRAIN DRIVER [Primary Care Provider] - Stand Alone Forms: [employer] Info Instructions
--- OUTSIDE RECORDS SUMMARY | 2024-01-21 20:21 | XMS_ITS | Clinical Summary ---
Author Organization [employer] [facility] Address [place], [place] [address] Care Team Providers Care Data Entry Coordinator Name Role Phone [facility], [facility]-NOTE [facility] Primary Care Pro vider Allergies [...] 70 06/13/2022 9:10 PM CDT Temperature 36.9 C (98.4 F) 06/13/2022 4:52 PM CDT Respiratory Rate 16 06/13/2022 9:10 PM CDT Oxygen Saturation 98% 06/13/2022 9:10 PM CDT Inhaled Oxygen Concentration - - Weight 126.1 kg (278 lb) 06/13/2022 4:52 PM CDT Height 167.6 cm (5' 6) 06/13/2022 4:52 PM CDT Body Mass Index 44.87 06/13/2022 4:52 PM CDT Plan of Treatment Not on file Care Teams Data Entry Coordinator Relationship Specialty Start Date End Date Clinic, [address] [address] PCP - General 06/12/22
--- OUTSIDE RECORDS SUMMARY | 2024-01-21 20:21 | XMS_ITS | Encounter Summary ---
Author Organization [facility] Address [address] [place] [address] Care Team Providers Care Supervisor Engine Assembly Name Role Phone Elsewhere, Pcp Primary Care Provider Unavailabl e Reason for Referral * Outpatient (Routine) - Authorized Specialty Diagnoses / Procedures Referred By Contac t Referred To Contact Orthopedic Surgery Mirna Davey APRN, C.N.P., D.N.P. [address] [place] [address] Phone: tel: fax: [facility] Region Referral ID Status Reason Start Date Expiration Date V isits Requested Visits Authorized [id number] Authorized 01/18/2024 07/19/2025 1 1 NDARY EDUCATION PROFESSOR * Outpatient (Routine) - Authorized Specialty Diagnoses / Procedures Referred By Contac t Referred To Contact Orthopedic Surgery Mirna Davey APRN, C.N.P., D.N.P. [address] [place] [address] Phone: tel: fax: [facility] Region Referral ID Status Reason Start Date Expiration Date V isits Requested Visits Authorized [id number] Authorized 01/18/2024 07/19/2025 1 1 NDARY EDUCATION PROFESSOR * Outpatient (Routine) - Pending Review Specialty Diagnoses / Procedures Referred By Contac t Referred To Contact Diagnoses Pain Knee Left Procedures ORS Non-Guided aspiration/injection Mirna Davey APRN, C.N.P., D.N.P. [address] [place] [phone] Phone: tel: fax: [facility] Region Referral ID Status Reason Start Date Expiration Date V isits Requested Visits Authorized [id number] Pending Review 01/18/2024 01/17/2025 1 1 NDARY EDUCATION PROFESSOR * Physical Therapy (Routine) - Authorized Specialty Diagnoses / Procedures Referred By Contac t Referred To Contact Diagnoses Pain Knee Left Procedures PT Evaluate and treat Mirna Davey APRN, C.N.PRadhika, D.N.P. [address] [place] [phone] Phone: tel: fax: [facility] Region Referral ID Status Reason Start Date Expiration Date V isits Requested Visits Authorized [id number] Authorized 01/18/2024 01/17/2025 1 1 NDARY EDUCATION PROFESSOR Reason for Visit * Reason Comments Follow-up * Appointment Request (Routine) - Closed Specialty Diagnoses / Procedures Referred By Contac t Referred To Contact Orthopedic Surgery Diagnoses Pain Knee Left Referral ID Status Reason Start Date Expiration Date Visits Re quested Visits Authorized [id number] Closed 12/19/2023 12/18/2024 1 1 Encounter Details Date Type Department Care Team (Latest Contact Info) Description 01/18/2024 8:30 AM SECONDARY EDUCATION PROFESSOR Comprehensive Visit Department of Orthopedic Surgery in [address] [phone] Mirna Davey APRN, C.N.P., D.N.P. [address] [place] [address] Pain Knee Left (Primary Dx) Discharge Disposition: Home or Self Care Social History Tobacco Use Types Packs/Day Years Used Date Smoking Tobacco: Former Smokeless Tobacco: Never Alcohol Use Standard Drinks/Week Comments Not Currently [...] week 09/24/2020 How often do you attend [facility] or jainism services? More than 4 times per year 09/24/2020 Do you belong to any clubs o r organizations such as jain groups, unions, fraternal or athletic groups, or [...] medical care, and heating? Somewhat hard 09/24/2020 [facility] Occupational Stress Questionnaire Answer Date Recorded [...] place to sleep or slept in a halfway (including now)? No 09/24/2020 Nutrition Answer Date Recorded Nutrition: EVOO Fat Source No 09/24 On average, how many serving s of fruits and vegetables do you eat per day (serving size is equal to 1 cup or approximately the size of a tennis ball)? 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 Associate degree: occupational, technical, or vocational program 09/20/2018 Comments No Sex and Gender Information Value Date Recorded Sex Assigned at Female 09/20/2018 9:25 PM CDT Legal Sex Female 8:50 AM SECONDARY EDUCATION PROFESSOR Gender Identity Female 09/20/2018 9:25 PM CDT Sexual Orientation Straight 09/20/2018 9: 25 PM CDT documented as of this encounter Progress Notes * Mirna Davey APRN, C.N.P., D.N.P. - 01/18/2024 8:30 AM CST Dolores is an extremely pleasant 38-year-old who has left knee pain. She is status post proximal tibial osteotomy and hardware removal. She has known Tricompartmental degenerative change manifested by marginal osteophyte formation, chondrocalcinosis, as well as mild joint space narrowing. She continues to have pain in the medial aspect of her knee. She was seen by [facility] and they did a corticosteroid injection which she states caused her extreme swelling and pain post injection. She has had corticosteroid injections in the past that or less reactive. She wishes not to proceed with that again. 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 She admits that her dog ran into her knee most recently increasing the medial pain that she has in her knee but no new instability. Physical exam-left knee has well healed surgical scars. She has very trace effusion noted. Her kneeis stable to valgus and varus. She has full extension and flexes to 130??. Negative drawer sign. She does have some mild medial joint line tenderness. No particular pain over the tibial plateau however. And no particular pain to palpation of her patella. Diagnostic studies no new images performed today. Impression and plan-Dolores is a very pleasant 38-year-old who is having continued pain of her left knee. She did not have a good response to her corticosteroid injection which was performed in the spring. We discussed hyaluronic injections. She is an agreeance to this. We will set her up forphysical therapy she would [place] do this [place] the give her a home regiment for regularexercises. We will plan to see her back at least a month after that and consider Euflexxa injections we will get pre-approval for that now she agrees and understands this plan and her questions were answered NDARY EDUCATION PROFESSOR documented in this encounter Plan of Treatment Scheduled Orders Name Type Priority Associated Diagnoses Orde r Schedule ORS Non-Guided aspiration/injection Procedures Routine Pain Knee Left Expected: 02/08/2024, Expires: 04/19/2025 Scheduled Referrals Name Type Priority Associated Diagnoses Order Schedule Orthopedic Surgery office visit (clinic) Outpatient Referral Routine Expected: 01/18/2024, Expires: 04/19/2025 Orthopedic Surgery office visit (clinic) Outpatient Referral Routine Expected: 01/18/2024, Expires: 04/19/2025 documented as of this encounter Visit Diagnoses Diagnosis Pain Knee Left- Primary documented in this encounter Additional Health Concerns Assessment Noted Time PHQ-9 Depression Total Score: 4 05/29/19 16 1:02 PM CDT documented as of this encounter Care Teams Supervisor Engine Assembly Relationship Specialty Start Date End Date Elsewhere, Pcp PCP - General Internal Medicine 08/28/18 documented as of this encounter
--- OUTSIDE RECORDS SUMMARY | 2024-01-21 20:21 | XMS_ITS | Clinical Summary ---
Author Organization [facility] Address [address] [place] [address] Care Team Providers Care Break Off Worker Name Role Phone Elsewhere, Pcp Primary Care Provider Unavailabl e Source Comments Patient records contain information from all sites at [facility]. For routine questions regarding patient records, call [phone] during business hours, M-F 8:00 AM - 5:00 PM Central Time. Record requests for emergency care only can be directed to [phone] at any time.[facility] Allergies Active Allergy Reactions Criticality Noted Date Comments Amoxicillin GI intolerance 09/21/2018 Only sensitivity to pill form, tolerates liquid form Amoxicillin-Pot Clavulanate GI intolerance,Hives (Reselect Reaction),Itching,Luigi sea Only,Rash High 12/29/2011 Benzoin Rash 09/21/2018 Itching and swelling, topical type of Benzoin Cephalexin Nausea And Vomiting 08/27/2010 Oxycodone-Acetaminoph en Other (see comments) 09/21/2018 Gets angry Medications cinnamon bark 500 mg capsule Take 1,000 mg by mouth daily. Active citalopram (CeleXA) 20 mg tablet TAKE ONE AND ONE-HALF TABLETS BY MOUTH EVERY DAY FOR ANXIETY/DEPR ESSION 05/29/2020 Active acetaminophen (TYLENOL) 500 mg tablet Take 2 tablets (1,000 mg total) by mouth every 6 (six) hours as needed for pain for up to 14 days. 08/28/2020 Active ibuprofen (ADVIL,MOTRIN) 200 mg tablet Take 4 tablets (800 mg total) by mouth every 6 (six) hours as needed for pain for up to 14 days. 08/28/2020 Active sennosides-docu sate sodium (SENOKOT-S) 8.6-50 mg per tablet Take 1 tablet by mouth 2 (two) times a day as needed for constipation . 30 tablet 08/28/2020 Active Active Problems Problem [...] (08/27/2020): Added automatically from request for surgery [id number] Encounters Date Type Department Care Team Description 01/18/2024 8:30 AM CONDOMINIUM PROPERTY MANAGER Comprehensive Visit Department of Orthopedic Surgery in [address] [address] Mirna Davey APRN, C.N.P., D.N.P. Pain Knee Left (Primary Dx) Discharge Disposition: Home or Self Care from Last 3 Months Immunizations Name Administration Dates Next Due 4vHPV [...] week 09/24/2020 How often do you attend [facility] or confucianism services? More than 4 times per year 09/24/2020 Do you belong to any clubs o r organizations such as mandaeism groups, unions, fraternal or athletic groups, or [...] medical care, and heating? Somewhat hard 09/24/2020 [facility] - Occupational Stress Questionnaire Answer Date Recorded [...] place to sleep or slept in a [place] health care facility (including now)? No 09/24/2020 Nutrition Answer Date [...] PM CDT Legal Sex Female 8:50 AM CONDOMINIUM PROPERTY MANAGER Gender Identity Female 09/20/2018 9:25 PM CDT Sexual Orientation Straight 09/20/2018 9: 25 PM CDT Last Filed Vital Signs Vital Sign Reading Time Taken Comments Blood Pressure 149/97 03/01/2023 3:30 PM CONDOMINIUM PROPERTY MANAGER Pulse 78 03/01/2023 4:01 PM CONDOMINIUM PROPERTY MANAGER Temperature 36.8 C (98.2 F) 03/01/2023 4:01 PM CONDOMINIUM PROPERTY MANAGER Respiratory Rate 16 03/01/2023 4:01 PM CONDOMINIUM PROPERTY MANAGER Oxygen Saturation 97% 10/12/2022 3:37 PM CDT Inhaled Oxygen Concentration - - Weight 127 kg (279 lb 15.8 oz) 03/01/2023 3:35 P M CONDOMINIUM PROPERTY MANAGER Height 165 cm (5' 4.96) 05/29/2015 12:52 PM CDT Body Mass Index 46.65 05/29/2015 12:52 PM CDT Plan of Treatment Health Maintenance Due Date Last Done Comments Depression Monitoring (PHQ-9) 1984 HIV Screening 1984 Hepatitis C Screening 1984 Hepatitis B Vaccines (2 of 3 - 3-dose series) 02/26/2002 01/29/2002 Cervical/Vaginal Cancer Screening 07/25/2016 07/25/2013, 04/19/2011 Depression Monitoring (PHQ-9 for quality tracking) 02/21/2023 COVID-19 Vaccine ( season) 2023 11/21/2020, 10/31/2020 Influenza Vaccine (#1) 2023 , 11/17/2021, 12/02/2020, Additional history exists Lipid (Cholesterol) Screening 07/07/2025 07/07/2020, 09/07/2019, 02/19/2019, Additional history exists DTaP,Tdap,and Td Vaccines (8 - Td or Tdap) 03/01/2033 03/01/2023, 09/28/2016, 08/04/2006, Additional history exists IPV Vaccines Completed 07/12/1990, 09/21, 07/02/1985, Additional history exists HPV Vaccines Completed 11/17/2007, 10/2006, 10/26/2006 Pneumococcal vaccine (0-64 years) Aged Out No longer eligible based on patient's age to complete this topic Procedures Procedure Name Priority Date/Time Associated Diagnosis Comments THINPREP SCREEN HPV REFLEX Routine 07/25/2013 3:33 PM CDT LIPID PANEL, S Routine 04/19/2011 1:55 PM CONDOMINIUM PROPERTY MANAGER from Last 3 Months or Most Recently Relevant to Health Maintenance Results * Pathology ThinPrep Screen HPV Reflex (07/25/2013 3:33 PM CDT) Interpretation [id number] [facility]ART [facility] See Comment POWERCHART Comment: A. ThinPrep Pap Test Screen (Cervical/Endocervical HPV Reflex): Satisfactory for evaluation. Inadequate endocervical/transformation zone component Negative for intraepithelial lesion or malignancy. [facility] See Comment POWERCHART Comment: Report electronically signed by KAVIN Lorenzana(ASCP) 08/03/2013 07:56 Interpreted by: KAVIN Lorenzana(ASCP) [facility] See Comment POWERCHART Comment: A. ThinPrep Pap Test Screen (Cervical/Endocervical HPV Reflex): Received cloudy specimen in ThinPrep vial. Test Performed by: [place] [address] Nurse Navigator: Ted Vidal III, M.D. Cervix/Endocervix 07/25/2013 3:33 PM CDT Mirna Davey APRN, C.N.P., D.N.P. LAB PAP PATHDX ORDERABLES Final Result POWERCHART * (ABNORMAL) Lipid Panel (04/19/2011 1:55 PM CONDOMINIUM PROPERTY MANAGER) Cholesterol, Total 224(H) 0 - 200 MGDL POWERCHART Comment: <200 mg/dL Desirable 200-239 mg/dL Borderline High >239 mg/dL High HX HDL 32(L) 35 - 60 MGDL POWERCHART Comment: > 60 mg/dL Desirable 40 60 mg/dL Low Risk <40 mg/dL Undesirable Triglycerides 174(H) 9 - 150 MGDL POWERCHART Comment: <150 mg/dL Desirable 150-199 mg/dL Borderline High 200-499 mg/dL High > 499 Very High Calculated LDL 157(H) 100 - 129 MGDL POWERCHART Total Cholesterol/HDL Ratio 7 POWERCHART Blood 04/19/2011 1:55 PM CONDOMINIUM PROPERTY MANAGER Arminda Watson M.D. LAB BLOOD ADD-ON Final Result POWERCHART from Last 3 Months or Most Recently Relevant to Health Maintenance Insurance [facility] Advance Directives For more information, please contact: [phone] * Full Code (Latest Code Status on File) Date Activated Date Inactivated Comments 08/27/2020 9:33 PM 08/28/2020 3:40 PM Question Answer Comments Full Code: Discussed Care Teams Break Off Worker Relationship Specialty Start Date End Date Elsewhere, Pcp PCP - General Internal Medicine 08/28/18
--- OUTSIDE RECORDS SUMMARY | 2024-01-21 20:21 | XMS_ITS | Referral Summary ---
Author Organization [facility] Address [address] [place] [address] Care Team Providers Care Pattern Designer Name Role Phone Elsewhere, Pcp Primary Care Provider Unavailabl e Source Comments Patient records contain information from all sites at [facility]. For routine questions regarding patient records, call [phone] during business hours, M-F 8:00 AM - 5:00 PM Central Time. Record requests for emergency care only can be directed to [phone] at any time.[facility] Encounters Date Type Department Care Team Description 01/18/2024 8:30 AM TRAY DRIER Comprehensive Visit Department of Orthopedic Surgery in [address] [address] Mirna Davey APRN, C.N.P., D.N.P. Pain Knee Left (Primary Dx) Discharge Disposition: Home or Self Care from Last 3 Months Allergies Active Allergy Reactions Criticality Noted Date [...] (08/27/2020): Added automatically from request for surgery [id number] Immunizations Name Administration Dates Next Due 4vHPV [...] How often do you attend chur or christianity services? More than 4 times per year 09/24/2020 Do you belong to any clubs o r organizations such as mandaen groups, unions, fraternal or athletic groups, or [...] medical care, and heating? Somewhat hard 09/24/2020 [facility] [place] [facility] - Occupational Stress [...] place to sleep or slept in a senior care (including now)? No 09/24/2020 Nutrition Answer Date [...] PM CDT Legal Sex Female 8:50 AM TRAY DRIER Gender Identity Female 09/20/2018 9:25 PM CDT Sexual Orientation Straight 09/20/2018 9: 25 PM CDT Last Filed Vital Signs Vital Sign Reading Time Taken Comments Blood Pressure 149/97 03/01/2023 3:30 PM TRAY DRIER Pulse 78 03/01/2023 4:01 PM TRAY DRIER Temperature 36.8 C (98.2 F) 03/01/2023 4:01 PM TRAY DRIER Respiratory Rate 16 03/01/2023 4:01 PM TRAY DRIER Oxygen Saturation 97% 10/12/2022 3:37 PM CDT Inhaled Oxygen Concentration - - Weight 127 kg (279 lb 15.8 oz) 03/01/2023 3:35 P M TRAY DRIER Height 165 cm (5' 4.96) 05/29/2015 12:52 PM CDT Body Mass Index 46.65 05/29/2015 12:52 PM CDT Plan of Treatment Not on file Procedures Procedure Name Priority Date/Time Associated Diagnosis Comments THINPREP SCREEN HPV REFLEX Routine 07/25/2013 3:33 PM CDT LIPID PANEL, S Routine 04/19/2011 1:55 PM TRAY DRIER from Last 3 Months or Most Recently Relevant to Health Maintenance Results * Pathology ThinPrep Screen HPV Reflex (07/25/2013 3:33 PM CDT) Interpretation [id number] POWERCHART [facility] See Comment POWERCHART Comment: A. ThinPrep Pap Test Screen (Cervical/Endocervical HPV Reflex): Satisfactory for evaluation. Inadequate endocervical/transformation zone component Negative for intraepithelial lesion or malignancy. [facility] See Comment POWERCHART Comment: Report electronically signed by KAVIN Lorenzana(ASCP) 08/03/2013 07:56 Interpreted by: KAVIN Lorenzana(ASCP) HX Spec [facility] See Comment POWERCHART Comment: A. ThinPrep Pap Test Screen (Cervical/Endocervical HPV Reflex): Received cloudy specimen in ThinPrep vial. Test Performed by: [facility] - [address] [address] Dry Drug Worker: Ted Vidal III, M.D. Cervix/Endocervix 07/25/2013 3:33 PM CDT Mirna Davey APRN, C.N.P., D.N.P. LAB PAP PATHDX ORDERABLES Final Result POWERCHART * (ABNORMAL) Lipid Panel (04/19/2011 1:55 PM TRAY DRIER) Cholesterol, Total 224(H) 0 - 200 MGDL [...] Ratio 7 POWERCHART Blood 04/19/2011 1:55 PM TRAY DRIER Arminda Watson M.D. LAB BLOOD ADD-ON Final Result POWERCHART from Last 3 Months or Most Recently Relevant to Health Maintenance Insurance [facility] Advance Directives For more information, please contact: [phone] * Full Code (Latest Code Status on File) Date Activated Date Inactivated Comments 08/27/2020 9:33 PM 08/28/2020 3:40 PM Question Answer Comments Full Code: Discussed Care Teams Pattern Designer Relationship Specialty Start Date End Date Elsewhere, Pcp PCP - General Internal Medicine 08/28/18
--- OUTSIDE RECORDS SUMMARY | 2024-01-21 20:21 | XMS_ITS ---
Author Organization [facility] Address [address] [place] [address] Care Team Providers Care Microsoft Crm Developer Name Role Phone Unavailable Unavailable Unavailable Surgery Details Not on file Complications Check Surgery Details section. Procedure Estimated Blood Loss Check Surgery Details section. Procedure Findings Check Surgery Details section. Procedure Specimens Taken Check Surgery Details section.
[2024-01-21 20:40] VITALS: BP 144/87; PULSE 83; RESP 18; O2SAT 97
[2024-01-21 20:45] VITALS: PULSE 78; O2SAT 96
[2024-01-21 21:06] VITALS: PULSE 86; O2SAT 97
[2024-01-21 21:15] VITALS: PULSE 88; O2SAT 98
[2024-01-21] MEDS: LIDOCAINE 1 % PF 30 ML INJECTION (21:21)
[2024-01-21] MEDS: TRIAMCINOLONE 40 MG/ML INJ INTRA-ARTI (21:21)
== END 2024-01-21 22:25 | disposition home or self-care (01) ==
PROVIDERS: Emergency Provider Emergency Medicine Emergency Medical Services; PCP Nurse Practitioner Family
DX: M25.512 Pain in left shoulder (principal)
CPT/HCPCS: 99283; 99284; J2003; J3301

== ENCOUNTER 2024-03-09 09:46 | Outpatient (CLI) | payer OTHER, BC, SELFPAY ==
[2024-03-11 20:32] LABS: HPV Source Cervical; HPV, High Risk by TMA Not Detected
== END 2024-03-09 09:47 | disposition home or self-care (01) ==
PROVIDERS: PCP Nurse Practitioner Family; Visit Provider Obstetrics & Gynecology
DX: N93.9 Abnormal uterine and vaginal bleeding, unspecified (principal); Z12.4 Encounter for screening for malignant neoplasm of cervix; Z01.812 Encounter for preprocedural laboratory examination
CPT/HCPCS: 84443; 87624; 87625; 88141; 88142

== ENCOUNTER 2024-03-21 08:11 | Outpatient (CLI) | payer OTHER, BC, SELFPAY | END 2024-03-21 08:12 | disposition home or self-care (01) | LOC: US 08:12 | PROVIDERS: PCP Nurse Practitioner Family; Visit Provider Obstetrics & Gynecology | DX: N93.9 Abnormal uterine and vaginal bleeding, unspecified (principal); R93.89 Abnormal findings on diagnostic imaging of other specified body structures | CPT/HCPCS: 76830; 76856 ==

== ENCOUNTER 2024-03-29 08:28 | Outpatient (CLI) | payer OTHER, BC, SELFPAY | END 2024-03-29 08:29 | disposition home or self-care (01) | LOC: KYNREF 08:30 | PROVIDERS: PCP Nurse Practitioner Family; Visit Provider Nurse Practitioner Family | DX: E11.69 Type 2 diabetes mellitus with other specified complication (principal) | CPT/HCPCS: 80053 ==

== ENCOUNTER 2024-04-05 06:05 | Day surgery (SDC) | payer OTHER, BC, SELFPAY ==
--- OUTSIDE RECORDS SUMMARY | 2024-04-05 06:09 | XMS_ITS | Clinical Summary ---
Author Organization [facility] Address [address] [place] [address] Care Team Providers Care Dance Studio Manager Name Role Phone Elsewhere, Pcp Primary Care Provider Unavailabl e Source Comments Patient records contain information from all sites at [facility]. For routine questions regarding patient records, call [phone] during business hours, M-F 8:00 AM - 5:00 PM Central Time. Record requests for emergency care only can be directed to [phone] at any time.[facility] Allergies Active Allergy Reactions Criticality Noted Date [...] (08/27/2020): Added automatically from request for surgery [id number] Encounters Date Type Department Care Team Description 01/18/2024 8:30 AM PRODUCTION PATTERN MAKER Comprehensive Visit Department of Orthopedic Surgery in [address] [address] Mirna Davey, ANA LAURA, C.N.P., D.N.P. Pain Knee Left (Primary Dx) Discharge Disposition: Home or Self Care from Last 3 Months Immunizations Immunization Administration Dates Next Due 4vHPV (discontinued) 11/17/2007,12/30/2006,10/26 [...] week 09/24/2020 How often do you attend [facility] or muslim services? More than 4 times per year [...] medical care, and heating? Somewhat hard 09/24/2020 [facility]ational Stress Questionnaire Answer Date [...] PM CDT Legal Sex Female 8:50 AM PRODUCTION PATTERN MAKER Gender Identity Female 09/20/2018 9:25 PM CDT Sexual Orientation Straight 09/20/2018 9: 25 PM CDT Last Filed Vital Signs Vital Sign Reading Time Taken Comments Blood Pressure 149/97 03/01/2023 3:30 PM PRODUCTION PATTERN MAKER Pulse 78 03/01/2023 4:01 PM PRODUCTION PATTERN MAKER Temperature 36.8 C (98.2 F) 03/01/2023 4:01 PM PRODUCTION PATTERN MAKER Respiratory Rate 16 03/01/2023 4:01 PM PRODUCTION PATTERN MAKER Oxygen Saturation 97% 10/12/2022 3:37 PM CDT Inhaled Oxygen Concentration - - Weight 127 kg (279 lb 15.8 oz) 03/01/2023 3:35 P M PRODUCTION PATTERN MAKER Height 165 cm (5' 4.96) 05/29/2015 12:52 PM CDT Body Mass Index 46.65 05/29/2015 12:52 PM CDT Plan of Treatment Health Maintenance Due Date Last Done Comments Depression Monitoring (PHQ-9) 1984 HIV Screening 1984 Hepatitis C Screening 1984 Hepatitis B Vaccines (2 of 3 - 3-dose series) 02/26/2002 01/29/2002 Cervical/Vaginal Cancer Screening 07/25/2016 07/25/2013, 04/19/2011 COVID-19 Vaccine ( season) 2023 11/21/2020, 10/31/2020 Influenza Vaccine (#1) 2023 , 11/17/2021, 12/02/2020, Additional history exists Depression Monitoring (PHQ-9 for quality tracking) 02/22/2024 Lipid (Cholesterol) Screening 07/07/2025 07/07/2020, 09/07/2019, 02/19/2019, Additional history exists DTaP,Tdap,and Td Vaccines (8 - Td or Tdap) 03/01/2033 03/01/2023, 09/28/2016, 08/04/2006, Additional history exists IPV Vaccines Completed 07/12/1990, 09/21, 07/02/1985, Additional history exists HPV Vaccines Completed 11/17/2007, 10/2006, 10/26/2006 Pneumococcal vaccine (0-49 years) Aged Out No longer eligible based on patient's age to complete this topic Procedures Procedure Name Priority Date/Time Associated Diagnosis Comments THINPREP SCREEN HPV REFLEX Routine 07/25/2013 3:33 PM CDT LIPID PANEL, S Routine 04/19/2011 1:55 PM PRODUCTION PATTERN MAKER from Last 3 Months or Most Recently Relevant to Health Maintenance Results * Pathology ThinPrep Screen HPV Reflex (07/25/2013 3:33 PM CDT) Interpretation [id number] POWERCHART [facility] See Comment POWERCHART Comment: A. ThinPrep Pap Test Screen (Cervical/Endocervical HPV Reflex): Satisfactory for evaluation. Inadequate endocervical/transformation zone component Negative for intraepithelial lesion or malignancy. [facility] See Comment POWERCHART Comment: Report electronically signed by KAVIN Lorenzana(ASCP) 08/03/2013 07:56 Interpreted by: KAVIN Lorenzana(ASCP) [facility] See Comment POWERCHART Comment: A. ThinPrep Pap Test Screen (Cervical/Endocervical HPV Reflex): Received cloudy specimen in ThinPrep vial. Test Performed by: [address] [address] Gardener Florist: Ted Vidal III, M.D. Cervix/Endocervix 07/25/2013 3:33 PM CDT Mirna Davey APRN, C.N.P., D.N.P. LAB PAP PATHD X ORDERABLES Final Result POWERCHART * (ABNORMAL) Lipid Panel (04/19/2011 1:55 PM PRODUCTION PATTERN MAKER) Cholesterol, Total 224(H) 0 - 200 MGDL [...] Ratio 7 POWERCHART Blood 04/19/2011 1:55 PM PRODUCTION PATTERN MAKER Arminda Watson M.D. LAB BLOOD ADD-ON Final Result POWERCHART from Last 3 Months or Most Recently Relevant to Health Maintenance Insurance [facility] Advance Directives For more information, please contact: [phone] * Full Code (Latest Code Status on File) Date Activated Date Inactivated Comments 08/27/2020 9:33 PM 08/28/2020 3:40 PM Question Answer Comments Full Code: Discussed Care Teams Dance Studio Manager Relationship Specialty Start Date End Date Elsewhere, Pcp PCP - General Internal Medicine 08/28/18
[2024-04-05] MEDS: 0.9 % SODIUM CHLORIDE 500 ML 500 ML 100 ML IV (06:30)
[2024-04-05 06:39] VITALS: BP 142/81; PULSE 75; RESP 18; TEMP 36.6; O2SAT 96; BMI 44.8
[2024-04-05] MEDS: SODIUM CHLORIDE 0.9 % (FLUSH) 10 ML SYRINGE IVF (06:42)
[2024-04-05 06:58] LABS: Ur HCG Qualitative* Negative (Negative)
[2024-04-05] MEDS: SCOPOLAMINE 1 MG/3 DAY PATCH 1 PATCH TRANSDERMA (07:07)
--- NOTE | 2024-04-05 07:10 | W.PM.H&PU ---
History & Physical Update History & Physical Update H&P Reviewed and patient assessed: No changes noted
[2024-04-05 08:15] VITALS: BP 163/111; PULSE 78; RESP 20; TEMP 36.6; O2SAT 96
--- NOTE | 2024-04-05 08:16 | W.ANESCHARGE ---
Anesthesia Charges Start Date/Time Anesthesia Start Date: 04/05/24 Anesthesia Start Time: 07:17 Stop Date/Time Anesthesia Stop Date: 04/05/24 Anesthesia Stop Time: 08:14 Coding CPT Codes CPT Codes: ANESTH HYSTEROSCOPE/GRAPH - 84038 ([id number]) P3 - PATIENT W/SEVERE SYS DISEASE, QK - BASKET MACHINE OPERATOR 2-4 CNCRNT ANES PROC, QX - TRANSPORT TANK TECHNICIAN SVC W/ MD MED DIRECTION
[2024-04-05] MEDS: KETOROLAC 30 MG/ML inj IVP (08:18)
--- NOTE | 2024-04-05 08:18 | W.ANESCHARGE ---
Anesthesia Charges Start Date/Time Anesthesia Start Date: 04/05/24 Anesthesia Start Time: 07:17 Stop Date/Time Anesthesia Stop Date: 04/05/24 Anesthesia Stop Time: 08:14 Coding CPT Codes CPT Codes: ANESTH HYSTEROSCOPE/GRAPH - 50545 ([id number]) QK - IT SYSTEMS ANALYST CONSULTANT 2-4 CNCRNT ANES PROC, QX - VEGETABLE FARMER SVC W/ MD MED DIRECTION, P3 - PATIENT W/SEVERE SYS DISEASE
[2024-04-05 08:30] VITALS: BP 166/108; PULSE 75; RESP 20; O2SAT 96
--- NOTE | 2024-04-05 08:31 | W.PM.GYNPROC ---
Procedure Note Date of procedure: 04/05/24 Will [facility] bill your pro fee for this procedure?: Yes Pre-op diagnosis: Menorrhagia Suspected endometrial polyp on pelvic ultrasound Post-op diagnosis: Menorrhagia Thickened endometrium Procedure: Hysteroscopy with visual dilation and curettage Placement of Mirena IUD Anesthesia: MAC and local Complications: None Surgeon: Ilene Jones MD Estimated blood loss (mL): 5 IV fluids (mL): 200 Urine Output (mL): 20 Pathology: specimen obtained, sent to pathology (endometrial curettings) Condition: stable Disposition: same day Findings: 1. Upon pelvic exam under anesthesia, the cervix and vagina were normal in appearance. Uterus was mobile and anteverted, of normal size and texture. There were no palpable adnexal masses. 2. Upon hysteroscopy, survey and the cervix was normal. Survey of the endometrial cavity revealed diffusely thickened endometrium. Cavity shape was normal. Left tubal ostium was not visualized, but right tubal ostium was normal. Saline deficit 450 mL. Procedure Description: Procedure in detail: Patient was taken to the operating room with IV running. She was positioned in dorsal lithotomy position with her legs fully supported in Yellofin stirrups. Monitored anesthesia care was administered. She was prepped and draped in the usual sterile fashion. Exam under anesthesia was performed for the above-noted findings. Speculum was inserted. Cervix visualized and grasped along the anterior lip with a single-tooth tenaculum. Paracervical block was performed for a total of 10 mL of 1% lidocaine. Cervix was serially dilated to accommodate the TRUCLEAR hysteroscope. This was assembled with saline inflow and outflow in place. The line was flushed of bubbles. The hysteroscope was advanced through the cervix into the endometrial cavity for the above noted findings. The tissue morcellator was then inserted through the operating channel. Window lock was performed. Under direct visualization, the endometrial cavity was circumferentially curetted with the tissue morcellator. The hysteroscope and morcellator were then removed from the uterus. Uterus sounds to 8 cm. The IUD is loaded into the insertion tube, inserted to the sounded depth, and the IUD is deployed. Insertion tube was removed. Strings are trimmed to 3 cm. Tenaculum was removed from the anterior lip of cervix. Hemostasis was noted. Patient tolerated procedure well. She was taken to recovery area in stable condition. Postoperative debrief was verbalized with OR staff, including a verification of pathology specimens to be sent as described above.
[2024-04-05 08:45] VITALS: BP 161/102; PULSE 66; RESP 20; O2SAT 98
[2024-04-05 09:01] VITALS: BP 131/96; PULSE 64; RESP 20; O2SAT 98
== END 2024-04-05 09:18 | disposition home or self-care (01) ==
LOC: OR 06:07
PROVIDERS: PCP Nurse Practitioner Family; Visit Provider Obstetrics & Gynecology
PROC: 0UDB8ZZ Extraction of Endometrium, Via Natural or Artificial Opening Endoscopic (ICD-10-PCS; CPT 58558; principal; 2024-04-05 07:15)
DX: N92.0 Excessive and frequent menstruation with regular cycle (principal); R93.89 Abnormal findings on diagnostic imaging of other specified body structures; E11.9 Type 2 diabetes mellitus without complications
CPT/HCPCS: 58558; 58300; 00952; 36415; 81025; 82962; 86850; 86900; 86901; 88305; A9270; C1782; J1885; J2250; J2405; J2704; J3490; J7030; J7298

== ENCOUNTER 2024-08-28 11:17 | Outpatient (CLI) | payer OTHER, BC, SELFPAY | END 2024-08-28 11:18 | disposition home or self-care (01) | LOC: KYNREF 11:18 | PROVIDERS: PCP Nurse Practitioner Family; Visit Provider Nurse Practitioner Family | DX: E78.5 Hyperlipidemia, unspecified (principal) | CPT/HCPCS: 80061 ==

== ENCOUNTER 2024-09-07 09:02 | Outpatient (CLI) | payer OTHER, BC, SELFPAY ==
--- NOTE | 2024-09-07 09:15 | CRLHL7_ITS ---
For Patients: As a result of the Century Cures Act, medical imaging exams and procedure reports are released immediately into your electronic medical record. You may view this report before your referring provider. If you have questions, please contact your health care provider. INDICATION: F/U Thyroid Nodules COMPARISON: 08/03/2023 TECHNIQUE: Iraheta scale and color Doppler images were acquired of the thyroid gland. FINDINGS: Solid nodule adjacent to the right thyroid lobe inferior pole measures 1.3 x 1.1 x 1.1 cm, previously measuring 1.6 x 1.1 x 1.5 cm. Hypoechoic solid nodule left thyroid lobe measures 3.2 x 1.5 x 2.1 cm, previously measuring 4.3 x 1.7 x 2.2 cm. The right lobe measures 5.1 x 1.6 x 1.8 cm and the left lobe measures 5.2 x 2.0 x 2.1 cm in size. The isthmus measures 6 millimeters. The color Doppler images demonstrate normal vascularity. There is no evidence of cervical lymphadenopathy or parathyroid mass. IMPRESSION: Stable bilateral thyroid nodules. Dictated by Yuan Jurado MD @ 09/07/2024 10:42:00 AM (Electronically Signed)
== END 2024-09-07 09:03 | disposition home or self-care (01) ==
LOC: US 09:02
PROVIDERS: PCP Nurse Practitioner Family; Visit Provider Nurse Practitioner Family
DX: E04.1 Nontoxic single thyroid nodule (principal)
CPT/HCPCS: 76536